=== PATIENT | male | born 1955 | race Caucasian/White ===

== ENCOUNTER 2022-02-27 12:20 | Emergency (ER) | payer MEDICARE, BC, SELFPAY ==
[2022-02-27 12:27] VITALS: BP 134/82; PULSE 72; RESP 18; TEMP 37; O2SAT 98
--- NOTE | 2022-02-27 12:38 | ED.GENADUL_ITS ---
Discharge Plan Disposition Patient Disposition: HOME Condition: Stable Discharge Details Clinical Impression: Abrasion, corneal Primary Care Provider: Audra Singletary ED Provider: Paco Edwards Home Meds and New Rx's Prescriptions: New ciprofloxacin HCl [Ciloxan] 0.3 % drops See Rx Instructions .ROUTE .COMPLEX Qty: 5 0RF Rx Instructions: put 1-2 drps in affected eye(s) every 2hr up to 8 times/day x2days; then 4 times/day x5days Continued allopurinol 300 mg Tablet 300 mg PO DAILY hydrochlorothiazide 25 mg Tablet 25 mg PO DAILY metformin 750 mg Tablet Extended Release 24 Hr 750 mg PO DAILY Discharge Instructions Instructions: Corneal Abrasion (ED) Additional Instructions: Ciloxan as directed. Do not wear your contact in your left eye while you are taking this medication. Avoid rubbing your eye. You may use lupj-mzh-dsgqjru lubricating drops for symptomatic control. Please watch for new or worsening symptoms and return to the ER for any concerns. Lastly, please contact your records management specialist later today or tomorrow to discuss your ER visit need for outpatient reevaluation Medical Decision Making 67-year-old gentleman who reports tetanus status up-to-date, wears corrective lenses, contacts, presents for left eye injury he sustained a couple of hours ago after poking his eye with a piece of metal wire. Visual acuity's were obtained, please see nursing notes. Contact was then removed from the left eye. Abrasion present. Given he is a contact wearer will prescribe Cipro . Patient states that he has an records management specialist to follow-up with in [place]. We recommend that she do not wear your contacts while taking the antibiotic. Standard discharge and return precautions were provided. Patient understands, is agreeable to this plan, and has no additional questions or concerns upon discharge. This documentation was generated using [employer] system, please disregard any oddities of phrase or misspellings. HPI General Mode of arrival: ambulatory . Date/Time Provider Initiated Documentation: 02/27/22 12:33 . Limitations to Documentation: no limitations . Information obtained by: patient . History of Present Illness 67 year old M presents to the emergency department with the chief complaint of L eye injury, described as mild, with intensity rated at 2. Quality is described as aching, and is localized to the eyes and left. Patient reports no radiation. Patient started experiencing this hour(s) (2) and it has been constant. No relieving factors improve symptom(s), No exacerbating factors reported . Patient notes no other symptoms.. Patient did receive the following treatme nts prior to arrival, none Related Data Home Medications Medication Instructions Recorded Confirmed allopurinol 300 mg tablet 300 mg PO DAILY 02/27/22 02/27/22 ciprofloxacin HCl 0.3 % eye drops See Rx Instructions ophthalmic 02/27/22 (Ciloxan) (eye) .COMPLEX #5 mL hydrochlorothiazide 25 mg tablet 25 mg PO DAILY 02/27/22 02/27/22 metformin 750 mg tablet,extended 750 mg PO DAILY 02/27/22 02/27/22 release 24 hr Previous Rx's Medication Instructions Recorded ciprofloxacin HCl 0.3 % eye drops See Rx Instructions ophthalmic 02/27/22 (Ciloxan) (eye) .COMPLEX #5 mL Allergies Allergy/AdvReac Type Severity Reaction Status Date / Time acetaminophen [From Percocet] AdvReac Other (See Unverified 02/27/22 12:31 Comment) oxycodone [From Percocet] AdvReac Other (See Unverified 02/27/22 12:31 Comment) General Stated Complaint: EyeProblem LUCA: 4 Review of Systems Constitutional Constitutional: Denies fever(s) and Denies weakness Eyes Eyes: Denies blurry vision, Denies change in vision, Denies floaters, Reports irritation and Reports requires corrective lenses Musculoskeletal Musculoskeletal: Denies numbness and Denies tingling Neurologic Neurologic: Denies numbness, Denies tingling and Denies weakness PFSH All Active Problems Abrasion, corneal (Acute) Social History Smoking/Tobacco Use Status: Never Smoking risk assessment performed?: Yes Alcohol Intake: current Alcohol Intake frequency: holidays/special occasions only Drug use: Never Substance use type: does not use Exam Const General: cooperative, healthy appearing, comfortable and no acute distress Orientation: alert and awake [facility] Head: normal to inspection, normocephalic and atraumatic Face and sinus: normal facial exam Mouth: moist mucous membranes Eyes Alignment and Position: alignment normal Periorbital: periorbital findings normal Eyelids: eyelids normal Conjunctivae: conjunctival abnormality left conjunctival injection (L lateral) Sclera: sclerae normal Cornea: corneas abnormal on the left fluorescein used and abrasion and fluorescein used Pupils: PERRL EOM: EOM intact bilaterally Direct ophthalmoscopy: normal light reflex Eyes/upper lids images: 1. Abrasion Neck Neck: normal visual inspection, full ROM, trachea midline and supple Resp Effort & Inspection: normal respiratory effort and able to speak in complete sentences Skin General skin exam: no rashes or lesions noted Neuro General: patient alert, patient awake, moves all extremities and no focal motor deficits Sensory Exam: no sensory deficits noted Psych Appearance: grossly normal Mental Status: mental status grossly normal Course Vital Signs Vital signs: Vital Signs Temperature 37 C 02/27/22 12:27 Pulse 72 02/27/22 12:27 Respiratory Rate 18 02/27/22 12:27 Blood Pressure 134/82 02/27/22 12:27 Pulse Oximetry 98 02/27/22 12:27 Temperature 37 C 02/27/22 12:27 Temperature Source Temporal Artery Scan 02/27/22 12:27 Pulse 72 02/27/22 12:27 Respiratory Rate 18 02/27/22 12:27 Respiratory Effort Non-Labored 02/27/22 12:34 Blood Pressure 134/82 02/27/22 12:27 Blood Pressure Position Sitting 02/27/22 12:27 Pulse Oximetry 98 02/27/22 12:27 Oxygen Delivery Method Room Air 02/27/22 12:27 Oxygen Flow Rate 0 02/27/22 12:27
--- OUTSIDE RECORDS SUMMARY | 2022-02-27 12:50 | XMS_ITS | Continuity of Care Document ---
:1955 Author Organization [facility] Address [address] [place] [id number] Care Team Providers Name Role Phone Audra Singletary Primary Care Physician Encounter [facility] Date(s): 02/14/20 - 02/14/20 [facility] [address] [place] [phone] Discharge Disposition: Other Allergies, Adverse Reactions, Alerts No Known Allergies Assessment and Plan Future Appointments Immunizations Given and Recorded Vaccine Date Status Refusal Reason influenza, inactivated 05/16/19 Recorded influenza, inactivated 04/22/18 Given influenza, inactivated 05/11/17 Recorded influenza, inactivated1 05/09/16 Recorded influenza, inactivated 05/01/15 Given influenza, inactivated 07/13/06 Recorded Td 08/03/17 Given ZOS, shingles2 03/26/16 Given Tdap 07/27/06 Recorded 1Location History: Raul Antunez2Result Comment: Correction: Record corrected to change route of administration to subcutaneous. Incorrect order set build caused record to default to intramuscular; EMR provider could not remedy. Medications allopurinol 300 mg oral tablet 300 mg = 1 tab(s), Oral, Daily, # 90 tab(s), 3 Refill(s), [id number], 1 tab(s) Oral Daily Start Date: 06/27/19 Status: Orderedaspirin 81 mg oral tablet 81 mg = 1 tab(s), Oral, Every other day, # 100 tab(s), 0 Refill(s), other reason (Rx) Start Date: 05/01/15 Status: OrderedBD ultra fine mini insulin pen needles BD ultra fine mini insulin pen needles, See Instructions, 5 mm 31 gauge - Use daily with Levemir insulin - 1 ulm=812, # 1 box(es), 1 Refill(s), Pharmacy: [facility], 5 mm 31 gauge - Use daily with Levemir insulin - 1 qaj=928, Supply Start Date: 12/20/19 Status: OrderedhydroCHLOROthiazide 25 mg oral tablet 25 mg = 1 tab(s), Oral, Daily, # 90 tab(s), 3 Refill(s), Pharmacy: [facility] #[id number], 1 tab(s) Oral Daily Start Date: 04/22/19 Status: Orderedindomethacin 50 mg oral capsule 50 mg = 1 cap(s), Oral, TID, PRN PRN for pain, # 30 cap(s), 2 Refill(s), Pharmacy: [facility], 1 cap(s) Oral TID,PRN:for pain Start Date: 02/13/17 Status: OrderedLevemir FlexTouch 100 units/mL subcutaneous solution 20 unit(s), Subcutaneous, BID, # 15 mL, 5 Refill(s), Pharmacy: [facility] #[id number], 20 unit(s) Subcutaneous BID Start Date: 07/11/19 Status: OrderedmetFORMIN 750 mg oral tablet, extended release 750 mg = 1 tab(s), Oral, Daily, # 90 tab(s), 3 Refill(s), Pharmacy: [facility] #[id number], 1 tab(s) Oral Daily Start Date: 04/29/19 Status: OrderedOne Touch Ultra Blue Test Blue One Touch Ultra Blue Test Blue, See Instructions, BD ultra fine mini test strips. Tests twice daily-E11.9, # 100 EA, 1 Refill(s), Pharmacy: [facility] #[id number], BD ultra fine mini test strips. Tests twice daily-E11.9, Supply Start Date: 07/19/18 Status: Ordered Problem List Condition Effective Dates Status Health Status Informant Diabetes(Confirmed) Active Ankle fracture(Confirmed)1 Active Chronic gout(Confirmed) Active Hypertension(Confirmed) Active Hypertriglyceridemia(Confirmed) Active Overweight(Confirmed) Active 1R Procedures Procedure Date Related Diagnosis Body Site Status Intramedullary nailing of femur1 10/14/18 Completed Colonoscopy2 05/04/18 Completed Leg laceration3 Completed ORIF - Open reduction and internal Completed fixation of fracture4 [id number] from documented surgical case3s/p R thigh [id number] ulna Social History Social History Type Response Smoking Status Never Smoker entered on: 08/04/12 Sex
--- OUTSIDE RECORDS SUMMARY | 2022-02-27 12:50 | XMS_ITS | Continuity of Care Document ---
:1955 Author Organization [facility] Address [address] [place] [phone] Care Team Providers Name Role Phone uAdra Singleatry Primary Care Physician Encounter [facility] Date(s): 07/09/21 - 07/09/21 [facility] [address] [place] [phone] [place] Encounter Diagnosis Diabetes (Discharge Diagnosis) - 07/09/21 Hypertension (Discharge Diagnosis) - 07/09/21 Overweight (Discharge Diagnosis) - 07/09/21 Discharge Disposition: Home Attending Physician: Audra Singletary Admitting Physician: Audra Singletary Allergies, Adverse Reactions, Alerts No Known Allergies Assessment and Plan Extracted from: Title: f/u dm/htn Author: Audra Singletary Date: 07/09/21 1.??Diabetes??E11.9 Ordered: Return to Clinic., Reason For Visit f/u dm/htn, RTC in 6 months, 07/09/21 13:51:00 EST ?? 2.??Hypertension??I10 Ordered: Return to Clinic., Reason For Visit f/u dm/htn, RTC in 6 months, 07/09/21 13:51:00 EST ?? 3.??Overweight??E66.3 Ordered: Return to Clinic., Reason For Visit f/u dm/htn, RTC in 6 months, 07/09/21 13:51:00 EST ?? DM- on insulin??25 units bid and metfor min- labs pending from outside lab ?? htn- continue current regiment, stable ?? hld- previously trialed on statin- did not like the way he felt on it...declines lopid- trigs historically above 600, last at 319 . ?gout- on allopurinal, indocin prn, st able ?? optho exam- yearly ?? overweight continue with regular exe rcise Future Appointments Functional Status 07/09/21 Recent Travel History No recent travel Family Member Travel History No recent travel COVID-19 Screening None Immunizations Given and Recorded Vaccine Date Status Refusal Reason influenza, inactivated1 05/25/20 Recorded influenza, inactivated 05/16/19 Recorded influenza, inactivated 04/22/18 Given influenza, inactivated 05/11/17 Recorded influenza, inactivated2 05/09/16 Recorded influenza, inactivated 05/01/15 Given influenza, inactivated 07/13/06 Recorded Td 08/03/17 Given ZOS, shingles3 03/26/16 Given Tdap 07/27/06 Recorded 1Result Comment: Liliana Gusman [id number] History: Raul Antunez3 Result Comment: Correction: Record corrected to change route of administration to subcutaneous. Incorrect order set build caused record to default to intramuscular; EMR provider could not remedy. Medications (B-D MIHIR 2ND GEN PEN NDL [id number]) USE 1 NEEDLE TWICE A DAY WITH LEVEMIR (B-D MIHIR 2ND GEN PEN NDL [id number]) USE 1 NEEDLE TWICE A DAY WITH LEVEMIR, See Instructions, (B-D MIHIR 2ND GEN PEN NDL [id number]) USE 1 NEEDLE TWICE A DAY WITH LEVEMIR Qty: 200 EA Days Supply: 90 Refills: 0, # 100 EA, 2 Refill(s... Start Date: 04/03/21 Status: Orderedallopurinol 300 mg oral tablet 300 mg = 1 tab(s), Oral, Daily, # 90 tab(s), 3 Refill(s), [id number], 1 tab(s) Oral Daily Start Date: 06/25/20 Status: Orderedaspirin 81 mg oral tablet 81 mg = 1 tab(s), Oral, Every other day, # 100 tab(s), 0 Refill(s), other reason (Rx) Start Date: 05/01/15 Status: OrderedB-D MIHIR 2ND GEN PEN NDL [id number] See Instructions, USE 1 NEEDLE TWICE A DAY WITH LEVEMIR, # 200 EA, [id number] Start Date: 08/27/20 Status: OrderedhydroCHLOROthiazide 25 mg oral tablet 25 mg = 1 tab(s), Oral, Daily, # 90 tab(s), 3 Refill(s), [id number], Needsappt, 1 tab(s) Oral Daily Start Date: 10/29/20 Status: OrderedLevemir FlexTouch 100 units/mL subcutaneous solution 25 unit(s), Subcutaneous, BID, # 15 mL, 5 Refill(s), [id number] Start Date: 01/11/21 Status: OrderedmetFORMIN 750 mg oral tablet, extended release 750 mg = 1 tab(s), Oral, Daily, # 90 tab(s), 3 Refill(s), [id number], 1 tab(s) Oral Daily, 172.2, cm, 06/17/19 8:56:00 EST, Height/Length Dosing, 104.8, kg, 06/17/19 8:56:00 EST, Weight Dosing Start Date: 03/21/21 Status: OrderedOne Touch Ultra Blue Test Blue One Touch Ultra Blue Test Blue, See Instructions, BD ultra fine mini test strips. Tests twice daily-E11.9, # 100 EA, 1 Refill(s), [id number], BD ultra fine mini test strips. Tests [...] reduction and internal Completed fixation of fracture4 [id number] from documented surgical case3s/p R thigh [id number] ulna Results Most recent to oldest [Reference Range]: 1 Hemoglobin A1C POC 6.3 % (09/03/20 11:28 AM) Vital Signs Most recent to oldest [Reference Range]: 1 Peripheral Pulse Rate [60-100 bpm] 64 bpm (07/09/21 1:29 PM) Blood Pressure [90-140/60-90 mmHg] 133/83 mmHg (07/09/21 1:29 PM) BP Site Right arm (07/09/21 1:29 PM) Height 172.72 cm (07/09/21 1:29 PM) Height/Length Measured (inches) 68 in (07/09/21 1:29 PM) Height/Length Dosing 172.72 cm (07/09/21 1:29 PM) Weight 99.7 kg (07/09/21 1:29 PM) Weight Measured (lbs) 219.801 lb (07/09/21 1:29 PM) Weight Dosing 99.7 kg (07/09/21 1:29 PM) BSA Measured 2.19 m2 (07/09/21 1:29 PM) Body Mass Index 33.42 kg/m2 (07/09/21 1:29 PM) Social History Social History Type Response Smoking Status Never (less than 100 in life time) entered on: 07/09/21 Sex
--- OUTSIDE RECORDS SUMMARY | 2022-02-27 12:50 | XMS_ITS | Continuity of Care Document ---
:1955 Author Organization [facility] Address [address] [place] [phone] Care Team Providers Name Role Phone Audra Singletary Primary Care Physician Encounter [facility] Date(s): 06/17/19 - 06/17/19 [facility] [address] [place] [id number] Encounter Diagnosis Hypertension (Discharge Diagnosis) - 06/17/19 Diabetes (Discharge Diagnosis) - 06/17/19 Discharge Disposition: Home or Self Care Attending Physician: Audra Singletary Admitting Physician: Audra [...] Given Tdap 07/27/06 Recorded 1Location History: Raul Bhandari Comment: Correction: Record corrected to change route of administration to subcutaneous. Incorrect order set build caused record to default to intramuscular; EMR provider could not remedy. Medications allopurinol 300 mg oral tablet 300 mg = 1 tab(s), Oral, Daily, # 90 tab(s), 0 Refill(s), [id number], 1 tab(s) Oral Daily Start Date: 01/24/19 Status: Orderedaspirin 81 mg oral tablet 81 mg = 1 tab(s), Oral, Every other day, # 100 tab(s), 0 Refill(s), other reason (Rx) Start Date: 05/01/15 Status: OrderedBD ultra fine mini insulin pen needles BD ultra fine mini insulin pen needles, See Instructions, 5 mm 31 gauge - Use daily with Levemir insulin - 1 qyr=117, # 1 box(es), 3 Refill(s), [id number], 5 mm 31 gauge - Usedaily with Levemir insulin - 1 kza=280, Supply Start Date: 06/06/19 Status: OrderedhydroCHLOROthiazide 25 mg oral tablet 25 mg = 1 tab(s), Oral, Daily, # 90 tab(s), 3 Refill(s), [id number], 1 tab(s) Oral Daily Start Date: 04/22/19 Status: Orderedindomethacin 50 mg oral capsule 50 mg = 1 cap(s), Oral, TID, PRN PRN for pain, # 30 cap(s), 2 Refill(s), Pharmacy: [id number], 1 cap(s) Oral TID,PRN:for pain Start Date: 02/13/17 Status: OrderedLevemir FlexTouch 100 units/mL subcutaneous solution 20 unit(s), Subcutaneous, BID, # 15 mL, 1 Refill(s), [id number] Start Date: 04/29/19 Status: OrderedmetFORMIN 750 mg oral tablet, extended release 750 mg = 1 tab(s), Oral, Daily, # 90 tab(s), 3 Refill(s), [id number], 1 tab(s) Oral Daily Start Date: 04/29/19 Status: OrderedOne Touch Ultra Blue Test Blue One Touch Ultra Blue Test Blue, See Instructions, BD ultra fine mini test strips. Tests twice daily-E11.9, # 100 EA, 1 Refill(s), [id number], BD ultra fine mini test strips. Tests [...] reduction and internal Completed fixation of fracture4 [id number] from documented surgical case3s/p R thigh [id number] ulna Vital Signs Most recent to oldest [Reference Range]: 1 2 Temperature Oral [35.8-37.3 DegC] 36.7 DegC (06/17/19 8:56 AM) Peripheral Pulse Rate [60-100 bpm] 70 bpm (06/17/19 8:56 AM) Blood Pressure [90-140/60-90 mmHg] 124/88 mmHg 120/9 8 mmHg (06/17/19 9:13 AM) (06/17/19 8:56 AM) Vital Signs Comments BP true (06/17/19 8:56 AM) SpO2 [92-100 %] 96 % (06/17/19 8:56 AM) Height 172.72 cm (06/17/19 8:56 AM) Height/Length Measured (inches) 68 in (06/17/19 8:56 AM) Height/Length Dosing 172.2 cm (06/17/19 8:56 AM) Weight 104.8 kg (06/17/19 8:56 AM) Weight Measured (lbs) 230.56 lb (06/17/19 8:56 AM) Weight Dosing 104.8 kg (06/17/19 8:56 AM) BSA Measured 2.24 m2 (06/17/19 8:56 AM) Body Mass Index 35.13 kg/m2 (06/17/19 8:56 AM) Social History Social History Type Response Smoking Status Never Smoker entered on: 08/04/12 Sex Hospital Discharge Instructions Patient Smyfkdlcy70/22/2019 09:15:05.[facility]_DM_10_2018 (BIANCA SENIOR) All About Blood Glucose [place] [employer] 1???800???DIABETES ([phone]) www.diabetes.org ??2009 by the [place] [employer] Toolkit No. 15 Keeping your blood glucose (sugar) in your target range can prevent or delay the health problems caused by diabetes. Most of the steps needed to take care of diabetes are things you do yourself. ??? Use a meal plan. ??? Be physically active. ??? Take your medicines. ??? Try to reach your blood glucose targets most of the time. ??? Keep track of your blood glucose numbers using the results from your daily blood glucose testingand your A1C check. What makes my blood glucose levels rise or fall? Blood glucose levels rise and fall throughout the day. One beal to taking care of your diabetes is understanding why it rises and falls. If you know the reasons, you can take steps to help keep your blood glucose on target. What can make blood glucose rise? a meal or snack with more food or more carbohydrates (carbs) than usual ??? physical inactivity ??? not enough diabetes medicine ??? side effects of other medicines ??? infection or other illness ??? changes in hormone levels, such as during menstrual periods ??? stress What can make blood glucose fall? missing a meal or snack, or having a meal or snack with less food or fewer carbs than planned ??? alcoholic drinks, especially on an empty stomach ??? more activity than planned ??? too much diabetes medicine ??? side effects of other medicines What are the blood glucose targets for people with diabetes? Targets set by the [place] [employer] (ADA) are listed below. Talk with your health care team about your personal goals. What???s the best way to keep track of my blood glucose levels? Checking your blood glucose will tell you whether you???re reaching your blood glucose targets. There are 2 ways to do it. ??? Use a blood glucose meter to learn what your blood glucose is at the moment. ??? Get an A1C check at least twice a year. Using a blood glucose meter Many people use their meter to check their blood glucose several times a day. Talk with your health care team about when and how often to check your blood glucose. They can give you a record book whereyou can write down your blood glucose numbers. You can learn how to use your numbers to make choicesabout food, physical activity, and medicines. Your results tell you how well your diabetes care plan is working. You???ll be able to look at your record book and see patterns???look for similar results over and over. Looking at these patterns can help you and your health care team fine-tune your diabetes care plan in order to reach your targets. Getting an A1C check The A1C tells you your average blood glucose level over the past 2 to 3 months. Your results will bereported in two ways: ??? A1C as a percentage ??? estimated Average Glucose (eAG), in the same kind of numbers as your day-to-day blood glucose readings Ask your health care team for this test at least twice a year. If your average blood glucose is too high, you may need a change in your diabetes care plan. What does my A1C number mean? Find your A1C number on the left. Then, look at the number on the right under eAG to see your estimated Average Glucose for the past 2 to 3 months. What if my blood glucose is often too high? See your health care provider soon if your blood glucose numbers are often higher than your goals. Talk with your health care team about changes in your meal plan, your physical activity, or your diabetes medicines. What if my blood glucose is too low? Low blood glucose, also called hypoglycemia, occurs when your blood glucose level drops below 70 mg/dl. Low blood glucose can make you feel hungry, shaky, nervous, sweaty, light-headed, sleepy, anxious, or confused. If you think your blood glucose is too low, use your meter to check it. If the result is below 70 mg/dl, follow these guidelines to bring it back up to a safer range. Have one of the carb choices in this list (which each have about 15 grams carbohydrate) right away to raise your blood glucose: ??? 3 or 4 glucose tablets ? cup (4 ounces) of fruit juice ? cup (4 ounces) of a regular (not diet) soft drink ??? 8 ounces of milk ??? 5 to 7 pieces of hard candy ??? 1 tablespoon of sugar or honey After 15 minutes, check your blood glucose again. If it???s still below 70 mg/dl, eat another carb choice. Repeat these steps until your blood glucose is at least 70 mg/dl. What should I do about frequent low blood glucose? If your blood glucose is often low, you may need a change in your meal plan, physical activity, or diabetes medicines. Keep track of when you???ve had low blood glucose events. Note possible causes, such as unplanned physical activity. Then talk it over with your health care team. Eye Exams for People with Diabetes HOW DO I KNOW IF I HAVE EYE PROBLEMS? The best way to see if you have eye problems is to have an eye doctor check your eyes. You can have eye damage even if your vision is fine. It has nothing to do with needing glasses. Regular checkups with an eye doctor can detect eye disease early and prevent blindness. There are different types of eye care providers: ??? An diesel engineer makes glasses and lenses. An diesel engineer also makes and fits contact lenses. ??? An outside installation machinist is not a medical doctor, but can find and treat certain eye conditions and diseases. An outside installation machinist also prescribes glasses and contact lenses. ??? An bottle booth attendant is a medical doctor who finds and treats all eye diseases.Ophthalmologists can also prescribe glasses and contact lenses. An bottle booth attendant can treat severe eye problems. ??? A retinal specialist is an bottle booth attendant who only treats problems with the retina. People with diabetes need to have a full eye exam every year by an bottle booth attendant or outside installation machinist who knows about eye problems in people with diabetes. WHAT KIND OF EYE EXAM DO I NEED? The eye doctor will put drops in your eyes to see the retina. This is called a dilated eye exam. Theeye drops will make the pupils or black part of your eyes bigger. Then your doctor can see the back of your eye and find any eye problems early. WHEN DO I NEED AN EYE EXAM? Adults with Type 1 Diabetes You need to have a dilated eye exam within five years of being diagnosed and every year after that. Adults with Type 2 Diabetes You need to have a dilated exam soon after you have found out you have diabetes. About 1 in 5 peoplewith type 2 diabetes have some eye problems when they are diagnosed with diabetes. That???s why it???s important to have an eye exam soon after you find out you have diabetes. After the first eye exam, all adults with diabetes should have a dilated eye exam every year, although your doctor may suggest every 2 or 3 years after a normal exam. Exams may be needed more often than once a year if you have eye problems. Diabetes and If you are planning to get , have a complete eye exam. Talk with your eye doctor about what can happen to your eyes during . women with diabetes need an eye exam in the first 3 months. They also need to be checked again for one year after the baby is born. This picture shows what the doctor sees when shining a light through the pupil at the front of the eye. You will notice that with a dilated pupil, the doctor can see more of the retina at the back of the eye. Peripheral Neuropathy SYMPTOMS This is the most common form of nerve damage. It can affect your hands, arms, feet, and legs. Look at the list below. Place a check ramses next to any symptom you have and bring this list to your next office visit. Tingling ? ? My feet tingle. ? ? I feel ???pins and needles?? in my feet. Pain or increased sensitivity ? ? I have burning, stabbing or shooting pains in my feet. ? ? My feet are very sensitive to touch. For example, sometimes it hurts to have the bed covers touch my feet. ? ? Sometimes I feel like I have socks or gloves on when I don???t. ? ? My feet hurt at night. ? ? My feet and hands get very cold or very hot. Numbness or weakness ? ? My feet are numb and feel . ? ? I don???t feel pain in my feet, even when I have blisters or injuries. ? ? I can???t feel my feet when I???m walking. ? ? The muscles in my feet and legs are weak. ? ? I???m unsteady when I stand or walk. ? ? I have trouble feeling heat or cold in my feet or hands. Other ? ? It seems like the muscles and bones in my feet have changed shape. ? ? I have open sores (or ulcers) on my feet and legs. These sores heal very slowly. DIAGNOSIS Foot exams. Your health care provider should look at your feet at each office visit to check for injuries, sores, blisters, or other problems. As a reminder, take off your shoes and socks when you???rein the exam room. Have a complete foot exam once a year. If you already have foot problems, have your feet checked more often. A complete foot exam includes a check of the skin on your feet, your foot muscles and bones,and your blood flow. Your provider will also check for numbness in your feet by touching your foot with a monofilament. It looks like a stiff piece of nylon fishing line or a bristle in a hairbrush. Other ways to check your nerves include using a tuning fork. It may be touched to your foot to see if you can feel it moving. Nerve conduction studies and electromyography (EMG). If the doctor thinks you might have nerve damage, you may have tests that look at how well the nerves in your arms and legs are working. Nerve conduction studies check the speed with which nerves send messages. An EMG checks how your nerves and muscles work together. TREATMENT To treat nerve damage, you will need to keep your blood glucose levels in your target range, manage your pain, and protect your feet. Many people get depressed when they have nerve damage and may need medication for depression as well as counseling. Medications Medications to relieve pain and reduce burning, numbness, and tingling are available. Some of these are known for their use in other conditions but they still seem to help those with nerve damage. In addition to [id number]-[id number] pain relievers there are other medications your doctor may prescribe for painful peripheral neuropathy. Other treatments for pain There are a number of other ways to help with the pain. ??? Capsaicin (cap-SAY-sin) cream made from hot peppers can be rubbed on the skin ??? A TENS unit blocks pain signals ??? Relaxation training, hypnosis, or biofeedback ??? Acupuncture Diabetes and Kidney Disease If you have diabetes, you???re at risk for kidney disease, also called diabetic nephropathy. In fact, diabetes is the leading cause of kidney failure. But there are things you can do to prevent, delay,or treat kidney disease, including keeping blood glucose (sugar) and blood pressure on target. WHAT DO MY KIDNEYS DO? Your kidneys clean your blood by constantly filtering it through millions of tiny blood vessels. Thefilters in the kidneys perform two important functions: ??? They remove unwanted substances from your blood, such as extra fluid and the waste products madeby normal processes within the body. To prevent unwanted materials from building up in the blood andmaking you sick, your kidneys remove them and send them to your bladder. The waste products and extra fluid then leave the body in the urine. ??? The filters keep needed materials in the blood, such as protein and minerals. The cleanedup blood is returned to your bloodstream. Your kidneys perform other functions as well, such as helping to regulate blood pressure, stimulating your bone marrow to produce red blood cells, and helping your bones and your blood absorb calcium. HOW CAN DIABETES HURT MY KIDNEYS? Frequent high blood glucose levels over years can lead to changes in how the kidneys function. High blood glucose causes extra blood to flow through the filters, making the kidneys work harder than usual. Many people with diabetes have high blood pressure. High blood pressure in the kidney???s tiny blood vessels also puts added strain on the kidneys. High blood glucose and blood pressure levels can lead to scarring inside the filters so they don???t work as they should. WHAT HAPPENS ONCE THE DAMAGE IS DONE? Even though the filters aren???t working properly, symptoms may not occur until most of the kidney???s working capacity is lost. Before symptoms occur, substances such as protein leak through the wallsof the filters instead of being retained. Protein then leaves the body in the urine. HOW WILL I KNOW IF I HAVE KIDNEY PROBLEMS? Because kidney damage can occur for years without symptoms, the best way to learn whether you have kidney problems is to have a sample of your urine checked once a year. This test, called a microalbumin (AA-nyx-gq-BYOO-min) test, can show whether your kidneys are leaking protein (also called albumin). It???s best to have this test when you???re first diagnosed with type 2 diabetes and then once every year. Many people have protein in their urine when they???re first diagnosed with type 2 diabetes or soon afterward because they may have had diabetes for years before it was detected. If diabetes is present, even if it hasn???t been diagnosed, damage from high blood glucose levels can occur. If you have type 1 diabetes, you???re unlikely to have kidney damage at diagnosis. But you???ll need this test 5 years after diagnosis and every year after that. For more information visit diabetes.org or call 5-030-FPKLYETD 06/17/2019 09:15:05.[facility]_HTN__2019 (BIANCA SENIOR)Patient education: High blood pressure, diet, and weight (Beyond the Basics) HIGH BLOOD PRESSURE OVERVIEW Hypertension (high blood pressure) is a common condition that can lead to serious complications if untreated. These complications can include stroke, heart failure, heart attack, and kidney damage. Worldwide, hypertension contributes to cardiovascular more than any other risk factor. Making dietary changes (reducing sodium intake and increasing potassium intake) and losing weight are effective treatments for reducing blood pressure [12]. Other lifestyle changes that can help include stopping smoking, reducing stress, reducing alcohol consumption, and exercising regularly. All forms of physical activity are beneficial and should include least 150 minutes per week of moderate activity or 75 minutes per week of strenuous activity. All of these lifestyle changes are effective when used alone but often have the greatest benefit when used together. Many patients with hypertension will also require medications to lower their blood pressure to safe levels. An overview of hypertension and a discussion of treatments can be found elsewhere (see Patient education: High blood pressure in adults (Beyond the Basics) and Patient education: High blood pressuretreatment in adults (Beyond the Basics)). More detailed information is available by subscription. (See Salt intake, salt restriction, and primary (essential) hypertension and Diet in the treatment and prevention of hypertension.) DIETARY CHANGES AND BLOOD PRESSURE Making changes to what you eat can help to control high blood pressure. Reduce sodium (salt) - Reducing the amount of sodium you consume can lower blood pressure if you have high or borderline-high blood pressure. The main source of sodium in the diet is the salt contained in packaged and processed foods and in foods from restaurants. The body requires a small amount of sodium in the diet, and most people consume more sodium than they need (over 3 grams per day). A low-sodium diet contains fewer than 2.4 grams (2400 milligrams) of sodium per day. Although the ideal target for daily sodium intake remainscontroversial, the optimal goal is less than 1500 mg per day. For most adults with hypertension, however, a 1000 mg per day reduction in serum sodium intake (compared with current intake) can help reduce your blood pressure. A detailed discussion of low-sodium diets is available separately. (See Patient education: Low-sodium diet (Beyond the Basics).) Reduce alcohol - Drinking an??excessive amourit of alcohol increases your risk of developing high blood pressure. A drink is defined as 5 oz of wine, 12 oz of beer, or 1 oz of hard liquor. People whoconsume more than two drinks per day have an increased risk of high blood pressure compared with nondrinkers, and binge drinking (consuming four to five drinks within two hours) is an even greater problem for overall health and hypertension. On the other hand, drinking one (for women) or two (for men) drinks per day appears to benefit the heart in people greater than 40 years old. This protective effect also applies to people with preexisting high blood pressure. Eat more fruits and vegetables - Adding more fruits and vegetables to your diet may reduce high blood pressure or protect against developing high blood pressure. A strict vegetarian diet may not be necessary. Eat more fiber - Eating an increased amount of fiber may decrease blood pressure. The recommended amount of dietary fiber is 20 to 35 grams of fiber per day. Many breakfast cereals are excellent sources of dietary fiber. More information about increasing fiber is available separately. (See Patient edu cation: High-fiber diet (Beyond the Basics).) Eat more fish - Eating more fish may help to lower blood pressure, especially,when combined with weight loss. Caffeine - Caffeine may cause a small rise in blood pressure, although this effect is usually temporary. Drinking a moderate amount of caffeine (less than 2 cups of coffee per day) does not increase the risk of high blood pressure in most people. Dietary Approaches to Stop Hypertension (DASH) eating plan -The DASH eating plan combines many of the interventions noted above. It is high in fruits and vegetables, low-fat dairy, and fiber. Patients who strictly follow the DASH eating plan can also have fairly significant reductions in blood pressure, particularly when combined with a low- sodium diet. EXERCISE Regular exercise such as walking or running (75 minutes per week of strenuous activity or 150 minutes per week of moderate activity) can lower your blood- pressure, even if you don't lose weight. To maintain this benefit, you must continue to exercise; stopping exercise will allow your blood pressure to become high again. (See Patient education: Exercise /Beyond the Basics).) WEIGHT LOSS AND BLOOD PRESSURE Being overweight or obese increases your risk of having high blood pressure, diabetes, and cardiovascular disease. The definition of overweight and obese are based upon a calculation called body mass index (BMI). A person is considered overweight if their BMI is greate than 25, while a person with a BMI of 30 or greater is classified as obese. People who are overweight or obese can see significant reductions in blood pressure with even modest weight loss. To lose weight, you must eat fewer calories and exercise more . (See Patient education: Losing weight (Beyond the Basics).) AVOID TAKING MEDICATIONS AND SUPPLE'MENTS THAT INCREASE BLOOD PRESSURE In susceptible individuals, nonsteroidal antiinflammatory drugs, otherwise known as NSAIDs (ibuprofen, naproxen, etc), can increase blood pressure. Oral contraceptive pills may?? increase blood pressure in some women. Additionally, any stimulant, including those found in some decongestants, weight loss products, and illicit drugs, can increa e blood pressure. If you are regularly consuming any of these substances, you should talk to your health care provider. WHAT IF I STILL HAVE HIGH BLOOD PRESSURE? If you continue to have high blood pressure despite making lifestyle modifications including changesin your diet, exercising more, and losing weight, you may need a medication to reduce your blood pressure. Medications for high blood pressure are discussed separately. (See Patient education: High blood pressure treatment in adults (Beyond the Basics).) WHERE TO GET MORE INFORMATION Your health care provider is the best source of information for questions and concerns related to your medical problem.
--- OUTSIDE RECORDS SUMMARY | 2022-02-27 12:50 | XMS_ITS | Continuity of Care Document ---
:1955 Author Organization [facility] Address [address] [place] [phone] Care Team Providers Name Role Phone Audra Singletary Primary Care Physician Encounter [facility] Date(s): 08/09/20 - 08/09/20 [facility] [address] [place] [phone] Encounter Diagnosis Diabetes (Discharge Diagnosis) - 08/09/20 Hypertension (Discharge Diagnosis) - 08/09/20 Hypertriglyceridemia (Discharge Diagnosis) - 08/09/20 Discharge Disposition: Home Attending Physician: Audra Singletary Admitting Physician: Audra Singletary Allergies, Adverse Reactions, Alerts No Known Allergies Assessment and Plan Future Appointments Functional Status 08/09/20 Recent Travel History No recent travel Family [...] Tdap 07/27/06 Recorded 1Result Comment: Liliana Gusman [id number] History: Raul Antunez3 Result Comment: Correction: Record corrected to change route of administration to subcutaneous. Incorrect order set build caused record to default to intramuscular; EMR provider could not remedy. Medications allopurinol 300 mg oral tablet 300 mg = 1 tab(s), Oral, Daily, # 90 tab(s), 3 Refill(s), [facility][id number], 1 tab(s) Oral Daily Start Date: 06/25/20 Status: Orderedaspirin 81 mg oral tablet 81 mg = 1 tab(s), Oral, Every other day, # 100 tab(s), 0 Refill(s), other reason (Rx) Start Date: 05/01/15 Status: OrderedBD ultra fine mini insulin pen needles BD ultra fine mini insulin pen needles, See Instructions, 5 mm 31 gauge - Use daily with Levemir insulin - 1 yia=096, # 1 box(es), 1 Refill(s), Pharmacy: [address], 5 mm 31 gauge - Use daily with Levemir insulin - 1 haj=103, Supply Start Date: 12/20/19 Status: OrderedhydroCHLOROthiazide 25 mg oral tablet 25 mg = 1 tab(s), Oral, Daily, # 90 tab(s), 0 Refill(s), [id number], Needsappt, 1 tab(s) Oral Daily Start Date: 07/31/20 Status: Orderedindomethacin 50 mg oral capsule 50 mg = 1 cap(s), Oral, TID, PRN PRN for pain, # 30 cap(s), 2 Refill(s), Pharmacy: [facility] [address], 1 cap(s) Oral TID,PRN:for pain Start Date: 02/13/17 Status: OrderedLevemir FlexTouch 100 units/mL subcutaneous solution 20 unit(s), Subcutaneous, BID, # 15 mL, 5 Refill(s), [facility][id number], 20 unit(s) Subcutaneous BID Start Date: 06/11/20 Status: OrderedmetFORMIN 750 mg oral tablet, extended release 750 mg = 1 tab(s), Oral, Daily, # 30 tab(s), 3 Refill(s), [facility][id number], 1 tab(s) Oral Daily Start Date: 07/13/20 Status: OrderedOne Touch Ultra Blue Test Blue One Touch Ultra Blue Test Blue, See Instructions, BD ultra fine mini test strips. Tests twice daily-E11.9, # 100 EA, 1 Refill(s), [facility][id number], BD ultra fine mini test strips. Tests [...] reduction and internal Completed fixation of fracture4 [id number] from documented surgical case3s/p R thigh ilzjwbsikr5W ulna Vital Signs Most recent to oldest [Reference Range]: 1 2 Peripheral Pulse Rate [60-100 bpm] 82 bpm (08/09/20 2:45 PM) Blood Pressure [90-140/60-90 mmHg] 137/80 mmHg 147/8 3 mmHg (08/09/20 3:04 PM) *HI* (08/09/20 2:45 PM) BP Site Right arm (08/09/20 2:45 PM) Height 172.72 cm (08/09/20 2:45 PM) Height/Length Measured (inches) 68 in (08/09/20 2:45 PM) Weight 100.8 kg (08/09/20 2:45 PM) Weight Measured (lbs) 221.76 lb (08/09/20 2:45 PM) BSA Measured 2.2 m2 (08/09/20 2:45 PM) Body Mass Index 33.79 kg/m2 (08/09/20 2:45 PM) Social History Social History Type Response Smoking Status Never (less than 100 in life time) entered on: 08/09/20 Sex
--- OUTSIDE RECORDS SUMMARY | 2022-02-27 12:50 | XMS_ITS | Continuity of Care Document ---
:[address] [facility] Address Unavailable , Care Team Providers Name Role Phone Audra Singletary Primary Care Physician Encounter [facility] Date(s): 06/17/19 - 06/17/19 [facility] [address] [place] [address]- Encounter Diagnosis Diabetes (Discharge Diagnosis) - 06/17/19 Hypertension (Discharge Diagnosis) - 06/17/19 Discharge Disposition: Home [...] Daily, # 90 tab(s), 0 Refill(s), [facility][id number], 1 tab(s) Oral Daily Start Date: 01/24/19 Status: Orderedaspirin 81 mg oral tablet 81 mg = 1 tab(s), Oral, Every other day, # 100 tab(s), 0 Refill(s), other reason (Rx) Start Date: 05/01/15 Status: OrderedBD ultra fine mini insulin pen needles BD ultra fine mini insulin pen needles, See Instructions, 5 mm 31 gauge - Use daily with Levemir insulin - 1 pvs=909, # 1 box(es), 3 Refill(s), [id number], 5 mm 31 gauge - Usedaily with Levemir insulin - 1 xzt=240, Supply Start Date: 06/06/19 Status: OrderedhydroCHLOROthiazide 25 mg oral tablet 25 mg = 1 tab(s), Oral, Daily, # 90 tab(s), 3 Refill(s), Pharmacy: [facility] #[id number], 1 tab(s) Oral Daily Start Date: 04/22/19 Status: Orderedindomethacin 50 mg oral capsule 50 mg = 1 cap(s), Oral, TID, PRN PRN for pain, # 30 cap(s), 2 Refill(s), Pharmacy: [address], 1 cap(s) Oral TID,PRN:for pain Start Date: 02/13/17 Status: OrderedLevemir FlexTouch 100 units/mL subcutaneous solution 20 unit(s), Subcutaneous, BID, # 15 mL, 1 Refill(s), [id number] Start Date: 04/29/19 Status: OrderedmetFORMIN 750 mg oral tablet, extended release 750 mg = 1 tab(s), Oral, Daily, # 90 tab(s), 3 Refill(s), [id number], 1 tab(s) Oral Daily Start Date: 04/29/19 Status: OrderedOne Touch Ultra Blue Test Blue One Touch Ultra Blue Test Blue, See Instructions, BD ultra fine mini test strips. Tests twice daily-E11.9, # 100 EA, 1 Refill(s), [id number], BD ultra fine mini test strips. Tests [...] reduction and internal Completed fixation of fracture4 [id number] from documented surgical case3s/p R thigh csmowxjpmz1B ulna Results Laboratory List Name Date Basic Metabolic Panel DH (BMP DH) 06/17/19 HA1C DH (Hemoglobin A1C DH) 06/17/19 Most recent to oldest [Reference Range]: 1 Anion Gap DH [5-15 mmol/L] 12 mmol/L 1 *NA* (06/17/19 9:27 AM) Chloride Lvl DH [98-107 mmol/L] 102 mmol/L 2 *NA* (06/17/19 9:27 AM) CO2 DH [22-31 mmol/L] 26 mmol/L 3 *NA* (06/17/19 9:27 AM) Est GFR DH [>=60] 70 4 *NA* (06/17/19 9:27 AM) Glucose Lvl DH [65-199 mg/dL] 183 mg/dL 5 *NA* (06/17/19 9:27 AM) Potassium Lvl DH [3.5-5.0 mmol/L] 4.2 mmol/L 6 *NA* (06/17/19 9:27 AM) Sodium Lvl DH [135-145 mmol/L] 140 mmol/L 7 *NA* (06/17/19 9:27 AM) BUN DH [10-20 mg/dL] 22 mg/dL 8 *HI* (06/17/19 9:27 AM) Calcium Lvl DH [8.5-10.5 mg/dL] 9.7 mg/dL 9 *NA* (06/17/19 9:27 AM) Creatinine [0.80-1.50 mg/dL] 1.11 mg/dL 10 *NA* (06/17/19 9:27 AM) GFR - DH [>=60] 81 11 *NA* (06/17/19 9:27 AM) Hgb A1c DH [4.3-5.6 %] 6.2 % 12 *HI* (06/17/19 9:27 AM) eAG DH 132 mg/dL 13 *NA* (06/17/19 9:27 AM) 1Result Comment: Test performed at: [facility], Dept. of Pathology [place], [place] [address]Ooerqo Comment: Test performed at: [facility], Dept. of Pathology [place], [place] [address]Mlkcww Comment: Test performed at: [facility], Dept. of Pathology [place], [place] [address]Siwgqb Comment: The eGFR was calculated using the CKD-EPI equation. As with all creatinine based estimates of kidney function, eGFR values calculated with the CKD-EPI equation are not accurate in patients with acute kidney failure, extremes of body mass or the acutely ill. http://E-Duction/DHnkf Test performed at: [facility], Dept. of [place], [place] [address]Ckrdsb Comment: Diabetes: >=200 mg/dL plus symptoms Test performed at: [facility], Dept. of Pathology [place], [place] [address]Bbclcr Comment: Please note: Patients with WBC >100,000 may have falsely elevated Potassium levels. For accurate Potassium quantification in these patients send serum separator tube (gold top) for subsequent determinations. Contact the Clinical Chemistry Laboratory if there are any questions. Test performed at: [facility], Dept. of Pathology [place], [place] [address]Jkihhp Comment: Test performed at: [facility], Dept. of Pathology [place], [place] [address]Mssdda Comment: Test performed at: [facility], Dept. of Pathology [place], [place] [address]Grojcs Comment: Test performed at: [facility], Dept. of Pathology [place], [place] [id number] Comment: Test performed at: [facility], Dept. of Pathology [place], [place] [id number] Comment: The eGFR was calculated using the CKD-EPI equation. As with all creatinine based estimates of kidney function, eGFR values calculated with the CKD-EPI equation are not accurate in patients with acute kidney failure, extremes of body mass or the acutely ill. http://E-Duction/DHMCnkf Test performed at: [facility], Dept. of Pathology [place], [place] [address]Fmyjwu Comment: Reference Range: 4.3 - 5.6% 5.7 - 6.4% - Increased Risk of Developing Diabetes Mellitus >= 6.5% - Consistent with diagnosis of Diabetes Mellitus In the absence of hyperglycemia (i.e. plasma glucose > 200 mg/dL) or classic symptoms of hyperglycemia a repeat measurement of HbA1c should be performed on a separate sample to confirm the diagnosis. Diagnosis and Classification of Diabetes Mellitus, Diabetes Care 2013; 36: Suppl. 1, S67-74 Test performed at: [facility], Dept. of Pathology [place], [place] [id number] Comment: eAG equivalents for HbA1c percentages: HbA1c(%) eAG(mg/dL) 6.0 126 6.5 140 7.0 154 7.5 169 8.0 183 8.5 197 9.0 212 9.5 226 10.0 240 Limitations: The eAG calculation has not been validated on women, individuals below 18 years old and above 70 years old, and individuals with hemoglobinopathies. Additional resources are available on the ADA website. Jose RODRIGUEZ, Pauline J, Veronica R, et al. Translating the A1C assay into estimated average glucose values. Diabetes Care 2008:31(8):1379-5629. Test performed at: [facility], [place] [address] Social History Social History Type Response Smoking Status Never Smoker entered on: 08/04/12 Sex
--- OUTSIDE RECORDS SUMMARY | 2022-02-27 12:50 | XMS_ITS | Continuity of Care Document ---
:1955 Author Organization [facility] Address [address] [place] [phone] Care Team Providers Name Role Phone Audra Singletary Primary Care Physician Encounter [facility] Date(s): 07/15/21 - 07/15/21 [facility] [address] [place] [phone] Discharge Disposition: Other Allergies, Adverse Reactions, Alerts [...] Tdap 07/27/06 Recorded 1Result Comment: Liliana Gusman [id number] History: Raul Antunez3 Result Comment: Correction: Record corrected to change route of administration to subcutaneous. Incorrect order set build caused record to default to intramuscular; EMR provider could not remedy. Medications (B-D MIHIR 2ND GEN PEN NDL [id number]) USE 1 NEEDLE TWICE A DAY WITH LEVEMIR (B-D MIHIR 2ND GEN PEN NDL [id number]) USE 1 NEEDLE TWICE A DAY WITH LEVEMIR, See Instructions, (B-D MIHIR 2ND GEN PEN NDL [id number]) USE 1 NEEDLE TWICE A DAY WITH LEVEMIR Qty: 200 EA Days Supply: 90 Refills: 0, # 100 EA, 2 Refill(s... Start Date: 04/03/21 Status: Orderedallopurinol 300 mg oral tablet 300 mg = 1 tab(s), Oral, Daily, # 90 tab(s), 3 Refill(s), [facility][id number], 1 tab(s) Oral Daily Start Date: 06/25/20 Status: Orderedaspirin 81 mg oral tablet 81 mg = 1 tab(s), Oral, Every other day, # 100 tab(s), 0 Refill(s), other reason (Rx) Start Date: 05/01/15 Status: OrderedB-D MIHIR 2ND GEN PEN NDL [id number] See Instructions, USE 1 NEEDLE TWICE A DAY WITH LEVEMIR, # 200 EA, Refill(s) 1, [id number] Start Date: 08/27/20 Status: OrderedhydroCHLOROthiazide 25 mg oral tablet 25 mg = 1 tab(s), Oral, Daily, # 90 tab(s), 3 Refill(s), [facility] #[id number], Needsappt, 1 tab(s) Oral Daily Start Date: 10/29/20 Status: OrderedLevemir FlexTouch 100 units/mL subcutaneous solution 25 unit(s), Subcutaneous, BID, # 15 mL, 5 Refill(s), [facility] #[id number] Start Date: 01/11/21 Status: OrderedmetFORMIN 750 mg oral tablet, extended release 750 mg = 1 tab(s), Oral, Daily, # 90 tab(s), 3 Refill(s), [facility] #[id number], 1 tab(s) Oral Daily, 172.2, cm, 06/17/19 8:56:00 EST, Height/Length Dosing, 104.8, kg, 06/17/19 8:56:00 EST, Weight Dosing Start Date: 03/21/21 Status: OrderedOne Touch Ultra Blue Test Blue One Touch Ultra Blue Test Blue, See Instructions, BD ultra fine mini test strips. Tests twice daily-E11.9, # 100 EA, 1 Refill(s), [facility] #[id number], BD ultra fine mini test strips. Tests [...] reduction and internal Completed fixation of fracture4 [id number] from documented surgical case3s/p R thigh [id number] ulna Social History Social History Type Response Smoking Status Never (less than 100 in life time) entered on: 07/09/21 Sex
--- OUTSIDE RECORDS SUMMARY | 2022-02-27 12:50 | XMS_ITS | Continuity of Care Document ---
:1955 Author Organization [facility] Address [address] [place] [phone] Care Team Providers Name Role Phone Audra Singletary Primary Care Physician Encounter [facility] Date(s): 07/11/20 - 07/11/20 [facility] [address] [place] [phone] Discharge Disposition: Other Allergies, Adverse Reactions, Alerts [...] Daily, # 90 tab(s), 3 Refill(s), [facility][id number], 1 tab(s) Oral Daily Start Date: 06/25/20 Status: Orderedaspirin 81 mg oral tablet 81 mg = 1 tab(s), Oral, Every other day, # 100 tab(s), 0 Refill(s), other reason (Rx) Start Date: 05/01/15 Status: OrderedBD ultra fine mini insulin pen needles BD ultra fine mini insulin pen needles, See Instructions, 5 mm 31 gauge - Use daily with Levemir insulin - 1 oyw=293, # 1 box(es), 1 Refill(s), Pharmacy: [facility], 5 mm 31 gauge - Use daily with Levemir insulin - 1 hos=655, Supply Start Date: 12/20/19 Status: OrderedhydroCHLOROthiazide 25 mg oral tablet 25 mg = 1 tab(s), Oral, Daily, # 90 tab(s), 0 Refill(s), [facility]: [facility] #[id number], 1 tab(s) Oral Daily Start Date: 05/01/20 Status: Orderedindomethacin 50 mg oral capsule 50 mg = 1 cap(s), Oral, TID, PRN PRN for pain, # 30 cap(s), 2 Refill(s), Pharmacy: [facility], 1 cap(s) Oral TID,PRN:for pain Start Date: 02/13/17 Status: OrderedLevemir FlexTouch 100 units/mL subcutaneous solution 20 unit(s), Subcutaneous, BID, # 15 mL, 5 Refill(s), Pharmacy: [facility] #[id number], 20 unit(s) Subcutaneous BID Start Date: 06/11/20 Status: OrderedmetFORMIN 500 mg oral tablet 500 mg = 1 tab(s), Oral, BID, # 180 tab(s), 3 Refill(s), Pharmacy: [facility] #[id number], 1 tab(s) Oral BID Start Date: 02/15/20 Status: OrderedOne Touch Ultra Blue Test Blue One Touch Ultra Blue Test Blue, See Instructions, BD ultra fine mini test strips. Tests twice daily-E11.9, # 100 EA, 1 Refill(s), Pharmacy: [facility] #[id number], BD ultra fine mini test strips. Tests [...] reduction and internal Completed fixation of fracture4 [id number] from documented surgical case3s/p R thigh zhcqdtoeoo4D ulna Social History Social History Type Response Smoking Status Never Smoker entered on: 08/04/12 Sex
--- OUTSIDE RECORDS SUMMARY | 2022-02-27 12:50 | XMS_ITS | Continuity of Care Document ---
:1955 Author Organization [facility] Address [address] [place] [phone] Care Team Providers Name Role Phone Audra Singletary Primary Care Physician Encounter [facility] Date(s): 01/03/22 - 01/03/22 [facility] [address] [place] [phone] Discharge Disposition: Other Allergies, Adverse Reactions, Alerts [...] Tdap 07/27/06 Recorded 1Result Comment: Liliana Gusman [id number] History: Raul Antunez3 Result Comment: Correction: Record corrected to change route of administration to subcutaneous. Incorrect order set build caused record to default to intramuscular; EMR provider could not remedy. Medications (B-D MIHIR 2ND GEN PEN NDL [id number]) USE 1 NEEDLE TWICE A DAY WITH LEVEMIR (B-D MIHIR 2ND GEN PEN NDL [id number]) USE 1 NEEDLE TWICE A DAY WITH LEVEMIR, See Instructions, (B-D MIHIR 2ND GEN PEN NDL [id number]) USE 1 NEEDLE TWICE A DAY WITH LEVEMIR Qty: 200 EA Days Supply: 90 Refills: 0, # 100 EA, 2 Refill(s... Start Date: 08/02/21 Status: Orderedallopurinol 300 mg oral tablet 300 mg = 1 tab(s), Oral, Daily, # 90 tab(s), 3 Refill(s), [id number], 1 tab(s) Oral Daily, 172.72, cm, 07/09/21 13:29:00 EST, Height/Length Dosing, 99.7, kg, 07/09/21 13:29:00EST, Weight Dosing Start Date: 08/02/21 Status: Orderedaspirin 81 mg oral tablet 81 mg = 1 tab(s), Oral, Every other day, # 100 tab(s), 0 Refill(s), other reason (Rx) Start Date: 05/01/15 Status: OrderedB-D MIHIR 2ND GEN PEN NDL [id number] See Instructions, USE 1 NEEDLE TWICE A DAY WITH LEVEMIR, # 200 EA, [facility](s) [id number] Start Date: 08/27/20 Status: OrderedhydroCHLOROthiazide 25 mg oral tablet 25 mg = 1 tab(s), Oral, Daily, # 90 tab(s), 3 Refill(s), [id number], Needsappt, 1 tab(s) Oral Daily, 172.72, cm, 07/09/21 13:29:00 EST, Height/Length Dosing, 99.7, kg, 07/09/21 13:29:00 EST, Weight Dosing Start Date: 08/02/21 Status: OrderedLevemir FlexTouch 100 units/mL subcutaneous solution 25 unit(s), Subcutaneous, BID, # 15 mL, 5 Refill(s), [id number], 25 unit(s) Subcutaneous BID, 172.72, cm, 07/09/21 13:29:00 EST, Height/Length Dosing, 99.7, kg, 07/09/21 13:29:00 EST, Weight Dosing Start Date: 08/02/21 Status: OrderedmetFORMIN 750 mg oral tablet, extended release 750 mg = 1 tab(s), Oral, Daily, # 90 tab(s), 3 Refill(s), [id number], 1 tab(s) Oral Daily, 172.2, cm, 06/17/19 8:56:00 EST, Height/Length Dosing, 104.8, kg, 06/17/19 8:56:00 EST, Weight Dosing Start Date: 03/21/21 Status: OrderedOne Touch Ultra Blue Test Blue One Touch Ultra Blue Test Blue, See Instructions, BD ultra fine mini test strips. Tests twice daily-E11.9, # 100 EA, 1 Refill(s), [id number], BD ultra fine mini test strips. Tests [...] reduction and internal Completed fixation of fracture4 [id number] from documented surgical case3s/p R thigh wwctkibxyq7F ulna Social History Social History Type Response Smoking Status Never (less than 100 in life time) entered on: 07/09/21 Sex Care Team PersonnelName: Audra Singletary Address: [address] [id number]
--- OUTSIDE RECORDS SUMMARY | 2022-02-27 12:50 | XMS_ITS | Continuity of Care Document ---
:1955 Author Organization [facility] Address [address] [place] [phone] Care Team Providers Name Role Phone Audra Singletary Primary Care Physician Encounter [facility] Date(s): 07/13/20 - 07/13/20 [facility] [address] [place] [phone] Discharge Disposition: Other Allergies, Adverse Reactions, Alerts [...] Daily, # 90 tab(s), 3 Refill(s), [facility][id number], 1 tab(s) Oral Daily Start Date: 06/25/20 Status: Orderedaspirin 81 mg oral tablet 81 mg = 1 tab(s), Oral, Every other day, # 100 tab(s), 0 Refill(s), other reason (Rx) Start Date: 05/01/15 Status: OrderedBD ultra fine mini insulin pen needles BD ultra fine mini insulin pen needles, See Instructions, 5 mm 31 gauge - Use daily with Levemir insulin - 1 yxu=008, # 1 box(es), 1 Refill(s), Pharmacy: [facility], 5 mm 31 gauge - Use daily with Levemir insulin - 1 flm=655, Supply Start Date: 12/20/19 Status: OrderedhydroCHLOROthiazide 25 mg oral tablet 25 mg = 1 tab(s), Oral, Daily, # 90 tab(s), 0 Refill(s), [facility]acy: [facility] #[id number], 1 tab(s) Oral Daily Start Date: 05/01/20 Status: Orderedindomethacin 50 mg oral capsule 50 mg = 1 cap(s), Oral, TID, PRN PRN for pain, # 30 cap(s), 2 Refill(s), Pharmacy: [facility], 1 cap(s) Oral TID,PRN:for pain Start Date: 02/13/17 Status: OrderedLevemir FlexTouch 100 units/mL subcutaneous solution 20 unit(s), Subcutaneous, BID, # 15 mL, 5 Refill(s), Pharmacy: [facility] #[id number], 20 unit(s) Subcutaneous BID Start Date: 06/11/20 Status: OrderedmetFORMIN 750 mg oral tablet, extended release 750 mg = 1 tab(s), Oral, Daily, # 30 tab(s), 3 Refill(s), Pharmacy: [facility] #[id number], 1 tab(s) Oral Daily Start Date: 07/13/20 Status: OrderedOne Touch Ultra Blue Test Blue One Touch Ultra Blue Test Blue, See Instructions, BD ultra fine mini test strips. Tests twice daily-E11.9, # 100 EA, 1 Refill(s), Pharmacy: [facility] #[id number], BD ultra fine mini test strips. Tests [...] reduction and internal Completed fixation of fracture4 [id number] from documented surgical case3s/p R thigh flsnwbkvyq5G ulna Social History Social History Type Response Smoking Status Never Smoker entered on: 08/04/12 Sex
--- OUTSIDE RECORDS SUMMARY | 2022-02-27 12:50 | XMS_ITS | Continuity of Care Document ---
:1955 Author Organization [facility] Address [address] [place] [phone] Care Team Providers Name Role Phone Audra Singletary Primary Care Physician Encounter [facility] Date(s): 01/14/22 - 01/14/22 [facility] [address] [place] [phone] Encounter Diagnosis Hypertension (Discharge Diagnosis) - 01/14/22 Hypertriglyceridemia (Discharge Diagnosis) - 01/14/22 Overweight (Discharge Diagnosis) - 01/14/22 Diabetes (Discharge Diagnosis) - 01/14/22 Discharge Disposition: Home Attending Physician: Audra Singletary Admitting Physician: Audra Singletary Allergies, Adverse Reactions, Alerts No Known Allergies Assessment and Plan Future Appointments Functional Status 01/14/22 Recent Travel History No recent travel Family [...] Tdap 07/27/06 Recorded 1Result Comment: Liliana Gusman [id number] History: Raul Antunez3 Result Comment: Correction: Record corrected to change route of administration to subcutaneous. Incorrect order set build caused record to default to intramuscular; EMR provider could not remedy. Medications (B-D MIHIR 2ND GEN PEN NDL [id number]) USE 1 NEEDLE TWICE A DAY WITH LEVEMIR (B-D MIHIR 2ND GEN PEN NDL [id number]) USE 1 NEEDLE TWICE A DAY WITH LEVEMIR, See Instructions, (B-D MIHIR 2ND GEN PEN NDL [id number]) USE 1 NEEDLE TWICE A DAY WITH LEVEMIR Qty: 200 EA Days Supply: 90 Refills: 0, # 100 EA, 2 Refill(s... Start Date: 08/02/21 Status: Orderedallopurinol 300 mg oral tablet 300 mg = 1 tab(s), Oral, Daily, # 90 tab(s), 3 Refill(s), [id number], 1 tab(s) Oral Daily, 172.72, cm, 07/09/21 13:29:00 EST, Height/Length Dosing, 99.7, kg, 07/09/21 13:29:00EST, Weight Dosing Start Date: 08/02/21 Status: Orderedaspirin 81 mg oral tablet 81 mg = 1 tab(s), Oral, Every other day, # 100 tab(s), 0 Refill(s), other reason (Rx) Start Date: 05/01/15 Status: OrderedB-D MIHIR 2ND GEN PEN NDL [id number] See Instructions, USE 1 NEEDLE TWICE A DAY WITH LEVEMIR, # 200 EA, Refill(s) 1, [id number] Start Date: 08/27/20 Status: OrderedhydroCHLOROthiazide 25 mg oral tablet 25 mg = 1 tab(s), Oral, Daily, # 90 tab(s), 3 Refill(s), [facility][id number], Needsappt, 1 tab(s) Oral Daily, 172.72, cm, 07/09/21 13:29:00 EST, Height/Length Dosing, 99.7, kg, 07/09/21 13:29:00 EST, Weight Dosing Start Date: 08/02/21 Status: OrderedLevemir FlexTouch 100 units/mL subcutaneous solution 25 unit(s), Subcutaneous, BID, # 15 mL, 5 Refill(s), [facility][id number], 25 unit(s) Subcutaneous BID, 172.72, cm, 07/09/21 13:29:00 EST, Height/Length Dosing, 99.7, kg, 07/09/21 13:29:00 EST, Weight Dosing Start Date: 08/02/21 Status: OrderedmetFORMIN 750 mg oral tablet, extended release 750 mg = 1 tab(s), Oral, Daily, # 90 tab(s), 3 Refill(s), [id number], 1 tab(s) Oral Daily, 172.2, cm, 06/17/19 8:56:00 EST, Height/Length Dosing, 104.8, kg, 06/17/19 8:56:00 EST, Weight Dosing Start Date: 03/21/21 Status: OrderedOne Touch Ultra Blue Test Blue One Touch Ultra Blue Test Blue, See Instructions, BD ultra fine mini test strips. Tests twice daily-E11.9, # 100 EA, 1 Refill(s), [id number], BD ultra fine mini test strips. Tests twice daily-E11.9, Supply Start Date: 07/19/18 Status: OrderedpredniSONE 10 mg oral tablet See Instructions, 4 tabs daily x 3 days, 3 tabs daily x 3 days, 2 tabs daily x 3 days then 1 tab daily x 3 days, # 30 tab(s), 0 Refill(s), 02/05/22, [id number], 4 tabs daily x3 days, 3 tabs daily x 3 days, 2 tabs daily x 3 d... Start Date: 01/06/22 Stop Date: 02/05/22 Status: Ordered Problem List Condition Effective Dates Status Health Status Informant Diabetes(Confirmed) Active Ankle fracture(Confirmed)1 Active Chronic gout(Confirmed) Active Hypertension(Confirmed) Active Hypertriglyceridemia(Confirmed) Active Overweight(Confirmed) Active 1R Procedures Procedure Date Related Diagnosis Body Site Status Intramedullary nailing of femur1 10/14/18 Completed Colonoscopy2 05/04/18 Completed Leg laceration3 Completed ORIF - Open reduction and internal Completed fixation of fracture4 [id number] from documented surgical case3s/p R thigh [id number] ulna Vital Signs Most recent to oldest [Reference Range]: 1 Peripheral Pulse Rate [60-100 bpm] 81 bpm (01/14/22 1:03 PM) Blood Pressure [90-140/60-90 mmHg] 123/75 mmHg (01/14/22 1:03 PM) BP Site Right arm (01/14/22 1:03 PM) Height 172.72 cm (01/14/22 1:03 PM) Height/Length Measured (inches) 68 in (01/14/22 1:03 PM) Height/Length Dosing 172.72 cm (01/14/22 1:03 PM) Weight 98.1 kg (01/14/22 1:03 PM) Weight Measured (lbs) 216.273 lb (01/14/22 1:03 PM) Weight Dosing 98.1 kg (01/14/22 1:03 PM) BSA Measured 2.17 m2 (01/14/22 1:03 PM) Body Mass Index 32.88 kg/m2 (01/14/22 1:03 PM) Social History Social History Type Response Tobacco Never tobacco user Tobacco U se:. Sex Care Team PersonnelName: Audra Singletary Address: [address] [address]
--- OUTSIDE RECORDS SUMMARY | 2022-02-27 12:50 | XMS_ITS | Continuity of Care Document ---
:1955 Author Organization [facility] Address [address] [place] [phone] Care Team Providers Name Role Phone Audra Singletary Primary Care Physician Encounter [facility] Date(s): 01/06/22 - 01/06/22 [facility] [address] [place] [phone] Discharge Disposition: Other Allergies, Adverse Reactions, Alerts [...] Tdap 07/27/06 Recorded 1Result Comment: Liliana Gusman [id number] History: Raul Antunez3 Result Comment: Correction: Record corrected to change route of administration to subcutaneous. Incorrect order set build caused record to default to intramuscular; EMR provider could not remedy. Medications (B-D MIHIR 2ND GEN PEN NDL [id number]) USE 1 NEEDLE TWICE A DAY WITH LEVEMIR (B-D MIHIR 2ND GEN PEN NDL [id number]) USE 1 NEEDLE TWICE A DAY WITH LEVEMIR, See Instructions, (B-D MIHIR 2ND GEN PEN NDL [id number]) USE 1 NEEDLE TWICE A DAY WITH LEVEMIR Qty: 200 EA Days Supply: 90 Refills: 0, # 100 EA, 2 Refill(s... Start Date: 08/02/21 Status: Orderedallopurinol 300 mg oral tablet 300 mg = 1 tab(s), Oral, Daily, # 90 tab(s), 3 Refill(s), [id number], 1 tab(s) Oral Daily, 172.72, cm, 07/09/21 13:29:00 EST, Height/Length Dosing, 99.7, kg, 07/09/21 13:29:00EST, Weight Dosing Start Date: 08/02/21 Status: Orderedaspirin 81 mg oral tablet 81 mg = 1 tab(s), Oral, Every other day, # 100 tab(s), 0 Refill(s), other reason (Rx) Start Date: 05/01/15 Status: OrderedB-D MIHIR 2ND GEN PEN NDL [id number] See Instructions, USE 1 NEEDLE TWICE A DAY WITH LEVEMIR, # 200 EA, [facility]) [id number] Start Date: 08/27/20 Status: OrderedhydroCHLOROthiazide 25 mg oral tablet 25 mg = 1 tab(s), Oral, Daily, # 90 tab(s), 3 Refill(s), [id number], Needsappt, 1 tab(s) Oral Daily, 172.72, cm, 07/09/21 13:29:00 EST, Height/Length Dosing, 99.7, kg, 07/09/21 13:29:00 EST, Weight Dosing Start Date: 08/02/21 Status: OrderedLevemir FlexTouch 100 units/mL subcutaneous solution 25 unit(s), Subcutaneous, BID, # 15 mL, 5 Refill(s), [id number], 25 unit(s) Subcutaneous BID, 172.72, cm, 07/09/21 13:29:00 EST, Height/Length Dosing, 99.7, kg, 07/09/21 13:29:00 EST, Weight Dosing Start Date: 08/02/21 Status: OrderedmetFORMIN 750 mg oral tablet, extended release 750 mg = 1 tab(s), Oral, Daily, # 90 tab(s), 3 Refill(s), [id number], 1 tab(s) Oral Daily, 172.2, cm, 06/17/19 8:56:00 EST, Height/Length Dosing, 104.8, kg, 06/17/19 8:56:00 EST, Weight Dosing Start Date: 03/21/21 Status: OrderedOne Touch Ultra Blue Test Blue One Touch Ultra Blue Test Blue, See Instructions, BD ultra fine mini test strips. Tests twice daily-E11.9, # 100 EA, 1 Refill(s), Pharm[facility]: [facility][id number], BD ultra fine mini test strips. Tests twice daily-E11.9, Supply Start Date: 07/19/18 Status: OrderedpredniSONE 10 mg oral tablet See Instructions, 4 tabs daily x 3 days, 3 tabs daily x 3 days, 2 tabs daily x 3 days then 1 tab daily x 3 days, # 30 tab(s), 0 Refill(s), 02/05/22, Pharmacy: [facility] #[id number], 4 tabs daily x3 days, 3 tabs [...] reduction and internal Completed fixation of fracture4 [id number] from documented surgical case3s/p R thigh [id number] ulna Social History Social History Type Response Smoking Status Never (less than 100 in life time) entered on: 07/09/21 Sex Care Team PersonnelName: Audra Singletary Address: [address]
--- OUTSIDE RECORDS SUMMARY | 2022-02-27 12:50 | XMS_ITS | Continuity of Care Document ---
:1955 Author Organization [facility] Address [address] [place] [phone] Care Team Providers Name Role Phone Audra Singletary Primary Care Physician Encounter [facility] Date(s): 07/12/20 - 07/12/20 [facility] [address] [place] [phone] Encounter Diagnosis Essential (primary) hypertension (Discharge Diagnosis) - 07/12/20 Type 2 diabetes mellitus without complications (Discharge Diagnosis) - 07/12/20 Pure hyperglyceridemia (Discharge Diagnosis) - 07/12/20 Discharge Disposition: Other Allergies, Adverse Reactions, Alerts [...] Daily, # 90 tab(s), 3 Refill(s), [facility]acy: [facility] #[id number], 1 tab(s) Oral Daily Start Date: 06/25/20 Status: Orderedaspirin 81 mg oral tablet 81 mg = 1 tab(s), Oral, Every other day, # 100 tab(s), 0 Refill(s), other reason (Rx) Start Date: 05/01/15 Status: OrderedBD ultra fine mini insulin pen needles BD ultra fine mini insulin pen needles, See Instructions, 5 mm 31 gauge - Use daily with Levemir insulin - 1 ozl=033, # 1 box(es), 1 Refill(s), Pharmacy: [facility], 5 mm 31 gauge - Use daily with Levemir insulin - 1 epm=526, Supply Start Date: 12/20/19 Status: OrderedhydroCHLOROthiazide 25 mg oral tablet 25 mg = 1 tab(s), Oral, Daily, # 90 tab(s), 0 Refill(s), Pharmacy: [facility] #[id number], 1 tab(s) Oral Daily Start Date: 05/01/20 Status: Orderedindomethacin 50 mg oral capsule 50 mg = 1 cap(s), Oral, TID, PRN PRN for pain, # 30 cap(s), 2 Refill(s), Pharmacy: [facility], 1 cap(s) Oral TID,PRN:for pain Start Date: 02/13/17 Status: OrderedLevemir FlexTouch 100 units/mL subcutaneous solution 20 unit(s), Subcutaneous, BID, # 15 mL, 5 Refill(s), Pharmacy: [facility] #[id number], 20 unit(s) Subcutaneous BID Start Date: 06/11/20 Status: OrderedmetFORMIN 500 mg oral tablet, extended release 500 mg = 1 tab(s), Oral, Daily, # 90 tab(s), 3 Refill(s), Pharmacy: [facility] #[id number], 1 tab(s) Oral Daily Start Date: 07/12/20 Status: OrderedOne Touch Ultra Blue Test Blue One Touch Ultra Blue Test Blue, See Instructions, BD ultra fine mini test strips. Tests twice daily-E11.9, # 100 EA, 1 Refill(s), Pharmacy: [facility] #[id number], BD ultra fine mini test strips. Tests [...] reduction and internal Completed fixation of fracture4 [id number] from documented surgical case3s/p R thigh [id number] ulna Social History Social History Type Response Smoking Status Never Smoker entered on: 08/04/12 Sex
--- OUTSIDE RECORDS SUMMARY | 2022-02-27 12:51 | XMS_ITS | Encounter Summary ---
:1955 Author Organization [facility] Address [address] [place] [address] Care Team Providers Name Role Phone Audra Singletary APRN Primary Care Provider Reason for Visit Reason Onset Date Comments Other 01/06/2019 Encounter Details Date Type Department Care Team Description 01/06/2019 Telephone Orthopaedics at [facility] Vinicio Isidro PA [place] [phone] ORTHOPAEDIC SURGERY [phone] [place], [place] [address] (Wo rk) Social History Tobacco Use Types Packs/Day Years Used Date Never Smoker Smokeless Tobacco: Never Used Alcohol Use Standard Drinks/Week Comments No 0 (1 standard drink = 0.6 oz pure alcoho l) Sex Assigned at Date Recorded Not on file documented as of this encounter Miscellaneous Notes Telephone Encounter - Layla Briggs - 01/06/2019 11:25 AM EDT Patients was at [facility] today, stated Prashant needs a refill of pain medication. He stopped dilaudidabout 2-3 weeks ago, using Tylenol, Gabapentin 300mg at night. They request a refill of Dilaudid; spoke with vinicio that we do not recommend a refill this far out from injury/surgery. She is willing to re-prescribe gabapentin if needed. Otherwise he should use OTCpain medication and contact PCP with any further concerns. She is not approving the dilaudid refill. LMx1 for patient to call back documented in this encounter Plan of Treatment Upcoming Encounters Date Type Specialty Care Team Description 04/15/2022 Office Visit Dermatology July eGrman MD [facility] ER DERMATOLOGY [place], [place] [address] (Wo rk) documented as of this encounter Visit Diagnoses Not on filedocumented in this encounter Care Teams Recreational Therapy Aide Relationship Specialty Start Date End Date Audra Singletary APRN PCP - General 03/14/[address] [place] [phone] documented as of this encounter
--- OUTSIDE RECORDS SUMMARY | 2022-02-27 12:51 | XMS_ITS | Encounter Summary ---
:1955 Author Organization [facility] Address [facility] [address] [place] [address] Care Team Providers Name Role Phone Audra Singletary APRN Primary Care Provider Reason for Referral Physical Therapy (Routine) - Specialty Diagnoses / Procedures Referred By Contact Refer red To Contact Physical Therapy Diagnoses Closed fracture of neck of right femur with routine healing, subsequent encounter Pedro Isidro PA [facility] Genevieve R [place] [address] Referral ID Status Reason Start Date Expiration Date Visits V isits Requested Authorized [id number] Evaluate and 12/10/2018 06/08/2019 1 1 Treat Reason for Visit Reason Comments Follow Up Surgery IMN right femur 10/14/18 Encounter Details Date Type Department Care Team Description 12/10/2018 Office Visit Orthopaedics at [facility] Mercedes Rich, Closed fracture of [facility] MD neck of right femur Drive [facility] with routine healing, [place] [address] subsequent encounter [phone] ORTHOPAEDIC SURGERY [place], [place] [address] Social History Tobacco Use Types Packs/Day Years Used Date Never Smoker Smokeless Tobacco: Never Used Alcohol Use Standard Drinks/Week Comments No 0 (1 standard drink = 0.6 oz pure alcoho l) Sex Assigned at Date Recorded Not on file documented as of this encounter Last Filed Vital Signs Vital Sign Reading Time Taken Comments Blood Pressure 143/92 12/10/2018 10:06 AM EDT Pulse 106 12/10/2018 10:06 AM EDT Temperature - - Respiratory Rate - - Oxygen Saturation - - Inhaled Oxygen Concentration - - Weight - - Height - - Body Mass Index - - documented in this encounter Progress Notes Pedro Isidro PA - 12/10/2018 11:40 AM EDT Patient Name: Prashant Diaz : 63 y.o. Case Date: 10-14-18 Surgeon: Dr Rich Procedure: right femur IMN retrograde HPI: Prashant Diaz is a very pleasant 63 y.o. male who presents for a 10 weeks follow-up of the above procedure. The patient has been doing well and his pain is moderately improved over preoperative status. No fevers, chills, nausea, vomiting, or symptoms of infection. Prashant has been ambulating with walker and crutches and working with PT. Patient had a PE post op and is currently on xerolto ROS: Denies fevers, chills, night sweats, nausea, or vomiting. BP (!) 143/92 Pulse (!) 106 Physical Exam: Well-appearing male in no acute distress. Alert and Oriented x 3 and answers all questions appropriately. The incision is clean dry intact with sutures and cathie in place. Right thigh moderate swelling and ecchymosis compartments soft right knee ROM 0-30 Sensation and pulses intact [place] and sutures removed steri strips placed X-RAYS: Demonstrate no change in fracture or hardware alignment ASSESSMENT/PLAN: 14 days post-op and doing well. Continue touch down weightbearing as tolerated and working on range of motion, and we will see his back in 6 weeks for repeat examination. X-rays of theright femur will be needed at that time. Signed: RADHA TUBBS documented in this encounter Miscellaneous Notes Addendum Note - O'Lita, Majo A - 12/10/2018 11:40 AM EDT Addended by: MAJO MALIK on: 02/01/2019 03:31 PM Modules accepted: Orders documented in this encounter Plan of Treatment Upcoming Encounters Date Type Specialty Care Team Description 04/15/2022 Office Visit Dermatology July German MD [facility] ER [address], [place] [address] (Wo rk) Scheduled Referrals Name Type Priority Associated Diagnoses Order S chedule Referral to Outpatient Referral Routine Closed fracture of Or dered: Physical Therapy neck of right femur 11/24 with routine healing, subsequent encounter documented as of this encounter Results XR Femur 2 views Right (Generic) (02/04/2019 9:11 AM EDT) Anatomical Region Laterality Modality Thigh Right Digital Radiography Specimen (Source) Anatomical Location Collection Method / Collectio n Time Received Time / Laterality Volume Impressions 02/04/2019 1:52 PM EDT Fixation and alignment of the patient's right femoral fracture are unchanged. There is increasing bone formation howev er fracture healing remains incomplete. Thank you for letting us participate in the care of this patient. For questions regarding this report, please contact e number below. ? Narrative 02/04/2019 1:52 PM EDT EXAMINATION: XR FEMUR 2 VIEWS RIGHT (GENERIC) CLINICAL HISTORY: check alignment and he aling TECHNIQUE: 2 views RIGHT femur COMPARISON: 12/10/2018 and 11/15/2018 FINDINGS: Retrograde intramedullary fixation of th e patient's segmental right femoral fracture is unchanged. The alignment is unchanged. There is callus and new bone formation at the fracture margins or jeanmarie id bridging bone is not yet apparent. Procedure Note Jordan Shane MD - 02/04/2019Forma tting of this note might be different from the original. EXAMINATION: XR FEMUR 2 VIEWS RIGHT (GEN KRISTI) CLINICAL HISTORY: check alignment and he aling TECHNIQUE: 2 views RIGHT femur COMPARISON: 12/10/2018 and 11/15/2018 FINDINGS: Retrograde intramedullary fixation of th e patient's segmental right femoral fracture is unchanged. The alignment is unchanged. There is callus and new bone formation at the fracture margins or jeanmarie id bridging bone is not yet apparent. IMPRESSION Fixation and alignment of the patient's right femoral fracture are unchanged. There is increasing bone formation howev er fracture healing remains incomplete. Thank you for letting us participate in the care of this patient. For questions regarding this report, please contact [facility] number below. Mercedes Rich MD IMG DX ORDERABLES documented in this encounter Visit Diagnoses Diagnosis Closed fracture of neck of right femur w ith routine healing, subsequent encounter Closed fracture of neck of right femur w ith routine healing, subsequent encounter documented in this encounter Care Teams Launching Pad Mechanic Relationship Specialty Start Date End Date Audra Singletary APRN PCP - General 03/14/[address] [place] [phone] documented as of this encounter
--- OUTSIDE RECORDS SUMMARY | 2022-02-27 12:51 | XMS_ITS | Encounter Summary ---
:1955 Author Organization [facility] Address [address] [facility] [place] [address] Care Team Providers Name Role Phone Audra Singletary APRN Primary Care Provider Encounter Details Date Type Department Care Team Description 08/08/2019 Hospital Encounter XRay at [facility] Mercedes Rich Closed fracture of [address] Tata MD neck of right femur [place], [place] [facility] with routine [id number] [place], jose raul [phone] [place] [address] Social History Tobacco Use Types Packs/Day Years Used Date Never Smoker Smokeless Tobacco: Never Used Alcohol Use Standard Drinks/Week Comments No 0 (1 standard drink = 0.6 oz pure alcoho l) Sex Assigned at Date Recorded Not on file documented as of this encounter Medications at Time of Discharge Medication Sig Dispensed Refills Start Date End Date acetaminophen (TYLENOL) Take 2 tablets by 30 tablet 1 06/22 500 mg Tablet mouth every 8 hours. FLUARIX QUAD , ADM 0.5ML IM UTD 0 2018 PF, 60 mcg (15 mcg x 4)/0.5 mL Syringe metFORMIN (GLUCOPHAGE-XR) TK 1 T PO D 3 9 750 mg Tablet Sustained Release 24 hr aspirin 81 mg Tablet, Take 81 mg by mouth 0 Delayed Release (E.C.) daily. ONETOUCH ULTRA BLUE TEST USE BID 0 07/19/2018 STRIP Strip BD ULTRA-FINE MINI PEN USE DIRECTED WITH 3 03/2019 NEEDLE 31 gauge x 10/09 LEVEMIR PEN Needle allopurinol (ZYLOPRIM) 300 Take 300 mg by mouth 2 09/26/2018 mg Tablet daily. LEVEMIR FLEXTOUCH U-100 Inject 18 Units 4 019 INSULN Insulin Pen subcutaneously 2 times daily. hydrochlorothiazide TAKE 1 TABLET BY 3 08/19/2015 (HYDRODIURIL) 25 mg Tablet MOUTH EVERY DAY documented as of this encounter Plan of Treatment Upcoming Encounters Date Type Specialty Care Team Description 04/15/2022 Office Visit Dermatology July German MD [facility] [address] [place], [place] [address] (Wo rk) documented as of this encounter Procedures Procedure Name Priority Date/Time Associated Diagnosis Comme nts XR FEMUR 2 VIEWS Routine 08/08/2019 9:32 AM Closed fracture of Results for this RIGHT EST neck of right femur procedur e are in with routine the results healing, subsequent section. encounter documented in this encounter Results XR Femur 2 views Right (Generic) (08/08/2019 9:32 AM EST) Anatomical Region Laterality Modality Thigh Right Digital Radiography Specimen (Source) Anatomical Location Collection Method / Collectio n Time Received Time / Laterality Volume Impressions 08/08/2019 1:00 PM EST Healing midshaft fracture. Thank you for letting us participate in the care of this patient. For questions regarding this report, please contact e number below. ? Narrative 08/08/2019 1:00 PM EST EXAMINATION: XR FEMUR 2 VIEWS RIGHT (GENERIC) CLINICAL HISTORY: right femur fracture, evalute for healing TECHNIQUE: 2 views RIGHT femur COMPARISON: 07/08/2019 FINDINGS: Alignment and retrograde fixation of the femur is unchanged following dynamization of the intramedullary const ruct in May of this year. In addition to the large amount of proli ferative bone seen at the margins of the patient's mid shaft fracture there does appear to be increased bridging centrally, consistent with ongoing heali ng. Procedure Note Jordan Shane MD - 08/08/2019Forma tting of this note might be different from the original. EXAMINATION: XR FEMUR 2 VIEWS RIGHT (GEN KRISTI) CLINICAL HISTORY: right femur fracture, evalute for healing TECHNIQUE: 2 views RIGHT femur COMPARISON: 07/08/2019 FINDINGS: Alignment and retrograde fixation of the femur is unchanged following dynamization of the intramedullary const ruct in May this . In addition to the large amount of proli ferative bone seen at the margins of the patient's mid shaft fracture there does appear to be increased bridging centrally, consistent with ongoing heali ng. IMPRESSION Healing midshaft fracture. Thank you for letting us participate in the care of this patient. For questions regarding this report, please contact th e number below. Mercedes Rich MD IMG DX ORDERABLES documented in this encounter Visit Diagnoses Diagnosis Closed fracture of neck of right femur w ith routine healing, subsequent encounter documented in this encounter Care Teams Digital Sales Assistant Relationship Specialty Start Date End Date Audra Singletary APRN PCP - General 03/14/[address] [place] [id number] documented as of this encounter
--- OUTSIDE RECORDS SUMMARY | 2022-02-27 12:51 | XMS_ITS | Encounter Summary ---
:1955 Author Organization [facility] Address [address] [facility] [place] [address] Care Team Providers Name Role Phone Audra Singletary APRN Primary Care Provider Reason for Visit Reason Comments Follow Up Surgery XR RIGHT FEMUR IMN [address] RESULTS & PLAN OF CARE Encounter Details Date Type Department Care Team Description 05/26/2019 Office Visit Orthopaedics at [facility] Marya Monroy Closed fracture of [facility] RADHA Jean neck of right femur [facility] with routine healing, [place] [address] CENTER subsequent encounter [phone] ORTHOPAEDIC SURGERY [place] [id number] Social History Tobacco Use Types Packs/Day Years Used Date Never Smoker Smokeless Tobacco: Never Used Alcohol Use Standard Drinks/Week Comments No 0 (1 standard drink = 0.6 oz pure alcoho l) Sex Assigned at Date Recorded Not on file documented as of this encounter Last Filed Vital Signs Vital Sign Reading Time Taken Comments Blood Pressure 130/90 05/26/2019 10:39 AM EDT Pulse 97 05/26/2019 10:39 AM EDT Temperature - - Respiratory Rate - - Oxygen Saturation 99% 05/26/2019 10:39 AM EDT Inhaled Oxygen Concentration - - Weight 104.8 kg (231 lb) 05/26/2019 10:39 AM EDT Height 172.7 cm (5' 8) 05/26/2019 10:39 AM EDT Body Mass Index 35.12 05/26/2019 10:39 AM EDT documented in this encounter Progress Notes Marya Monroy PA - 05/26/2019 11:00 AM EDT PATIENT NAME: Prashant Diaz AGE: 64 y.o. MR#: [id number] DATE OF VISIT: 05/26/2019 CHIEF COMPLAINT:6-1/2 month follow-up post right femur fracture with intramedullary nail placement date of surgery 10/14/2018 (Dr. Rich) here for discussion regarding CT results. HISTORY OF PRESENT ILLNESS: Mr. Diaz is a 64 y.o. male who comes into clinic today for evaluation of the right knee. The PT was last in to see myself on 11/15/2018 . Since this visit he has been doingwell. He continues to have pain in the mid thigh when weight bearing and significantly after PT. He denies fever, chills, drenching night sweats. Past medical history: Patient Active Problem List Diagnosis Date Noted ??? Type 2 diabetes mellitus without complication, with long-term current use of insulin 10/18/2018 ??? R femur fx s/p IMN 10/14/18 (Dr. Rich) 10/13/2018 ??? Rupture of medial head of gastrocnemius 07/30/2011 Medications: ??? FLUARIX QUAD 2245-6254, PF, 60 mcg (15 mcg x 4)/0.5 mL Syringe ??? metFORMIN (GLUCOPHAGE-XR) 750 mg Tablet Sustained Release 24 hr ??? aspirin 81 mg Tablet, Delayed Release (E.C.) ??? ONETOUCH ULTRA BLUE TEST STRIP Strip ??? BD ULTRA-FINE MINI PEN NEEDLE 31 gauge x 3/16 Needle ??? allopurinol (ZYLOPRIM) 300 mg Tablet ??? LEVEMIR FLEXTOUCH U-100 INSULN Insulin Pen ??? metFORMIN (GLUCOPHAGE) 500 mg Tablet ??? hydrochlorothiazide (HYDRODIURIL) 25 mg Tablet Allergies: Allergies Allergen Reactions ? ? Hay Fever & Allergy Relief [Chlorpheniramine-Phenylpropan] Social history: Social History Tobacco Use ??? Smoking status: Never Smoker ??? Smokeless tobacco: Never Used Substance Use Topics ??? Alcohol use: No Review of systems: No chest pain or shortness of breath No fevers, night sweats or chills Vital signs: Blood pressure 130/90, pulse 97, height 172.7 cm (5' 8), weight 104.8 kg (231 lb), SpO2 99 %. Physical exam: Mr. Diaz is a 64 y.o. male who is alert and oriented. He is in no acute discomfort and is resting comfortably in the exam room. Hip flexion 125 Right knee: Active extension to 0 degrees Active flexion 130 Calf is supple and non tender No erythema, edema, ecchymosis noted. Ankle Plantar flexion 50?? Dorsiflexion 20?? Inversion 10?? Eversion 5?? PT/DP pulses 2+. Superficial peroneal, deep peroneal, sural, saphenous, and tibial nerves intact to touch. Imaging studies: CT was reviewed today show partial obliteration of the distal fracture site with bridging bone, however the proximal site has no bridging bone with sclerotic fracture ends. Assessment and plan:: 64 y.o. year-old male 6-1/2 months post right femur fracture with intramedullary nail placement date of surgery 10/14/2018 (Dr. Rich), with continued restricted range of motion of the knee. We had a long discussion regarding the nature of Prashant Diaz's chief complaint. We reviewed the imaging together which is described CT was reviewed today show partial obliteration of the distal fracture site with bridging bone, however the proximal site has no bridging bone with sclerotic fracture ends. We discussed treatment options at this point. He asked about a bone stimulator. We discussed utilizing this and returning in 2 months with repeat XR. We discussed surgical options including hardware exchange with iliac crest bone graft. Ultimately, Prashant elected to more forward with surgical options. The patient and I discussed in detail the risks and benefits of surgery. We discussed the risks of bleeding, infection, damage to nerves, vessels, tendons, and ligaments. We discussed the risks of fracture, hardware failure, wound breakdown, need for reoperation, pain, stiffness, and non-relief or exacerbation of symptoms. We discussed the risks of blood clots, pulmonary embolism, stroke, heart attack, and other cardiopulmonary complications up to and including the risk of . We will have the surgical schedulers call Prashant to set up a surgical date. This plan was discussed with the patient and they are in agreement. All of the patient's questions were answered. The patient understand to contact us if they have any other questions or concerns. FU: Surgical schedulers will be calling Marya Monroy PA-C The above dictation was made with voice recogonition software documented in this encounter Plan of Treatment Upcoming Encounters Date Type Specialty Care Team Description 04/15/2022 Office Visit Dermatology July German MD [facility] [address] [place], [place] [address] (Wo rk) documented as of this encounter Visit Diagnoses Diagnosis Closed fracture of neck of right femur w ith routine healing, subsequent encounter documented in this encounter Care Teams Front Desk Admin Relationship Specialty Start Date End Date Audra Singletary APRN PCP - General 03/14/[address] [place] [id number] documented as of this encounter
--- OUTSIDE RECORDS SUMMARY | 2022-02-27 12:51 | XMS_ITS | Encounter Summary ---
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 (WRVU 14.48) Referral ID Status Reason Start Date Expiration Date Visits Requ ested Visits Authorized [id number] 1 1 Encounter Details Date Type Department Care Team Description 06/21/2019 - Hospital Encounter 3 Mercedes Franklin Closed di splaced segmental fracture of shaft of right femur with routine healing, subsequent encounter; 06/22/2019 Du Boissanjay Payton MD Closed displaced segmental fracture of s haft of right femur with nonunion, subsequent encounter; [facility] s/p Right Femur Exchange Vidya uriarte for Nonunion - 06/21/19 Dr. Rich [facility] [address] OR[facility]OPAEDIC [place], [place] SURGERY [address] [place], [place] [phone] [id number] Social History Tobacco Use Types Packs/Day Years Used Date Never Smoker Smokeless Tobacco: Never Used Alcohol Use Standard Drinks/Week Comments No 0 (1 standard drink = 0.6 oz pure alcoho l) Sex Assigned at Date Recorded Not on file documented as of this encounter Last Filed Vital Signs Vital Sign Reading Time Taken Comments Blood Pressure 125/75 06/22/2019 11:24 AM EST Pulse 72 06/21/2019 4:07 PM EST Temperature 36.5 ??C (97.7 ??F) 06/22/2019 11:24 AM EST Respiratory Rate 16 06/22/2019 11:24 AM EST Oxygen Saturation 98% 06/22/2019 11:24 AM EST Inhaled Oxygen Concentration - - Weight 104.8 kg (231 lb) 06/21/2019 6:02 AM EST Height 172.7 cm (5' 8) 06/21/2019 6:02 AM EST Body Mass Index 35.12 06/21/2019 6:02 AM EST documented in this encounter Discharge Summaries Monica Blake PA - 06/22/2019 11:43 AM EST Discharge Summary Patient Name: Prashant Diaz Patient Age: 64 y.o. Language: [place] Race: White Ethnicity: Not nor Admit date: 06/21/2019 Discharge date and time: 06/22/2019 Attending Physician: Mercedes Rich MD Discharge Physician: Mercedes Rich MD Follow-up Recommendations for Providers: See discharge instructions for additional details. Future Appointments Date Time Provider Department Center 07/04/2019 9:00 AM [facility] DX ROOM 2 MH Xray [facility] Rad 07/04/2019 9:30 AM Marya Monroy PA [facility] ORTH 3A [facility] Inpatient Provider Contact Information: Mercedes Rich MD Orthopedics: [phone] After hours and weekends, call [facility] Supervisor [place], , and have the Orthopedic resident paged. Discharge Diagnoses (Hospital Problems) and Secondary Diagnoses (Chronic Problems): Active Hospital Problems Diagnosis ??? s/p Right Femur Exchange Nailing for Nonunion - 06/21/19 Dr. Rich ??? 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 Active Non-Hospital Problems Diagnosis ??? Type 2 diabetes mellitus without complication, with long-term current use of insulin ??? R femur fx s/p IMN 10/14/18 (Dr. Rich) ??? Rupture of medial head of gastrocnemius Operations/Major Procedures: 06/21/2019 Surgeon(s) and Role: * Mercedes Rich MD - Primary * Denilson Fine MD - Resident Procedure(s): ORIF RIGHT FEMORAL SHAFT FX. MODIFIER RETROGRADE FEMORAL NAIL SYNTHES REMOVAL OF IMPLANT, DEEP, FEMUR Findings: All right femoral hardware including intramedullary nail and locking screws removed. Femoral canal reamed to size 17 and size [id number] mm intramedullary nail placed in retrograde fashion with two distal locking screws and one proximal locking screw in the dynamization slot to allow for fracture compression. Multiple operative cultures sent, including reamings. No gross evidence of infection observed. Powdered Vancomycin placed in wounds. Skin closed with claudette. ?? History of Presentation: Prashant Diaz is a 64 y.o. male 6-1/2 months post right femur fracture [...] elected to more forward with surgical options. Hospital Course: The patient was admitted via Same Day Surgery for the above operation. DVT prophylaxis: Lovenox. Patient began rehab on POD#1 w/ weight bearing as tolerated of right leg remembering to use protection at all times for balance and protection. The patient was voiding spontaneously without difficulty. The silver Mepilex dressing to remain in place 7 days, was inspected on POD#1 and was dry and intact. Pain was well controlled with oral pain medications. Patient did not have a bowel movement prior to discharge but was passing flatus . By POD#1 the patient was medically stable and was cleared for safe discharge to home. Vital Signs at Discharge: Weight: Wt Readings from Last 1 Encounters: 06/21/ 104.8 kg (231 lb) Height: Ht Readings from Last 1 Encounters: 06/21/19 172.7 cm (5' 8) HC: HC Readings from Last 1 Encounters: No data found for HC BMI: Body mass index is 35.12 kg/m??. Last value Range last 24 hrs Temperature Temp: 36.5 ??C (97.7 ??F) Temp: [36.1 ??C (97 ??F)-37 ??C (98.6 ??F)] Heart Rate Heart Rate: 72 Heart Rate: [63-72] Blood Pressure BP: 125/75 BP: (99-129)/(60-79) Respiratory Rate Resp: 16 Resp: [15-20] SpO2 SpO2: 98 % SpO2: [92 %-98 %] Functional and Cognitive Status: Patient mobilizing with a walker, cognitively intact at baseline mental status at time of discharge. Important Lab Data: Last 3 wbc, hgb, hct plt Recent Labs 10/20/18 0420 10/19/18 1149 10/19/18 0347 10/18/18 0340 WBC 11.0* -- 9.1 -- 7.5 HGB 8.0* 8.5* 7.9* < > 7.5* HCT 24.1* 25.7* 23.2* < > 22.2* PLATELET 200 -- 188 -- 160 < > = values in this interval not displayed. Last 3 Lytes Recent Labs 10/20/18 0420 10/19/18 0347 10/18/18 0340 NA 137 140 143 K 4.1 3.5 3.4* CL 101 102 103 CO2 24 27 28 BUN 20 15 15 CREATININE 0.80 0.89 0.84 Last 3 LFTs No results for input(s): AST, ALT, ALKPHOS, BILITOT, BILIDIR in the last 7068 hours. Last Ca, Mg, Phos No results for input(s): CALCIUM, PHOS in the last 168 hours. Invalid input(s): MAGNESIUM1 Last 3 HgbA1C No results for input(s): HA1C in the last 7068 hours. Studies: Xray Femur 2 Views Right (generic) Result Date: 06/21/2019 EXAMINATION: XR FEMUR 2 VIEWS RIGHT (GENERIC) CLINICAL HISTORY: s/p right femur exchange nailing for nonunion. Please obtain AP/lateral XRs of right femur in PACU., , entered by ordering service TECHNIQUE: RIGHT femur, 2 views COMPARISON: CT and radiographs, March 2019. FINDINGS: Bones RIGHT femur- interval revision of fixation hardware for mid femoral nonunion. The new retrograde nail and screw construct is similar to intraoperative images from same date. Joints No malalignment. There is a RIGHT knee effusion. Soft tissues Skin claudette and soft tissue air in the RIGHT thigh are expected early postsurgical changes. Interval revision of RIGHT fixation hardware for femoral nonunion. Thank you for letting us participate in the care of this patient. For questions regarding this report, please contact the number below. Electronically signed by: Page Emanuel [facility] ([phone]), at 06/21/2019 11:06 AM Pending Studies and Lab Data at Discharge: * No orders in the log * Transfusions: No Discharge Conditions/Prognosis: Stable, awake, and alert. Mobilizing as noted above, pain controlledon oral medications. Discharge to: Home Outpatient PT referral. Updated Allergies/ADRs: Allergies Allergen Reactions ??? Percocet [Oxycodone-Acetaminophen] Nausea And Vomiting Immunizations Given this Hospitalization: Immunization History Administered Date(s) Administered ??? Influenza PF, Split 07/01/2012 ??? Influenza Vaccine, Whole 06/07/2007, 07/04/2010 Discharge Medications: Your Medications New Medications Dose Details acetaminophen 500 mg Tab Commonly known as: TYLENOL Take 2 tablets by mouth every 8 hours. 1,000 mg Quantity: 30 tablet Refills: 1 enoxaparin 40 mg/0.4 mL Syrg Commonly known as: LOVENOX Inject 0.4 mLs subcutaneously daily for 28 days. Start taking on: June 23, 2019 40 mg Quantity: 28 Syringe Refills: 0 polyethylene glycol 17 gram Pwpk Commonly known as: MIRALAX Take 17 g by mouth 2 times daily. 17 g Quantity: 14 each Refills: 0 senna-docusate 8.6-50 mg Tab Commonly known as: PERICOLACE Take 2 tablets by mouth 2 times daily. 2 tablet Quantity: 60 tablet Refills: 0 traMADol 50 mg Tab Commonly known as: ULTRAM Take 1 tablet by mouth every 4 hours as needed for Pain (Give 25mg for moderate pain (4/6) or 50 mg for severe pain (7/10).). 50 mg Quantity: 40 tablet Refills: 0 Continued medications with new dosing Dose Details metFORMIN 750 mg Tablet sr Commonly known as: GLUCOPHAGE-XR TK 1 T PO D What changed: Another medication with the same name was removed. Continue taking this medication, and follow the directions you see here. Refills: 3 Continued medications, unchanged Dose Details allopurinol 300 mg Tab Commonly known as: ZYLOPRIM Take 300 mg by mouth daily. 300 mg Refills: 2 aspirin 81 mg Tbec Take 81 mg by mouth daily. 81 mg Refills: 0 BD Ultra-Fine Mini Pen Needle 31 gauge x 3/16 Ndle USE DIRECTED WITH LEVEMIR PEN Generic drug: insulin needles (disposable) Refills: 3 Fluarix Quad 1476-0325 (PF) 60 mcg (15 mcg x 4)/0.5 mL Syrg ADM 0.5ML IM UTD Generic drug: flu vacc [id number] 6mos up(PF) Refills: 0 hydroCHLOROthiazide 25 mg Tab Commonly known as: HYDRODIURIL TAKE 1 TABLET BY MOUTH EVERY DAY Refills: 3 Levemir FlexTouch U-100 Insuln Inpn Inject 18 Units subcutaneously 2 times daily. Generic drug: insulin detemir U-100 18 Units Refills: 4 OneTouch Ultra Blue Test Strip Strp USE BID Generic drug: blood sugar diagnostic strips Refills: 0 Smoking Status at Discharge: Social History Tobacco Use Smoking Status Never Smoker Smokeless Tobacco Never Used Instructions for Rehab Providers or PCP: See below Instructions Given to Patient at Discharge: Patient Instructions Orthopedic Surgery Discharge Instructions Activity: 1. You can weight bear as tolerated on your right leg. 2. Remember to use the walker or crutches at all times for protection and balance. 3. Keep your right leg elevated as much as possible to reduce swelling and help control pain. Anticoagulation: You have been discharged on Lovenox injections (40mg daily) for 30 days or until your mobility improves. This injection will help decrease your chance of developing a blood clot. Afteryour dose on 07/21/2019, stop the Lovenox. Diet: Resume usual home diet. To improve healing you should increase your intake of high protein foods and eat healthy meals. Increase your intake of fluids and foods high in fiber to help prevent constipation. Driving: NO driving until you are cleared to do so by your Orthopedic surgeon. You should not drive while you are on narcotic pain medications as these can affect your judgment and reaction time. Call your surgeon with any questions. Medications: 1. You have been discharged on a short acting narcotic, Tramadol. You will be on this medication fora limited period of time only. Take only enough pain medication to control your pain. As your pain lessens, taper down and off this medication as tolerated. 2. The pain medication you are on can cause constipation, so increase your intake of fluids and fiber while you are taking them. You should also take the stool softener that was ordered, Senakot, to facilitate a bowel movement. An axql-rtj-zxjkgdd medication, MiraLAX, can also be used to help combat co nstipation. 3. If you need a renewal on your narcotic pain medications you need to give the Orthopedic Clinic enough time to process our request. This can take up to 3 days, so plan accordingly. 4. Continue the Tylenol around the clock for the next 10 days, (07/01/2019). This can be effective incontrolling pain along with your other medications. Do not take more than 3,000 mg of Tylenol in 24 hours. 5. Do not take any NSAIDs including ibuprofen, Motrin or Aleve as these medications may interfere with bone healing. Shower (claudette/sutures): 1. You can shower but remember your activity limitations and always have a chair available for balance and protection. DO NOT submerge the dressing/incision. 2. (Mepilex) Do not let water run over the operative dressing. If it becomes wet lightly pat the dressing dry. DO NOT submerge the incision. 3. You have claudette/sutures. Always cover them with a waterproof dressing or plastic bag when showering until they are removed. 4. After claudette/sutures are removed you can let water run gently over the incision. Wound (Mepilex): 1. Staple/suture removal 2 weeks after surgery (at your follow-up appointment on 07/04/2019). 2. Do not lift the edge of the Mepilex dressing to inspect the incision, it will not re-adhere. Remove your operative dressing 7 days from your surgery (06/28/2019). When it is removed you can leave theincision open to air or cover it with a light dressing. 3. If you have lots of drainage when you get home (and it is before 06/28/2019), remove this operative dressing and replace it with dry sterile gauze. Continue with daily dressing changes (and as needed) until the drainage stops, then remove the dressing and leave the incision open to air or lightly covered. Misc: 1. Remember that ICE and elevation are very important after surgery to help decrease swelling and control pain. Use ICE for 20-30 minutes at a time and keep your leg elevated as much as possible. 2. If you are a smoker, quitting is very important to help your fracture heal. You should contact your PCP to assist you with setting up a cessation program. 3. To help with bone healing and your overall bone health, your intake of calcium should be at [id number] a day and your vitamin D intake should be at least 800 IU per day. Call your doctor at [phone] if: 1. You have a fever > 101.5 or experience chills ??? Increased discharge from the incision ??? Any redness or swelling around the incision ??? Increased pain or change in the pain that is not controlled by your pain medications FOLLOW UP APPOINTMENTS: 1. You will have follow up appointments at [facility] as indicated in Future Appointment and Orders. Youwill have an x-ray prior to those appointments so please come to Radiology, desk 3T, 1 hour BEFORE your appointment for those x- rays, at 9:00 am on 07/04/2109. Future Appointments Date Time Provider Department Center 07/04/2019 9:00 AM [facility] DX ROOM 2 MH Xray [facility] 07/04/2019 9:30 AM Marya Monroy PA [facility] ORTH 3A [facility] For questions/concerns weekdays, 8 am - 5 pm, call Dr. Rich's office: [phone]. For evenings, weekends, holidays, call [phone] and request to speak with the Orthopaedic Resident control room helper. General Instructions None Future Appointments and Orders Future Appointments and Orders Future Appointments Provider Department Dept Phone 07/04/2019 9:00 AM [facility] ROOM 2 XRay at [facility] Arrive at: [facility] [phone] Please go to [facility]T ([place] Location). 07/04/2019 9:30 AM Marya Monroy PA Orthopaedics at [facility] Arrive at: [facility]A [phone] Future Orders Complete By Expires Referral to Physical Therapy [REF87 Custom] As directed Process Instructions: Note: Please indicate in the comments any additional Instructions, Precautions or Contra-indications. Scheduling Instructions: Questions: Reason for PT: s/p IMN exchange right hip Specialty Program Eval: Modalities could include: Treatment Focus: Primary Care Provider: Audra Singletary APRN [phone] Discharge References/Attachments ENOXAPARIN (LOVENOX) (OMANI) documented in this encounter Discharge Instructions Patient InstructionsMonica Blake PA - 06/21/2019 12:34 PM EST Orthopedic Surgery Discharge Instructions Activity: 1. You can weight bear as tolerated on your right leg. 2. Remember to use the walker or crutches at all times for protection and balance. 3. Keep your right leg elevated as much as possible to reduce swelling and help control pain. Anticoagulation: You have been discharged on Lovenox injections (40mg daily) for 30 days or until your mobility improves. This injection will help decrease your chance of developing a blood clot. Afteryour dose on 07/21/2019, stop the Lovenox. Diet: Resume usual home diet. To improve healing you should increase your intake of high protein foods and eat healthy meals. Increase your intake of fluids and foods high in fiber to help prevent constipation. Driving: NO driving until you are cleared to do so by your Orthopedic surgeon. You should not drive while you are on narcotic pain medications as these can affect your judgment and reaction time. Call your surgeon with any questions. Medications: 1. You have been discharged on a short acting narcotic, Tramadol. You will be on this medication fora limited period of time only. Take only enough pain medication to control your pain. As your pain lessens, taper down and off this medication as tolerated. 2. The pain medication you are on can cause constipation, so increase your intake of fluids and fiber while you are taking them. You should also take the stool softener that was ordered, Senakot, to facilitate a bowel movement. An vjxt-lkd-codpdcx medication, MiraLAX, can also be used to help combat co nstipation. 3. If you need a renewal on your narcotic pain medications you need to give the Orthopedic Clinic enough time to process our request. This can take up to 3 days, so plan accordingly. 4. Continue the Tylenol around the clock for the next 10 days, (07/01/2019). This can be effective incontrolling pain along with your other medications. Do not take more than 3,000 mg of Tylenol in 24 hours. 5. Do not take any NSAIDs including ibuprofen, Motrin or Aleve as these medications may interfere with bone healing. Shower (claudette/sutures): 1. You can shower but remember your activity limitations and always have a chair available for balance and protection. DO NOT submerge the dressing/incision. 2. (Mepilex) Do not let water run over the operative dressing. If it becomes wet lightly pat the dressing dry. DO NOT submerge the incision. 3. You have claudette/sutures. Always cover them with a waterproof dressing or plastic bag when showering until they are removed. 4. After claudette/sutures are removed you can let water run gently over the incision. Wound (Mepilex): 1. Staple/suture removal 2 weeks after surgery (at your follow-up appointment on 07/04/2019). 2. Do not lift the edge of the Mepilex dressing to inspect the incision, it will not re-adhere. Remove your operative dressing 7 days from your surgery (06/28/2019). When it is removed you can leave theincision open to air or cover it with a light dressing. 3. If you have lots of drainage when you get home (and it is before 06/28/2019), remove this operative dressing and replace it with dry sterile gauze. Continue with daily dressing changes (and as needed) until the drainage stops, then remove the dressing and leave the incision open to air or lightly covered. Misc: 1. Remember that ICE and elevation are very important after surgery to help decrease swelling and control pain. Use ICE for 20-30 minutes at a time and keep your leg elevated as much as possible. 2. If you are a smoker, quitting is very important to help your fracture heal. You should contact your PCP to assist you with setting up a cessation program. 3. To help with bone healing and your overall bone health, your intake of calcium should be at [id number] a day and your vitamin D intake should be at least 800 IU per day. Call your doctor at [phone] if: 1. You have a fever > 101.5 or experience chills ??? Increased discharge from the incision ??? Any redness or swelling around the incision ??? Increased pain or change in the pain that is not controlled by your pain medications FOLLOW UP APPOINTMENTS: 1. You will have follow up appointments at [facility] as indicated in Future Appointment and Orders. Youwill have an x-ray prior to those appointments so please come to Radiology, desk 3T, 1 hour BEFORE your appointment for those x- rays, at 9:00 am on 07/04/2109. Future Appointments Date Time Provider Department Center 07/04/2019 9:00 AM [facility] DX ROOM 2 Xray [facility] Rad 07/04/2019 9:30 AM Marya Monroy PA [facility] ORTH 3A [facility] For questions/concerns weekdays, 8 am - 5 pm, call Dr. Rich's office: [phone]. For evenings, weekends, holidays, call [phone] and request to speak with the Orthopaedic Resident control room helper. AttachmentsThe following attachments cannot be sent through Care Everywhere. ENOXAPARIN (LOVENOX) (OMANI)documented in this encounter Medications at Time of Discharge [...] WITH 3 03/2019 NEEDLE 31 gauge x 3/16 LEVEMIR PEN Needle allopurinol (ZYLOPRIM) Take 300 mg by mouth 2 09/2018 300 mg Tablet daily. LEVEMIR FLEXTOUCH U-100 Inject 18 Units 4 019 INSULN Insulin Pen subcutaneously 2 times daily. hydrochlorothiazide TAKE 1 TABLET BY 3 08/19/2015 (HYDRODIURIL) 25 mg MOUTH EVERY DAY Tablet enoxaparin (LOVENOX) 40 Inject 0.4 mLs 28 Syringe 0 06/23/20 19 07/21/2019 mg/0.4 mL Syringe subcutaneously daily for 28 days. polyethylene glycol Take 17 g by mouth 2 14 each 0 201807/08/2019 (MIRALAX) 17 gram Powder times daily. in Packet senna-docusate Take 2 tablets by 60 tablet 0 06/22/2019 (PERICOLACE) 8.6-50 mg mouth 2 times daily. Tablet traMADol (ULTRAM) 50 mg Take 1 tablet by 40 tablet 0 201807/08/2019 Tablet mouth every 4 hours as needed for Pain (Give 25mg for moderate pain (4/6) or 50 mg for severe pain (7/10).). documented as of this encounter Progress Notes Caroline Champagne RN - 06/22/2019 12:41 PM EST Pt d/c home per md order. Patient AOx4 hrr, lung sounds clear, no n/v sob or chest pain at time of discharge. +bs, lbm 06/20/2019, voiding clear yellow urine. Patient ambulating independently with FWW at this time. Pain well controlled. All LDA's removed. All belongings home with patient. Prescriptions given to patient, all discharge instructions reviewed with patient. Pt verbalized understanding of how to administer Lovenox. All questions answered. Please see flowsheet for full assessment. Caroline Champagne RN Luis Gonzalez MD - 06/22/2019 6:00 AM EST ORTHOPAEDIC SURGERY INPATIENT POST OP NOTE Patient Name: Prashant Diaz Age: 64 y.o. Surgery/Issue: s/p right femur exchange nailing for nonunion on 06/21/19. Attending: Hilario Date of surgery: 06/21/2019 SUBJECTIVE / INTERVAL HISTORY: Patient slept well, anticipating d/c today pending PT eval. Patient denies chest pain, shortness of breath, nausea, vomiting, numbness/weakness. Pain well-controlled. FOCUSED REVIEW OF SYSTEMS: as above. Active Hospital Problems Diagnosis ??? s/p Right Femur Exchange Nailing for Nonunion - 06/21/19 Dr. Rich ??? 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 Active Non-Hospital Problems Diagnosis ??? Type 2 diabetes mellitus without complication, with long-term current use of insulin ??? R femur fx s/p IMN 10/14/18 (Dr. Rich) ??? Rupture of medial head of gastrocnemius MEDICATIONS: No current facility-administered medications for this encounter. ??? FLUARIX QUAD [id number], PF, 60 mcg (15 mcg x 4)/0.5 mL Syringe ??? metFORMIN (GLUCOPHAGE-XR) 750 mg Tablet Sustained Release 24 hr ??? aspirin 81 mg Tablet, Delayed Release (E.C.) ??? ONETOUCH ULTRA BLUE TEST STRIP Strip ??? BD ULTRA-FINE MINI PEN NEEDLE 31 gauge x 3/16 Needle ??? allopurinol (ZYLOPRIM) 300 mg Tablet ??? LEVEMIR FLEXTOUCH U-100 INSULN Insulin Pen ??? hydrochlorothiazide (HYDRODIURIL) 25 mg Tablet ??? acetaminophen (TYLENOL) 500 mg Tablet ??? [START ON 06/23/2019] enoxaparin (LOVENOX) 40 mg/0.4 mL Syringe ??? polyethylene glycol (MIRALAX) 17 gram Powder in Packet ??? senna-docusate (PERICOLACE) 8.6-50 mg Tablet ??? traMADol (ULTRAM) 50 mg Tablet OBJECTIVE: Temp: [36.5 ??C (97.7 ??F)-37 ??C (98.6 ??F)] Resp: [15-16] BP: (99-126)/(65-75) Intake/Output Summary (Last 24 hours) at 06/22/2019 1626 Last data filed at 06/22/2019 1145 Gross per 24 hour Intake 240 ml Output 1600 ml Net -1360 ml Body mass index is 35.12 kg/m??. PE: General: awake/alert, responds to questions, pleasant CV: RRR assessed peripherally Resp: Breathing comfortably on RA RLE: MICKY bandage w/o strikethrough. Sensory intact to light touch in SP/DP distributions Motor intact to FHL/EHL/TA/GS. Brisk capillary refill distally, toes warm/well-perfused. Lab Results Component Value Date NA 137 10/20/2018 K 4.1 10/20/2018 CL 101 10/20/2018 CO2 24 10/20/2018 BUN 20 10/20/2018 CREATININE 0.80 10/20/2018 GLUCOSE 191 10/20/2018 CALCIUM 8.1 (L) 10/20/2018 Lab Results Component Value Date WBC 11.0 (H) 10/20/2018 HGB 8.0 (L) 10/20/2018 HCT 24.1 (L) 10/20/2018 MCV 94.1 (H) 10/20/2018 PLATELET 200 10/20/2018 Lab Results Component Value Date INR 1.2 10/17/2018 IMAGING: XR: No e/o cortical perforation, nail in appropriate alignment with cerclage wires. ASSESSMENT / PLAN: Prashant Diaz is a 64 y.o. male 1 Day Post-Op S/P R femur exchange nailing. Doing well post-operatively with MICKY bandage w/o strikethrough ON. Plan for PT eval in AM, likely d/c home. Activity: WBAT Closure: Claudette (to be removed at Orthopaedic follow-up appointment) Dressing: Mepilex x7 days. Drain: N/A. Anticoagulation: Lovenox 40mg SQ/day for 30 days - may dicontinue sooner if ambulating well. Antibiotics: Periop Ancef x24 hours. Consults: PT/OT. Dispo: Pending PT/OT eval. Follow-up: Scheduled (see below). Luis Gonzalez MD 06/22/2019 Future Appointments Date Time Provider Department Center 07/04/2019 9:00 AM [facility] DX ROOM 2 Xray [facility] Rad 07/04/2019 9:30 AM Marya Monroy, PA [facility] 3A [facility] Associated attestation - Mercedes Rich MD - 06/24/2019 8:11 AM EST Patient seen and examined. Agree with resident note. Tata Rich MD Department of Orthopaedics 06/24/19 Trinh Hermosillo RN - 06/21/2019 4:16 PM EST Patient arrived to floor via bed from PACU. Patient A&O x 3, lungs clear, heart rate regular. Patient has hypoactive bowel sounds and stats their last BM was on 06/20/19. Patient has a dressing to RLE, noted to be clean dry and intact. Patient has an IV of NS infusing at 100ml/hr in to their left forearm. Patient states their pain level is 2/10. Patient denies chest pain, shortness of breath, numbness or tingling. Patient oriented to room, call jeff IS. RN will monitor patient. TRINH HERMOSILLO RN Luis Gonzalez MD - 06/21/2019 3:34 PM EST ORTHOPAEDIC SURGERY INPATIENT POST OP NOTE Patient Name: Prashant Diaz Age: 64 y.o. Surgery/Issue: s/p right femur exchange nailing for nonunion on 06/21/19. Attending: Hilario Date of surgery: 06/21/2019 SUBJECTIVE / INTERVAL HISTORY: Patient ate turkey sandwich without issue. Voiding spontaneously. Patient denies chest pain, shortness of breath, nausea, vomiting, numbness/weakness. Pain well-controlled. FOCUSED REVIEW OF SYSTEMS: as above. Active Hospital Problems Diagnosis ??? s/p Right Femur Exchange Nailing for Nonunion - 06/21/19 Dr. Rich ??? 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 Active Non-Hospital Problems Diagnosis ??? Type 2 diabetes mellitus without complication, with long-term current use of insulin ??? R femur fx s/p IMN 10/14/18 (Dr. Rich) ??? Rupture of medial head of gastrocnemius MEDICATIONS: ??? sodium chloride 0.9 % (flush) flush 5-20 mL ??? lidocaine (XYLOCAINE) 10 mg/mL (1 %) injection 3 mg ??? lactated ringers infusion ??? vancomycin (VANCOCIN) injection ??? naloxone (NARCAN) injection 0.04 mg ??? fentaNYL (PF) 50mcg/mL injection ??? HYDROmorphone (DILAUDID) injection 0.2-0.4 mg ??? ondansetron (ZOFRAN) injection 4 mg ??? prochlorperazine (COMPAZINE) injection 5 mg ??? acetaminophen (TYLENOL) tablet 1,000 mg ??? ketorolac (TORADOL) injection 15 mg ??? sodium chloride 0.9% infusion ??? ceFAZolin (ANCEF) 2g in dextrose 5% 100 mL ??? traMADol (ULTRAM) tablet 50-100 mg ??? glucose (GLUTOSE) 40% oral gel OR dextrose 10% infusion OR glucagon (human recombinant) injection SolR 1 mg ??? POCT Fingerstick Glucose AND insulin lispro (HumaLOG) VIAL injection 1-5 Units ??? lactated Ringers 1,000 mL (06/21/19 5646) ??? sodium chloride 0.9% 1,000 mL (06/21/19 8197) OBJECTIVE: Temp: [36.1 ??C (97 ??F)-37.1 ??C (98.8 ??F)] Heart Rate: [52-76] Resp: [11] BP: (102-131)/(60-92) Intake/Output Summary (Last 24 hours) at 06/21/2019 1534 Last data filed at 06/21/2019 1225 Gross per 24 hour Intake 1303.33 ml Output 500 ml Net 803.33 ml Body mass index is 35.12 kg/m??. PE: General: awake/alert, responds to questions, pleasant CV: RRR assessed peripherally Resp: Breathing comfortably on RA RLE: Mpliex Ag saturated. Replaced and MICKY bandaged. Other dressings c/d/i Sensory intact to light touch in lat fem cut/fem/sural/saph/SP/DP/T distributions Motor intact to FHL/EHL/TA/GS, knee extension/flexion. Hip flex/ext limited by pain Brisk capillary refill distally, foot warm/well-perfused. DP palpable. Lab Results Component Value Date NA 137 10/20/2018 K 4.1 10/20/2018 CL 101 10/20/2018 CO2 24 10/20/2018 BUN 20 10/20/2018 CREATININE 0.80 10/20/2018 GLUCOSE 191 10/20/2018 CALCIUM 8.1 (L) 10/20/2018 Lab Results Component Value Date WBC 11.0 (H) 10/20/2018 HGB 8.0 (L) 10/20/2018 HCT 24.1 (L) 10/20/2018 MCV 94.1 (H) 10/20/2018 PLATELET 200 10/20/2018 Lab Results Component Value Date INR 1.2 10/17/2018 IMAGING: XR: No e/o cortical perforation, nail in appropriate alignment with cerclage wires. ASSESSMENT / PLAN: Prashant Diaz is a 64 y.o. male Day of Surgery S/P R femur exchange nailing. Doing well post-operatively. Plan for early mobilization and PT eval in AM, likely d/c home tomorrow. Activity: WBAT. Closure: [place] (to be removed at Orthopaedic follow-up appointment) Dressing: Mepilex x7 days. Drain: N/A. Anticoagulation: Lovenox 40mg SQ/day for 30 days - november dicontinue sooner if ambulating well. Antibiotics: Periop Ancef x24 hours. Consults: PT/OT. Dispo: Pending PT/OT eval. Follow-up: Scheduled (see below). Luis Gonzalez MD 06/21/2019 Future Appointments Date Time Provider Department Center 07/04/2019 9:00 AM [facility] DX ROOM 2 Xray [facility] Rad 07/04/2019 9:30 AM Marya Monroy, PA [facility] 3A [facility] Associated attestation - Mercedes Rich MD - 06/22/2019 7:32 AM EST Patient seen and examined. Agree with resident note. Tata Rich MD Department of Orthopaedics 06/22/19 Elinor Sims, RN - 06/21/2019 11:09 AM EST Break coverage. documented in this encounter H&P Notes Denilson Fine MD - 06/21/2019 6:40 AM EST Orthopaedic Surgery History & Physical Attending: Dr. Rich Prashant Diaz is a 64 y.o. male who presents to see us in consultation today at the request of Mercedes Rich MD. Chief Complaint: Persistent Right Thigh Pain History of Present Illness: Prashant Diaz is a 64 y.o. male with history of right femur fracture s/p intramedullary fixation on 10/14/[address] Rich with persistent right thigh pain and CT consistentwith right femur nonunion. Given his persistent right thigh pain with weight bearing, Mr. Diaz is seeking operative management for his nonunion. He denies any changes in health since he was last seenin clinic and denies having any nausea, vomiting, chest pain, shortness of breath, tingling, or numbness. Past Medical History: Patient Active Problem List Diagnosis Code ??? Rupture of medial head of gastrocnemius S86.119A ??? R femur fx s/p IMN 10/14/18 (Dr. Rich) S72.91XA ??? Type 2 diabetes mellitus without complication, with long-term current use of insulin E11.9, Z79.4 Past Surgical History: Past Surgical History: Procedure Laterality Date ??? IR ARTERIAL INTERVENTION 10/13/2018 IR Arterial Intervention 10/13/2018 Garrett Boswell MD [facility] INTERVENTIONL RAD ??? PRO OPEN TREAT FEMUR FX+INTRAMED MEGAN Right 10/14/2018 @INTRAMEDULLARY NAILING, FEMUR (WRVU 19.65) performed by Mercedes Rich MD at [facility] MAIN OR ??? WRIST SURGERY Allergies Allergen Reactions ??? Percocet [Oxycodone-Acetaminophen] Nausea And Vomiting No current facility-administered medications on file prior to encounter. Current Outpatient Medications on File Prior to Encounter Medication Sig Dispense Refill ??? FLUARIX QUAD 7738-4514, PF, 60 mcg (15 mcg x 4)/0.5 mL Syringe ADM 0.5ML IM UTD 0 ??? metFORMIN (GLUCOPHAGE-XR) 750 mg Tablet Sustained Release 24 hr TK 1 T PO D 3 ??? aspirin 81 mg Tablet, Delayed Release (E.C.) Take 81 mg by mouth daily. ??? ONETOUCH ULTRA BLUE TEST STRIP Strip USE BID 0 ??? BD ULTRA-FINE MINI PEN NEEDLE 31 gauge x 3/16 Needle USE DIRECTED WITH LEVEMIR PEN 3 ??? allopurinol (ZYLOPRIM) 300 mg Tablet Take 300 mg by mouth daily. 2 ??? LEVEMIR FLEXTOUCH U-100 INSULN Insulin Pen Inject 18 Units subcutaneously 2 times daily. 4 ??? metFORMIN (GLUCOPHAGE) 500 mg Tablet Take 750 mg by mouth daily. 3 ??? hydrochlorothiazide (HYDRODIURIL) 25 mg Tablet TAKE 1 TABLET BY MOUTH EVERY DAY 3 Social History: Social History Tobacco Use ??? Smoking status: Never Smoker ??? Smokeless tobacco: Never Used Substance Use Topics ??? Alcohol use: No ??? Drug use: Never Review of Systems: As per HPI, otherwise negative Objective: Temp: [36.6 ??C (97.9 ??F)] Heart Rate: [76] Resp: [18] BP: (131)/(92) SpO2: [96 %] Heart Rate from SpO2: -- Gen: Comfortable appearing male reclined on stretched in NAD, AOx3, answering questions appropriately. HEENT: NC, AT. CV: Regular rate and rhythm. No murmurs, rubs, or gallops. Pulm: Normal respiratory effort on room air. Lungs clear to auscultation bilaterally. Skin: Intact. Psych: Normal mood and pleasant affect. Right Lower Extremity Exam: Well-healed incisions to lateral thigh. No erythema, rash, or open lesions. Painless range of motion of hip / knee / ankle. Motor intact to hip flexion, knee flexion/extension, ankle plantarflexion/dorsiflexion, EHl/FHL. Sensation intact to light touch in Saphenous/Sural/LFC/Femoral/MP/LP/T/DP/SP distributions. Brisk capillary refill distally. Foot warm and well perfused. Imagin05/10/19 CT Right Femur No bridging bone between fracture site at mid femoral shaft. Sclerotic bone ends present. Partial obliteration of the fracture line at the distal femur. Cephalomedullary nail in place. Assessment/Plan: 64 y.o. male with history of diabetes and right femur fracture s/p intramedullary fixation on 10/14/[address] Rich presents for exchange nailing in setting of right femur nonunion andpersistent pain. Patient booked, marked, and consented for. All questions answered. Patient ready toproceed to OR. ?? Denilson Fine MD Orthopaedic Surgery PGY4 Associated attestation - Mercedes Rich MD - 06/21/2019 2:15 PM EST I have seen the patient and reviewed the attached history/physical and I agree with the details as written. The assessment and plan were formulated in discussion with me and I agree with them as documented. Tata Rich MD Department of Orthopaedics 06/21/2019 documented in this encounter Nursing Notes Trinh Hanna RN - 06/21/2019 9:43 AM EST Pt arrived to PACU. Sedated. x3 mepilex to R upper leg, dry and intact. Extremity warm, +pedal pulse. 10:10 Pt awake and alert. Tolerating ice chips. Xray at bedside. 10:21 Pt's family members at bedside to visit. 11:50 Lunch tray delivered, pt eating and tolerating well. 12:27 Reports some nausea s/p lunch, zofran given. Family at bedside for 2nd visit. 12:34 x1 episode emesis. Compazine given as well. Pt reports feeling better now. 13:53 Pt sleeping, appears comfortable. VSS. Awaiting floor bed. 14:20 Report called to MISA Tsang. 15:40 Pt rounded on by resident. Drainage/swelling noted to lateral thigh dressing, silver mepilex removed by resident. No further drainage coming from site at this time. Pt denies pain and N/T, +pedalpulse. New dressing applied. 16:00 Call from Ortho resident to apply micky wrap to R leg as well. Pt already with transpo on [facility], receiving RN called to pass along message, FINGERNAIL FORMER to notify RN of this request. documented in this encounter Miscellaneous Notes Plan of Care - Denilson Henderson, OT - 06/22/2019 11:50 AM EST Occupational Therapy Evaluation Patient profile: Pt seen for evaluation 64 y.o. male here for s/p right femur exchange nailing for nonunion on 06/21/19. Past Medical History: Diagnosis Date ??? Diabetes mellitus ??? Gout ??? HLD (hyperlipidemia) ??? Hypertension ??? Melanoma 11/1998 right posterior arm ??? s/p Right Femur Exchange Nailing for Nonunion - 06/21/19 Dr. Rich 06/21/2019 ??? Type 2 diabetes mellitus without complication, with long-term current use of insulin 10/18/2018 Past Surgical History: Procedure Laterality Date ??? IR ARTERIAL INTERVENTION 10/13/2018 IR Arterial Intervention 10/13/2018 Garrett Boswell MD [facility] INTERVENTIONL RAD ??? PRO OPEN TREAT FEMUR FX+INTRAMED MEGAN Right 10/14/2018 @INTRAMEDULLARY NAILING, FEMUR (WRVU 19.65) performed by Mercedes Rich MD at [facility] MAIN OR ??? WRIST SURGERY Social History: Patient lives w/ his , who will be home 16/02. Home Setup: 5 KALIE w/ railings on both sides, once in pt will be on 1 level. Pt has a tub shower w/ ashowerchair and a toilet w/ a g/b. DME: FWW, s/c, cane, grab bars Baseline ADL/Mobility: Pt reports he had most recently been performing functional mobility and ADLs independently. 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 Precautions/Special Considerations: WBAT RLE, fall Subjective: I have all the equipment from last time. Objective: Seen today for OT evaluation and education re: ADL/IADL manage post op. Cognitive Status/Behavior: alert, oriented to person, place, and time Range of motion, strength, coordination: Bilateral UEs are within functional limitations LLE WFL for ADL, RLE decreased strength, ROM, flexibility Sensation: subjectively intact Activities of Daily Living: Self-feeding: N/A-Independent with set up Hygiene/grooming: pt demonstrated the standing balance, endurance w/out hands on FWW needed for grooming task Upper and lower body dressing and bathing: pt demonstrated the ability to don pants w/ increased time following verbal cues for mod technique. Pt reports he has sock aid/leadlighter at home. Pt verbalized understanding and stepping pattern for tub transfers, agreed to have assist as needed. Functional Mobility: Supine to sit: conditional independent Sit to stand: conditional independence w/ FWW Ambulation: conditional independence with walker, 150 ft Stand to sit: conditional independence w/ FWW Balance: steady with use of walker. IADL???s: Assistance available to patient. Pain: 2/10 RLE. Education: family and patient have been educated on Role of occupational therapy/rehabilitation, Transfers, ADL, Safety, Precautions/Protocol, Functional Mobility, Activity pacing/Energy conservation, Home Management, Recommendations and Discharge planning and verbalizes understanding. Patient status, treatment, and mobility recommendations discussed with nursing. Assessment: Pt has been seen for occupational therapy evaluation. Prashant Diaz presents with the following performance skill deficits and client factors: increased pain, decreased activity tolerance,decreased flexibility/ROM, decreased strength, decreased sitting/standing balance, precautions/bracing and compromised mobility status. These performance deficits have led to activity limitations and participation restrictions in the following areas of occupation: dressing, bathing, transfers/mobility, rest/sleep, home management, work, leisure, driving, community mobility and social participation. However, despite the deficits listed above pt demonstrates the ability to perform bed mobility, LB dressing, and functional mobility w/ a FWW. Pt verbalized understanding and familiarity w/ modified techniques for ADLs/IADLs and reports his will provide assist as needed. Anticipate that pt will return home with assistance from his once medically ready. Do not anticipate further OT needs while hospitalized. Equipment needs at discharge: None needed Anticipated Discharge Disposition: home with assist Plan: Monitor pt until formal d/c. Eval Date: 06/22/2019 Total Evaluation Minutes, Occupational Therapy: 20(eval ) 2017 OT Evaluation Code Rationale: ?? Diagnosis & Pertinent Co-Morbidities affecting Plan of Care: see PMHx ?? Occupational Profile & Client History: Brief Expanded Extensive x ?? Assessment of Occupational Performance: 1-3 performance deficits 3-5 performance deficits 5 + performance deficits x ?? Clinical Decision Making: Low Moderate High x Clinical decision making of moderate complexity using standardized patient assessment instrument andmeasurable assessment of functional outcome. Pager: [phone] Denilson Henderson OT 06/22/2019 Occupational Therapy Rehabilitation Department Initial Assessments - Ting Lion RN - 06/22/2019 9:09 AM EST Office of Care Management Assessment Medical record reviewed. Plan of care and patient status discussed with direct care RN and/or Care Team in multidisciplinary rounds. Screen[age] y.o. male here for s/p right femur exchange nailing for nonunion on 06/21/19. Present on Admission: ??? 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 Patient receiving hospital care under Inpatient status. Admission order reviewed. Primary Insurance on file: [facility] Secondary Insurance on file: N/A Primary care provider on file: Audra Singletary, DIRECTOR OF OPERATIONS FOR THERAPY [phone] Advance Directive on file and Code Status: <no information>, Full Code Patient???s Functional Status:SBA with FWW Living Situation:H, 1 level house with spouse, 5 steps to enter, railings on both sides Tub shower w shower chair [address] [facility] [id number] Supports: spouse, available at home during the day. Would like outpatient PT. DME: owns FWW Assessment: Patient with no apparent RNCM/SW needs at this time. No housing, transportation, insurance, resources concerns identified at this time. Supports in place to achieve a safe post-hospital transition. No identified barriers to accessing necessary care and/or follow-up after discharge. Plan: Patient to d/c to home via private car when medically ready. winch stripper/Mirror Painter will continue to follow patient???s progress and remain available if situation changes for coordination of care, psychosocial support and/or discharge planning. Ting Lion, RN Pager:[phone] Plan of Care - Haley Lobo, PT - 06/22/2019 9:02 AM EST Physical Therapy Evaluation Patient profile: Prashant Diaz is a 64 y.o. right handed male admitted on 06/21/[address] Mercedes Rich MD for right femur exchange nailing for nonunion, now POD1. Patient with the following active problems: Past Medical History: Diagnosis Date ??? Diabetes mellitus ??? Gout ??? HLD (hyperlipidemia) ??? Hypertension ??? Melanoma 11/1998 right posterior arm ??? s/p Right Femur Exchange Nailing for Nonunion - 06/21/19 Dr. Rich 06/21/2019 ??? Type 2 diabetes mellitus without complication, with long-term current use of insulin 10/18/2018 Active Non-Hospital Problems Diagnosis ??? Type 2 diabetes mellitus without complication, with long-term current use of insulin ??? R femur fx s/p IMN 10/14/18 (Dr. Rich) ??? Rupture of medial head of gastrocnemius Past Surgical History: Procedure Laterality Date ??? IR ARTERIAL INTERVENTION 10/13/2018 IR Arterial Intervention 10/13/2018 Garrett Boswell MD [facility] INTERVENTIONL RAD ??? PRO OPEN TREAT FEMUR FX+INTRAMED MEGAN Right 10/14/2018 @INTRAMEDULLARY NAILING, FEMUR (WRVU 19.65) performed by Mercedes Rich MD at [facility] MAIN OR ??? WRIST SURGERY Social History: Home set-up: Patient lives with his spouse Jazlyn in a one level home with 5 KALIE. He sleeps in a flat bed at home. Bathroom Set-up: tub shower with shower chair, grab bars around toilet Stairs: 5 KALIE with bilateral railings Baseline Mobility: Patient was independent with ADLs, ambulating with straight cane, and driving prior to admission. 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 After his initial encounter in September 2018, pt reports that he had home PT followed by outpatient PT. Equipment at home: FWW, straight cane, shower chair Fall history: denies fall hx in last 6 months Precautions/Special Considerations: fall risk, WBAT RLE Lines: masimo Mobility and Positioning Recommendations: ?? Pt. to utilize SBA and FWW for ambulation and transfers with nursing. ?? Please encourage up to chair for meal times as able. ?? Pt encouraged to ambulate frequently with staff, getting into the bathroom for toileting and walking out in the anderson >/= 3 times daily as able. Subjective: ???I was walking around well with the cane before this?? Objective: Pt seen for evaluation today. Pain: reports 1-2/10 pain in RLE throughout Vital Signs: At Rest With Activity SpO2 (RA) 96% 97% HR 88bpm 96bpm Mental Status: alert, oriented to person, place, and time Vision: intact Skin: RLE covered with micky wrap, proximal RLE incision covered with dressing. C/D/I Musculoskeletal: ROM: WFL with exception of RLE Strength: WFL with exception of RLE (emilianao's adequate functional strength) Sensation: denies N/T Bed Mobility: Supine to Sit: indep from HOB flat, no bed rail Transfers: Sit to Stand: indep with FWW Stand to Sit: indep with FWW Gait: Distance: 200' Device used: FWW Level of assist: Modified indep Gait mechanics: emilianao's good gait speed, step-through pattern, dec heel-toe progression on RLE, dec Rstance time. Good FWW management, patient steady on feet, no overt LOB. Stairs: ascends/descends x5 steps with bilateral railings with step-to pattern, with SBA. Demo's good weight acceptance and appropriate use of UE support. Balance: Sitting Static: good Sitting Dynamic: good- observed patient don pants while sitting EOB Standing Static: good with FWW Standing Dynamic / Gait: Good with FWW during gait and stairs Education: patient has been educated on Bed mobility, Transfers, Assistive device/technique, Stairs,Positioning, Safety , Precautions/protocol, Gait , Role of therapy, Balance and Discharge planning and verbalizes understanding. Patient status, treatment, and mobility recommendations discussed with nursing. Assessment: Prashant Diaz was seen today for physical therapy evaluation. Patient is agreeable to participate in subjective interview, objective assessment, and functional mobility as outlined above. Patient presents POD1 following right femur exchange nailing for nonunion. Patient is WBAT on RLE, and presents with tolerable pain (1-2/10) throughout session. Following initial encounter in September 2018, patient was NWB and was discharged home with home services, progressing to outpatient PT. Prior to this admission, he was ambulating independently with straight cane. Upon evaluation this day, patient presents with decreased strength, decreased ROM and impaired balance, resulting in functional limitation and need for assistive device. At this time, anticipate patient safe to d/c home with assistancefrom as needed, with follow up for outpatient PT services when medically ready. Discharge Recommendations: Based on the current findings, Anticipated Discharge Disposition: home with outpatient services whenmedically ready for hospital discharge. Consult Recommendations: No other consults recommended at this time. Equipment needs: Patient has all necessary equipment Plan: Therapy Frequency: evaluation only. Patient/family understand and agree with plan as stated above. 2017 PT Evaluation Code Rationale: ?? Diagnosis & Pertinent Co-Morbidities, personal factors, and present illness affecting Plan ofCare: (see above); Additional personal factors or co- morbidities that impact plan: ?? Total # of Factors: 0 1-2 3+ X ?? Examination of body system impairments, functional limitations and behaviors, and/or participation restrictions. Addressing 1-2 elements Addressing 3 + elements X Addressing 4 + elements ?? Clinical presentation: See assessment above. Stable/Uncomplicated Evolving/Fluctuating Symptoms Unstable/Unpredictable X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 Address City/[facility]/[place] [address] Joint Culture (06/21/2019 9:02 AM EST) Component Value Ref Test Analysis Performed At [facility] Range Method Time Signature Joint Culture No growth at 14 GARCIA days. [facility] Gram Stain No Neutrophils seen. GARCIA No microorganisms seen. [facility] Specimen Anatomical Collection Method Collection Time Receive d Time (Source) Location / / Volume Laterality Joint sample STRUCTURE OF RIGHT 06/21/2019 9:02 AM 9:19 (specimen) LOWER LIMB / EST AM EST Unknown Comment: RIGHT FEMUR INTRAMEDULLARY REAM INGS # 2 Resulting Agency Comment Spec In Lab Mercedes Rich MD MICROBIOLOGY - GENERAL ORDER KUN Performing Organization Address City/[facility]/ZIP Code Phon e Number [address] Anaerobic Culture (06/21/2019 9:02 AM EST) Patholo gist Method Time Signature Anaerobic No anaerobic [facility] Culture organisms [facility] LABORATORY Specimen Anatomical Collection Method Collection Time Receive d Time (Source) Location / / Volume Laterality Joint sample STRUCTURE OF RIGHT 06/21/2019 9:02 AM 9:21 (specimen) LOWER LIMB / EST AM EST Unknown Comment: RIGHT FEMUR INTRAMEDULLARY REAM INGS # 1 Resulting Agency Comment Spec In Lab Mercedes Rich MD MICROBIOLOGY - GENERAL ORDER KUN Performing Organization Address City/[facility]/ZIP Code Phon e Number [address] Joint Culture (06/21/2019 9:02 AM EST) Component Value Ref Test Analysis Performed At [facility] Range Method Time Signature Joint Culture No growth at 14 GARCIA days. [facility] Gram Stain No Neutrophils seen. GARCIA No microorganisms seen. [facility] Specimen Anatomical Collection Method Collection Time Receive d Time (Source) Location / / Volume Laterality Joint sample STRUCTURE OF RIGHT 06/21/2019 9:02 AM 9:21 (specimen) LOWER LIMB / EST AM EST Unknown Comment: RIGHT FEMUR INTRAMEDULLARY REAM INGS # 1 Resulting Agency Comment Spec In Lab Mercedes Rich MD MICROBIOLOGY - GENERAL ORDER KUN Performing Organization Address City/[facility]/ZIP Code Phon e Number [address] Anaerobic Culture (06/21/2019 9:02 AM EST) Component Value Ref Test Analysis Performed At [employer] Range Method Time Signature Anaerobic No anaerobic GARCIA Culture organisms [facility] LABORATORY Gram Stain Few Neutrophils seen GARCIA No microorganisms seen. [facility] Specimen Anatomical Collection Method Collection Time Receive d Time (Source) Location / / Volume Laterality Joint sample STRUCTURE OF RIGHT 06/21/2019 9:02 AM 9:20 (specimen) LOWER LIMB / EST AM EST Unknown Comment: RIGHT FEMUR TISSUE FROM NAIL (I MPLANT) Resulting Agency Comment Spec In Lab Mercedes Rich MD MICROBIOLOGY - GENERAL ORDER KUN Performing Organization Address City/[facility]/ZIP Code Phon e Number [address] Joint Culture (06/21/2019 9:02 AM EST) Component Value Ref Test Analysis Performed At Patholo gist Range Method Time Signature Joint Culture No growth at 14 GARCIA days. [facility] Gram Stain No Neutrophils seen. [facility] No microorganisms seen. [facility] Specimen Anatomical Collection Method Collection Time Receive d Time (Source) Location / / Volume Laterality Joint sample STRUCTURE OF RIGHT 06/21/2019 9:02 AM 9:20 (specimen) LOWER LIMB / EST AM EST Unknown Comment: RIGHT FEMUR TISSUE FROM NAIL (I MPLANT) Resulting Agency Comment Spec In Lab eMrcedes Rich MD MICROBIOLOGY - GENERAL ORDER KUN Performing Organization Address [facility]/ZIP Code Phon e Number [address] POCT Glucose (06/21/2019 6:24 AM EST) P athologist Signature POC Glucose 169 65 - 199 [facility] mg/dL [facility] Comment: Supplemental ranges: <140 mg/dL before meals <180 mg/dL all other times of the day Specimen Anatomical Collection Method Collection Time Receive d Time (Source) Location / / Volume Laterality Blood specimen 06/21/2019 6:24 AM 019 6:24 (specimen) EST AM EST Mercedes Rich MD POINT OF CARE TEST ORDERABLE S Performing Organization Address City/[facility]/[place] [address] SCAN DOC: IMPLANTABLE DEVICES (06/21/2019 12:00 AM EST) Narrative 06/21/2019 12:00 AM EST This result has an attachment that is no t available. Ordered by an unspecified provider. 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 Nonunion of fracture documented in this encounter Administered Medications Inactive Administered Medications - up to 3 most recent administrations Medication Order MAR Action Action Date Dose Rate Site acetaminophen (TYLENOL) tablet Given 06/21/2019 6:18 AM EST 1,00 0 mg 1,000 mg 1,000 mg, Oral, ONCE, 1 dose, On Thu06/21/19 at 0630, Administer with SIP of H2O only., Day of Surgery (Day of Procedure), Routine acetaminophen (TYLENOL) tablet 1,000 mg Given 06/22/2019 5:41 AM EST 1,000 mg 1,000 mg, Oral, EVERY 8 HOURS SCHEDULED, First dose on Thu06/21/19 at 1400, Until Discontinued, Maximum dose of acetaminophen is 4000 mg from all sources in 24 hours., Routine Given 06/21/2019 10:01 PM EST 1,000 mg Given 06/21/2019 2:27 PM EST 1,000 mg allopurinol (ZYLOPRIM) tablet 300 mg Given 06/22/2019 8:36 AM EST 300 mg 300 mg, Oral, DAILY, First dose on Thu06/22/19 at 0900, Until Discontinued, Routine ceFAZolin (ANCEF) 2g in dextrose 5% New Bag 06/22/2019 4:27 AM EST 2 g 200 mL/hr 100 mL 2 g, Intravenous, EVERY 8 HOURS, 3 doses, First dose on Thu06/21/19 at 1015, Last dose on Thu06/22/19 at 0400, Administer over 30 Minutes, Adjust to 4 hours from intraoperative dose. * Beta-lactam based antibiotics (eg. Ampicillin, Cefazolin, Aztreonam) should be administered within 4 hours of the preceding intraoperative dose. * Vancomycin, Fluoroquinolones, Clindamycin, Gentamicin, and Metronidazole should be administered within 8 hours of the preceding intraoperative dose., Recovery (Recovery-Hospital Unit), Indication for (Active or Suspected): Prophylaxis New Bag 06/21/2019 8:16 PM EST 2 g 200 mL/hr New Bag 06/21/2019 11:48 AM EST 2 g 200 mL/hr dextrose 10% infusion 250 mL, at 1,000 mL/hr, Intravenous, IDRIS RY 30 MIN PRN, Starting on Thu06/21/19 at 0955, Until Thu06/22/19 at 1443, For BG 50-70 mg/d L: Oral treatment preferred:?? If able to drink, give 120 mL Juice or Regular (not diet) soda OR If NPO, give 15 gram glucose 40% oral gel massaged into b uccal mucosa OR if unconscious or uncooperative, give 25 gr am (250 mL) Dextrose 10% IV over 15 minutes per protocol OR, if no IV access, 1 mg G lucagon IM. For BG less than 50 mg/dL: Oral treatment preferred:?? If able to drink, give 240 mL Juice or Regular (not diet) soda OR If NPO, give 30 gram gluco se 40% oral gel massaged in buccal mucosa OR if unconscious or uncooperative, give 25 gram (250 mL) Dextrose 10% IV over 15 minutes per protocol OR, if no IV access, 1 mg Glucago n IM. Recheck BG in 30 minutes. May repeat juice/soda, gel, dex trose or glucagon once per episode. For persistent hypoglycemia, consider longer -acting treatment for the duration of the active insulin. enoxaparin (LOVENOX) injection 40 mg Given 06/22/2019 8:35 AM EST 40 mg 40 mg, Subcutaneous, DAILY, First dose on Thu06/21/19 at 1645, Until Discontinued, Routine Given 06/21/2019 4:46 PM EST 40 mg gabapentin (NEURONTIN) capsule 600 mg Given 06/21/2019 6:18 AM EST 600 mg 600 mg, Oral, ONCE, 1 dose, On Thu06/21/19 at 0630, Administer with SIP of H2O only., Day of Surgery (Day of Procedure), Routine glucagon (human recombinant) injection S olR 1 mg 1 mg, Intramuscular, EVERY 30 MIN PRN, S tarting on Thu06/21/19 at 0955, Until Thu06/22/19 at 1443, Low blood sugar, For BG 50-70 mg/ dL: Oral treatment preferred:?? If able to drink, give 120 mL Juice or Regular (not diet) soda OR If NPO, give 15 gram glucose 40% oral gel massaged into b uccal mucosa OR if unconscious or uncooperative, give 25 gr am (250 mL) Dextrose 10% IV over 15 minutes per protocol OR, if no IV access, 1 mg G lucagon IM. For BG less than 50 mg/dL: Oral treatment preferred:?? If able to drink, give 240 mL Juice or Regular (not diet) soda OR If NPO, give 30 gram gluco se 40% oral gel massaged in buccal mucosa OR if unconscious or uncooperative, give 25 gram (250 mL) Dextrose 10% IV over 15 minutes per protocol OR, if no IV access, 1 mg Glucago n IM. Recheck BG in 30 minutes. May repeat juice/soda, gel, dex trose or glucagon once per episode. For persistent hypoglycemia, consider longer -acting treatment for the duration of the active insulin., Routine glucose (GLUTOSE) 40% oral gel 15-30 g, Buccal, EVERY 30 MIN PRN, Starting on Thu at 0955, Until Thu06/22/19 at 1443, Low blood sugar, For BG 50-70 mg/ dL: Oral treatment preferred:?? If able to drink, give 120 mL Juice or Regular (not diet) soda OR If NPO, give 15 gram glucose 40% oral gel massaged into b uccal mucosa OR if unconscious or uncooperative, give 25 gr am (250 mL) Dextrose 10% IV over 15 minutes per protocol OR, if no IV access, 1 mg G lucagon IM. For BG less than 50 mg/dL: Oral treatment preferred:?? If able to drink, give 240 mL Juice or Regular (not diet) soda OR If NPO, give 30 gram gluco se 40% oral gel massaged in buccal mucosa OR if unconscious or uncooperative, give 25 gram (250 mL) Dextrose 10% IV over 15 minutes per protocol OR, if no IV access, 1 mg Glucago n IM. Recheck BG in 30 minutes. May repeat juice/soda, gel, dex trose or glucagon once per episode. For persistent hypoglycemia, consider longer -acting treatment for the duration of the active insulin. 1 tube contains 15 grams of glucose (n et weight of tube = 37.5 grams., Routine hydroCHLOROthiazide (HYDRODIURIL) tablet 25 mg Given 06/22/2019 8:35 AM EST 25 mg 25 mg, Oral, DAILY, First dose on Thu06/22/19 at 0900, Until Discontinued, Hold for SBP <120 mmHg., Routine insulin lispro (HumaLOG) VIAL injection 1-5 Given 05/28 4:46 PM EST 1 Units Units 1-5 Units, Subcutaneous, 3 TIMES DAILY BEFORE MEALS, First dose on Thu06/21/19 at 1130, Until Discontinued, CORRECTION BOLUS [1-4 Units] Sensitive Sliding Scale: Correction factor 40 (1 unit of insulin is expected to drop the glucose 40 mg/dL) BG 160 - 200 Give 1 unit BG 201 - 240 Give 2 units BG 241 - 280 Give 3 units BG greater than 280, give 4 units and recheck BG in 2 hours. - If recheck BG is LESS than 280, give no insulin and resume schedule - If recheck BG is GREATER than 280, give 4 units and repeat BG in 2 hours (no more than 3 times) & call for new insulin orders. DO NOT hold if NPO, unless specifically told to do so. Per Blood Glucose Monitoring Policy, re-check a BG of > 240 in 2 hours., Routine insulin lispro (HumaLOG) VIAL injection 1-5 Given 05/28 11:15 PM EST 1 Units Units 1-5 Units, Subcutaneous, 4 TIMES DAILY BEFORE MEALS & NIGHTLY, First dose (after last modification) on Thu06/21/19 at 2315, Until Discontinued, CORRECTION BOLUS [1-4 Units] Sensitive Sliding Scale: Correction factor 40 (1 unit of insulin is expected to drop the glucose 40 mg/dL) BG 160 - 200 Give 1 unit BG 201 - 240 Give 2 units BG 241 - 280 Give 3 units BG greater than 280, give 4 units and recheck BG in 2 hours. - If recheck BG is LESS than 280, give no insulin and resume schedule - If recheck BG is GREATER than 280, give 4 units and repeat BG in 2 hours (no more than 3 times) & call for new insulin orders. DO NOT hold if NPO, unless specifically told to do so. Per Blood Glucose Monitoring Policy, re-check a BG of > 240 in 2 hours., Routine insulin lispro (HumaLOG) VIAL injection 1-5 Given 05/28 8:35 AM EST 2 Units Units 1-5 Units, Subcutaneous, EVERY 4 HOURS SCHEDULED, First dose (after last modification) on Thu06/22/19 at 0815, Until Discontinued, CORRECTION BOLUS [1-4 Units] Sensitive Sliding Scale: Correction factor 40 (1 unit of insulin is expected to drop the glucose 40 mg/dL) BG 160 - 200 Give 1 unit BG 201 - 240 Give 2 units BG 241 - 280 Give 3 units BG greater than 280, give 4 units and recheck BG in 2 hours. - If recheck BG is LESS than 280, give no insulin and resume schedule - If recheck BG is GREATER than 280, give 4 units and repeat BG in 2 hours (no more than 3 times) & call for new insulin orders. DO NOT hold if NPO, unless specifically told to do so. Per Blood Glucose Monitoring Policy, re-check a BG of > 240 in 2 hours., Routine lactated ringers infusion New Bag 06/21/2019 7:30 AM EST 1,000 mL, at 100 mL/hr, Intravenous, CONTINUOUS, Starting on Thu06/21/19 at 0630, Until Thu06/21/19 at 1555, Day of Surgery (Day of Procedure) New Bag 06/21/2019 6:34 AM EST 1,000 mLs 100 mL/hr metFORMIN (GLUCOPHAGE) tablet 750 mg Given 06/22/2019 8:36 AM EST 750 mg 750 mg, Oral, DAILY, First dose on Thu06/22/19 at 0900, Until Discontinued, Routine ondansetron (ZOFRAN) injection 4 mg Given 06/21/2019 12:25 PM EST 4 mg 4 mg, Intravenous, EVERY 30 MIN PRN, Starting on Thu06/21/19 at 0941, Until Thu06/21/19 at 1555, Nausea, May repeat 4 mg once in 30 minutes. If multiple antiemetics ordered, use ondansetron first and if ineffective use prochlorperazine second and if ineffective use promethazine, PACU Recovery polyethylene glycol (MIRALAX) packet 17 g Given 06/22/2019 8:35 AM EST 17 g 17 g, Oral, 2 TIMES DAILY, First dose on Thu06/21/19 at 2100, Until Discontinued, Routine Given 06/21/2019 8:16 PM EST 17 g prochlorperazine (COMPAZINE) injection 5 mg Given 06/21/2019 12:34 PM EST 5 mg 5 mg, Intravenous, EVERY 30 MIN PRN, 2 doses, Starting on Thu06/21/19 at 0941, Until Thu06/21/19 at 1555, Nausea, May repeat 5 mg once in 30 minutes. If multiple antiemetics ordered, use ondansetron first and if ineffective use prochlorperazine second and if ineffective use promethazine, PACU Recovery, Routine senna-docusate (PERICOLACE) 8.6-50 mg per Given 2018 8:36 AM EST 2 tablets tablet 2 tablet 2 tablet, Oral, 2 TIMES DAILY, First dose on Thu06/21/19 at 2100, Until Discontinued, Routine Given 06/21/2019 8:16 PM EST 2 tablets sodium chloride 0.9 % (flush) flush 5 mL Given 06/22/2019 8:36 AM EST 5 mLs 5 mL, Intravenous, 2 TIMES DAILY, First dose on Thu06/21/19 at 2100, Until Discontinued, Recovery (Recovery-Hospital Unit), Routine Given 06/21/2019 8:23 PM EST 5 mLs sodium chloride 0.9% infusion New Bag 06/21/2019 8:16 PM EST 1,000 mLs 100 mL/hr 1,000 mL, at 100 mL/hr, Intravenous, CONTINUOUS, Starting on Thu06/21/19 at 1015, Until Thu06/22/19 at 1443, Recovery (Recovery-Hospital Unit) New Bag 06/21/2019 9:58 AM EST 1,000 mLs 100 mL/hr tamsulosin (FLOMAX) ER capsule 0.4 mg Given 06/22/2019 12:12 PM EST 0.4 mg 0.4 mg, Oral, DAILY, First dose on Thu06/22/19 at 1200, Until Discontinued, DO NOT CRUSH OR OPEN, Routine traMADol (ULTRAM) tablet 50-100 mg Given 06/22/2019 12:12 PM EST 50 mg 50-100 mg, Oral, EVERY 4 HOURS PRN, Starting on Thu06/21/19 at 0955, Until Thu06/22/19 at 1443, Pain, Give 50 mg for mild-moderate pain (3-6/10) or 100 mg for severe pain (>6/10)., Routine Given 06/21/2019 10:24 AM EST 50 mg documented in this encounter Active and Recently Administered Medications Times are shown in EST. Scheduled Medication Order 06/20/2019 06/21/2019 06/22/2019 acetaminophen (TYLENOL) tablet 1,000 mg (COMPLETED) 06 (Given - Provider: Marci Marshall, MISA) 1,000 mg, Oral, ONCE, 1 dose, Thu at 0630, Administer with SIP of H2O only., Day of Surgery (Day of Procedure), Routine acetaminophen (TYLENOL) tablet 1,000 mg 1427 (Given - Provider: Trinh Hanna RN)2201 (Given - Provider: Chayito Hendrickson, MISA) 0541 (Given - Provider: Chayito Hendrickson, MISA) 1,000 mg, Oral, EVERY 8 HOURS SCHEDULED, First dose on Thu06/21/19 at 1400, Until Discontinued, Maximum dose of acetaminophen is 4000 mg from all sources in 24 hours., Routine allopurinol (ZYLOPRIM) tablet 300 mg 0836 (Given - Provider: Caroline Champagne RN) 300 mg, Oral, DAILY, First dose on Thu08/22/18 at 0900, Until Discontinued, Routine ceFAZolin (ANCEF) 2g in dextrose 5% 100 mL (COMPLETED) 1148 (New Bag - Provider: Trinh Hanna RN)1218 (Stopped - Provider: Trinh Hanna RN)2016 (New Bag - Provider: Chayito Hendrickson RN)2046 (Stopped - Provider: Chayito Hendrickson, MISA) 0427 (New Bag - Provider: Chayito Hendrickson, MISA)0457 (Stopped - Provider: Chayito Hendrickson RN) 2 g, Intravenous, EVERY 8 HOURS, 3 doses , First dose on Thu06/21/19 at 1015, Last dose on Thu06/22/19 at 0400, Administer over 30 Minutes, Adjust to 4 hours from intraoperative dose. * Beta-lactam bas ed antibiotics (eg. Ampicillin, Cefazoli n, Aztreonam) should be administered within 4 hours of the preceding intraoperative dose. * Vancomycin, Fluoroquinolones, Clindamycin, Gentamicin, and Metronidazo le should be administered within 8 hours of the preceding intraoperative dose., Recovery (Recovery-Hospital Unit), Indication for (Active or Suspected): Prophylaxis enoxaparin (LOVENOX) injection 40 mg 164 6 (Given - Provider: Trinh Hermosillo RN) 0835 (Given - Provider: Rigoberto Pandya) 40 mg, Subcutaneous, DAILY, First dose o n Thu06/21/19 at 1645, Until Discontinued, Routine gabapentin (NEURONTIN) capsule 600 mg (COMPLETED) 18 (Given - Provider: Marci Marshall RN) 600 mg, Oral, ONCE, 1 dose, Thu06/21/19 at 0630, Administer with SIP of H2O only., Day of Surgery (Day of Procedure), Routine hydroCHLOROthiazide (HYDRODIURIL) tablet 25 mg 0835 (Given - Provider: Carloine Champagne RN) 25 mg, Oral, DAILY, First dose on Thu at 0900, Until Discontinued, Hold for SBP <120 mmHg., Routine insulin lispro (HumaLOG) VIAL injection 1-5 Units (CANCELED) 1130 (Not Given - Provider: Trinh Hanna RN - Reason: Order parameters not met - Comment: [phone] (Given - Provider: Trinh Hermosillo RN) 1-5 Units, Subcutaneous, 3 TIMES DAILY B EFORE MEALS, First dose on Thu06/21/19 at 1130, Until Discontinued, CORRECTION BOLUS [1-4 Units] Sensitive Sliding Scale: Correction factor 40 (1 unit of ins ulin is expected to drop the glucose 40 mg/dL) BG 160 - 200 Give 1 unit BG 201 - 240 Give 2 units BG 241 - 280 Give 3 units BG greater than 280, give 4 units and recheck BG in 2 hours. - If recheck BG i s LESS than 280, give no insulin and res ume schedule - If recheck BG is GREATER than 280, give 4 units and repeat BG in 2 hours (no more than 3 times) & call for new insulin orders. DO NOT hold if N PO, unless specifically told to do so. P er Blood Glucose Monitoring Policy, re- check a BG of > 240 in 2 hours., Routine insulin lispro (HumaLOG) VIAL injection 1-5 Units (CANCELED) 2315 (Given - Provider: Chayito Hendrickson RN) 0730 (Not Given - Provider: Caroline sanchez RN - Reason: Medication Discontinued) 1-5 Units, Subcutaneous, 4 TIMES DAILY B EFORE MEALS & NIGHTLY, First dose on Thu06/21/19 at 2315, Until Discontinued, CORRECTION BOLUS [1-4 Units] Sensitive Sliding Scale: Correction factor 40 (1 unit of insulin is expected to drop t he glucose 40 mg/dL) BG 160 - 200 Give 1 unit BG 201 - 240 Give 2 units BG 241 - 280 Give 3 units BG greater than 280, give 4 units and recheck BG in 2 hours. - I f recheck BG is LESS than 280, give no i nsulin and resume schedule - If recheck BG is GREATER than 280, give 4 units and repeat BG in 2 hours (no more than 3 times) & call for new insulin orders. DO NOT hold if NPO, unless specifically to ld to do so. Per Blood Glucose Monitoring Policy, re-check a BG of > 240 in 2 hours., Routine insulin lispro (HumaLOG) VIAL injection 1-5 Units(Linked Group 1 ) 0835 (Given - Provider: Caroline Champagne RN)1200 (Not Given - Provider: Caroline Champagne RN - Reason: Patient/family refused - Comment: being d/c'd home now, pt said he will check it then) 1-5 Units, Subcutaneous, EVERY 4 HOURS S CHEDULED, First dose on Thu06/22/19 at 0815, Until Discontinued, CORRECTION BOLUS [1-4 Units] Sensitive Sliding Scale: Correction factor 40 (1 unit of insuli n is expected to drop the glucose 40 mg/ dL) BG 160 - 200 Give 1 unit BG 201 - 240 Give 2 units BG 241 - 280 Give 3 units BG greater than 280, give 4 units and recheck BG in 2 hours. - If recheck BG is L ESS than 280, give no insulin and resume schedule - If recheck BG is GREATER than 280, give 4 units and repeat BG in 2 hours (no more than 3 times) & call for new insulin orders. DO NOT hold if NPO, unless specifically told to do so. Per Blood Glucose Monitoring Policy, re- check a BG of > 240 in 2 hours., Routine metFORMIN (GLUCOPHAGE) tablet 750 mg 0836 (Given - Provider: Caroline Champagne RN) 750 mg, Oral, DAILY, First dose on Thu08/22/18 at 0900, Until Discontinued, Routine polyethylene glycol (MIRALAX) packet 17 g 2015 (Given - Provider: Chayito Hendrickson RN) 0835 (Given - Provider: Rigoberto Pandya) 17 g, Oral, 2 TIMES DAILY, First dose on Thu06/21/19 at 2100, Until Discontinued, Routine senna-docusate (PERICOLACE) 8.6-50 mg per tablet 2 tablet 2015 (Given - Provider: Chayito Hendrickson RN) 0836 (Given - Provider: Rigoberto Pandya) 2 tablet, Oral, 2 TIMES DAILY, First dos e on Thu06/21/19 at 2100, Until Discontinued, Routine sodium chloride 0.9 % (flush) flush 5 mL 2022 (Given - Provider: Chayito Hendrickson RN) 0836 (Given - Provider: Rigoberto Pandya) 5 mL, Intravenous, 2 TIMES DAILY, First dose on Thu06/21/19 at 2100, Until Discontinued, Recovery (Recovery-Hospital Unit), Routine tamsulosin (FLOMAX) ER capsule 0.4 mg 1211 (Given - Provider: Caroline Champagne RN) 0.4 mg, Oral, DAILY, First dose on Thu08/22/18 at 1200, Until Discontinued, DO NOT CRUSH OR OPEN, Routine Continuous Medication Order 06/20/2019 06/21/2019 06/22/2019 lactated ringers infusion (CANCELED) 063 4 (New Bag - Provider: Marci Marshall RN)0730 (New Bag - Provider: Hiren Hernandez)0805 (Anesthesia Volume Adjustment - Provider: Hiren Hernandez)0922 (Anesthesia Volume Adjustment - Provider: Hiren Hernandez) 1,000 mL, at 100 mL/hr, Intravenous, CON TINUOUS, Starting Thu06/21/19 at 0630, Until Thu06/21/19 at 1555, Day of Surgery (Day of Procedure) sodium chloride 0.9% infusion 0958 (New Bag - Provider: Trinh Hanna RN)2015 (New Bag - Provider: Chayito Hendrickson RN) 1,000 mL, at 100 mL/hr, Intravenous, CON TINUOUS, Starting Thu06/21/19 at 1015, Until Thu06/22/19 at 1443, Recovery (Recovery-Hospital Unit) PRN Medication Order 06/20/2019 06/21/2019 06/22/2019 bisacodyl (DULCOLAX) EC tablet 10 mg 10 mg, Oral, 2 TIMES DAILY PRN, Starting Thu06/21/19 at 1615, Until Thu06/22/19 at 1443, Constipation, DO NOT CRUSH OR OPEN Administer if needed per patient's routine or if no bowel movement withi n 48 hours to achieve: (1) One bowel mov ement every 48 hours, AND (2) without straining. If multiple PRN bowel medications ordered, start with lactulose, then oral bisacodyl, then bisacodyl suppository. Multiple medications may be given concomitantly for constipatio n., Routine bisacodyl (DULCOLAX) suppository 10 mg 10 mg, Rectal, DAILY PRN, Starting Tue 1 08/21/18 at 1615, Until Thu06/22/19 at 1443, Constipation, Administer if needed per patient's routine or if no bowel movement within 48 hours to achieve: (1) One bowel movement every 48 hours, AND (2) w ithout straining. If multiple PRN bowel medications ordered, start with lactulose, then oral bisacodyl, then bisacodyl suppository. Multiple medications may be given concomitantly for constipation., Routine dextrose 10% infusion(Linked Group 2) 250 mL, at 1,000 mL/hr, Intravenous, IDRIS RY 30 MIN PRN, Starting Thu06/21/19 at 0955, Until Thu06/22/19 at 1443, For BG 50-70 mg/dL: Oral treatment preferred:?? If able to drink, give 120 mL Juice o r Regular (not diet) soda OR If NPO, giv e 15 gram glucose 40% oral gel massaged into buccal mucosa OR if unconscious or uncooperative, give 25 gram (250 mL) Dextrose 10% IV over 15 minutes per protocol OR, if no IV access, 1 mg Glucagon IM. * * For BG less than 50 mg/dL: Oral treatment preferred:?? If able to drink, give 240 mL Juice or Regular (not diet) soda OR If NPO, give 30 gram glucose 40% oral g el massaged in buccal mucosa OR if uncon scious or uncooperative, give 25 gram (250 mL) Dextrose 10% IV over 15 minutes per protocol OR, if no IV access, 1 mg Glucagon IM. Recheck BG in 30 minutes. May repeat juice/soda, gel, dextrose or glu cagon once per episode. For persistent hypoglycemia, consider longer-acting treatment for the duration of the active insulin. glucagon (human recombinant) injection SolR 1 mg(Linked Group 2) 1 mg, Intramuscular, EVERY 30 MIN PRN, S tarting Thu06/21/19 at 0955, Until Thu06/22/19 at 1443, Low blood sugar, For BG 50-70 mg/dL: Oral treatment preferred:?? If able to drink, give 120 mL Juice or Regular (not diet) soda OR If NPO, gi ve 15 gram glucose 40% oral gel massaged into buccal mucosa OR if unconscious or uncooperative, give 25 gram (250 mL) Dextrose 10% IV over 15 minutes per protocol OR, if no IV access, 1 mg Glucagon IM. For BG less than 50 mg/dL: Oral treatment preferred:?? If able to drink, give 240 mL Juice or Regular (not diet) soda OR If NPO, give 30 gram glucose 40% oral gel massaged in buccal mucosa OR if unco nscious or uncooperative, give 25 gram (250 mL) Dextrose 10% IV over 15 minutes per protocol OR, if no IV access, 1 mg Glucagon IM. Recheck BG in 30 minutes. Ma y repeat juice/soda, gel, dextrose or gl ucagon once per episode. For persistent hypoglycemia, consider longer-acting treatment for the duration of the active insulin., Routine glucose (GLUTOSE) 40% oral gel(Linked Group 2) 15-30 g, Buccal, EVERY 30 MIN PRN, Start ing Thu06/21/19 at 0955, Until Thu06/22/19 at 1443, Low blood sugar, For BG 50-70 mg/dL: Oral treatment preferred:?? If able to drink, give 120 mL Juice or R egular (not diet) soda OR If NPO, give 1 5 gram glucose 40% oral gel massaged into buccal mucosa OR if unconscious or uncooperative, give 25 gram (250 mL) Dextrose 10% IV over 15 minutes per protocol OR, if no IV access, 1 mg Glucagon IM. F or BG less than 50 mg/dL: Oral treatment preferred:?? If able to drink, give 240 mL Juice or Regular (not diet) soda OR If NPO, give 30 gram glucose 40% oral gel massaged in buccal mucosa OR if unconsci ous or uncooperative, give 25 gram (250 mL) Dextrose 10% IV over 15 minutes per protocol OR, if no IV access, 1 mg Glucagon IM. Recheck BG in 30 minutes. May re peat juice/soda, gel, dextrose or glucag on once per episode. For persistent hypoglycemia, consider longer-acting treatment for the duration of the active insulin. 1 tube contains 15 grams of glucose (net weight of tube = 37.5 grams., Routine ketorolac (TORADOL) injection 15 mg 15 mg, Intravenous, EVERY 6 HOURS PRN, S tarting Thu06/21/19 at 0955, Until Thu06/22/19 at 1443, Pain, Routine lidocaine (XYLOCAINE) 10 mg/mL (1 %) injection 3 mg 3 mg (0.3 mL), Subcutaneous, ONCE PRN, 1 dose, Starting Thu06/21/19 at 1615, Until Thu06/22/19 at 1443, for discomfort with PIV insertion, Recovery (Recovery-Hospital Unit), Routine ondansetron (ZOFRAN) injection 4 mg (CANCELED) 1225 (Given - Provider: Trinh Hanan RN) 4 mg, Intravenous, EVERY 30 MIN PRN, Sta rting Thu06/21/19 at 0941, Until Thu06/21/19 at 1555, Nausea, May repeat 4 mg once in 30 minutes. If multiple antiemetics ordered, use ondansetron first and i f ineffective use prochlorperazine secon d and if ineffective use promethazine, PACU Recovery prochlorperazine (COMPAZINE) injection 5 mg (CANCELED) 1234 (Given - Provider: Trinh Hanna, MISA) 5 mg, Intravenous, EVERY 30 MIN PRN, 2 d oses, Starting Thu06/21/19 at 0941, Until Thu06/21/19 at 1555, Nausea, May repeat 5 mg once in 30 minutes. If multiple antiemetics ordered, use ondansetron fi rst and if ineffective use prochlorperaz ine second and if ineffective use promethazine, PACU Recovery, Routine sodium chloride 0.9 % (flush) flush 5-20 mL 5-20 mL, Intravenous, EVERY 1 MIN PRN, S tarting Thu06/21/19 at 1615, Until Thu06/22/19 at 1443, flush, Flush pertains to all indwelling lines. Flush per protocol found in the job aid using the link pr ovided on this medication record., Recovery (Recovery-Hospital U nit), Routine traMADol (ULTRAM) tablet 50-100 mg 1024 (Given - Provider: Trinh Hanna, RN) 1212 (Given - Provider: Caroline Champagne RN) 50-100 mg, Oral, EVERY 4 HOURS PRN, Star ting Thu06/21/19 at 0955, Until Thu06/22/19 at 1443, Pain, Give 50 mg for mild-moderate pain (3-6/10) or 100 mg for severe pain (>6/10)., Routine vancomycin (VANCOCIN) injection (CANCELED) 910 (Given - Provider: Mercedes Rich MD) ONCE PRN, Starting Thu06/21/19 at 0911, Until Thu06/22/19 at 1443, Intra- Operative (Intra-Procedure), Routine Linked Groups Order Group 1: POCT Fingerstick Glucose (CANCELED) Routine, EVERY 4 HOURS, First occurrence on Thu06/22/19 at 0800, Until Specified
Consider choosing FOUR TIMES A DAY BEFORE MEALS AND AT BEDTIME as frequency for: Patients who have good hypogly cemia awareness: -Patients who are eatin g meals during the day and sleeping at night -Patient who are otherwise stable And insulin lispro (HumaLOG) VIAL injection 1-5 UnitsJump to med 1-5 Units, Subcutaneous, EVERY 4 HOURS S CHEDULED, First dose on Thu06/22/19 at 0815, Until Discontinued
CORRECTION BOLUS [1-4 Units] Sensitive Sliding Scale: Correction factor 40 (1 unit of insulin is expected to drop t he glucose 40 mg/dL) BG 160 - 200 Give 1 unit BG 201 - 240 Give 2 units BG 241 - 280 Give 3 units BG greater th an 280, give 4 units and recheck BG in 2 hours. - If recheck BG is LESS than 280, give no insulin and resume schedule - If recheck BG is GREATER than 280, give 4 units and repeat BG i n 2 hours (no more than 3 times) &n bsp;& call for new insulin orders. DO NOT hold if NPO, unless specifically told to do so. Per Blood Glucose Monitoring Policy, re-check a BG of > 240 in 2 hours.
Routine Group 2: glucose (GLUTOSE) 40% oral gelJump to med 15-30 g, Buccal, EVERY 30 MIN PRN, Start ing Thu06/21/19 at 0955, Until Thu06/22/19 at 1443, Low blood sugar
For BG 50-70 mg/dL: Oral treatment preferred:?? If able to drink, give 120 mL Ju ice or Regular (not diet) soda OR If NPO , give 15 gram glucose 40% oral gel massaged into buccal mucosa OR if unconscious or uncooperative, give 25 gram (250 mL) Dextrose 10% IV over 15 minutes per prot ocol OR, if no IV access, 1 mg Glucagon IM. For BG less than 50 mg/dL: Oral treatment preferred:?? If able to drink, give 240 mL Juice or Regular (not diet) soda OR If NPO, give 30 gram glu cose 40% oral gel massaged in buccal muc latia OR if unconscious or uncooperative, give 25 gram (250 mL) Dextrose 10% IV over 15 minutes per protocol OR, if no IV access, 1 mg Glucagon IM. Reche ck BG in 30 minutes. May repeat juice/so da, gel, dextrose or glucagon once per episode. For persistent hypoglycemia, consider longer-acting treatment for the duration of the activ e insulin. 1 tube contains 15 grams of glucose (net weight of tube = 37.5 grams.
Routine Or dextrose 10% infusionJump to med 250 mL, at 1,000 mL/hr, Intravenous, IDRIS RY 30 MIN PRN, Starting Thu06/21/19 at 0955, Until Thu06/22/19 at 1443
For BG 50-70 mg/dL: Oral treatment preferred:?? If able to drink, give 120 mL Juice or Regular (not diet) soda OR If NPO, give 15 gram glucose 40% oral gel massaged into buccal mucosa OR if unconscious or uncooperative, give 25 gram (250 mL) Dextrose 10% IV over 15 minutes per p rotocol OR, if no IV access, 1 mg Glucag on IM. For BG less than 50 mg/dL: Oral treatment preferred:?? If able to drink, give 240 mL Juice or Regular (not diet) soda OR If NPO, give 30 gram glucose 40% oral gel massaged in buccal mucosa OR if unconscious or uncooperative, give 25 gram (250 mL) Dextrose 10% IV over 15 minutes per protocol OR, if no IV access, 1 mg Glucagon IM. Re check BG in 30 minutes. May repeat juice /soda, gel, dextrose or glucagon once per episode. For persistent hypoglycemia, consider longer-acting treatment for the duration of the active insulin.
Or glucagon (human recombinant) injection SolR 1 mgJump to med 1 mg, Intramuscular, EVERY 30 MIN PRN, S tarting Thu06/21/19 at 0955, Until Thu06/22/19 at 1443, Low blood sugar
For BG 50-70 mg/dL: Oral treatment preferred:?? If able to drink, give 120 m L Juice or Regular (not diet) soda OR If NPO, give 15 gram glucose 40% oral gel massaged into buccal mucosa OR if unconscious or uncooperative, give 25 gram (250 mL) Dextrose 10% IV over 15 minutes per protocol OR, if no IV access, 1 mg Gluca alta IM. For BG less than 50 mg/dL: Oral treatment preferred:?? If able to drink, give 240 mL Juice or Regular (not diet) soda OR If NPO, give 30 gram glucose 40% oral gel massaged in buccal mucosa OR if unconscious or uncooperative, give 25 gram (250 mL) Dextrose 10% IV over 15 minutes per protocol OR, if no IV access, 1 mg Glucagon IM. R echeck BG in 30 minutes. May repeat juic e/soda, gel, dextrose or glucagon once per episode. For persistent hypoglycemia, consider longer-acting treatment for the duration of the active insulin.
Routine documented in this encounter Care Teams Gang Knife Fish Chopper Relationship Specialty Start Date End Date Audra Singletary APRN PCP - General 03/14/[address] [place] [id number] documented as of this encounter
--- OUTSIDE RECORDS SUMMARY | 2022-02-27 12:51 | XMS_ITS | Encounter Summary ---
:1955 Author Organization [facility] [place] [address] Care Team Providers Name Role Phone Audra Singletary APRN Primary Care Provider Encounter Details Date Type Department Care Team Description 03/11/2021 Office Visit Dermatology at [facility] Jimena Robles MD Neoplasm of uncertain behavior; [facility] [place] (actinic keratosis); [address] Dermatofibroma; [place] [address] [facility] (seborrheic keratosis); [phone] RD-DERMATOLOGY History of melanoma [place] [address] Social History Tobacco Use Types Packs/Day Years Used Date Never Smoker Smokeless Tobacco: Never Used Alcohol Use Standard Drinks/Week Comments No 0 (1 standard drink = 0.6 oz pure alcoho l) Sex Assigned at Date Recorded Not on file documented as of this encounter Progress Notes Rodney Robles MD - 03/11/2021 10:00 AM EDT Images from the original note were not included. DEPARTMENT OF DERMATOLOGY Medical Dermatology Clinic Provider: RODNEY ROBLES MD Patient's preferred name Prashant Preferred contact method for results []myDH []Letter []Phone: Home Phone- [phone] Detailed phone message OK? Yes Are there any other people with whom we may discuss your care? PAST MEDICAL HISTORY If no, type N. If yes, type date, location, treatment Melanoma 11/1996: thin melanoma??excised from the posterior aspect of right arm: Superficial spreading malignant melanoma, Damon's level III, Breslow's depth of invasion 0.73 mm, shave biopsy of right arm. Dysplastic nevi N SCC N BCC N AKs Y Other relevant past medical history (i.e. 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 If yes, include details below Allergy to lidocaine, epinephrine, Dermabond, chlorhexidine, or adhesives: Bleeding disorder or blood thinners: Pacemaker, defibrillator, deep brain stimulator, cochlear implant: History of Present Illness: Prashant Diaz is a 66 y.o. year old. Patient returns to clinic today for a full skin exam, he has a spot on the left upper arm, it has been there for a year, it is mildly painful, nonhealing, He has not noted any other new, growing, changing, bleeding, painful or otherwise symptomatic moles or other lesions. He has not noted any other changes in any preexisting lesions. Last visit at [facility] Derm: 02/24/2020 Last visit with this provider: 02/24/2020 Medications: Reviewed in eD-H Allergies: Reviewed in eD-H Skin Examination: Full skin examination: Patient asked to undress to their comfort level. Verbalized that the provider???s preference is that the patient remove all clothing and that the provider will not examine areas patient elects to keep covered. Patient elects to keep underwear on and have the following examined: s calp, hair, face, ears, neck, chest, axillae, abdomen, back, and upper and lower extremities. Genitalia and buttocks were not examined. Assessment/Plan #. DDx: Probable BCC- 1 cm pliable plaque on the left lower tricep Shave Electrodesiccation and curettage: Site: left lower tricep Post-curettage defect size: 1cm Discussed indications and expectations including risks and benefits. Verbal consent obtained. Skin prep. Local anesthesia: 1% lidocaine with epinephrine. The entire lesion plus a small margin was treated by curettage and electrodesiccation x3. No complications. Wound dressed. Expectations (including discomfort management) and wound care reviewed. #. Actinic keratosis - Ill-defined gritty papule(s) on the right anterior ear just before the lobe x1, right helix x1 - Explained etiology, natural history and premalignant potential of these lesions. - Patient opted to proceed with liquid nitrogen. - Patient should to return to clinic for re-evaluation if lesions do not resolve with this treatment. Procedure: Destruction of lesion(s) with cryotherapy. Location(s): As noted above Number: 2 Discussed procedure and expectations including risks and benefits. Verbal consent obtained. Treated with LN2. There were no complications. Patient tolerated the procedure well. Post-procedure expectations and wound care were reviewed. #. Dermatofibroma - Hyperpigmented papule with stellate center on dermoscopy and dimple sign on the left upper thigh - Discussed etiology: these are benign scar like reactions. - No treatment needed. Patient reassured. #. Seborrheic Keratoses - stuck on, waxy papules on the trunk and extremities - Benign. No treatment needed. Patient reassured. #. History of Melanoma - Well healed scars on the posterior aspect of right arm. - No evidence of recurrence - Will continue to monitor Photo was taken and charted with patient's verbal consent. Shave ED & C- Left Lower Tricep Other items to document in the assessment/plan if relevant ??? Sun protection discussed (protective clothing and SPF30+ broad-spectrum sunscreen) RTC: [address] German which I discussed with him (Hx of Melanoma). Recall placed. Or sooner pending pathology. []Note routed to racing secretary [x]Recall has been placed in scheduling system []Appointment scheduled at checkout Scribe attestation: Nessa Penny CMA and Caroline Hutchins have performed the documentation for this encounter in the presence of and acting as a scribe for RODNEY ROBLES MD I performed the above scribed service and agree with the accuracy of the documentation in this encounter. Reviewed and signed by: RODNEY ROBLES MD Dermatology [facility] documented in this encounter Plan of Treatment Upcoming Encounters Date Type Specialty Care Team Description 04/15/2022 Office Visit Dermatology July German MD [facility] [address] [place] [id number] (Wo rk) documented as of this encounter Procedures Procedure Name Priority Date/Time Associated Diagnosis Comme nts SPECIMEN TO Routine 03/11/2021 10:25 AM Neoplasm of Results for this PATHOLOGY EDT uncertain behavior procedure are in the results section. SURGICAL PATHOLOGY Routine 03/11/2021 10:15 AM Re sults for this REPORT EDT procedure are i n the results section. documented in this encounter Results Specimen to Pathology (03/11/2021 10:25 AM EDT) Specimen Anatomical Collection Method Collection Time Receive d Time (Source) Location / / Volume Laterality AP Specimen 03/11/2021 10:25 03/11/2021 AM EDT 10:25 AM EDT Narrative [facility] - 03/11/2021 10:25 AM EDT Specimen requisition ordered. ??Separate Pathology report to follow Rodney Robles MD PATHOLOGY/CYTOLOGY ORDERABLE S Performing Organization Address City/State/[place] [address] Surgical Pathology Report (03/11/2021 10:15 AM EDT) Component Value Ref Test Analysis Performed At [facility] Range Method Time Signature Surgical [id number] ? Location: [facility] Report The signing pathologist has (i) examined the relevant preparation(s) for the MEMORIAL specimen(s) and (ii) rendered or confirmed the diagnosis(es) . HOSPITAL LABORATORY . ?Surgic al Pathology DIAGNOSIS Left lower tricep, skin shave ED&C: - ??Basal cell carcinoma, superficial and nodular patterns w ith focal infiltrating ??features , e xtending close to the peripheral and deep specimen edges on the plane of sections examined Electronically signed by: ?Taylor Amor MD Verified: ??03/14/2021 12:46 ??Dermatopathologist Performed at: ??-[facility] [place], [place], [place] SPECIMEN(S) SUBMITTED A - left lower tricep, skin shave ED&C (1) CLINICAL INFORMATION DDX: Probable BCC-1 cm pliable plaque on the left lower tric ep SPECIMEN PROCESSING A - Labeled/Fixative: Patient demographics, formalin. Quantity/Size: ??Single, 1.2 x 0.9 x 0.1 cm. Tissue Description: Shave of garcia-pink skin with a central granular crust, 0.7 x 0.3 cm. Sections/Processing: Inked, quadrisected and entirely submitted in 1 cassette lab eled A1. ??pps Specimen (Source) Anatomical Collection Method Collection Time Re ceived Time Location / / Volume Laterality 03/11/2021 10:15 AM EDT Rodney Robles MD PATHOLOGY/CYTOLOGY ORDERABLE S Performing Organization Address City/State/ZIP Code Phon e Number [address] documented in this encounter Visit Diagnoses Diagnosis Neoplasm of uncertain behavior Neoplasm of uncertain behavior, site uns pecified [place] (actinic keratosis) Actinic keratosis Dermatofibroma Benign neoplasm of skin, site unspecifie d [place] (seborrheic keratosis) Other seborrheic keratosis History of melanoma Personal history of malignant melanoma o f skin documented in this encounter Care Teams Clerical Warehouseman Relationship Specialty Start Date End Date Audra Singletary APRN PCP - General 03/14/[address] [place] [id number] documented as of this encounter
--- OUTSIDE RECORDS SUMMARY | 2022-02-27 12:51 | XMS_ITS | Encounter Summary ---
:1955 Author Organization [facility] [place] [address] Care Team Providers Name Role Phone Audra Singletary APRN Primary Care Provider Reason for Visit Reason Comments Skin Lesion Encounter Details Date Type Department Care Team Description 02/24/2020 Office Visit Dermatology at [facility] Jimena Robles MD Actinic keratosis; [facility] Seborrheic keratosis; [address] MARADIAG[address] H/[place] [address] [facility] [phone] RD-DERMATOLOGY [place] [id number] Social History Tobacco Use Types Packs/Day Years Used Date Never Smoker Smokeless Tobacco: Never Used Alcohol Use Standard Drinks/Week Comments No 0 (1 standard drink = 0.6 oz pure alcoho l) Sex Assigned at Date Recorded Not on file documented as of this encounter Progress Notes Rodney Robles MD - 02/24/2020 4:40 PM EDT Images from the original note were not included. DERMATOLOGY AT [facility] Dermatology At [facility] [address] [facility] [address] FOLLOW-UP Date of service: 02/24/2020 Prashant Diaz : 1955 Provider: Rodney Robles MD Preferred name: Prashant Preferred contact method with results: Home Phone- [phone] Message with results on machine okay?: Yes ?? Prior Skin History 11/1996: thin melanoma excised from the posterior aspect of right arm: Superficial spreading malignant melanoma, Damon's level III, Breslow's depth of invasion 0.73 mm, shave biopsy of right arm. ?? Dermatofibroma History of Present Illness Prashant Diaz is a 65 y.o. year old male. Established patient, last seen 08/02/18. Here today for concerning spot on the face that has been there a few months. This spot is sometimes painful, itchy and burning. Patient denies a full skin exam. Medical History Hypertension Allergies Percocet [oxycodone-acetaminophen] Medications Current Outpatient Medications Medication Sig Dispense Refill ??? acetaminophen (TYLENOL) 500 mg Tablet Take 2 tablets by mouth every 8 hours. 30 tablet 1 ??? FLUARIX QUAD [id number], PF, 60 mcg (15 mcg x 4)/0.5 [...] Units subcutaneously 2 times daily. 4 ??? hydrochlorothiazide (HYDRODIURIL) 25 mg Tablet TAKE 1 TABLET BY MOUTH EVERY DAY 3 No current facility-administered medications for this visit. 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 Family History Father- Melanoma (treated) Review of Systems General: feeling well Skin: denies other skin complaints Examination General: NAD, pleasant, cooperative. Type of exam: The patient was asked to disrobe to the level of their comfort. Full skin examination of the scalp, hair, head, face, neck, back, chest, abdomen, right and left upper extremities, right and left lower extremities and buttocks was normal with the exception of the findings listed below. Significant skin findings: ?? Left malar cheek 0.2-0.3cm scaly irregular pink papule ?? Multiple 0.4-1 cm, brown-black papules/plaques with waxy stuck on appearance on the back ?? Well healed scar: posterior aspect of right arm ASSESSMENT/PLAN: Actinic Keratoses - Counseled: AKs. Procedure Note: Procedure: Destruction of lesions with cryotherapy. Number: 1 Location: Left malar cheek - The patient's spot of concern Discussed procedure and expectations including risks (including risk of hypopigmentation) and benefits. Verbal consent obtained. Frozen with LN2, 15-30 second thaw time, TWICE. There were no complications; the patient tolerated the procedure well. Post-procedure expectations and wound care were reviewed. Seborrheic Keratoses - Benign. No treatment necessary. - Reassured about benign nature and natural history. Sun Care Counseling ?? Discussed importance of sun protection, sun avoidance strategies, protective clothing, and sunscreen SPF 30+. ?? Recommend applying sunscreen SPF 30+ daily on the face, neck, and ears at least. ?? When going to be outdoors, we recommend at least SPF 50 sunscreen or UPF clothing. Remember to reapply sunscreen every 2 hours or after sweating or getting wet when outdoors. History of Melanoma - NER RTC 1 year for FSE (Hx Melanoma) Note initiated and routed to physician for review and change by: Amee Leon LPN I, Jose Gallegos , have performed the documentation for this encounter in the presence of and acting as a scribe for RODNEY ROBLES MD. I performed the services which were documented by the scribe, and I agree with the accuracy of the documentation in this encounter. RODNEY ROBLES MD. Rodney Robles MD Section of Dermatology [facility] documented in this encounter Plan of Treatment Upcoming Encounters Date Type Specialty Care Team Description 04/15/2022 Office Visit Dermatology July German MD [facility] DERMATOLOGY [place], [place] [address] (Wo rk) documented as of this encounter Visit Diagnoses Diagnosis Actinic keratosis Seborrheic keratosis Other seborrheic keratosis H/O Malignant melanoma Personal history of malignant melanoma o f skin documented in this encounter Care Teams Helmet Binder Relationship Specialty Start Date End Date Audra Singletary APRN PCP - General 03/14/[address] [place] [address] documented as of this encounter
--- OUTSIDE RECORDS SUMMARY | 2022-02-27 12:51 | XMS_ITS | Continuity of Care Document ---
:1955 Author Organization [facility] Address Unavailable , Care Team Providers Name Role Phone Audra Singletary Primary Care Physician Encounter [facility] Date(s): 01/14/22 - 01/14/[address] [address]- Encounter Diagnosis Diabetes (Discharge Diagnosis) - 01/14/22 Hypertension (Discharge Diagnosis) - 01/14/22 Hypertriglyceridemia (Discharge Diagnosis) - 01/14/22 Overweight (Discharge Diagnosis) - 01/14/22 Type 2 diabetes mellitus without complications (Final) - Essential (primary) hypertension (Final) - Pure hyperglyceridemia (Final) - Overweight (Final) - Discharge Disposition: Home Attending Physician: Audra Singletary [...] Tdap 07/27/06 Recorded 1Result Comment: Liliana Gusman [id number] History: Raul Antunez3 Result Comment: Correction: Record corrected to change route of administration to subcutaneous. Incorrect order set build caused record to default to intramuscular; EMR provider could not remedy. Medications (B-D MIHIR 2ND GEN PEN NDL [id number]) USE 1 NEEDLE TWICE A DAY WITH LEVEMIR (B-D MIHIR 2ND GEN PEN NDL [id number]) USE 1 NEEDLE TWICE A DAY WITH LEVEMIR, See Instructions, (B-D MIHIR 2ND GEN PEN NDL [id number]) USE 1 NEEDLE TWICE A DAY WITH LEVEMIR Qty: 200 EA Days Supply: 90 Refills: 0, # 100 EA, 2 Refill(s... Start Date: 08/02/21 Status: Orderedallopurinol 300 mg oral tablet 300 mg = 1 tab(s), Oral, Daily, # 90 tab(s), 3 Refill(s), [id number], 1 tab(s) Oral Daily, 172.72, cm, 07/09/21 13:29:00 EST, Height/Length Dosing, 99.7, kg, 07/09/21 13:29:00EST, Weight Dosing Start Date: 08/02/21 Status: Orderedaspirin 81 mg oral tablet 81 mg = 1 tab(s), Oral, Every other day, # 100 tab(s), 0 Refill(s), other reason (Rx) Start Date: 05/01/15 Status: OrderedB-D MIHIR 2ND GEN PEN NDL [id number] See Instructions, USE 1 NEEDLE TWICE A DAY WITH LEVEMIR, # 200 EA, Refill(s) 1, [id number] Start Date: 08/27/20 Status: OrderedhydroCHLOROthiazide 25 mg oral tablet 25 mg = 1 tab(s), Oral, Daily, # 90 tab(s), 3 Refill(s), [facility]: [facility] #[id number], Needsappt, 1 tab(s) Oral Daily, 172.72, cm, 07/09/21 13:29:00 EST, Height/Length Dosing, 99.7, kg, 07/09/21 13:29:00 EST, Weight Dosing Start Date: 08/02/21 Status: OrderedLevemir FlexTouch 100 units/mL subcutaneous solution 25 unit(s), Subcutaneous, BID, # 15 mL, 5 Refill(s), [id number], 25 unit(s) Subcutaneous BID, 172.72, cm, 07/09/21 13:29:00 EST, Height/Length Dosing, 99.7, kg, 07/09/21 13:29:00 EST, Weight Dosing Start Date: 08/02/21 Status: OrderedmetFORMIN 750 mg oral tablet, extended release 750 mg = 1 tab(s), Oral, Daily, # 90 tab(s), 3 Refill(s), Pharmacy: [facility] #[id number], 1 tab(s) Oral Daily, 172.2, cm, 06/17/19 8:56:00 EST, Height/Length Dosing, 104.8, kg, 06/17/19 8:56:00 EST, Weight Dosing Start Date: 03/21/21 Status: OrderedOne Touch Ultra Blue Test Blue One Touch Ultra Blue Test Blue, See Instructions, BD ultra fine mini test strips. Tests twice daily-E11.9, # 100 EA, 1 Refill(s), Pharmacy: [facility] #[id number], BD ultra fine mini test strips. Tests twice daily-E11.9, Supply Start Date: 07/19/18 Status: OrderedpredniSONE 10 mg oral tablet See Instructions, 4 tabs daily x 3 days, 3 tabs daily x 3 days, 2 tabs daily x 3 days then 1 tab daily x 3 days, # 30 tab(s), 0 Refill(s), 02/05/22, Pharmacy: [facility] #[id number], 4 tabs daily x3 days, 3 tabs [...] reduction and internal Completed fixation of fracture4 [id number] from documented surgical case3s/p R thigh [id number] ulna Results Laboratory List Name Date CMP DH 01/14/22 HA1C DH (Hemoglobin A1C DH) 01/14/22 Most recent to oldest [Reference Range]: 1 Albumin Lvl DH [3.2-5.2 g/dL] 4.2 g/dL 1 *NA* (01/14/22 1:24 PM) Alk Phos DH [40-130 unit/L] 143 unit/L 2 *HI* (01/14/22 1:24 PM) ALT DH [0-55 unit/L] 42 unit/L 3 *NA* (01/14/22 1:24 PM) Anion Gap DH [5-15 mmol/L] 13 mmol/L 4 *NA* (01/14/22 1:24 PM) AST DH [0-39 unit/L] 24 unit/L 5 *NA* (01/14/22 1:24 PM) Bili Total DH [0.2-1.3 mg/dL] 0.7 mg/dL 6 *NA* (01/14/22 1:24 PM) Chloride Lvl DH [98-107 mmol/L] 93 mmol/L 7 *LOW* (01/14/22 1:24 PM) CO2 DH [22-31 mmol/L] 27 mmol/L 8 *NA* (01/14/22 1:24 PM) Est GFR DH [>=60] 70 9 *NA* (01/14/22 1:24 PM) Glucose Lvl DH [65-199 mg/dL] 417 mg/dL 10 *HI* (01/14/22 1:24 PM) Potassium Lvl DH [3.5-5.0 mmol/L] 3.6 mmol/L 11 *NA* (01/14/22 1:24 PM) Sodium Lvl DH [135-145 mmol/L] 133 mmol/L 12 *LOW* (01/14/22 1:24 PM) Total Protein DH [6.1-8.0 g/dL] 6.9 g/dL 13 *NA* (01/14/22 1:24 PM) BUN DH [10-20 mg/dL] 22 mg/dL 14 *HI* (01/14/22 1:24 PM) Calcium Lvl DH [8.5-10.5 mg/dL] 9.4 mg/dL 15 *NA* (01/14/22 1:24 PM) Creatinine [0.80-1.50 mg/dL] 1.16 mg/dL 16 *NA* (01/14/22 1:24 PM) Hgb A1c DH [4.3-5.6 %] 7.7 % 17 *HI* (01/14/22 1:24 PM) eAG DH 175 mg/dL 18 *NA* (01/14/22 1:24 PM) 1Result Comment: Test performed at: [facility], Dept. of Pathology [place], [place] [address]Atjzec Comment: Test performed at: [facility], Dept. of Pathology [place], [place] [address]Zndldp Comment: Test performed at: [facility], Dept. of Pathology [place], [place] [address]Fjndcm Comment: Test performed at: [facility], Dept. of Pathology [place], [place] [address]Ltredp Comment: Test performed at: [facility], Dept. of Pathology [place], [place] [address]Pkomym Comment: Test performed at: [facility], Dept. of Pathology [place], [place] [address]Zdfcml Comment: Test performed at: [facility], Dept. of Pathology [place], [place] [address]Grpgbx Comment: Test performed at: [facility], Dept. of [place], [place] [address]Jmjcgo Comment: This patient's estimated GFR was calculated using the 2020 CKD-EPI equation. The estimated GFR can vary from the measured GFR by up to 30% in the absence of rapidly changing kidney function. Assessment of the estimated GFR is not appropriate when creatinine concentrations are rapidly changing. For clinical situations in which a more precise estimate of GFR is necessary, consider alternative methods of GFR estimation such as a 24-hour urine creatinine clearance. Assignment of CKD stage 1-5 for patients with an eGFR near the transition point between stages may be based on clinical assessment of muscle mass and symptoms in addition to eGFR. Test performed at: [facility], Dept. of Pathology [place], [place] [id number] Comment: Diabetes: >=200 mg/dL plus symptoms Test performed at: [facility], Dept. of Pathology [place], [place] [id number] Comment: Please note: Patients with WBC >100,000 may have falsely elevated Potassium levels. For accurate Potassium quantification in these patients send serum separator tube (gold top) for subsequent determinations. Contact the Clinical Chemistry Laboratory if there are any questions. Test performed at: [facility], Dept. of Pathology [place], [place] [id number] Comment: Test performed at: [facility], Dept. of Pathology [place], [place] [id number] Comment: Test performed at: [facility], Dept. of Pathology [place], [place] [address]Nedvqt Comment: Test performed at: [facility], Dept. of Pathology [place], [place] [id number] Comment: Test performed at: [facility], Dept. of Pathology [place], [place] [id number] Comment: Test performed at: [facility], Dept. of Pathology [place], [place] [address]Kssvkn Comment: Reference Range: 4.3 - 5.6% 5.7 [...] Mellitus, Diabetes Care 2013; 36: Suppl. 1, S67-76 Test performed at: [facility], Dept. of Pathology [place], [place] [address]Vooyvk Comment: eAG equivalents for HbA1c percentages: HbA1c(%) [...] into estimated average glucose values. Diabetes Care 2008:31(8):5291-6123. Test performed at: [facility], [place] [address] Social History Social History Type Response Tobacco Never tobacco user Tobacco U se:. Sex Care Team PersonnelName: Audra Singletary Address: [address]
--- OUTSIDE RECORDS SUMMARY | 2022-02-27 12:51 | XMS_ITS | Encounter Summary ---
:1955 Author Organization [facility] Address [address] [place] [address] Care Team Providers Name Role Phone Audra Singletary APRN Primary Care Provider Encounter Details Date Type Department Care Team Description 12/12/2019 Hospital Encounter XRay at 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, subsequent encounter; [address] Tata MD Closed fracture of neck of right femur w ith routine healing, subsequent encounter [facility] [address] DE RUYTER [phone] [place] [address] Social History Tobacco Use Types Packs/Day Years [...] x 3/16 LEVEMIR PEN Needle allopurinol (ZYLOPRIM) 300 Take [...] Visit Dermatology July German MD [facility] DERMATOLOGY [place], [place] [address] (Wo rk) documented as of this encounter Procedures Procedure Name Priority Date/Time Associated Diagnosis Comme nts XR FEMUR 2 VIEWS Routine 12/12/2019 9:28 AM Closed displaced R esults for this RIGHT EDT segmental fracture procedure are in of shaft of right the result s femur with nonunion, section . subsequent encou nter Closed fracture of neck of right femur with routine healing, subsequent encounter documented in this encounter Results XR Femur 2 views Right (Generic) (12/12/2019 9:28 AM EDT) Anatomical Region Laterality Modality Thigh Right Digital Radiography Specimen (Source) Anatomical Location Collection Method / Collectio n Time Received Time / Laterality Volume Impressions 12/12/2019 9:37 AM EDT Status post ORIF, intramedullary nail RIGHT femur. Healing mid shaft femoral fracture. Thank you for letting us participate in the care of this patient. For questions regarding this report, please contact e number below. ? Electronically signed by: Kiarra gordon MD, [facility] ([phone]), at 12/12/2019 9:37 AM Narrative 12/12/2019 9:37 AM EDT EXAMINATION: XR FEMUR 2 VIEWS RIGHT (GENERIC) CLINICAL HISTORY: Right femur fracture, imn TECHNIQUE: 2 views RIGHT femur COMPARISON: 08/08/2019 and 09/19/2019 FINDINGS: 4 views of the RIGHT femur, status post intramedullary nail reconstruction. Ongoing midshaft fracture healing with c allus and proliferative bone. Irregularity of the RIGHT anterior dista l femoral cortex is unchanged from prior imaging. No radiographic complication. Procedure Note Kiarra Sun MD - 12/12/2019Forma tting of this note might be different from the original. EXAMINATION: XR FEMUR 2 VIEWS RIGHT (GEN KRISTI) CLINICAL HISTORY: Right femur fracture, imn TECHNIQUE: 2 views RIGHT femur COMPARISON: 08/08/2019 and 09/19/2019 FINDINGS: 4 views of the RIGHT femur, status post intramedullary nail reconstruction. Ongoing midshaft fracture healing with c allus and proliferative bone. Irregularity of the RIGHT anterior dista l femoral cortex is unchanged from prior imaging. No radiographic complication. IMPRESSION Status post ORIF, intramedullary nail RI GHT femur. Healing mid shaft femoral fracture. Thank you for letting us participate in the care of this patient. For questions regarding this report, please contact e number below. 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
--- OUTSIDE RECORDS SUMMARY | 2022-02-27 12:51 | XMS_ITS | Continuity of Care Document ---
:1955 Author Organization [facility] Address [address] [place] [phone] Care Team Providers Name Role Phone Audra Singletary Primary Care Physician Encounter [facility] Date(s): 07/02/21 - 07/02/21 [facility] [address] [place] [phone] Encounter Diagnosis Essential (primary) hypertension (Discharge Diagnosis) - 07/02/21 Type 2 diabetes mellitus without complications (Discharge Diagnosis) - 07/02/21 Pure hyperglyceridemia (Discharge Diagnosis) - 07/02/21 Discharge Disposition: Other Allergies, Adverse Reactions, Alerts [...] Tdap 07/27/06 Recorded 1Result Comment: Liliana Gusman [id number] History: Raul Antunez3 Result Comment: Correction: Record corrected to change route of administration to subcutaneous. Incorrect order set build caused record to default to intramuscular; EMR provider could not remedy. Medications (B-D MIHIR 2ND GEN PEN NDL [id number]) USE 1 NEEDLE TWICE A DAY WITH LEVEMIR (B-D MIHIR 2ND GEN PEN NDL [id number]) USE 1 NEEDLE TWICE A DAY WITH LEVEMIR, See Instructions, (B-D MIHIR 2ND GEN PEN NDL [id number]) USE 1 NEEDLE TWICE A DAY WITH LEVEMIR Qty: 200 EA Days Supply: 90 Refills: 0, # 100 EA, 2 Refill(s... Start Date: 04/03/21 Status: Orderedallopurinol 300 mg oral tablet 300 mg = 1 tab(s), Oral, Daily, # 90 tab(s), 3 Refill(s), [facility]acy: [facility] #[id number], 1 tab(s) Oral Daily Start Date: 06/25/20 Status: Orderedaspirin 81 mg oral tablet 81 mg = 1 tab(s), Oral, Every other day, # 100 tab(s), 0 Refill(s), other reason (Rx) Start Date: 05/01/15 Status: OrderedB-D MIHIR 2ND GEN PEN NDL [id number] See Instructions, USE 1 NEEDLE TWICE A DAY WITH LEVEMIR, # 200 EA, [id number] Start Date: 08/27/20 Status: OrderedhydroCHLOROthiazide 25 mg oral tablet 25 mg = 1 tab(s), Oral, Daily, # 90 tab(s), 3 Refill(s), [id number], Needsappt, 1 tab(s) Oral Daily Start Date: 10/29/20 Status: Orderedindomethacin 50 mg oral capsule 50 mg = 1 cap(s), Oral, TID, PRN PRN for pain, # 30 cap(s), 2 Refill(s), Pharmacy: [address], 1 cap(s) Oral TID,PRN:for pain Start Date: 02/13/17 Status: OrderedLevemir FlexTouch 100 units/mL subcutaneous solution 20 unit(s), Subcutaneous, BID, # 15 mL, 5 Refill(s), [facility]acy: [facility] #[id number], 20 unit(s) Subcutaneous BID Start Date: 01/11/21 Status: OrderedmetFORMIN 750 mg oral tablet, extended release 750 mg = 1 tab(s), Oral, Daily, # 90 tab(s), 3 Refill(s), Pharmacy: [facility] #[id number], 1 tab(s) Oral Daily, 172.2, cm, 06/17/19 8:56:00 EST, Height/Length Dosing, 104.8, kg, 06/17/19 8:56:00 EST, Weight Dosing Start Date: 03/21/21 Status: OrderedOne Touch Ultra Blue Test Blue One Touch Ultra Blue Test Blue, See Instructions, BD ultra fine mini test strips. Tests twice daily-E11.9, # 100 EA, 1 Refill(s), Pharmacy: [facility] #[id number], BD ultra fine mini test strips. Tests [...] reduction and internal Completed fixation of fracture4 [id number] from documented surgical case3s/p R thigh [id number] ulna Social History Social History Type Response Smoking Status Never (less than 100 in life time) entered on: 08/09/20 Sex
--- OUTSIDE RECORDS SUMMARY | 2022-02-27 12:51 | XMS_ITS | Encounter Summary ---
:1955 Author Organization [place] [address] Care Team Providers Name Role Phone Audra Singletary APRN Primary Care Provider Reason for Visit Reason Onset Date Comments Other 04/21/2019 xray Encounter Details Date Type Department Care Team Description 04/21/2019 Telephone [facility] at [facility] Kinjal Mcbride RN Other (xray) [place] [phone] Social History Tobacco Use Types Packs/Day Years Used Date Never Smoker Smokeless Tobacco: Never Used Alcohol Use Standard Drinks/Week Comments No 0 (1 standard drink = 0.6 oz pure alcoho l) Sex Assigned at Date Recorded Not on file documented as of this encounter Miscellaneous Notes Telephone Encounter - Kinjal Mcbride RN - 04/21/2019 8:17 AM EDT Please call with xray results. Thanks. documented in this encounter Plan of Treatment Upcoming Encounters Date Type Specialty Care Team Description 04/15/2022 Office Visit Dermatology July German MD [facility] DERMATOLOGY [place], [place] [address] (Wo rk) documented as of this encounter Visit Diagnoses Not on filedocumented in this encounter Care Teams Rn Shift Mgr Relationship Specialty Start Date End Date Audra Singletary APRN PCP - General 03/14/[address] [place] [address] documented as of this encounter
--- OUTSIDE RECORDS SUMMARY | 2022-02-27 12:51 | XMS_ITS | Encounter Summary ---
:1955 Author Organization [facility] Address [address] [place] [address] Care Team Providers Name Role Phone Audra Singletary APRN Primary Care Provider Encounter Details Date Type Department Care Team Description 04/18/2019 Hospital [place] [facility] [place] Closed fracture of [address] Tata MD neck of right femur [facility] with routine [id number] [place], jose raul [phone] [place] [address] Social History Tobacco Use Types Packs/Day Years Used Date Never Smoker Smokeless Tobacco: Never Used Alcohol Use Standard Drinks/Week Comments No 0 (1 standard drink = 0.6 oz pure alcoho l) Sex Assigned at Date Recorded Not on file documented as of this encounter Medications at Time of Discharge Medication Sig Dispensed Refills Start Date End Date aspirin 81 mg Tablet, Take 81 mg by mouth 0 Delayed Release (E.C.) daily. ONETOUCH ULTRA BLUE TEST USE BID 0 07/19/2018 STRIP Strip BD ULTRA-FINE MINI PEN USE DIRECTED WITH 3 03/2019 NEEDLE 31 gauge x /16 LEVEMIR PEN Needle allopurinol (ZYLOPRIM) Take 300 mg by mouth 2 09/2018 300 mg Tablet daily. LEVEMIR FLEXTOUCH U-100 Inject 18 Units 4 019 INSULN Insulin Pen subcutaneously 2 times daily. hydrochlorothiazide TAKE 1 TABLET BY 3 08/19/2015 (HYDRODIURIL) 25 mg MOUTH EVERY DAY Tablet gabapentin (NEURONTIN) Take 1 capsule by 90 capsule 5 201805/26/2019 300 mg Capsule mouth 3 times daily. acetaminophen (TYLENOL) Take 2 tablets by 30 tablet 1 10/2005/26/2019 500 mg Tablet mouth every 6 hours. metFORMIN (GLUCOPHAGE) Take 750 mg by mouth 3 06/22/2019 500 mg Tablet daily. documented as of this encounter Plan of Treatment Upcoming Encounters Date Type Specialty Care Team Description 04/15/2022 Office Visit Dermatology July German MD [facility] [address] [place], [place] [address] (Wo rk) documented as of this encounter Procedures Procedure Name Priority Date/Time Associated Diagnosis Comme nts XR FEMUR 2 VIEWS Routine 04/18/2019 10:04 AM Closed fracture o f Results for this RIGHT EDT neck of right femur procedur e are in with routine the results healing, subsequent section. encounter documented in this encounter Results XR Femur 2 views Right (Generic) (04/18/2019 10:04 AM EDT) Anatomical Region Laterality Modality Thigh Right Digital Radiography Specimen (Source) Anatomical Location Collection Method / Collectio n Time Received Time / Laterality Volume Impressions 04/18/2019 1:33 PM EDT Further healing of RIGHT distal femoral fracture but no further interval healing of the mid RIGHT femoral fracture Thank you for letting us participate in the care of this patient. For questions regarding this report, please contact e number below. ? Narrative 04/18/2019 1:33 PM EDT EXAMINATION: XR FEMUR 2 VIEWS RIGHT (GENERIC) CLINICAL HISTORY: right femur IMN 9 TECHNIQUE: 2 views RIGHT femur COMPARISON: 02/04/2019 FINDINGS: The RIGHT femoral intramedullary brown wit h one proximal and 2 distal interlocking screws is intact and unchanged since pat ient's prior study. There are hypertrophic changes at the mid and dist al femoral fracture sites but lucency is still seen at both sides. The mid femora l site is unchanged, with some further healing of the distal femoral fracture Procedure Note Erika Mathews MD - 04/18/2019Formattin g of this note might be different from the original. EXAMINATION: XR FEMUR 2 VIEWS RIGHT (GEN KRISTI) CLINICAL HISTORY: right femur IMN 9 TECHNIQUE: 2 views RIGHT femur COMPARISON: 02/04/2019 FINDINGS: The RIGHT femoral intramedullary brown wit h one proximal and 2 distal interlocking screws is intact and unchanged since pat ient's prior study. There are hypertrophic changes at the mid and dist al femoral fracture sites but lucency is still seen at both sides. The mid femora l site is unchanged, with some further healing of the distal femoral fracture IMPRESSION Further healing of RIGHT distal femoral fracture but no further interval healing of the mid RIGHT femoral fracture Thank you for letting us participate in the care of this patient. For questions regarding this report, please contact th e number below. Mercedes Rich MD IMG DX ORDERABLES documented in this encounter Visit Diagnoses Diagnosis Closed fracture of neck of right femur w ith routine healing, subsequent encounter documented in this encounter Care Teams Poker Room Manager Relationship Specialty Start Date End Date Audra Singletary APRN PCP - General 03/14/[address] [place] [address] [place] [id number] documented as of this encounter
--- OUTSIDE RECORDS SUMMARY | 2022-02-27 12:51 | XMS_ITS | Encounter Summary ---
:1955 Author Organization [facility] Address [facility] [place] [address] Care Team Providers Name Role Phone Audra Singletary APRN Primary Care Provider Reason for Visit Reason Comments Follow Up Surgery XR R femur IMN 10/14/18 RA D OS 06/21/19 Encounter Details Date Type Department Care Team Description 07/08/2019 Office Visit Orthopaedics at [facility] [place] [place] Marya Monroy Closed fracture of neck of r ight femur with routine healing, subsequent encounter; [facility] RADHA Jean Closed fracture of neck of right femur, [place] [address] CENTER [phone] ORTHOPAEDIC SURGERY [place] [id number] Social History Tobacco Use Types Packs/Day Years Used Date Never Smoker Smokeless Tobacco: Never Used Alcohol Use Standard Drinks/Week Comments No 0 (1 standard drink = 0.6 oz pure alcoho l) Sex Assigned at Date Recorded Not on file documented as of this encounter Last Filed Vital Signs Vital Sign Reading Time Taken Comments Blood Pressure 125/86 07/08/2019 2:39 PM EST Pulse 87 07/08/2019 2:39 PM EST Temperature 36.7 ??C (98.1 ??F) 07/08/2019 2:39 PM EST Respiratory Rate - - Oxygen Saturation - - Inhaled Oxygen Concentration - - Weight 104.3 kg (230 lb) 07/08/2019 2:39 PM EST reporte d Height 172.7 cm (5' 8) 07/08/2019 2:39 PM EST reported Body Mass Index 34.97 07/08/2019 2:39 PM EST documented in this encounter Progress Notes Marya Monroy PA - 07/08/2019 2:30 PM EST PATIENT NAME: Prashant Diaz AGE: 64 y.o. MR#: [id number] DATE OF VISIT: 07/08/2019 CHIEF COMPLAINT: 2 weeks Hospital check post Right femur removal of hardware, retrograde femoral nail. 06/21/19 (Hilario) Findings: All right femoral hardware including intramedullary nail and locking screws removed. Femoral canal reamed to size 17 and size [id number] mm intramedullary nail placed in retrograde fashion with two distal locking screws and one proximal locking screw in the dynamization slot to allow for fracture compression. Multiple operative cultures sent, including reamings. No gross evidence of infection observed. Powdered Vancomycin placed in wounds. Skin closed with claudette.?? HISTORY OF PRESENT ILLNESS: Mr. Diaz is a 64 y.o. male who comes into clinic today for evaluation of the right fermur .Prashant Diaz has been doing well since surgery. He has been bearing weight denies fever, chills, drenching night sweats, calf pain or tightness. Lovanox for DVT/PE prophylaxis. Will start PT in a few days. He has been doing quite a bit of walking and wonders if he can discontinue the Lovenox. He denies fever, chills, drenching night sweats. Past medical history: Patient Active Problem List Diagnosis Date Noted ??? 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 s/p Right Femur Exchange Nailing for Nonunion - 06/21/19 Dr. Rich 06/21/2019 ??? Type 2 diabetes mellitus without complication, with long-term current use of insulin 10/18/2018 ??? R femur fx s/p IMN 10/14/18 (Dr. Rich) 10/13/2018 ??? Rupture of medial head of gastrocnemius 07/30/2011 Medications: ??? acetaminophen (TYLENOL) 500 mg Tablet ??? enoxaparin (LOVENOX) 40 mg/0.4 mL Syringe ??? FLUARIX QUAD 6391-1328, PF, 60 mcg (15 mcg x 4)/0.5 mL Syringe ??? metFORMIN (GLUCOPHAGE-XR) 750 mg Tablet Sustained Release 24 hr ??? ONETOUCH ULTRA BLUE TEST STRIP Strip ??? BD ULTRA-FINE MINI PEN NEEDLE 31 gauge x 3/16 Needle ??? allopurinol (ZYLOPRIM) 300 mg Tablet ??? LEVEMIR FLEXTOUCH U-100 INSULN Insulin Pen ??? hydrochlorothiazide (HYDRODIURIL) 25 mg Tablet ??? aspirin 81 mg Tablet, Delayed Release (E.C.) Allergies: Allergies Allergen Reactions ??? Percocet [Oxycodone-Acetaminophen] Nausea And Vomiting Social history: Social History Tobacco Use ??? Smoking status: Never Smoker ??? Smokeless tobacco: Never Used Substance Use Topics ??? Alcohol use: No Review of systems: No chest pain or shortness of breath No fevers, night sweats or chills Vital signs: Blood pressure 125/86, pulse 87, temperature 36.7 ??C (98.1 ??F), temperature source Oral, height 172.7 cm (5' 8), weight 104.3 kg (230 lb). Physical exam: Mr. Diaz is a 64 y.o. male who is alert and oriented. He is in no acute discomfort and is resting comfortably in the exam room. Incision over groin area: No jordi-incisional erythema noted No bogginess or drainage to palpation about the incision Skin feels no warmer than surrounding tissue I am not able to part the skin with gentle palpation except for one area in the distal aspect of theincision where we do we want stable for removal at a later date. Incision covered with Steri-Strips. Anterior distal femur incision: No jordi-incisional erythema noted Bogginess noted medially about the incision however no drainage Skin feels no warmer than surrounding tissue Not able to part the skin with gentle palpation about the incision. Ultimately we elected to take out every third staple followed by every other staple. He has a remaining 7 or so claudette which we willremove at a later date. Incision covered with Steri-Strips. Distal lateral incision No jordi-incisional erythema noted No bogginess or drainage to palpation about the incision Skin feels no warmer than surrounding tissue I am not able to part the skin with gentle palpation Claudette were removed. Incision covered with Steri-Strips. Calf is supple and nontender Demonstrates ability to extend the knee to 0, perform straight leg raise, flex knee to 90 degrees PT/DP pulses 2+. Superficial peroneal, deep peroneal, sural, saphenous, and tibial nerves intact to touch. . Imaging studies: Femur films show well-placed intramedullary nail with no hardware complication noted. Assessment and plan:: 64 y.o. year-old male now roughly 2 weeks out post Right femur removal of hardware, retrograde femoral nail. [facility] Findings: All right femoral hardware including intramedullary nail and locking screws removed. Femoral canal reamed to size 17 and size [id number] mm intramedullary nail placed in retrograde fashion with two distal locking screws and one proximal locking screw in the dynamization slot to allow for fracture compression. Multiple operative cultures sent, including reamings. No gross evidence of infection We had a long discussion regarding the nature of Prashant Diaz's chief complaint. We reviewed the imaging together which is described above. Clinically Prashant Diaz incision looks to be doing well. The medial incision is somewhat boggy however this is not leaking. We did not remove all of the claudette at this point. He will need to return in 2 weeks time for staple removal of the middle incision aswell as the 1 staple in the proximal incision. He can continue to weight-bear as tolerated and rangehis knee. Sutures were removed today in clinic. The pt handled this well. Steri strips need to remain in placefor at least one week. Showers are ok, however please do not submerge the incision until the scabs have been replaced by scars. This plan was discussed with the patient and they are in agreement. All of the patient's questions were answered. The patient understand to contact us if they have any other questions or concerns. FU: 2 weeks no x-ray for wound check Marya Monroy PA-C The above dictation was made with voice recogonition software documented in this encounter Plan of Treatment Upcoming Encounters Date Type Specialty Care Team Description 04/15/2022 Office Visit Dermatology July German MD [facility] ER DERMATOLOGY [place], [place] [address] (Wo rk) documented as of this encounter Visit Diagnoses Diagnosis Closed fracture of neck of right femur w ith routine healing, subsequent encounter Closed fracture of neck of right femur, initial encounter documented in this encounter Care Teams Aircraft Inspection Record Clerk Relationship Specialty Start Date End Date Audra Singletary APRN PCP - General 03/14/[address] [place] [id number] documented as of this encounter
--- OUTSIDE RECORDS SUMMARY | 2022-02-27 12:51 | XMS_ITS | Encounter Summary ---
:1955 Author Organization [facility] Address One [facility] [place] [address] Care Team Providers Name Role Phone Audra Singletary APRN Primary Care Provider Encounter Details Date Type Department Care Team Description 09/19/2019 Hospital Encounter XRay [place] [facility] [place] Mercedes Rich Closed fracture of [address] Tata MD neck of right femur [place], [place] [facility] with routine [id number] [place], jose raul [phone] [place] [address] Social History Tobacco Use Types Packs/Day Years [...] x /16 LEVEMIR PEN Needle allopurinol (ZYLOPRIM) 300 Take [...] Visit Dermatology July German MD [facility] [place] [address] (Wo rk) documented as of this encounter Procedures Procedure Name Priority Date/Time Associated Diagnosis Comme nts XR FEMUR 2 VIEWS Routine 09/19/2019 9:13 AM Closed fracture of Results for this RIGHT EST neck of right femur procedur e are in with routine the results healing, subsequent section. encounter documented in this encounter Results XR Femur 2 views Right (Generic) (09/19/2019 9:13 AM EST) Anatomical Region Laterality Modality Thigh Right Digital Radiography Specimen (Source) Anatomical Location Collection Method / Collectio n Time Received Time / Laterality Volume Narrative 09/19/2019 10:08 AM EST EXAMINATION: XR FEMUR 2 VIEWS RIGHT (GENERIC) CLINICAL HISTORY: right femur,fx, ricardo jo of femoral nail, , ??entered by ordering service TECHNIQUE: Right femur, ??2 views COMPARISON: Radiographs, July 2019 FINDINGS: Bones The bone mineralization is decreased. Right femur- Retrograde nail fixation of a mid femora l shaft fracture. The fracture line remains visible but there is bridging ca llus formation. No radiolucency around fixation hardware. Right knee joint Marginal osteophytes. Curvilinear ossifi cation around the medial femoral condyle suggests remote MCL injury. Soft tissues Atrophic soft tissues likely related to nonweightbearing state. IMPRESSION healing mid femoral shaft fracture. Thank you for letting us participate in the care of this patient. For questions regarding this report, please contact e number below. ? Electronically signed by: Page Emanuel [facility] ([phone]), at 09/19/2019 10:08 AM Procedure Note Page Emanuel MD - 09/19/2019Formatt ing of this note might be different from the original. EXAMINATION: XR FEMUR 2 VIEWS RIGHT (GEN KRISTI) CLINICAL HISTORY: right femur,fx, ricardo jo of femoral nail, , entered by ordering service TECHNIQUE: Right femur, 2 views COMPARISON: Radiographs, July 2019 FINDINGS: Bones The bone mineralization is decreased. Right femur- Retrograde nail fixation of a mid femora l shaft fracture. The fracture line remains visible but there is bridging ca llus formation. No radiolucency around fixation hardware. Right knee joint Marginal osteophytes. Curvilinear ossifi cation around the medial femoral condyle suggests remote MCL injury. Soft tissues Atrophic soft tissues likely related to nonweightbearing state. IMPRESSION healing mid femoral shaft fracture. Thank you for letting us participate in the care of this patient. For questions regarding this report, please contact e number below. Electronically signed by: Page Emanuel [facility] ([phone]), at 09/19/2019 10:08 AM Mercedes Rich MD IMG DX ORDERABLES documented in this encounter Visit Diagnoses Diagnosis Closed fracture of neck of right femur w ith routine healing, subsequent encounter documented in this encounter Care Teams Pilot Boat Captain Relationship Specialty Start Date End Date Audra Singletary APRN PCP - General 03/14/[address] [place] [id number] documented as of this encounter
--- OUTSIDE RECORDS SUMMARY | 2022-02-27 12:51 | XMS_ITS | Encounter Summary ---
:1955 Author Organization [facility] Address [address] [facility] [place] [address] Care Team Providers Name Role Phone Audra Singletary APRN Primary Care Provider Reason for Visit Reason Comments Follow-up right femur IMN 10/14/18 DOS 06/21/19 RA right femur-wound check Encounter Details Date Type Department Care Team Description 08/08/2019 Office Visit Orthopaedics [place] [facility] [place] Marya Monroy Cl[facility] Jean neck of right femur Drive [facility] with routine healing, [place] [address] CENTER subsequent encounter [phone] ORTHOPAEDIC SURGERY [place], [place] [address] Social History Tobacco Use Types Packs/Day Years Used Date Never Smoker Smokeless Tobacco: Never Used Alcohol Use Standard Drinks/Week Comments No 0 (1 standard drink = 0.6 oz pure alcoho l) Sex Assigned at Date Recorded Not on file documented as of this encounter Last Filed Vital Signs Vital Sign Reading Time Taken Comments Blood Pressure 137/83 08/08/2019 8:45 AM EST Pulse 86 08/08/2019 8:45 AM EST Temperature - - Respiratory Rate - - Oxygen Saturation - - Inhaled Oxygen Concentration - - Weight 104.3 kg (230 lb) 08/08/2019 8:45 AM EST Height 172.7 cm (5' 8) 08/08/2019 8:45 AM EST Body Mass Index 34.97 08/08/2019 8:45 AM EST documented in this encounter Progress Notes Marya Monroy PA - 08/08/2019 9:30 AM EST PATIENT NAME: Prashant Diaz AGE: 64 y.o. MR#: [id number] DATE OF VISIT: 08/08/2019 CHIEF COMPLAINT: 7 weeks post Right femur removal of hardware, retrograde femoral nail. 06/21/19 ([facility]ilario) HISTORY OF PRESENT ILLNESS: Mr. Diaz is a 64 y.o. male who comes into clinic today for evaluation of the right femur.The PT was last in to see myself on 07/08/2019 . Since this visit he had the remaining cathie removed by PT. He has been working with PT, however continues to have pain in the proximal thigh. He is ambulating with two crutches. At PT's suggestion he has attempted to use only one crutch, however he has pain with this. Past medical history: Patient Active Problem List [...] ??? acetaminophen (TYLENOL) 500 mg Tablet ??? FLUARIX QUAD [id number], PF, 60 mcg (15 mcg x 4)/0.5 [...] Pen ??? hydrochlorothiazide (HYDRODIURIL) 25 mg Tablet Allergies: Allergies Allergen Reactions ??? Percocet [Oxycodone-Acetaminophen] Nausea And Vomiting Social history: Social History Tobacco Use ??? Smoking status: Never Smoker ??? Smokeless tobacco: Never Used Substance Use Topics ??? Alcohol use: No Review of systems: No chest pain or shortness of breath No fevers, night sweats or chills Vital signs: Blood pressure 137/83, pulse 86, height 172.7 cm (5' 8), weight 104.3 kg (230 lb). Physical exam: Mr. Diaz is a 64 y.o. male who is alert and oriented. He is in no acute discomfort and is resting comfortably in the exam room. Incision is well-healed. I will residual cathie remain. No jordi-incisional erythema noted. Does have discomfort in proximal thigh area with resisted forward flexion of hip. Calf is supple and nontender Demonstrates ability to extend the knee to 0, perform straight leg raise, flex knee to 90 degrees PT/DP pulses 2+. Superficial peroneal, deep peroneal, sural, saphenous, and tibial nerves intact to touch. . Imaging studies: Femur films show well-placed intramedullary nail with no hardware complication noted. There has beeninterval callus noted since previous. Assessment and plan:: 64 y.o. year-old male now roughly 7 weeks out post Right femur removal of hardware, retrograde femoral nail. 06/21/19 ([facility]) We had a long discussion regarding the nature of Prashant Diaz's chief complaint. We reviewed the imaging together which is described above. Clinically Prashant Diaz incisions are well-healed. We diddiscuss that his x-rays are showing continued healing . I would like him to use pain as his guide interms of activity level. If he experiences strong or sharp discomfort in the area of the healing fracture he needs to back off. He did report this type of discomfort with resisted flexion of his hip and on exam today. I would support his use of 2 crutches until he can comfortably ambulate with one without this type of discomfort. This plan was discussed with the patient and they are in agreement. All of the patient's questions were answered. The patient understand to contact us if they have any other questions or concerns. FU: 2 months with XR of the right femur. Marya Monroy PA-C The above dictation was made with voice recogonition software documented in this encounter Plan of Treatment Upcoming Encounters Date Type Specialty Care Team Description 04/15/2022 Office Visit Dermatology July German MD [facility] ER DR DERMATOLOGY [place], [place] [address] (Wo rk) documented as of this encounter Results XR [...] report, please contact e number below. ? Procedure Note Page Emanuel MD - 09/19/2019Formatt [...] For questions regarding this report, please contact [facility] number below. Mercedes Rich MD IMG DX ORDERABLES XR Femur 2 views Right (Generic) (08/08/2019 [...] the intramedullary const ruct in May this year. In addition to the large [...] encounter documented in this encounter Care Teams Port Traffic Manager Relationship Specialty Start Date End Date Audra Singletary APRN PCP - General 03/14/[address] [place] [id number] documented as of this encounter
--- OUTSIDE RECORDS SUMMARY | 2022-02-27 12:51 | XMS_ITS | Encounter Summary ---
:1955 Author Organization [facility] Address [address] [place] [address] Care Team Providers Name Role Phone Audra Singletary APRN Primary Care Provider Encounter Details Date Type Department Care Team Description 05/12/2019 Telephone [place]edics [place] [facility] [place]a Monroy [place] [facility] [place] [address] ORTHOPAEDIC SURGERY [phone] [place], [place] [address] (Wo rk) Social History Tobacco Use Types Packs/Day Years Used Date Never Smoker Smokeless Tobacco: Never Used Alcohol Use Standard Drinks/Week Comments No 0 (1 standard drink = 0.6 oz pure alcoho l) Sex Assigned at Date Recorded Not on file documented as of this encounter Miscellaneous Notes Telephone Encounter - Marya Monroy PA - 05/12/2019 2:14 PM EDT I called Prashant to discuss the CT results. I have attempted the home phone number, his mobile number,as well as his 's mobile number which she consented to in our appointment. I was unable to reachanyone. If he calls back I would like him to be notified of the following: There does not appear to be bridging bone at the mid femur fracture which is the area which she is feeling some pain. I would like him to come into clinic to see Dr. Rich for review and plan. I will be asking the schedulers to give him a call and set this up. Marya Monroy PA-C documented in this encounter Plan of Treatment Upcoming Encounters Date Type Specialty Care Team Description 04/15/2022 Office Visit Dermatology July German MD [facility] ER DERMATOLOGY [place], [place] [address] (Wo rk) documented as of this encounter Visit Diagnoses Not on filedocumented in this encounter Care Teams Certified Medicine Aide Relationship Specialty Start Date End Date Audra Singletary APRN PCP - General 03/14/[address] [place] [id number] documented as of this encounter
--- OUTSIDE RECORDS SUMMARY | 2022-02-27 12:51 | XMS_ITS | Encounter Summary ---
:1955 Author Organization [facility] Address [address] [place] [address] Care Team Providers Name Role Phone Audra Singletary APRN Primary Care Provider Encounter Details Date Type Department Care Team Description 04/22/2019 Telephone Orthopaedics at [facility] Marya Monroy PA [facility] [place] [address] ORTHOPAEDIC SURGERY [phone] [place], [place] [address] (Wo rk) Social History Tobacco Use Types Packs/Day Years Used Date Never Smoker Smokeless Tobacco: Never Used Alcohol Use Standard Drinks/Week Comments No 0 (1 standard drink = 0.6 oz pure alcoho l) Sex Assigned at Date Recorded Not on file documented as of this encounter Miscellaneous Notes Telephone Encounter - Kinjal Mcbride RN - 04/26/2019 10:33 AM EDT Do you want to proceed with CT? Patient called back. Reviewed provider note from04/22/19. He has painin his quad area to a varying degree everyday. Some days he can hardly walk by the end of the day due to pain. PT is concerned due to lack of progress. Thanks. Telephone Encounter - Marya Monroy PA - 04/22/2019 1:12 PM EDT I attempted returning Prashant's phone call however there was no answer at eight er the home or mobile number. His XR images are reassuring. There has been increased bone growth at both fracture sites. The proximal site has less bone growth. I would like to know if He is painful in this area. If so, we would order a CT. If he is not painful in this area than we will have him follow up in another 3 months with XR. Marya Monroy PA-C. documented in this encounter Plan of Treatment Upcoming Encounters Date Type Specialty Care Team Description 04/15/2022 Office Visit Dermatology July German MD [facility] ER [address], [place] [address] (Wo rk) documented as of this encounter Visit Diagnoses Not on filedocumented in this encounter Care Teams Post Anesthesia Care Unit Nurse Relationship Specialty Start Date End Date Audra Singletary APRN PCP - General 03/14/[address] [place] [id number] documented as of this encounter
--- OUTSIDE RECORDS SUMMARY | 2022-02-27 12:51 | XMS_ITS | Encounter Summary ---
:1955 Author Organization [facility] Address [address] [place] [address] Care Team Providers Name Role Phone Audra Singletary APRN Primary Care Provider Reason for Visit Reason Comments Follow-up R Femur IMN 3.21.19, DOS 11. .19 RA R Femur Encounter Details Date Type Department Care Team Description 12/12/2019 Office Visit Orthopaedics at [facility] Marya Monroy Closed displaced [facility] RADHA Jean segmental fracture of [address] [facility] [place] [address] CENTER with nonunion, ORTHOPAEDIC subsequent enco unter SURGERY [place], [place] [address] Social History Tobacco Use Types Packs/Day Years Used Date Never Smoker Smokeless Tobacco: Never Used Alcohol Use Standard Drinks/Week Comments No 0 (1 standard drink = 0.6 oz pure alcoho l) Sex Assigned at Date Recorded Not on file documented as of this encounter Last Filed Vital Signs Vital Sign Reading Time Taken Comments Blood Pressure 133/81 12/12/2019 9:36 AM EDT Pulse 71 12/12/2019 9:36 AM EDT Temperature - - Respiratory Rate - - Oxygen Saturation - - Inhaled Oxygen Concentration - - Weight 102.1 kg (225 lb) 12/12/2019 9:36 AM EDT Height 172.7 cm (5' 8) 12/12/2019 9:36 AM EDT Body Mass Index 34.21 12/12/2019 9:36 AM EDT documented in this encounter Progress Notes Marya Monroy PA - 12/12/2019 10:30 AM EDT PATIENT NAME: Prashant Diaz AGE: 64 y.o. MR#: [id number] DATE OF VISIT: 12/12/2019 CHIEF COMPLAINT: 6 m0nths months post Right femur removal of hardware, retrograde femoral nail. 06/21/19 (Hilario) HISTORY OF PRESENT ILLNESS: Mr. Diaz is a 64 y.o. male who comes into clinic today for evaluation of the right femur.The PT was last in to see myself on 09/19/2019 . Since this visit he has been doingvery well. He had been working with physical therapy on the iliotibial band discomfort however due to the COVID pandemic he discontinued this. He has been working on daily exercises which were prescribed by physical therapy. He has no discomfort whatsoever in the area of the fracture. He is able to ambulate and perform daily activities with no discomfort in this region. He denies fever, chills, drenching night sweats. He is overall very happy with his progress. Past medical history: Patient Active Problem List [...] ??? acetaminophen (TYLENOL) 500 mg Tablet ??? metFORMIN (GLUCOPHAGE-XR) 750 mg Tablet Sustained Release 24 hr ??? aspirin 81 mg Tablet, Delayed Release (E.C.) ??? ONETOUCH ULTRA BLUE TEST STRIP Strip ??? BD ULTRA-FINE MINI PEN NEEDLE 31 gauge x 3/16 Needle ??? allopurinol (ZYLOPRIM) 300 mg Tablet ??? LEVEMIR FLEXTOUCH U-100 INSULN Insulin Pen ??? hydrochlorothiazide (HYDRODIURIL) 25 mg Tablet ??? FLUARIX QUAD [id number], PF, 60 mcg (15 mcg x 4)/0.5 mL Syringe Allergies: Allergies Allergen Reactions ??? Percocet [Oxycodone-Acetaminophen] Nausea And Vomiting Social history: Social History Tobacco Use ??? Smoking status: Never Smoker ??? Smokeless tobacco: Never Used Substance Use Topics ??? Alcohol use: No Review of systems: No chest pain or shortness of breath No fevers, night sweats or chills Vital signs: Blood pressure 133/81, pulse 71, height 172.7 cm (5' 8), weight 102.1 kg (225 lb). Physical exam: Mr. Diaz is a 64 y.o. male who is alert and oriented. He is in no acute discomfort and is resting comfortably in the exam room. Incision is well-healed. I will residual cathie remain. No jordi-incisional erythema noted. No pain with internal or external rotation of the hip Demonstrates ability to extend the knee to 0, perform straight leg raise, flex knee to 90 degrees PT/DP pulses 2+. Superficial peroneal, deep peroneal, sural, saphenous, and tibial nerves intact to touch. . Imaging studies: Femur films show well-placed intramedullary nail with no hardware complication noted. There has beeninterval callus noted since previous. Assessment and plan:: 64 y.o. year-old male now roughly 6 months out post Right femur removal of hardware, retrograde femoral nail. 06/21/19 (Gitajn) doing well. We had a long discussion regarding the nature of Prashant Diaz's healing. We reviewed the imaging which shows good callus formation since the previous xr. Clinically Prashant Diaz is doing very well. I am glad to hear that he is more comfortable with ambulation . I would like him to continue to work on this. We discussed returning to PT however he feels that he does not need this that he is working on the exercises at home. He will follow-up on an as-needed basis. This plan was discussed with the patient and they are in agreement. All of the patient's questions were answered. The patient understand to contact us if they have any other questions or concerns. 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
--- OUTSIDE RECORDS SUMMARY | 2022-02-27 12:51 | XMS_ITS | Encounter Summary ---
:1955 Author Organization [facility] Address [facility] [place] [address] Care Team Providers Name Role Phone Audra Singletary APRN Primary Care Provider Reason for Visit Reason Onset Date Comments Medication Refill 11/19/2018 Encounter Details Date Type Department Care Team Description 11/19/2018 Refill Orthopaedics at [facility] Mercedes Rich, Closed displaced [facility] Genevieve saleh [place] [address] [facility] shaft of right femur [phone] with routine healing, ORTHOPAEDIC SURG ARACELI subsequent encounter [place], [place] [address] (Wo rk) Social History Tobacco Use Types Packs/Day Years Used Date Never Smoker Smokeless Tobacco: Never Used Alcohol Use Standard Drinks/Week Comments No 0 (1 standard drink = 0.6 oz pure alcoho l) Sex Assigned at Date Recorded Not on file documented as of this encounter Miscellaneous Notes Telephone Encounter - Maryse Mendiola RN - 11/19/2018 3:54 PM EDT Medication Refill Request Surgery/Injury: 10/14/2018 Procedure(s): @INTRAMEDULLARY NAILING, FEMUR (WRVU 19.65) MODIFIER RETROGRADE FEMORAL NAIL SYNTHES Original Provider: Learning Needs Assessment done within 12 months (no change identified): Yes Medication being requested: HYDROmorphone 2 mg Tab Last refill: 11/08/18 Seen within 30 days (if no, than when): Follow Up: 12/10/18 How is this medication being used currently: He seldom takes it during the day but will take 1-2 at night due to the pain. Pain level: 6-8/10 at night. Bowel concerns: Not a problem at this time. Other pain medications used and how: He takes extra strength tylenol. Query: Must be completed today: Completed Risk assessment: Low New Prescription written for: HYDROmorphone 2mg Tab Prescription sent to [facility]. Pharmacy: [facility] in [place], [place] The patient knows how to contact orthopaedics if any further questions or concerns occur. documented in this encounter Plan of Treatment Upcoming Encounters Date Type Specialty Care Team Description 04/15/2022 Office Visit Dermatology July German MD [facility] ER DERMATOLOGY [place], [place] [address] (Wo rk) documented as of this encounter Visit Diagnoses Diagnosis Closed displaced segmental fracture of s haft of right femur with routine healing, subsequent encounter documented in this encounter Care Teams Patient Access Associate Relationship Specialty Start Date End Date Audra Singletary APRN PCP - General 03/14/[address] [place] [address] documented as of this encounter
--- OUTSIDE RECORDS SUMMARY | 2022-02-27 12:51 | XMS_ITS | Encounter Summary ---
:1955 Author Organization [facility] Address [facility] [address] [place] [address] Care Team Providers Name Role Phone Audra Singletary APRN Primary Care Provider Reason for Referral Diagnostic Test (Routine) - Closed Specialty Diagnoses / Procedures Referred By Contact Refer red To Contact Radiology Diagnoses Closed fracture of neck of right femur with routine healing, subsequent encounter Marya Monroy PA [facility] Rad Ct Scan Procedures CT Femur wo Contrast Right (Generic) [facility] [address] [place] [address] [place] [address] Referral ID Status Reason Start Date Expiration Date Visits V isits Requested Authorized [id number] Closed Specialty 05/05/2019 05/04/2020 1 1 Service Requested Reason for Visit Reason Comments Follow-up XR RIGHT FEMUR IMN 9 Encounter Details Date Type Department Care Team Description 05/05/2019 Office Visit Orthopaedics at [facility] Marya Monroy Closed fracture of [facility] RADHA Jean neck of right femur Drive [facility] with routine healing, [place] [address] CENTER subsequent encounter [phone] ORTHOPAEDIC SURGERY [place], [place] [address] Social History Tobacco Use Types Packs/Day Years Used Date Never Smoker Smokeless Tobacco: Never Used Alcohol Use Standard Drinks/Week Comments No 0 (1 standard drink = 0.6 oz pure alcoho l) Sex Assigned at Date Recorded Not on file documented as of this encounter Last Filed Vital Signs Vital Sign Reading Time Taken Comments Blood Pressure 134/90 05/05/2019 9:06 AM EDT Pulse 79 05/05/2019 9:06 AM EDT Temperature - - Respiratory Rate - - Oxygen Saturation - - Inhaled Oxygen Concentration - - Weight 104.8 kg (231 lb) 05/05/2019 9:06 AM EDT measure d Height 172.7 cm (5' 8) 05/05/2019 9:06 AM EDT measured Body Mass Index 35.12 05/05/2019 9:06 AM EDT documented in this encounter Progress Notes Marya Monroy PA - 05/05/2019 9:30 AM EDT PATIENT NAME: Prashant Diaz AGE: 64 y.o. MR#: [id number] DATE OF VISIT: 05/05/2019 CHIEF COMPLAINT:6-1/2 month follow-up post right femur fracture with intramedullary nail placement date of surgery 10/14/2018 (Dr. Rich) HISTORY OF PRESENT ILLNESS: Mr. Diaz is [...] medial head of gastrocnemius 07/30/2011 Medications: ??? aspirin 81 mg Tablet, Delayed Release (E.C.) ??? ONETOUCH ULTRA BLUE TEST STRIP Strip ??? BD ULTRA-FINE MINI PEN NEEDLE 31 gauge x 3/16 Needle ??? allopurinol (ZYLOPRIM) 300 mg Tablet ??? LEVEMIR FLEXTOUCH U-100 INSULN Insulin Pen ??? metFORMIN (GLUCOPHAGE) 500 mg Tablet ??? hydrochlorothiazide (HYDRODIURIL) 25 mg Tablet ??? metFORMIN (GLUCOPHAGE-XR) 750 mg Tablet Sustained Release 24 hr ??? gabapentin (NEURONTIN) 300 mg Capsule ??? acetaminophen (TYLENOL) 500 mg Tablet Allergies: Allergies Allergen Reactions ? ? Hay Fever & Allergy Relief [Chlorpheniramine-Phenylpropan] Social history: Social History Tobacco Use ??? Smoking status: Never Smoker ??? Smokeless tobacco: Never Used Substance Use Topics ??? Alcohol use: No Review of systems: No chest pain or shortness of breath No fevers, night sweats or chills Vital signs: Blood pressure 134/90, pulse 79, height 172.7 cm (5' 8), weight 104.8 kg (231 lb). Physical exam: Mr. iDaz is a 64 y.o. male who is [...] tibial nerves intact to touch. Imaging studies: Femur films obtained today show good callus formation about both the distal fracture site, however the proximal site, though has increased in callus, continues to have significant fracture lucency. No hardware failure noted. Assessment and plan:: 64 y.o. year-old male 6-1/2 months post right femur fracture with intramedullary nail placement date of surgery 10/14/2018 (Dr. Rich), with continued restricted range of motion of the knee. We had a long discussion regarding the nature of Prashant Diaz's chief complaint. We reviewed the imaging together which is described above. Clinically Prashant Diaz has good ROM. His images show increased healing since his last images, however I am still able to see fracture lucency proximally. This coincides with the area which becomes painful with use. . As per our previous plan, we will obtain a CT to evaluate for healing. He consents to a phone call to either his home or mobile number as wellas leaving a message with his Bria. This plan was discussed with the patient and they are in agreement. All of the patient's questions were answered. The patient understand to contact us if they have any other questions or concerns. FU: CT, will call with results. Tentative FU 2 months with repeat right femur XR Marya Monroy PA-C The above dictation was made with voice recogonition software documented in this encounter Plan of Treatment Upcoming Encounters Date Type Specialty Care Team Description 04/15/2022 Office Visit Dermatology July German MD [facility] ER DERMATOLOGY [place], [place] [address] (Wo rk) documented as of this encounter Results CT Femur wo Contrast Right (Generic) (05/10/2019 3:15 PM EDT) Anatomical Region Laterality Modality Thigh Right Computed Tomography Specimen (Source) Anatomical Location Collection Method / Collectio n Time Received Time / Laterality Volume Impressions 05/10/2019 4:47 PM EDT 1. ??Right femoral shaft fractures. 2. ??No bridging bone seen at fracture l ocated at mid femoral shaft. 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 3. ??Partial obliteration of the fractur e line located in distal femur suggests ongoing healing. 4. ??No hardware complications. Thank you for letting us participate in the care of this patient. For questions regarding this report, please contact e number below. ? Electronically signed by: Page Emanuel [facility] ([phone]), at 05/10/2019 4:47 PM Narrative 05/10/2019 4:47 PM EDT EXAMINATION: CT FEMUR WO CONTRAST RIGHT (GENERIC) CLINICAL HISTORY: right segmental ??femu r fracture with intramedullary nail placement date of surgery 10/14/2018 (Dr. Rich), Metal supression, entered by ordering service TECHNIQUE: 0.63 mm non-contrast axial CT images of the right femur were acquired. Sagittal and coronal reformats [and 3D models] were created. COMPARISON: Radiographs from March 282018. FINDINGS: OSSEOUS STRUCTURES: Right femur-IM nail fixation of segmenta l diaphyseal femoral shaft fractures. Fractures lines are seen at both medial and distal femoral shaft. No radiolucency surrounding fixation hardwa re. No scleral complications. Distal shaft fracture-the fracture line is partially obliterated. Bridging bone and periosteal callus are seen posterior ly, series 602 image 112. The anterior fracture line and cortical interruption remain visible. Proximal shaft fracture-the fracture is located in mid femoral shaft. The fracture line remains visible and is amaris roximately 8 mm wide. No bridging bone seen. The fracture ends are sclerotic. F indings suggest nonunion. JOINTS: Hip joint-marginal osteophytes and eccen tric joint space narrowing. Knee joint-small effusion and popliteal cyst. Tiny osteophyte formation. MUSCLES: Grossly normal. Procedure Note Page Emanuel MD - 05/10/2019Formatt ing of this note might be different from the original. EXAMINATION: CT FEMUR WO CONTRAST RIGHT (GENERIC) CLINICAL HISTORY: right segmental femur fracture with intramedullary nail placement date of surgery 10/14/2018 (Dr. Rich), Metal supression, entered by ordering service TECHNIQUE: 0.63 mm non-contrast axial CT images of the right femur were acquired. Sagittal and coronal reformats [and 3D models] were created. COMPARISON: Radiographs from March 282018. FINDINGS: OSSEOUS STRUCTURES: Right femur-IM nail fixation of segmenta l diaphyseal femoral shaft fractures. Fractures lines are seen at both medial and distal femoral shaft. No radiolucency surrounding fixation hardwa re. No scleral complications. Distal shaft fracture-the fracture line is partially obliterated. Bridging bone and periosteal callus are seen posterior ly, series 602 image 112. The anterior fracture line and cortical interruption remain visible. Proximal shaft fracture-the fracture is located in mid femoral shaft. The fracture line remains visible and is amaris roximately 8 mm wide. No bridging bone seen. The fracture ends are sclerotic. F indings suggest nonunion. JOINTS: Hip joint-marginal osteophytes and eccen tric joint space narrowing. Knee joint-small effusion and popliteal cyst. Tiny osteophyte formation. MUSCLES: Grossly normal. IMPRESSION 1. Right femoral shaft fractures. 2. No bridging bone seen at fracture loc ated at mid femoral shaft. 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 3. Partial obliteration of the fracture line located in distal femur suggests ongoing healing. 4. No hardware complications. Thank you for letting us participate in the care of this patient. For questions regarding this report, please contact e number below. Electronically signed by: Page Emanuel [facility] ([phone]), at 05/10/2019 4:47 PM Mercedes Rich MD IMG CT ORDERABLES documented in this encounter Visit Diagnoses Diagnosis Closed fracture of neck of right femur w ith routine healing, subsequent encounter Closed fracture of neck of right femur w ith routine healing, subsequent encounter documented in this encounter Care Teams Gaming Surveillance Observer Relationship Specialty Start Date End Date Audra Singletary APRN PCP - General 03/14/[address] [place] [address] documented as of this encounter
--- OUTSIDE RECORDS SUMMARY | 2022-02-27 12:51 | XMS_ITS | Encounter Summary ---
:1955 Author Organization [facility] Address [address] [place] [address] Care Team Providers Name Role Phone Audra Singletary APRN Primary Care Provider Encounter Details Date Type Department Care Team Description 02/04/2019 Hospital Encounter XRay at [facility] Mercedes Rich Closed fracture of [address] Tata MD neck of right femur [facility] with routine [id number] [place], jose raul [phone] ORTHOPAEDIC [place] [address] Social History Tobacco Use Types Packs/Day Years [...] Visit Dermatology July German MD [facility] [address] [place] [place], [place] [address] (Wo rk) documented as of this encounter Procedures Procedure Name Priority Date/Time Associated Diagnosis Comme nts XR FEMUR 2 VIEWS Routine 02/04/2019 9:11 AM Closed fracture of Results for this RIGHT EDT neck of [...] e number below. ? Electronically signed by: Jordan mederos [facility] ([phone]), at 02/04/2019 1:52 PM Narrative 02/04/2019 1:52 PM EDT EXAMINATION: XR [...] For questions regarding this report, please contact [facility] number below. Electronically signed by: Jordan mederos [facility] ([phone]), at 02/04/2019 1:52 PM Mercedes Rich MD IMG DX ORDERABLES documented in this encounter Visit Diagnoses Diagnosis Closed fracture of neck of right femur w ith routine healing, subsequent encounter documented in this encounter Care Teams Monitoring Coordinator Relationship Specialty Start Date End Date Audra Singletary APRN PCP - General 03/14/[address] [place] [id number] documented as of this encounter
--- OUTSIDE RECORDS SUMMARY | 2022-02-27 12:51 | XMS_ITS | Encounter Summary ---
:1955 Author Organization [facility] Address [facility] [place] [address] Care Team Providers Name Role Phone Audra Singletary APRN Primary Care Provider Reason for Visit Reason Comments Follow-up R femur imn DOS 10/14/18 Encounter Details Date Type Department Care Team Description 02/04/2019 Office Visit Orthopaedics at [facility] Mercedes Rich, Closed fracture of [facility] MD neck of right femur Drive [facility] with routine healing, [place] [address] subsequent encounter [phone] ORTHOPAEDIC SURGERY [place] [id number] Social History Tobacco Use Types Packs/Day Years Used Date Never Smoker Smokeless Tobacco: Never Used Alcohol Use Standard Drinks/Week Comments No 0 (1 standard drink = 0.6 oz pure alcoho l) Sex Assigned at Date Recorded Not on file documented as of this encounter Last Filed Vital Signs Vital Sign Reading Time Taken Comments Blood Pressure 135/82 02/04/2019 9:34 AM EDT Pulse 68 02/04/2019 9:34 AM EDT Temperature - - Respiratory Rate - - Oxygen Saturation - - Inhaled Oxygen Concentration - - Weight - - Height - - Body Mass Index - - documented in this encounter Progress Notes Marya Monroy PA - 02/04/2019 10:10 AM EDT PATIENT NAME: Prashant Diaz AGE: 64 y.o. MR#: [id number] DATE OF VISIT: 02/04/2019 CHIEF COMPLAINT:4 month follow-up post right femur fracture with intramedullary nail placement date of surgery 10/14/2018 (Dr. Rich) HISTORY OF PRESENT ILLNESS: Mr. Diaz is a 64 y.o. male who comes into clinic today for evaluation of the right knee. The PT was last in to see myself on 12/10/2018 . Since this visit he has been doingwell. He is working with PT and up until 2 weeks ago was primarily focused on his IT band which was very problematic however he has had significant improvement in over the past 2 weeks is now able to focus more on the knees. He does continue to have pain located in the quad with ambulation. He also reports the sensation of something rolling in the posterior aspect of his quad which is physical therapist feels it is likely adhesions. Past medical history: Patient Active Problem List [...] NEEDLE 31 gauge x 3/16 Needle ??? acetaminophen (TYLENOL) 500 mg Tablet ??? allopurinol (ZYLOPRIM) 300 mg Tablet ??? LEVEMIR FLEXTOUCH U-100 INSULN Insulin Pen ??? metFORMIN (GLUCOPHAGE) 500 mg Tablet ??? hydrochlorothiazide (HYDRODIURIL) 25 mg Tablet ??? gabapentin (NEURONTIN) 300 mg Capsule Allergies: Allergies Allergen Reactions ? ? Hay Fever & Allergy Relief [Chlorpheniramine-Phenylpropan] Social history: Social History Tobacco Use ??? Smoking status: Never Smoker ??? Smokeless tobacco: Never Used Substance Use Topics ??? Alcohol use: No Review of systems: No chest pain or shortness of breath No fevers, night sweats or chills Vital signs: Blood pressure 135/82, pulse 68. Physical exam: Mr. Diaz is a 64 y.o. male who is alert and oriented. He is in no acute discomfort and is resting comfortably in the exam room. Hip flexion 125 Right knee: Active extension to 3 degrees, passive to 0 Active flexion 125 Calf is supple and non tender No erythema, edema, ecchymosis noted. Ankle Plantar flexion 50?? Dorsiflexion 20?? Inversion 10?? Eversion 5?? PT/DP pulses 2+. Superficial peroneal, deep peroneal, sural, saphenous, and tibial nerves intact to touch. Imaging studies: Femur films obtained today show good callus formation about both the proximal and distal fracture sites. There has been a good increase in callus formation since prior imaging however I am still able to visualize the fracture lucency. Assessment and plan:: 64 y.o. year-old male right femur fracture with intramedullary nail placement date of surgery 10/14/2018 (Dr. Rich), with continued restricted range of motion of the knee Plan discussed in conjunction with Dr. Rich. We had a long discussion regarding the nature of Prashant Diaz's chief complaint. We reviewed the imaging together which is described above. Clinically Prashant Diaz has good ROM. His images show increased healing since his last images, however I am still able to see fracture lucency. We discussed continuing to WBAT. We will obtain new images in 2 months time. If there is still concern regarding healing we will obtain a CT. This plan was discussed with the patient and they are in agreement. All of the patient's questions were answered. The patient understand to contact us if they have any other questions or concerns. FU: 2 months with repeat right femur XR Marya Monroy PA-C The above dictation was made with voice recogonition software documented in this encounter Plan of Treatment Upcoming Encounters Date Type Specialty Care Team Description 04/15/2022 Office Visit Dermatology July German MD [address] [facility] [address] [place], [place] [address] (Wo rk) documented as of this [...] this report, please contact e number below. Mercedes Rich MD IMG DX ORDERABLES documented in this encounter Visit Diagnoses Diagnosis Closed fracture of neck of right femur w ith routine healing, subsequent encounter Closed fracture of neck of right femur w ith routine healing, subsequent encounter documented in this encounter Care Teams Metal Sprayer Relationship Specialty Start Date End Date Audra Singletary, MARY LOU PCP - General 03/14/[address] [place] [id number] documented as of this encounter
--- OUTSIDE RECORDS SUMMARY | 2022-02-27 12:51 | XMS_ITS | Encounter Summary ---
:1955 Author Organization [place] [address] Care Team Providers Name Role Phone Audra Singletary APRN Primary Care Provider Encounter Details Date Type Department Care Team Description 07/08/2019 Hospital Encounter XRay at [facility] Mercedes Rich MD Fracture [address] [place] [address] ORTHOPAEDIC SURG [place], [place] [address] (Wo rk) Social History Tobacco [...] x 10/09 LEVEMIR PEN Needle allopurinol (ZYLOPRIM) Take 300 [...] mL Syringe subcutaneously daily for 28 days. documented as of this encounter Plan of Treatment Upcoming Encounters Date Type Specialty Care Team Description 04/15/2022 Office Visit Dermatology July German MD [facility] DERMATOLOGY [place], [place] [address] (Wo rk) documented as of this encounter Procedures Procedure Name Priority Date/Time Associated Diagnosis Comme nts XR FEMUR 2 VIEWS Routine 07/08/2019 1:08 PM Fracture Resul ts for this RIGHT EST procedure are i n the results section. documented in this encounter Results XR Femur 2 views Right (Generic) (07/08/2019 1:08 PM EST) Anatomical Region Laterality Modality Thigh Right Digital Radiography Specimen (Source) Anatomical Location Collection Method / Collectio n Time Received Time / Laterality Volume Impressions 07/08/2019 4:01 PM EST Internal fixation for femoral fractures is been performed. There is no change or complication. Thank you for letting us participate in the care of this patient. For questions regarding this report, please contact e number below. ? Electronically signed by: Genevieve Suarez [facility] ([phone]), at 07/08/2019 4:01 PM Narrative 07/08/2019 4:01 PM EST EXAMINATION: XR FEMUR 2 VIEWS RIGHT (GENERIC) CLINICAL HISTORY: Right femur Fracture TECHNIQUE: Right femur AP and lateral COMPARISON: June 21, 2019 October 13, 2018 FINDINGS: There is been a comminuted fracture of t he right femoral shaft. Fixation has been performed with and intramedullary r od which has one proximal and two distal interlocking screws. The alignment and a ppearance at the fracture sites has not changed. Callus is present. Skin cahtie remain in place. Procedure Note Jasson Rm MD - 07/08/2019 EXAMINATION: XR FEMUR 2 VIEWS RIGHT (GEN KRISTI) CLINICAL HISTORY: Right femur Fracture TECHNIQUE: Right femur AP and lateral COMPARISON: June 21, 2019 October 13, 2018 FINDINGS: There is been a comminuted fracture of t he right femoral shaft. Fixation has been performed with and intramedullary r od which has one proximal and two distal interlocking screws. The alignment and a ppearance at the fracture sites has not changed. Callus is present. Skin cathie remain in place. IMPRESSION Internal fixation for femoral fractures is been performed. There is no change or complication. Thank you for letting us participate in the care of this patient. For questions regarding this report, please contact th e number below. Electronically signed by: Genevieve Suarez [facility] ([phone]), at 07/08/2019 4:01 PM Mercedes Rich MD IMG DX ORDERABLES documented in this encounter Visit Diagnoses Diagnosis Fracture Closed fracture of unspecified bone documented in this encounter Care Teams Eeler Relationship Specialty Start Date End Date Audra Singletary APRN PCP - General 03/14/[address] [place] [phone] documented as of this encounter
--- OUTSIDE RECORDS SUMMARY | 2022-02-27 12:51 | XMS_ITS | Encounter Summary ---
:1955 Author Organization [facility] [place] [address] Care Team Providers Name Role Phone Audra Singletary APRN Primary Care Provider Reason for Visit Auth/Cert Specialty Diagnoses / Procedures Referred By Contact Refer red To Contact Diagnoses right femoral nonunion Procedures PRO OPEN TREAT FEMUR FX+PLATE/SCREW @ORIF FEMORAL SHAFT FX. (WRVU 14.48) Referral ID Status Reason Start Date Expiration Date Visits Requ ested Visits Authorized [id number] 1 1 Encounter Details Date Type Department Care Team Description 06/21/2019 Surgery Main Operating Room Mercedes Rich MD @ORIF FEMORAL SHAFT FX. [facility] (WRVU 14.48) [facility] [place] [address] [place] [address] [phone] Social History Tobacco Use Types Packs/Day Years Used Date Never Smoker Smokeless Tobacco: Never Used Alcohol Use Standard Drinks/Week Comments No 0 (1 standard drink = 0.6 oz pure alcoho l) Sex Assigned at Date Recorded Not on file documented as of this encounter Last Filed Vital Signs Vital Sign Reading Time Taken Comments Blood Pressure 112/63 06/21/2019 10:15 AM EST Pulse 63 06/21/2019 10:15 AM EST Temperature 37.1 ??C (98.8 ??F) 06/21/2019 9:39 AM EST Respiratory Rate 15 06/21/2019 10:15 AM EST Oxygen Saturation 94% 06/21/2019 10:15 AM EST Inhaled Oxygen Concentration - - Weight 104.8 kg (231 lb) 06/21/2019 6:02 AM EST Height 172.7 cm (5' 8) 06/21/2019 6:02 AM EST Body Mass Index 35.12 06/21/2019 6:02 AM EST documented in this encounter Discharge Summaries Monica Blake PA - 06/22/2019 11:43 AM EST Discharge Summary Patient Name: Prashant Diaz Patient Age: 64 y.o. Language: Haitian Race: White Ethnicity: Not nor Admit date: 06/21/2019 Discharge date and time: 06/22/2019 Attending Physician: Mercedes Rich MD Discharge Physician: Mercedes Rich MD Follow-up Recommendations for Providers: See discharge instructions for additional details. Future Appointments Date Time Provider Department Center 07/04/2019 9:00 AM [facility] DX ROOM 2 Xray [facility] Rad 07/04/2019 9:30 AM Marya Monroy PA [facility] ORTH 3A [facility] Inpatient Provider Contact Information: Mercedes Rich MD Orthopedics: [phone] After hours and weekends, call [facility] Ditch Rider, , and have the Orthopedic resident paged. [...] canal reamed to size 17 and size [id number] mm intramedullary nail placed in retrograde fashion with two distal locking screws and one proximal locking screw in the dynamization slot to allow for fracture compression. Multiple operative cultures sent, including reamings. No gross evidence of infection observed. Powdered Vancomycin placed in wounds. Skin closed with cathie. ?? History of Presentation: Prashant Diaz is [...] Weight: Wt Readings from Last 1 Encounters: 11/26/19 104.8 kg (231 lb) Height: Ht Readings [...] a RIGHT knee effusion. Soft tissues Skin cathie and soft tissue air in the RIGHT thigh are expected early postsurgical changes. Interval revision of RIGHT fixation hardware for femoral nonunion. Thank you for letting us participate in the care of this patient. For questions regarding this report, please contact the number below. Pending Studies and Lab Data at Discharge: [...] insulin needles (disposable) Refills: 3 Fluarix Quad [id number] (PF) 60 mcg (15 mcg x 4)/0.5 mL Syrg ADM 0.5ML IM UTD Generic drug: flu vacc [id number] 6mos up(PF) Refills: 0 hydroCHLOROthiazide 25 mg [...] Senakot, to facilitate a bowel movement. An vnbv-tgs-kmmsyro medication, MiraLAX, can also be used to [...] medications may interfere with bone healing. Shower (cathie/sutures): 1. You can shower but remember your activity limitations and always have a chair available for balance and protection. DO NOT submerge the dressing/incision. 2. (Mepilex) Do not let water run over the operative dressing. If it becomes wet lightly pat the dressing dry. DO NOT submerge the incision. 3. You have cathie/sutures. Always cover them with a waterproof dressing or plastic bag when showering until they are removed. 4. After cathie/sutures are removed you can let water run [...] your intake of calcium should be at [id number] a day and your vitamin D intake should be at least 800 IU per day. Call your doctor at [phone] if: 1. You have a fever > 101.5 or experience chills ??? Increased discharge from the incision ??? Any redness or swelling around the incision ??? Increased pain or change in the pain that is not controlled by your pain medications FOLLOW UP APPOINTMENTS: 1. You will have follow up appointments at [facility] as indicated in Future Appointment and Orders. Youwill have an x-ray prior to those appointments so please come to Radiology, desk 3T, 1 hour BEFORE your appointment for those x- rays, at 9:00 am on 07/04/2109. Future Appointments Date Time Provider Department Center 07/04/2019 9:00 AM [facility] DX ROOM 2 Xray [facility] Rad 07/04/2019 9:30 AM Marya Monroy PA [facility] ORTH 3A [facility] For questions/concerns weekdays, 8 am - 5 pm, call Dr. Rich's office: [phone]. For evenings, weekends, holidays, call [phone] and request to speak with the Orthopaedic Resident payroll professional. General Instructions None Future Appointments and Orders Future Appointments and Orders Future Appointments Provider Department Dept Phone 07/04/2019 9:00 AM [facility] DX ROOM 2 XRay at [facility] Arrive at: Cleaner Assistant Area 3T [phone] Please go to Cleaner Assistant Area 3T ([place] Location). 07/04/2019 9:30 AM Marya Monroy PA Orthopaedics at [facility] Arrive at: Cleaner Assistant Area 3A [phone] Future Orders Complete By Expires Referral to Physical Therapy [REF87 Custom] As directed Process Instructions: Note: Please indicate in the comments any additional Instructions, Precautions or Contra-indications. Scheduling Instructions: Questions: Reason for PT: s/p IMN exchange right hip Specialty Program Eval: Modalities could include: Treatment Focus: Primary Care Provider: Audra Singletary APRN [phone] Discharge References/Attachments ENOXAPARIN (LOVENOX) (MALAGASY) documented in this encounter Discharge Instructions Patient [...] Senakot, to facilitate a bowel movement. An iowk-lgb-epdwash medication, MiraLAX, can also be used to [...] medications may interfere with bone healing. Shower (cathie/sutures): 1. You can shower but remember your activity limitations and always have a chair available for balance and protection. DO NOT submerge the dressing/incision. 2. (Mepilex) Do not let water run over the operative dressing. If it becomes wet lightly pat the dressing dry. DO NOT submerge the incision. 3. You have cathie/sutures. Always cover them with a waterproof dressing or plastic bag when showering until they are removed. 4. After cathie/sutures are removed you can let water run [...] your intake of calcium should be at [id number] a day and your vitamin D intake should be at least 800 IU per day. Call your doctor at [phone] if: 1. You have a fever > 101.5 or experience chills ??? Increased discharge from the incision ??? Any redness or swelling around the incision ??? Increased pain or change in the pain that is not controlled by your pain medications FOLLOW UP APPOINTMENTS: 1. You will have follow up appointments at [facility] as indicated in Future Appointment and Orders. Youwill have an x-ray prior to those appointments so please come to Radiology, desk , 1 hour BEFORE your appointment for those x- rays, at 9:00 am on 07/04/2109. Future Appointments Date Time Provider Department Center 07/04/2019 9:00 AM [facility] DX ROOM 2 Xray [facility] Rad 07/04/2019 9:30 AM Marya Monroy PA [facility] ORTH 3A [facility] For questions/concerns weekdays, 8 am - 5 pm, call Dr. Rich's office: [phone]. For evenings, weekends, holidays, call [phone] and request to speak with the Orthopaedic Resident payroll professional. AttachmentsThe following attachments cannot be sent through Care Everywhere. ENOXAPARIN (LOVENOX) (MALAGASY)documented in this encounter Medications at Time of [...] medications for this encounter. ??? FLUARIX QUAD [id number], PF, 60 mcg (15 mcg x 4)/0.5 [...] AM, likely d/c home. Activity: WBAT Closure: [place] (to be removed at Orthopaedic follow-up appointment) Dressing: Mepilex x7 days. Drain: N/A. Anticoagulation: Lovenox 40mg SQ/day for 30 days - may dicontinue sooner if ambulating well. Antibiotics: Periop Ancef x24 hours. Consults: PT/OT. Dispo: Pending PT/OT eval. Follow-up: Scheduled (see below). Luis Gonzalez MD 06/22/2019 Future Appointments Date Time Provider Department Center 07/04/2019 9:00 AM [facility] DX ROOM 2 MH Xray [facility] Rad 07/04/2019 9:30 AM Marya Monroy, PA [facility] ORTH 3A [facility] Associated attestation - Mercedes Rich MD - [...] or tingling. Patient oriented to room, call aguilar, IS. RN will monitor patient. TRINH HERMOSILLO [...] Units ??? lactated Ringers 1,000 mL (06/21/19 4134) ??? sodium chloride 0.9% 1,000 mL (06/21/19 9443) OBJECTIVE: Temp: [36.1 ??C (97 ??F)-37.1 ??C (98.8 ??F)] Heart Rate: [52-76] Resp: [06-15] BP: (102-131)/(60-92) Intake/Output Summary (Last 24 hours) [...] likely d/c home tomorrow. Activity: WBAT. Closure: [place] (to be removed at Orthopaedic follow-up appointment) Dressing: Mepilex x7 days. Drain: N/A. Anticoagulation: Lovenox 40mg SQ/day for 30 days - may dicontinue sooner if ambulating well. Antibiotics: Periop Ancef x24 hours. Consults: PT/OT. Dispo: Pending PT/OT eval. Follow-up: Scheduled (see below). Luis Gonzalez MD 06/21/2019 Future Appointments Date Time Provider Department Center 07/04/2019 9:00 AM [facility] DX ROOM 2 MH Xray [facility] Rad 07/04/2019 9:30 AM Marya Monroy, RADHA [facility] ORTH 3A [facility] Associated attestation - Mercedes Rich MD - [...] IR Arterial Intervention 10/13/2018 Garrett Boswell MD [facility] INTERVENTIONL RAD ??? PRO OPEN TREAT FEMUR FX+INTRAMED MEGAN Right 10/14/2018 @INTRAMEDULLARY NAILING, FEMUR (WRVU 19.65) performed by Mercedes Rich MD at [facility] MAIN OR ??? WRIST SURGERY Allergies Allergen Reactions ??? Percocet [Oxycodone-Acetaminophen] Nausea And Vomiting No current facility-administered medications on file prior to encounter. Current Outpatient Medications on File Prior to Encounter Medication Sig Dispense Refill ??? FLUARIX QUAD [id number], PF, 60 mcg (15 mcg x 4)/0.5 [...] documented in this encounter Nursing Notes Trinh Hanna, MISA - 06/21/2019 9:43 AM EST Pt arrived [...] well. 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 documented [...] IR Arterial Intervention 10/13/2018 Garrett Boswell MD [facility] INTERVENTIONL RAD ??? PRO OPEN TREAT FEMUR FX+INTRAMED MEGAN Right 10/14/2018 @INTRAMEDULLARY NAILING, FEMUR (WRVU 19.65) performed by Mercedes Rich MD at [facility] MAIN OR ??? WRIST SURGERY Social [...] mod technique. Pt reports he has sock aid/ore fielder at home. Pt verbalized understanding and stepping [...] instrument andmeasurable assessment of functional outcome. Pager: [phone] Denilson Henderson OT 06/22/2019 Occupational Therapy Rehabilitation [...] Admission order reviewed. Primary Insurance on file: [facility] Secondary Insurance on file: N/A Primary care provider on file: Audra Singletary, CHIP MIXER [phone] Advance Directive on file and Code Status: <no information>, Full Code Patient???s Functional Status:SBA with FWW Living Situation:H, 1 level house with spouse, 5 steps to enter, railings on both sides Tub shower w shower chair [address] [facility] [address] Supports: spouse, available at home during the [...] home via private car when medically ready. x ray developing machine operator/Cnc Service Engineer will continue to follow patient???s progress and remain available if situation changes for coordination of care, psychosocial support and/or discharge planning. Ting Lion, RN Pager:[phone] Plan of Care - Haley Lobo, PT [...] IR Arterial Intervention 10/13/2018 Garrett Boswell MD [facility] INTERVENTIONL RAD ??? PRO OPEN TREAT FEMUR FX+INTRAMED MEGAN Right 10/14/2018 @INTRAMEDULLARY NAILING, FEMUR (WRVU 19.65) performed by Mercedes Rich MD at [facility] MAIN OR ??? 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 After his initial encounter in September 2018, pt reports that he had home PT followed by outpatient PT. Equipment at home: FWW, straight cane, shower chair Fall history: denies fall hx in last 6 months Precautions/Special Considerations: fall risk, WBAT RLE Lines: arelis Mobility and Positioning Recommendations: ?? Pt. to [...] RLE Strength: WFL with exception of RLE (demo's adequate functional strength) Sensation: denies N/T Bed Mobility: Supine to Sit: indep from HOB flat, no bed rail Transfers: Sit to Stand: indep with FWW Stand to Sit: indep with FWW Gait: Distance: 200' Device used: FWW Level of assist: Modified indep Gait mechanics: julio's good gait speed, step-through pattern, dec heel-toe [...] in this evaluation. Time IN / OUT: 6962-5669 Total Evaluation Minutes, Physical Therapy: 22(low complexity eval) Haley Lobo, PT Pager: [phone] Physical Therapy Inpatient Rehabilitation Department Plan of [...] Fine MD - 06/21/2019 10:08 AM EST [facility] Operative Note Patient Name: Prashant Diaz : [id number] MR#: [id number] Case Date: 06/21/2019 Surgeon: Surgeon(s) and Role: [...] canal reamed to size 17 and size [id number] mm intramedullary nail placed in retrograde fashion with two distal locking screws and one proximal locking screw in the dynamization slot to allow for fracture compression. Multiple operative cultures sent, including reamings. No gross evidence of infection observed. Powdered Vancomycin placed in wounds. Skin closed with cathie. Anesthesia: General Estimated Blood Loss: 200 mL [...] planned surgery, and [facility] All members of the team agreed [...] We began by removing the three distal kmwjyog-kr-gnjscu interlocking screws, followed by the single hthyztrc-ig-wvqmzelcf interlock screw. This was performed with the use of C-arm fluoroscopy. The previous incisions were used. We then turned our attention to removing the 98p274 mm retrograde intramedullary nail. The previousanterior knee [...] inverted fashion. The skin was closed with cathie. The wounds were dressed with mepilex dressings. All sponge, needle, and instruments counts were correct at the end of the procedure. The patient was then extubated, transferred back to the stretcher in stable condition, and taken to the recovery room without incident. Dr. Rich was present and scrubbed for all critical portions of the case. Implant Name Type Inv. Item Serial No. Office Support Assistant Lot No. LRB No. Used Action SCREW,TI,LCK,STAR,6X42MM ([id number]) - [id number] IMPLANTS SCREW,TI,LCK,STAR,6X42MM ([id number]) [facility] Right 1 Implanted SCREW,TI,LCK,STAR,6X60MM ([id number]) - [id number] IMPLANTS SCREW,TI,LCK,STAR,6X60MM ([id number]) [facility] Right 1 Implanted SCREW,LCK,STAR,TI,6X85MM ([id number]) - [id number] IMPLANTS SCREW,LCK,STAR,TI,6X85MM ([id number]) [facility] Right 1 Implanted 15MM TI [employer]URKA RETRO/ANTEGRADE FEMORAL NAIL-EX/400MM [id number] Right 1 Implanted Infection Bundle used? N/A ? Post-Operative Plan Activity: Weight bearing as tolerated. Closure: [place] (to be removed at Orthopaedic follow-up appointment [...] Operative Note Patient Name: Prashant Diaz : [id number] MR#: [id number] Case Date: 06/21/2019 Surgeon: Surgeon(s) and Role: [...] canal reamed to size 17 and size 01f624 mm intramedullary nail placed in retrograde fashion with two distal locking screws and one proximal locking screw in the dynamization slot to allow for fracture compression. Multiple operative cultures sent, including reamings. No gross evidence of infection observed. Powdered Vancomycin placed in wounds. Skin closed with cathie. Complications: None apparent. Estimated Blood Loss: 200 [...] Plan Activity: Weight bearing as tolerated. Closure: [place] (to be removed at Orthopaedic follow-up appointment [...] Specialty Care Team Description 04/15/2022 Office Visit July Gallegos MD [facility] [address] [place], [place] [address] (Wo rk) Scheduled Referrals Name [...] POC Glucose 218 (H) 65 - 199 [facility] [place] mg/dL [facility] LABORATORY Comment: Supplemental ranges: <140 mg/dL before meals <180 mg/dL all other times of the day Specimen Anatomical Collection Method Collection Time Receive d Time (Source) Location / / Volume Laterality Blood specimen 06/22/2019 8:17 AM 019 8:17 (specimen) EST AM EST Mercedes Rich MD POINT OF CARE TEST ORDERABLE S Performing Organization Address City/State/ZIP Code Phon e Number [address] POCT Glucose (06/22/2019 6:23 AM EST) athologist Signature POC Glucose 170 65 - 199 [facility] Comment: Supplemental ranges: <140 mg/dL before meals <180 mg/dL all other times of the day Specimen Anatomical Collection Method Collection Time Receive d Time (Source) Location / / Volume Laterality Blood specimen 06/22/2019 6:23 AM 019 6:23 (specimen) EST AM EST Mercedes Rich MD POINT OF CARE TEST ORDERABLE S Performing Organization Address City/State/ZIP Code Phon e Number [address] POCT Glucose (06/21/2019 11:01 PM EST) athologist Signature POC Glucose 168 65 - 199 [facility] Comment: Supplemental ranges: <140 mg/dL before meals <180 mg/dL all other times of the day Specimen Anatomical Collection Method Collection Time Receive d Time (Source) Location / / Volume Laterality Blood specimen 06/21/2019 11:01 9 (specimen) PM EST 11:01 PM EST Mercedes Rich MD POINT OF CARE TEST ORDERABLE S Performing Organization Address City/State/[place] [address] (ABNORMAL) POCT Glucose (06/21/2019 8:56 PM EST) P athologist Signature POC Glucose 201 (H) 65 - 199 [place] mg/dL [facility] LABOR[facility]ORY Comment: Supplemental ranges: <140 mg/dL before meals <180 mg/dL all other times of the day Specimen Anatomical Collection Method Collection Time Receive d Time (Source) Location / / Volume Laterality Blood specimen 06/21/2019 8:56 PM 019 8:56 (specimen) EST PM EST Mercedes Rich MD POINT OF CARE TEST ORDERABLE S Performing Organization Address City/State/[place] [address] POCT Glucose (06/21/2019 4:33 PM EST) P athologist Signature POC Glucose 169 65 - 199 [facility] [place] mg/dL [facility] LAB[facility]ORY Comment: Supplemental ranges: <140 mg/dL before meals <180 mg/dL all other times of the day Specimen Anatomical Collection Method Collection Time Receive d Time (Source) Location / / Volume Laterality Blood specimen 06/21/2019 4:33 PM 019 4:33 (specimen) EST PM EST Mercedes Rich MD POINT OF CARE TEST ORDERABLE S Performing Organization Address City/State/[place] [address] POCT Glucose (06/21/2019 11:45 AM EST) P athologist Signature POC Glucose 141 65 - 199 [place] mg/dL [facility] LAB[facility] Comment: Supplemental ranges: <140 mg/dL before meals <180 mg/dL all other times of the day Specimen Anatomical Collection Method Collection Time Receive d Time (Source) Location / / Volume Laterality Blood specimen 06/21/2019 11:45 9 (specimen) AM EST 11:45 AM EST Mercedes Rich MD POINT OF CARE TEST ORDERABLE S Performing Organization Address City/State/ZIP Code [place] [address] XR Femur 2 views [...] please contact e number below. ? Narrative 06/21/2019 11:06 AM EST EXAMINATION: XR FEMUR 2 VIEWS RIGHT (GENERIC) CLINICAL HISTORY: s/p right femur exch dinora nailing for nonunion. Please obtain AP/lateral XRs of right femur in PACU., , ??entered by ordering service TECHNIQUE: RIGHT femur, ??2 views COMPARISON: CT and radiographs, 2018. FINDINGS: Bones RIGHT femur-interval revision of fixatio n hardware for mid femoral nonunion. The new retrograde nail and screw construct is similar to intraoperative images from same date. Joints No malalignment. There is a RIGHT knee e ffusion. Soft tissues Skin cathie and soft tissue air in the RIGHT [...] femur, 2 views COMPARISON: CT and radiographs, 2018. FINDINGS: Bones RIGHT femur-interval revision of fixatio n hardware for mid femoral nonunion. The new retrograde nail and screw construct is similar to intraoperative images from same date. Joints No malalignment. There is a RIGHT knee e ffusion. Soft tissues Skin cathie and soft tissue air in the RIGHT thigh are expected early postsurgical changes. IMPRESSION Interval revision of RIGHT fixation hard miller for femoral nonunion. Thank you for letting us participate in the care of this patient. For questions regarding this report, please contact e number below. Mercedes Rich MD IMG DX ORDERABLES POCT Glucose (06/21/2019 9:41 AM EST) P athologist Signature POC Glucose 137 65 - 199 [facility] mg/dL [facility] LABORATORY Comment: Supplemental ranges: <140 mg/dL before meals <180 mg/dL all other times of the day Specimen Anatomical Collection Method Collection Time Receive d Time (Source) Location / / Volume Laterality Blood specimen 06/21/2019 9:41 AM 019 9:41 (specimen) EST AM EST Mercedes Rich MD POINT OF CARE TEST ORDERABLE S Performing Organization Address City/[facility] [place] [address] XR Fluoro No Rad <1Hr - OR Use (06/21/2019 9:09 AM EST) Specimen (Source) Anatomical Location Collection Method / Collectio n Time Received Time / Laterality Volume Narrative RAD - 06/21/2019 9:09 AM EST This exam is auto-finalizing. No interpr etation was done. Mercedes Rich MD IMG FLUORO ORDERABLES Performing Organization Address City/State/ZIP Code Phon e Number RAD RAD [place], [place] Anaerobic Culture (06/21/2019 9:02 AM EST) Patholo gist Method Time Signature Anaerobic No anaerobic [facility] Culture organisms [facility] LABORATORY Specimen Anatomical Collection Method Collection Time Receive d Time (Source) Location / / Volume Laterality Joint sample STRUCTURE OF RIGHT 06/21/2019 9:02 AM 9:19 (specimen) LOWER LIMB / EST AM EST Unknown Comment: RIGHT FEMUR INTRAMEDULLARY REAM INGS # 2 Resulting Agency Comment Spec In Lab Mercedes Rich MD MICROBIOLOGY - GENERAL ORDER KNU Performing Organization Address City/[facility]/[place]IP [place] [address] Joint Culture (06/21/2019 9:02 AM EST) Component Value Ref Test Analysis Performed At [facility] Layer3 TV Range Method Time Signature Joint Culture No growth at 14 [place] days. [facility] LABORATORY Gram Stain No Neutrophils seen. [facility] No microorganisms seen. [facility] LABORATORY Specimen Anatomical Collection Method Collection Time Receive d Time (Source) Location / / Volume Laterality Joint sample STRUCTURE OF RIGHT 06/21/2019 9:02 AM 9:19 (specimen) LOWER LIMB / EST AM EST Unknown Comment: RIGHT FEMUR INTRAMEDULLARY REAM INGS # 2 Resulting Agency Comment Spec In Lab Mercedes Rich MD MICROBIOLOGY - GENERAL ORDER KUN Performing Organization Address City/[facility]/[place] [address] Anaerobic Culture (06/21/2019 9:02 AM EST) Patholo gist Method Time Signature Anaerobic No anaerobic [facility] Culture organisms [facility] LABORATORY Specimen Anatomical Collection Method Collection Time Receive d Time (Source) Location / / Volume Laterality Joint sample STRUCTURE OF RIGHT 06/21/2019 9:02 AM 9:21 (specimen) LOWER LIMB / EST AM EST Unknown Comment: RIGHT FEMUR INTRAMEDULLARY REAM INGS # 1 Resulting Agency Comment Spec In Lab Mercedes Rich MD MICROBIOLOGY - GENERAL ORDER KUN Performing Organization Address City/State/[place] [address] Joint Culture (06/21/2019 9:02 AM EST) Component Value Ref Test Analysis Performed At Patholo gist Range Method Time Signature Joint Culture No growth at 14 GARCIA days. [facility] LABORATORY Gram Stain No Neutrophils seen. GARCIA No microorganisms seen. [facility] LABORATORY Specimen Anatomical Collection Method Collection Time Receive d Time (Source) Location / / Volume Laterality Joint sample STRUCTURE OF RIGHT 06/21/2019 9:02 AM 9:21 (specimen) LOWER LIMB / EST AM EST Unknown Comment: RIGHT FEMUR INTRAMEDULLARY REAM INGS # 1 Resulting Agency Comment Spec In Lab Mercedes Rich MD MICROBIOLOGY - GENERAL ORDER KUN Performing Organization Address City/[facility]/[place] [address] Anaerobic Culture (06/21/2019 9:02 AM EST) Component Value Ref Test Analysis [facility] gist Range Method Time Signature Anaerobic No anaerobic GARCIA Culture organisms [facility] LABORATORY Gram Stain Few Neutrophils seen GARCIA No microorganisms seen. [facility] LABORATORY Specimen Anatomical Collection Method Collection Time Receive d Time (Source) Location / / Volume Laterality Joint sample STRUCTURE OF RIGHT 06/21/2019 9:02 AM 9:20 (specimen) LOWER LIMB / EST AM EST Unknown Comment: RIGHT FEMUR TISSUE FROM NAIL (I MPLANT) Resulting Agency Comment Spec In Lab Mercedes Rich MD MICROBIOLOGY - GENERAL ORDER KUN Performing Organization Address City/State/[place] [address] Joint Culture (06/21/2019 9:02 AM EST) Component Value Ref Test Analysis Performed At Patholo gist Range Method Time Signature Joint Culture No growth at 14 GARCIA days. [facility] LABORATORY Gram Stain No Neutrophils seen. GARCIA No microorganisms seen. [facility] LABOR[facility]ORY Specimen Anatomical Collection Method Collection Time Receive d Time (Source) Location / / Volume Laterality Joint sample STRUCTURE OF RIGHT 06/21/2019 9:02 AM 9:20 (specimen) LOWER LIMB / EST AM EST Unknown Comment: RIGHT FEMUR TISSUE FROM NAIL (I MPLANT) Resulting Agency Comment Spec In Lab Mercedes Rich MD MICROBIOLOGY - GENERAL ORDER KUN Performing Organization Address City/State/ZIP Code Phon e Number [address] POCT Glucose (06/21/2019 6:24 AM EST) P athologist Signature POC Glucose 169 65 - 199 [facility] mg/dL [facility] LABORATORY Comment: Supplemental ranges: <140 mg/dL before meals <180 mg/dL all other times of the day Specimen Anatomical Collection Method Collection Time Receive d Time (Source) Location / / Volume Laterality Blood specimen 06/21/2019 6:24 AM 019 6:24 (specimen) EST AM EST Mercedes Rich MD POINT OF CARE TEST ORDERABLE S Performing Organization Address City/State/ZIP Code Phon e Number [address] SCAN DOC: IMPLANTABLE DEVICES (06/21/2019 [...] right femur with nonunion, subsequent encounter Closed displaced segmental fracture of s haft of right femur with routine healing, subsequent encounter documented in this encounter Admitting [...] Given 06/21/2019 10:24 AM EST 50 mg vancomycin (VANCOCIN) injection Given 06/21/2019 9:11 AM EST 1 g 19- S urgical Site ONCE PRN, Starting on Thu06/21/19 at 0911, Until Thu06/22/19 at 1443, Intra-Operative (Intra-Procedure), Routine documented in this encounter Active and Recently Administered Medications Times are shown in EST. Scheduled Medication Order 06/20/2019 06/21/2019 06/22/2019 acetaminophen (TYLENOL) tablet 1,000 mg (COMPLETED) 0618 (Given - Provider: Marci Marshall RN) 1,000 mg, Oral, ONCE, 1 dose, Thu at 0630, Administer with SIP of H2O only., Day of Surgery (Day of Procedure), Routine acetaminophen (TYLENOL) tablet 1,000 mg 1427 (Given - Provider: Trinh Hanna RN)2201 (Given - Provider: Chayito Hendrickson, MISA) 0541 (Given - Provider: Chayito Hendrickson RN) 1,000 mg, Oral, EVERY 8 HOURS SCHEDULED, First dose on Thu06/21/19 at 1400, Until Discontinued, Maximum dose of acetaminophen is 4000 mg from all sources in 24 hours., Routine allopurinol (ZYLOPRIM) tablet 300 mg 0836 (Given - Provider: Caroline hCampagne RN) 300 mg, Oral, DAILY, First dose on Thu08/22/18 at 0900, Until Discontinued, Routine ceFAZolin (ANCEF) 2g in dextrose 5% 100 mL (COMPLETED) 1148 (New Bag - Provider: Trinh Hanna RN)1218 (Stopped - Provider: Trinh Hanna RN)2016 (New Bag - Provider: Chayito Hendrickson RN)2046 (Stopped - Provider: Chayito Hendrickson, MISA) 0427 (New Bag - Provider: Chayito Hendrickson RN)0457 (Stopped - Provider: Chayito Hendrickson RN) 2 [...] Routine gabapentin (NEURONTIN) capsule 600 mg (COMPLETED) 0618 (Given - Provider: Marci Marshall RN) 600 mg, Oral, ONCE, 1 dose, Thu06/21/19 at 0630, Administer with SIP of H2O only., Day of Surgery (Day of Procedure), Routine hydroCHLOROthiazide (HYDRODIURIL) tablet 25 mg 0835 (Given - Provider: Caroline Champagne RN) 25 mg, Oral, DAILY, First [...] VIAL injection 1-5 Units(Linked Group 1 ) 834 (Given - Provider: Caroline Champagne RN)1199 (Not Given - Provider: Caroline Champagne RN [...] hours., Routine metFORMIN (GLUCOPHAGE) tablet 750 mg 835 (Given - Provider: Caroline Champagne RN) 750 mg, Oral, DAILY, First dose on Thu08/22/18 at 0900, Until Discontinued, Routine polyethylene glycol (MIRALAX) packet 17 g 2015 (Given - Provider: Chayito Hendrickson RN) 834 (Given - Provider: Rigoberto Pandya) 17 g, Oral, 2 TIMES DAILY, First dose on Thu06/21/19 at 2100, Until Discontinued, Routine senna-docusate (PERICOLACE) 8.6-50 mg per tablet 2 tablet 2015 (Given - Provider: Chayito Hendrickson RN) 835 (Given - Provider: Rigoberto Pandya) 2 tablet, Oral, 2 TIMES DAILY, First dos e on Thu06/21/19 at 2100, Until Discontinued, Routine sodium chloride 0.9 % (flush) flush 5 mL 2022 (Given - Provider: Chayito Hendrickson, RN) 0836 (Given - Provider: Rigoberto Pandya) [...] Hanna RN)2015 (New Bag - Provider: Chayito Hendrickson, MISA) 1,000 mL, at 100 mL/hr, Intravenous, CON [...] mg 10 mg, Rectal, DAILY PRN, Starting Thu08/21/18 at 1615, Until Thu06/22/19 at 1443, Constipation, [...] mg (CANCELED) 1225 (Given - Provider: Trinh Hanna RN) 4 mg, Intravenous, EVERY 30 MIN PRN, Sta rting Thu06/21/19 at 0941, Until Thu06/21/19 at 1555, Nausea, May repeat 4 mg once in 30 minutes. If multiple antiemetics ordered, use ondansetron first and i f ineffective use prochlorperazine secon d and if ineffective use promethazine, PACU Recovery prochlorperazine (COMPAZINE) injection 5 mg (CANCELED) 1234 (Given - Provider: Trinh Hanna RN) 5 mg, Intravenous, EVERY 30 MIN PRN, [...]
Routine documented in this encounter Care Teams Disbursing Agent Relationship Specialty Start Date End Date Audra Singletary APRN PCP - General 03/14/[address] [place] [id number] documented as of this encounter
--- OUTSIDE RECORDS SUMMARY | 2022-02-27 12:51 | XMS_ITS | Encounter Summary ---
:1955 Author Organization [place] [place] [address] Care Team Providers Name Role Phone Audra Singletary APRN Primary Care Provider Reason for Visit Reason Onset Date Comments Bumped Appointment 02/24/2019 Encounter Details Date Type Department Care Team Description 02/24/2019 Telephone Orthopaedics at [facility] Mercedes Rich [place] [phone] ORTHOPAEDIC SURG [place], [place] [address] (Wo rk) Social History Tobacco Use Types Packs/Day Years Used Date Never Smoker Smokeless Tobacco: Never Used Alcohol Use Standard Drinks/Week Comments No 0 (1 standard drink = 0.6 oz pure alcoho l) Sex Assigned at Date Recorded Not on file documented as of this encounter Miscellaneous Notes Telephone Encounter - Dora Marte - 03/02/2019 8:42 AM EDT Patient rescheduled with Marya Monroy on 04.18.19 Telephone Encounter - Kayy Davies - 03/01/2019 7:45 AM EDT No response from patient, letter sent Telephone Encounter - Kayy Davies - 02/28/2019 9:18 AM EDT LM #2 to call to reschedule bumped 04/15 appointment Telephone Encounter - Kayy Davies - 02/24/2019 11:22 AM EDT LM #1 to call to reschedule bumped 04/[address] Rich's clinic-may reschedule to other [facility] or to [facility]. documented in this encounter Plan of Treatment Upcoming Encounters Date Type Specialty Care Team Description 04/15/2022 Office Visit Dermatology July German MD [facility] DERMATOLOGY [place], [place] [address] (Wo rk) documented as of this encounter Visit Diagnoses Not on filedocumented in this encounter Care Teams Certified Dialysis Technician Relationship Specialty Start Date End Date Audra Singletary APRN PCP - General 03/14/[address] [place] [id number] documented as of this encounter
--- OUTSIDE RECORDS SUMMARY | 2022-02-27 12:51 | XMS_ITS | Clinical Summary ---
:1955 Author Organization [facility] [place] [address] Care Team Providers Name Role Phone Audra Singletary APRN Primary Care Provider Allergies Active Allergy Reactions Severity Noted Date Comments Oxycodone-Acetaminophen Nausea And Vomiting 06/21/2019 Medications Medication Sig Dispensed Refills Start End Date Status Date hydrochlorothiazide TAKE 1 TABLET BY 3 Active (HYDRODIURIL) 25 mg MOUTH EVERY DAY 6 Tablet allopurinol (ZYLOPRIM) Take 300 mg by 2 Active 300 mg Tablet mouth daily. 9 LEVEMIR FLEXTOUCH U-100 Inject 18 Units 4 Active INSULN Insulin Pen subcutaneously 2 9 times daily. ONETOUCH ULTRA BLUE TEST USE BID 0 Active STRIP Strip 8 BD ULTRA-FINE MINI PEN USE DIRECTED 3 Active NEEDLE 31 gauge x 3/16 WITH LEVEMIR PEN 9 Needle aspirin 81 mg Tablet, Take 81 mg by mouth 0 Active Delayed Release (E.C.) daily. metFORMIN TK 1 T PO D 3 Active (GLUCOPHAGE-XR) 750 mg 9 Tablet Sustained Release 24 hr FLUARIX QUAD 9364-3287, ADM 0.5ML IM UTD 0 Active PF, 60 mcg (15 mcg x 9 4)/0.5 mL Syringe acetaminophen (TYLENOL) Take 2 tablets by 30 tablet 1 06/22/20 1 Active 500 mg Tablet mouth every 8 9 hours. 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 Rich 06/21/2019 Type 2 diabetes mellitus without complication, with lo ng-term current use 10/18/2018 of insulin R femur fx s/p IMN 10/14/18 (Dr. Rich) 10/13/2018 Rupture of medial head of gastrocnemius 07/30/2011 Immunizations Name Administration Dates Next Due Influenza PF, Split 07/01/2012 Influenza Vaccine, Whole 07/04/2010, 06/07/2007 Family History Medical History Relation Comments Diabetes Father Relation Status Comments Father Social History Tobacco Use Types Packs/Day Years Used Date Never Smoker Smokeless Tobacco: Never Used Alcohol Use Standard Drinks/Week Comments No 0 (1 standard drink = 0.6 oz pure alcoho l) Sex Assigned at Date Recorded Not on file Last Filed Vital Signs Vital Sign Reading Time Taken Comments Blood Pressure 133/81 12/12/2019 9:36 AM EDT Pulse 71 12/12/2019 9:36 AM EDT Temperature 36.7 ??C (98.1 ??F) 07/08/2019 2:39 PM EST Respiratory Rate 16 06/22/2019 11:24 AM EST Oxygen Saturation 98% 06/22/2019 11:24 AM EST Inhaled Oxygen Concentration - - Weight 102.1 kg (225 lb) 12/12/2019 9:36 AM EDT Height 172.7 cm (5' 8) 12/12/2019 9:36 AM EDT Body Mass Index 34.21 12/12/2019 9:36 AM EDT Plan of Treatment Upcoming Encounters Date Type Specialty Care Team Description 04/15/2022 Office Visit Dermatology July German MD [facility] [place], [place] [address] (Wo rk) Health Maintenance Due Date Last Done Comments Covid-19 Vaccine (#1) 01/15/1961 Pneumoccocal Vaccine: 65+ (1 - 01/15/1962 PCV) DM Hemoglobin A1c 01/15/1966 DM Opthalmology Exam 01/15/1966 DM Urine Microalbumin yearly 01/15/1966 Hepatitis C Screening 01/15/1974 Lipid Screening 01/15/1974 Tdap adult 01/15/1975 Tetanus vaccine 01/15/1975 Colonoscopy 01/15/2001 Zoster vaccine (1 of 2) 01/15/2006 Advance Directive 01/15/2011 DM Creatinine yearly 10/21/2019 10/20/2018, 10/19/2018, 10/18/2018, Additional history exists Influenza (Flu) vaccine (1 of 1 - 03/27/2022 07/01/2012, , Influenza standard series) 06/07/2007 Medical Devices Implanted Type Area Tank Refinisher Device Shelf Model / Identifier Expiration Serial / Date Lot Screw,Ti,Lck,Star,5x95mm ([id number]) - [id number] IMPLANTS Right: GWENDOLYN HNSON & [id number] / Implanted: Qty: 1 on 10/14/2018 by Mercedes Rich MD at N [facility] Femur TAM / HEALTHCARE - TAM GWENDOLYN Screw,Ti,Lck,Star,6x60mm ([id number]) - [id number] IMPLANTS Right: GWENDOLYN GUTIERREZ & [id number] / Implanted: Qty: 1 on 06/21/2019 by Mercedes Rich MD at N [facility] Femur TAM / HEALTHCARE - TAM GWENDOLYN 15mm Ti Juliet Retro/Antegrade Femoral Nail-Ex/400mm [id number] / Implanted: Qty: 1 on 06/21/2019 by Mercedes Rich MD at N [facility] / [id number] Insurance Payer Benefit Plan / Subscriber ID Effective Dates Phone Addre ss Type Group MEDICARE MEDICARE PART A [id number] 2020-Present [phone] [place] [phone] BLUE [employer]OSS BLUE BS FEDERAL [id number] 2010-Present [address] [place] [address] Advance Directives Latest Code Status on File Code Status Date Activated Date Inactivated Comments Full Code 06/21/2019 9:53 AM 06/22/2019 2:48 PM Does patient have capacity to make decision: Yes Full Code 06/21/2019 7:01 AM 06/21/2019 9:53 AM Does patient have capacity to make decision: Yes Full Code 10/13/2018 6:46 PM 10/20/2018 4:34 PM Does patient have capacity to make decision: Yes Care Teams Welding Machine Operator Plasma Arc Relationship Specialty Start Date End Date Audra Singletary, MARY LOU PCP - General 03/14/[address] [place] [id number]
--- OUTSIDE RECORDS SUMMARY | 2022-02-27 12:51 | XMS_ITS | Encounter Summary ---
:1955 [place] [address] Care Team Providers Name Role Phone Audra Singletary APRN Primary Care Provider Reason for Visit Auth/Cert Specialty Diagnoses / Procedures Referred By Contact Refer red To Contact Diagnoses right femoral nonunion Procedures PRO OPEN TREAT FEMUR FX+PLATE/SCREW @ORIF FEMORAL SHAFT FX. (WRVU 14.48) Referral ID Status Reason Start Date Expiration Date Visits Requ ested Visits Authorized [id number] 1 1 Encounter Details Date Type Department Care Team Description 06/21/2019 Anesthesia Event Main Operating Room Charanjit Singletary MD [facility] [address] [facility] Michael Ferguson CRNA [facility] [address] [facility] [place] [address] Anesthesia Record Procedure Summary Procedure Name Responsible Anesthesia Start Anesthesia Stop Time Anesthesiologist Time @ORIF FEMORAL SHAFT Charanjit Bledsoe MD 06/21/19 0731 06/21 0942 FX. (WRVU 14.48) (Right Leg Upper) Events Date Time Event Comment 06/21/2019 0715 0731 AN Verify 0731 Start 0731 An Start Data 0740 An Induction 0743 An Intubation 0745 Anesthesia Ready 0856 Break/Relief In AARON Linares A 0906 Bite Block In 0936 Extubation/LMA Out 0937 an stop data 0942 Recovery or ICU Handoff Patient care was transferred to the destination unit staff after review of the patient's medica l history, current anesthetic/surgi jose de jesus status and plan, according to the Provider Handoff Checklist. 0942 Stop Name Total IV Lidocaine 100 mg Propofol 200 mg Rocuronium 70 mg Ondansetron 4 mg Neostigmine 5 mg Glycopyrrolate 0.8 mg ceFAZolin 2 g HYDROmorphone 1 mg Propofol INF 418.15 mg Esmolol 20 mg Tranexamic Acid 1,500 mg Dexmedetomidine 8 mcg Ketorolac 15 mg lactated ringers infusion 800 mL Agents Name O2 Air N2O Sevoflurane (et) Blood No blood administrations on file. Lines, Drains, and Airways Type Details Placement Removal Incision 10/14/18; 1103; knee; 10/14/18 1103 by beba Amanda RN Incision 06/21/19; knee 06/21/19 0000 by Ann Mora RN Incision 06/21/19; thigh; right 06/21/19 0000 by Morgan, proximal anterior/lateral Ann Gandhi RN thigh Incision 06/21/19; thigh; right 06/21/19 0000 by Morgan, distal lateral thigh Ann Gandhi RN PIV 06/21/19; 0632; cephalic 06/21/19 0632 by 1650 by vein (lateral side of arm), Marci Marshall RN Ferguson, Andrea left; [id number] catheter system; 18 gauge, 1 in length; Marci Marshall RN ; distraction, intradermal injection; 05/01/21 (LDA Cleanup utility RA#[id number]); 1650 (LDA Cleanup utility RA#[id number]) ETT Mask Ventilation: Adjunct 06/21/19 0750 by 06/21 0936 by (2); ETT Type: Cuffed, Oral; Hiren Hernandez C RNA Hiren Hernandez CRNA ETT Size: 7.5 mm; Mac Blade: 4; Notes: Asleep, Pre-O2, Stylette; Attempts: 1; Laryngoscopy Grade: 1; ETT Placement Verified By: Auscultation, Capnometry, Visual; Secured at Teeth: 23 cm; Inserted by: Hiren Hernandez SRNA documented in this encounter Social History Tobacco Use Types Packs/Day Years Used Date Never Smoker Smokeless Tobacco: Never Used Alcohol Use Standard Drinks/Week Comments No 0 (1 standard drink = 0.6 oz pure alcoho l) Sex Assigned at Date Recorded Not on file documented as of this encounter OR Notes Anesthesia Postprocedure Evaluation - Charanjit Bledsoe MD - 06/21/2019 10:36 AM EST Department of Anesthesiology Post-procedure Note Patient: Prashant Diaz Procedure Summary Date: 06/21/19 Room / Location: [facility] OR [address] [place] [address] MAIN OR Anesthesia Start: 730 Anesthesia Stop: 941 Procedures: @ORIF FEMORAL SHAFT FX. (WRVU 14.48) (Right Leg Upper) MODIFIER RETROGRADE FEMORAL NAIL SYNTHES (Right Leg Upper) REMOVAL OF IMPLANT, DEEP, FEMUR (WRVU 5.96) (Right Leg Upper) Diagnosis: Closed displaced segmental fracture of shaft of right femur with routine healing, subsequent encounter (right femoral nonunion) Surgeon: Mercedes Rich MD Responsible Provider: Charanjit Bledsoe MD Anesthesia Type: general ASA Status: 2 All Anesthesia Providers: Anesthesiologist: Charanjit Bledsoe MD FREELANCE COPYWRITER: Michael Ferguson CRNA Student Nurse Contract Processor: Hiren Hernandez RN Vitals Value Taken Time BP 119/82 06/21/2019 10:31 AM Temp 37.1 ??C (98.8 ??F) 06/21/2019 9:39 AM Pulse 57 06/21/2019 10:35 AM Resp 12 06/21/2019 10:35 AM SpO2 96 % 06/21/2019 10:35 AM Pain Level 6 06/21/2019 10:24 AM Vitals shown include unvalidated device data. Patient Location: PACU/[facility] Level of Consciousness: Awake and Alert Pain Management: Satisfactory Analgesia PONV: None Cardiovascular Status: Hemodynamically Stable Respiratory Status: Stable Respiratory Status Postoperative Fluid Status: Intravascular EUvolemia Possible Anesthetic Complications: NONE apparent at time of evaluation Final Primary Anesthesia Type: General (The anesthetic type performed was the same as planned.) Comments: Doing great in recovery CHARANJIT BLEDSOE MD Anesthesia Preprocedure Evaluation - Charanjit Bledsoe MD - 06/21/2019 7:12 AM EST Pre-Anesthesia Evaluation for: Prashant Diaz a 64 y.o. male. Procedure(s): @ORIF FEMORAL SHAFT FX. (WRVU 14.48) MODIFIER RETROGRADE FEMORAL NAIL SYNTHES Patient Active Problem List Diagnosis ??? Type 2 diabetes mellitus without complication, with long-term current use of insulin ??? R femur fx s/p IMN 10/14/18 (Dr. Rich) ??? Rupture of medial head of gastrocnemius Past Medical History: Diagnosis Date ??? Diabetes mellitus ??? Gout ??? HLD (hyperlipidemia) ??? Hypertension ??? Melanoma 11/1998 right posterior arm ??? Type 2 diabetes mellitus without complication, with long-term current use of insulin 10/18/2018 Past Surgical History: Procedure Laterality Date ??? IR ARTERIAL INTERVENTION 10/13/2018 IR Arterial Intervention 10/13/2018 Garrett Boswell MD [facility] INTERVENTIONL RAD ??? PRO OPEN TREAT FEMUR FX+INTRAMED MEGAN Right 10/14/2018 @INTRAMEDULLARY NAILING, FEMUR (WRVU 19.65) performed by Mercedes Rich MD at [facility] MAIN OR ??? WRIST SURGERY Social History Tobacco Use ??? Smoking status: Never Smoker ??? Smokeless tobacco: Never Used Substance Use Topics ??? Alcohol use: No Social History Substance and Sexual Activity Drug Use Never Allergies Allergen Reactions ??? Percocet [Oxycodone-Acetaminophen] Nausea And Vomiting Medications: MAR and/or home medications have been reviewed. Physical Exam: Most Recent Vitals: 06/21/19 0602 BP: (!) 131/92 Pulse: 76 Resp: 18 Temp: 36.6 ??C (97.9 ??F) SpO2: 96% Body mass index is 35.12 kg/m??. Height: 172.7 cm (5' 8) Weight: 104.8 kg (231 lb) Airway Assessment: Mallampati: III TM distance: >3 FB Neck ROM: full Cardiovascular Assessment: cardiovascular exam normal Pulmonary Assessment: pulmonary exam normal Dental Assessment: Misc Assessment: IV access: Peripheral line Anesthesia Plan: ASA 2 general, with a(n) intravenous induction 64 yo presents for revision right femoral fracture repair DM 2 (took full dose insulin last night and this am, BS 160's) HTN HLD Hx of nausea prior with opioids but did well with dilaudid for last surgery CMAC GR 1 (c-collar) Denies recent CP SOB URI GERD NPO >4 mets Nonsmoker Risks and benefits of GA discussed All questions answered CHARANJIT BLEDSOE MD Region - Other Informed Consent: Anesthetic plan and risks discussed with patient. Use of blood products discussed with patient who consented to blood products. Plan discussed with FREELANCE COPYWRITER. [facility] Clinic Note documented in this encounter Plan of Treatment Upcoming Encounters Date Type Specialty Care Team Description 04/15/2022 Office Visit Dermatology July German MD [facility] DERMATOLOGY [place], [place] [address] (Wo rk) documented as of this encounter Visit Diagnoses Not on filedocumented in this encounter Administered Medications Inactive Administered Medications - up to 3 most recent administrations Medication Order MAR Action Action Date Dose Rate Site ceFAZolin (ANCEF) 1g in dextrose 5% Given 06/21/2019 7:45 AM EST 2 g 50mL PRN, Starting on Thu06/21/19 at 0745, Until Thu06/21/19 at 0942, Administer over 30 Minutes, Anesthesia Intra-op dexmedetomidine (PRECEDEX) injection Given 06/21/2019 8:14 AM EST 4 mcg PRN, Starting on Thu06/21/19 at 0807, Until Thu06/21/19 at 0942, Anesthesia Intra-op, Routine Given 06/21/2019 8:07 AM EST 4 mcg esmolol (BREVIBLOC) injection Given 06/21/2019 7:53 AM EST 20 mg PRN, Starting on Thu06/21/19 at 0753, Until Thu06/21/19 at 0942, Anesthesia Intra-op, Routine glycopyrrolate (ROBINUL) multi-dose inje ction Given 06/21/2019 9:09 AM EST 0.8 mg PRN, Starting on Thu06/21/19 at 0909, Until Thu06/21/19 at 0942, Anesthesia Intra-op, Routine HYDROmorphone (DILAUDID) injection Given 06/21/2019 8:20 AM EST 0.6 mg PRN, Starting on Thu06/21/19 at 0738, Until Thu06/21/19 at 0942, Anesthesia Intra-op, Routine Given 06/21/2019 7:38 AM EST 0.4 mg ketorolac (TORADOL) injection Given 06/21/2019 9:02 AM EST 15 mg PRN, Starting on Thu06/21/19 at 0902, Until Thu06/21/19 at 0942, Anesthesia Intra-op, Routine lactated ringers infusion New Bag 06/21/2019 7:30 AM EST 1,000 mL, at 100 mL/hr, Intravenous, CONTINUOUS, Starting on Thu06/21/19 at 0630, Until Thu06/21/19 at 1555, Day of Surgery (Day of Procedure) New Bag 06/21/2019 6:34 AM EST 1,000 mLs 100 mL/hr lidocaine (PF) (XYLOCAINE) 100 mg/5 mL (2 %) Given 7:40 AM EST 100 mg injection PRN, Starting on Thu06/21/19 at 0740, Until Thu06/21/19 at 0942, Anesthesia Intra-op, Routine neostigmine (BLOXIVERZ) injection Given 06/21/2019 9:09 AM EST 5 mg PRN, Starting on Thu06/21/19 at 0909, Until Thu06/21/19 at 0942, Anesthesia Intra-op, Routine ondansetron (ZOFRAN) injection Given 06/21/2019 9:02 AM EST 4 mg PRN, Starting on Thu06/21/19 at 0902, Until Thu06/21/19 at 0942, Anesthesia Intra-op, Routine propofol (DIPRIVAN) 10 mg/mL bolus injection Given 7:40 AM EST 200 mg (Anesthesia) PRN, Starting on Thu06/21/19 at 0740, Until Thu06/21/19 at 0942, Anesthesia Intra-op propofol (DIPRIVAN) Rate/Dose 06/21/2019 7:58 50 mcg/kg/min 31.4 mL/ hr infusion Change AM EST CONTINUOUS PRN, Starting on Thu06/21/19 at 0745, Until Thu06/21/19 at 0942, Anesthesia Intra-op, Routine New Bag 06/21/2019 7:45 AM EST 30 mcg/kg/min 18.9 mL/hr rocuronium (ZEMURON) multi-dose injectio n Given 06/21/2019 7:40 AM EST 70 mg PRN, Starting on Thu06/21/19 at 0740, Until Thu06/21/19 at 0942, Anesthesia Intra-op, Routine tranexamic acid (CYKLOKAPRON) 100 mg/mL Given 06/21/2019 7:58 AM EST 1,500 mg bolus injection (Anesthesia) PRN, Starting on Thu06/21/19 at 0758, Until Thu06/21/19 at 0942, Anesthesia Intra-op, Routine documented in this encounter Care Teams Underwriting Assistant Relationship Specialty Start Date End Date Audra Singletary APRN PCP - General 03/14/[address] [place] [address] [place] [address] documented as of this encounter
--- OUTSIDE RECORDS SUMMARY | 2022-02-27 12:51 | XMS_ITS | Encounter Summary ---
:1955 Author Organization [facility] [place] [address] Care Team Providers Name Role Phone Audra Singletary APRN Primary Care Provider Reason for Visit Reason Onset Date Comments Medication Refill 01/06/2019 Encounter Details Date Type Department Care Team Description 01/06/2019 Refill Orthopaedics at [facility] Omid Pitt, [place] [address] Social History Tobacco Use Types Packs/Day Years Used Date Never Smoker Smokeless Tobacco: Never Used Alcohol Use Standard Drinks/Week Comments No 0 (1 standard drink = 0.6 oz pure alcoho l) Sex Assigned at Date Recorded Not on file documented as of this encounter Plan of Treatment Upcoming Encounters Date Type Specialty Care Team Description 04/15/2022 Office Visit Dermatology July German MD [facility] ER DERMATOLOGY [place], [place] [address] (Wo rk) documented as of this encounter Visit Diagnoses Not on filedocumented in this encounter Care Teams Costume Specialist Relationship Specialty Start Date End Date Audra Singletary APRN PCP - General 03/14/[address] [place] [address] [phone] documented as of this encounter
--- OUTSIDE RECORDS SUMMARY | 2022-02-27 12:51 | XMS_ITS | Encounter Summary ---
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, subsequent encounter; [facility] RADHA Jean Closed fracture of neck of right femur w ith routine healing, subsequent [place] [address] CENTER [phone] ORTHOPAEDIC SURGERY [place] [address] Social History Tobacco Use Types Packs/Day Years Used Date Never Smoker Smokeless Tobacco: Never Used Alcohol Use Standard Drinks/Week Comments No 0 (1 standard drink = 0.6 oz pure alcoho l) Sex Assigned at Date Recorded Not on file documented as of this encounter Last Filed Vital Signs Vital Sign Reading Time Taken Comments Blood Pressure 122/86 09/19/2019 9:49 AM EST Pulse 86 09/19/2019 9:49 AM EST Temperature - - Respiratory Rate - - Oxygen Saturation - - Inhaled Oxygen Concentration - - Weight 104.3 kg (230 lb) 09/19/2019 9:49 AM EST Height 172.7 cm (5' 8) 09/19/2019 9:49 AM EST Body Mass Index 34.97 09/19/2019 9:49 AM EST documented in this encounter Progress Notes Marya Monroy PA - 09/19/2019 10:30 AM EST PATIENT NAME: Prashant Diaz AGE: 64 y.o. MR#: [id number] DATE OF VISIT: 09/19/2019 CHIEF COMPLAINT: 3 months post Right femur removal of hardware, retrograde femoral nail. 06/21/19 (Hilario) HISTORY OF PRESENT ILLNESS: Mr. Diaz is a 64 y.o. male who comes into clinic today for evaluation of the right femur.The PT was last in to see myself on 08/08/2019 . Since this visit he is ambulating with one cane. Roughly 3 weeks ago pain started subsiding. No pain today. He has some muscle pain during PT. Around 2 weeks ago he noticed no pain in the area of the fracture and has not has any since. He is going to PT 2 times per week. Roughly 2 weeks ago he started intensifying therapy with muscle building, squats, balance. No fever, chills, drenching night sweats. Retired from [employer]. Past medical history: Patient Active Problem List [...] (TYLENOL) 500 mg Tablet ??? FLUARIX QUAD 0212-1693, PF, 60 mcg (15 mcg x 4)/0.5 [...] sweats or chills Vital signs: Blood pressure 122/86, pulse 86, height 172.7 cm (5' 8), [...] plan:: 64 y.o. year-old male now roughly 3 months out post Right femur removal of hardware, retrograde femoral nail. 06/21/19 (Gitajn) doing well. We had a long discussion regarding the nature of Prashant Diaz's chief complaint. We reviewed the imaging which shows good callus formation since the previous xr. Clinically Prashant Diaz is doing very well. I am glad to hear that he is more comfortable with ambulation . I would like him to continue to work on this. This plan was discussed with the patient and they are in agreement. All of the patient's questions were answered. The patient understand to contact us if they have any other questions or concerns. FU: 3 months with XR of the right femur. Marya Glendora PA-C The above dictation was made with voice recogonition software documented in this encounter Plan of Treatment Upcoming Encounters Date Type Specialty Care Team Description 04/15/2022 Office Visit July Gallegos MD [facility] ER [address] [place], [place] [address] (Wo rk) documented as of this [...] ? Electronically signed by: Kiarra gordon MD, [facility] ([phone]), at 12/12/2019 9:37 AM Narrative 12/12/2019 9:37 [...] below. 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
--- OUTSIDE RECORDS SUMMARY | 2022-02-27 12:51 | XMS_ITS | Encounter Summary ---
:1955 Author Organization [facility] [place] [address] Care Team Providers Name Role Phone Audra Singletary APRN Primary Care Provider Reason for Referral Diagnostic Test (Routine) - Closed Specialty Diagnoses / Procedures Referred By Contact Refer red To Contact Radiology Diagnoses Closed fracture of neck of right femur with routine healing, subsequent encounter Marya Monroy PA [facility] Rad Ct Scan Procedures CT Femur wo Contrast Right (Generic) [facility] [address] [place] [facility] [place] [address] [place] [address] Referral ID Status Reason Start Date Expiration Date Visits V isits Requested Authorized [id number] Closed Specialty 05/05/2019 05/04/2020 1 1 Service Requested Reason for Visit Diagnostic Test (Routine) - Closed Specialty Diagnoses / Procedures Referred By Contact Refer red To Contact Radiology Diagnoses Closed fracture of neck of right femur with routine healing, subsequent encounter Marya Monroy PA [facility] Rad Ct Scan Procedures CT Femur wo Contrast Right (Generic) [facility] [place] [address] [place] [address] Referral ID Status Reason Start Date Expiration Date Visits V isits Requested Authorized [id number] Closed Specialty 05/05/2019 05/04/2020 1 1 Service Requested Encounter Details Date Type Department Care Team Description 05/10/[address] [facility] [place] [facility] Mercedes Rich Closed fracture of [facility] MD [place] neck of right femur [address] [facility] with routine [place], [place] [address] [address] [place], subsequent [phone] ORTHOPAEDIC encounter [phone] [place] [address] Social History Tobacco Use Types Packs/Day Years Used Date Never Smoker Smokeless Tobacco: Never Used Alcohol Use Standard Drinks/Week Comments No 0 (1 standard drink = 0.6 oz pure alcoho l) Sex Assigned at Date Recorded Not on file documented as of this encounter Medications at Time of Discharge Medication Sig Dispensed Refills Start Date End Date metFORMIN (GLUCOPHAGE-XR) TK 1 T PO D [...] July German MD [facility] DERMATOLOGY [place], [place] [address] (Wo rk) documented as of this encounter Procedures Procedure Name Priority Date/Time Associated Diagnosis Comme nts CT FEMUR WO Routine 05/10/2019 3:15 PM Closed fracture of Res ults for this CONTRAST RIGHT EDT neck of right femur proced ure are in with routine the results healing, subsequent section. encounter documented in this encounter Results CT Femur wo Contrast [...] please contact e number below. ? Narrative 05/10/2019 4:47 PM EDT EXAMINATION: CT [...] osteophyte formation. MUSCLES: Grossly normal. Procedure Note aPge Emanuel MD - 05/10/2019Formatt ing of this [...] e number below. Mercedes Rich MD IMG CT ORDERABLES documented in this encounter Visit Diagnoses Diagnosis Closed fracture of neck of right femur w ith routine healing, subsequent encounter documented in this encounter Care Teams Front Office Attendant Relationship Specialty Start Date End Date Audra Singletary, MARY LOU PCP - General 03/14/[address] [place] [id number] documented as of this encounter
--- OUTSIDE RECORDS SUMMARY | 2022-02-27 12:51 | XMS_ITS | Encounter Summary ---
:1955 Author Organization [facility] [place] [address] Care Team Providers Name Role Phone Audra Singletary APRN Primary Care Provider Encounter Details Date Type Department Care Team Description 05/30/2019 Orders Only Orthopaedics [place] [facility] Mercedes Rich, Closed displaced [facility] segmental fracture of [facility] [place] [address] [address] with routine healing, ORTHOPAEDIC subsequent enco unter SURGERY [place], [place] [address] Social History Tobacco Use Types [...] 04/15/2022 Office Visit Dermatology July German MD [facility] ER DERMATOLOGY [place], [place] [address] (Wo rk) documented as of this encounter Procedures Procedure Name Priority Date/Time Associated Diagnosis Comme nts ORIF FEMORAL SHAFT FX. Routine 05/30/2019 8:36 AM EST Closed d isplaced segmental fracture of shaft of right femur with routine healing, subsequent encounter documented in this encounter Visit Diagnoses Diagnosis Closed displaced segmental fracture of s haft of right femur with routine healing, subsequent encounter documented in this encounter Care Teams Cement Boat And Barge Loader Relationship Specialty Start Date End Date Audra Singletary, STAND UP COMEDIAN PCP - General 03/14/[address] [place] [id number] documented as of this encounter
--- OUTSIDE RECORDS SUMMARY | 2022-02-27 12:51 | XMS_ITS | Encounter Summary ---
:1955 Author Organization [facility] [place] [address] Care Team Providers Name Role Phone Audra Singletary APRN Primary Care Provider Encounter Details Date Type Department Care Team Description 12/10/2018 Hospital Encounter XRay at [facility] Gitajn, Mercedes Closed fracture of neck of r ight femur, initial encounter; [address] [facility] [address] Tata MD Closed displaced segmental fracture of s haft of right femur with routine healing, subsequent encounter [facility] [id number] DARFUR [phone] [place] [address] Social History Tobacco Use Types Packs/Day Years Used Date Never Smoker Smokeless Tobacco: Never Used Alcohol Use Standard Drinks/Week Comments No 0 (1 standard drink = 0.6 oz pure alcoho l) Sex Assigned at Date Recorded Not on file documented as of this encounter Medications at Time of Discharge Medication Sig Dispensed Refills Start Date End Date ONETOUCH ULTRA BLUE TEST USE BID 0 [...] Take 1 capsule by 90 capsule 5 201801/06/2019 300 mg Capsule mouth 3 times daily. rivaroxaban (XARELTO) 20 Take 1 tablet by 30 tablet 2 11/1001/19/2019 mg Tablet mouth daily for 70 days. Take this medication following the twice per day dosing acetaminophen (TYLENOL) Take 2 tablets by 30 tablet 1 10/2005/26/2019 500 mg Tablet mouth every 6 hours. metFORMIN (GLUCOPHAGE) Take 750 mg by mouth 3 06/22/2019 500 mg Tablet daily. documented as of this encounter Plan of Treatment Upcoming Encounters Date Type Specialty Care Team Description 04/15/2022 Office Visit Dermatology July German MD [facility] DERMATOLOGY [place], [place] [address] (Wo rk) documented as of this encounter Procedures Procedure Name Priority Date/Time Associated Diagnosis Comme nts XR FEMUR 2 VIEWS Routine 12/10/2018 9:28 AM Closed fracture of Results for this RIGHT EDT neck of right femur, procedu re are in initial encounte r the results Closed displaced section. segmental fracture of shaft of right femur with routine healing, subsequent encounter documented in this encounter Results XR Femur 2 views Right (Generic) (12/10/2018 9:28 AM EDT) Anatomical Region Laterality Modality Thigh Right Digital Radiography Specimen (Source) Anatomical Location Collection Method / Collectio n Time Received Time / Laterality Volume Impressions 12/10/2018 10:25 AM EDT Continued healing of the femur fractures. Thank you for letting us participate in the care of this patient. For questions regarding this report, please contact e number below. ? Electronically signed by: Genevieve Suarez [facility] ([phone]), at 12/10/2018 10:25 AM Narrative 12/10/2018 10:25 AM EDT EXAMINATION: XR FEMUR 2 VIEWS RIGHT (GENERIC) CLINICAL HISTORY: right femur fracture, assess healing TECHNIQUE: AP and lateral views RIGHT femur COMPARISON: November 15, 2018 October 13, 2018 FINDINGS: There have been comminuted fractures of the mid and distal shaft of the femur. Fracture fixation has been performed wit h an intramedullary nail which has one proximal and three distal interlocking s crews. The fractures are well aligned without change. There is callus formatio n at the fracture sites with a slight increase from the prior study. Procedure Note Jasson Rm MD - 12/10/2018 EXAMINATION: XR FEMUR 2 VIEWS RIGHT (GEN KRISTI) CLINICAL HISTORY: right femur fracture, assess healing TECHNIQUE: AP and lateral views RIGHT femur COMPARISON: November 15, 2018 October 13, 2018 FINDINGS: There have been comminuted fractures of the mid and distal shaft of the femur. Fracture fixation has been performed wit h an intramedullary nail which has one proximal and three distal interlocking s crews. The fractures are well aligned without change. There is callus formatio n at the fracture sites with a slight increase from the prior study. IMPRESSION Continued healing of the femur fractures . Thank you for letting us participate in the care of this patient. For questions regarding this report, please contact e number below. Electronically signed by: Genevieve Suarez [facility] ([phone]), at 12/10/2018 10:25 AM Mercedes Rich MD IMG DX ORDERABLES documented in this encounter Visit Diagnoses Diagnosis Closed fracture of neck of right femur, initial encounter Closed displaced segmental fracture of s haft of right femur with routine healing, subsequent encounter documented in this encounter Care Teams Stained Glass Installer Relationship Specialty Start Date End Date Audra Singletary APRN PCP - General 03/14/[address] [place] [id number] documented as of this encounter
--- OUTSIDE RECORDS SUMMARY | 2022-02-27 12:52 | XMS_ITS | Encounter Summary ---
:1955 Author Organization [facility] Address [address] [facility] [place] [address] Care Team Providers Name Role Phone Audra Singletary APRN Primary Care Provider Encounter Details Date Type Department Care Team Description 10/29/2018 Hospital Encounter XRay at [facility] Avery Zuniga Closed displaced [address] Deepak MD segmental fracture [place], [place] [facility] [address] luna, initial [phone] [place] [address] Social History Tobacco Use Types [...] TEST USE BID 0 07/19/2018 STRIP Strip allopurinol (ZYLOPRIM) Take 300 mg by mouth 2 09/2018 300 mg Tablet daily. LEVEMIR FLEXTOUCH U-100 Inject 18 Units 4 019 INSULN Insulin Pen subcutaneously 2 times daily. hydrochlorothiazide TAKE 1 TABLET BY 3 08/19/2015 (HYDRODIURIL) 25 mg MOUTH EVERY DAY Tablet rivaroxaban (XARELTO) 15 Take 1 tablet by 40 tablet 0 10/2011/09/2018 mg Tablet mouth 2 times daily for 20 days. rivaroxaban (XARELTO) 20 Take 1 tablet by 30 tablet 2 11/1001/19/2019 mg Tablet mouth daily for 70 days. Take this medication following the twice per day dosing senna-docusate Take 2 tablets by 120 tablet 0 10/20/2018 (PERICOLACE) 8.6-50 mg mouth 2 times daily Tablet for 30 days. acetaminophen (TYLENOL) Take 2 tablets by 30 tablet 1 10/2005/26/2019 500 mg Tablet mouth every 6 hours. HYDROmorphone (DILAUDID) Take 1 tablet by 20 tablet 0 10/2010/31/2018 4 mg Tablet mouth every 4 hours as needed for Pain for up to 20 doses. metFORMIN (GLUCOPHAGE) Take 750 mg by mouth 3 06/22/2019 500 mg Tablet daily. documented as of this encounter Plan of Treatment Upcoming Encounters Date Type Specialty Care Team Description 04/15/2022 Office Visit Dermatology July German MD [facility] DERMATOLOGY [place], [place] [address] (Wo rk) documented as of this encounter Procedures Procedure Name Priority Date/Time Associated Diagnosis Comme nts XR FEMUR 2 VIEWS Routine 10/29/2018 12:22 PM Closed displaced Results for this RIGHT EDT segmental fracture procedure are in of shaft of right the result s femur, initial section. encounter documented in this encounter Results XR Femur 2 views Right (Generic) (10/29/2018 12:22 PM EDT) Anatomical Region Laterality Modality Thigh Right Digital Radiography Specimen (Source) Anatomical Location Collection Method / Collectio n Time Received Time / Laterality Volume Impressions 10/29/2018 3:32 PM EDT Interval healing of the right mid and distal femoral shaft fractures status post intramedullary nailing. No hardware comp lication, new fracture, or evidence of loosening. I have personally reviewed the image(s) and the residents interpretation and agree with the findings, Asmita Fernandez at 10/29/2018 3:32 PM Thank you for letting us participate in the care of this patient. For questions regarding this report, please contact e number below. ? Electronically signed by: Genevieve Addison [facility] ([phone]), at 10/29/2018 3:32 PM Narrative 10/29/2018 3:32 PM EDT EXAMINATION: XR FEMUR 2 VIEWS RIGHT (GENERIC) CLINICAL HISTORY: s/p intramedullary alyssa ling of the right femoral fracture TECHNIQUE: 2 views RIGHT femur AP and lateral views of the femur COMPARISON: Radiograph dated 10/14/2018 FINDINGS: Status post intramedullary nailing of th e right mid and distal femoral shaft fractures. The hardware is unchanged in alignment. No perihardware lucency. No new fracture. There has been interval os seous bridging of the mid shaft fracture and periosteal reaction of the distal fr acture. Procedure Note Asmita Fernandez MD - 10/29/2018Formattin g of this note might be different from the original. EXAMINATION: XR FEMUR 2 VIEWS RIGHT (GEN KRISTI) CLINICAL HISTORY: s/p intramedullary alyssa ling of the right femoral fracture TECHNIQUE: 2 views RIGHT femur AP and lateral views of the femur COMPARISON: Radiograph dated 10/14/2018 FINDINGS: Status post intramedullary nailing of th e right mid and distal femoral shaft fractures. The hardware is unchanged in alignment. No perihardware lucency. No new fracture. There has been interval os seous bridging of the mid shaft fracture and periosteal reaction of the distal fr acture. IMPRESSION Interval healing of the right mid and di stal femoral shaft fractures status post intramedullary nailing. No hardware comp lication, new fracture, or evidence of loosening. I have personally reviewed the image(s) and the residents interpretation and agree with the findings, Asmita Fernandez at 10/29/2018 3:32 PM Thank you for letting us participate in the care of this patient. For questions regarding this report, please contact e number below. Avery Zuniga MD IMG DX ORDERABLES documented in this encounter Visit Diagnoses Diagnosis Closed displaced segmental fracture of s haft of right femur, initial encounter documented in this encounter Care Teams Ceramic Chemist Relationship Specialty Start Date End Date Audra Singletary, MARY LOU PCP - General 03/14/[address] [place] [address] documented as of this encounter
--- OUTSIDE RECORDS SUMMARY | 2022-02-27 12:52 | XMS_ITS | Encounter Summary ---
:1955 Author Organization [facility] Address [address] [place] [address] Care Team Providers Name Role Phone Audra Singletary APRN Primary Care Provider Encounter Details Date Type Department Care Team Description 11/15/2018 Hospital Encounter XRay at [facility] Mercedes Rich Closed fracture of [address] Tata MD neck of right femur, [place], [place] [facility] [place] [phone] CENTER [phone] [place] [address] Social History Tobacco Use Types Packs/Day Years [...] (HYDRODIURIL) 25 mg MOUTH EVERY DAY Tablet HYDROmorphone (DILAUDID) Take 1-2 tablets by 30 tablet 0 11/19/2018 2 mg TabletIndications: mouth every 12 hours Closed displaced as needed for Pain. segmental fracture of shaft of right femur with routine healing, subsequent encounter rivaroxaban (XARELTO) 20 Take 1 tablet by [...] July German MD [facility] DERMATOLOGY [place], [place] [address] (Wo rk) documented as of this encounter Procedures Procedure Name Priority Date/Time Associated Diagnosis Comme nts XR FEMUR 2 VIEWS Routine 11/15/2018 11:15 AM Closed fracture o f Results for this RIGHT EDT neck of right femur, procedu re are in initial encounter the result s section. documented in this encounter Results XR Femur 2 views Right (Generic) (11/15/2018 11:15 AM EDT) Anatomical Region Laterality Modality Thigh Right Digital Radiography Specimen (Source) Anatomical Location Collection Method / Collectio n Time Received Time / Laterality Volume Impressions 11/15/2018 2:29 PM EDT 1. ??Healing fractures of the right femur status post intramedullary nail placement. No change in alignment. Thank you for letting us participate in the care of this patient. For questions regarding this report, please contact e number below. ? Narrative 11/15/2018 2:29 PM EDT EXAMINATION: XR FEMUR 2 VIEWS RIGHT (GENERIC) CLINICAL HISTORY: right femur fracture p ost IMN 10/14/18 TECHNIQUE: 4 views RIGHT femur. Segmented AP and fr og leg lateral views the right femur. COMPARISON: Right femur radiographs 10/29/2018 and burke ing back to 10/13/2018. FINDINGS: Status post placement of an intramedulla ry nail in the right femur with no change in position or alignment of the h ardware. There is increasing callus formation at the fracture sites of the m id and distal femoral shaft. No change in alignment at the fracture sites. Frac ture lucencies do remain visible. Procedure Note Asmita Fernandez MD - 11/15/2018Formattin g of this note might be different from the original. EXAMINATION: XR FEMUR 2 VIEWS RIGHT (GEN KRISTI) CLINICAL HISTORY: right femur fracture p ost IMN 10/14/18 TECHNIQUE: 4 views RIGHT femur. Segmented AP and fr og leg lateral views the right femur. COMPARISON: Right femur radiographs 10/29/2018 and burke ing back to 10/13/2018. FINDINGS: Status post placement of an intramedulla ry nail in the right femur with no change in position or alignment of the h ardware. There is increasing callus formation at the fracture sites of the m id and distal femoral shaft. No change in alignment at the fracture sites. Frac ture lucencies do remain visible. IMPRESSION 1. Healing fractures of the right femur status post intramedullary nail placement. No change in alignment. Thank you for letting us participate in the care of this patient. For questions regarding this report, please contact e number below. Mercedes Rich MD IMG DX ORDERABLES documented in this encounter Visit Diagnoses Diagnosis Closed fracture of neck of right femur, initial encounter documented in this encounter Care Teams Finishing Area Supervisor Relationship Specialty Start Date End Date Audra Singletary APRN PCP - General 03/14/[address] [place] [address] [place] [address] documented as of this encounter
--- OUTSIDE RECORDS SUMMARY | 2022-02-27 12:52 | XMS_ITS | Encounter Summary ---
:1955 Author Organization [facility] [place] [address] Care Team Providers Name Role Phone Audra Singletary APRN Primary Care Provider Encounter Details Date Type Department Care Team Description 10/22/2018 External [place] [address] Social History Tobacco Use Types Packs/Day Years Used Date Never Smoker Smokeless Tobacco: Never Used Alcohol Use Standard Drinks/Week Comments No 0 (1 standard drink = 0.6 oz pure alcoho l) Sex Assigned at Date Recorded Not on file documented as of this encounter Plan of Treatment Upcoming Encounters Date Type Specialty Care Team Description 04/15/2022 Office Visit Dermatology July German MD [facility] DERMATOLOGY [place], [place] [address] (Wo rk) documented as of this encounter Procedures Procedure Name Priority Date/Time Associated Diagnosis Comme nts LAB SCAN Routine 10/13/2018 documented in this encounter Results Scan Doc: Lab (10/13/2018) Narrative This result has an attachment that is no t available. Historical Provider MD JOSUE MGR SCAN EXT ORDR/RSLT documented in this encounter Visit Diagnoses Not on filedocumented in this encounter Care Teams Launderette Attendant Relationship Specialty Start Date End Date Audra Singletary APRN PCP - General 03/14/[address] [place] [id number] documented as of this encounter
--- OUTSIDE RECORDS SUMMARY | 2022-02-27 12:52 | XMS_ITS | Encounter Summary ---
:1955 Author Organization [facility] Address [facility] [place] [address] Care Team Providers Name Role Phone Audra Singletary APRN Primary Care Provider Reason for Referral Physical Therapy (Routine) - Specialty Diagnoses / Procedures Referred By Contact Refer red To Contact Physical Therapy Diagnoses Closed displaced segmental fracture of shaft of right femur with routine healing, subsequent encounter Pedro Isirdo PA [facility] Genevieve R [place] [address] Referral ID Status Reason Start Date Expiration Date Visits V isits Requested Authorized [id number] Evaluate and 10/29/2018 04/27/2019 1 1 Treat Reason for Visit Reason Comments Follow Up Surgery R Femur IMN DOS 10/14/18 DOI 10/13/18 Encounter Details Date Type Department Care Team Description 10/29/2018 Office Visit Orthopaedics at [facility] Mercedes Rich, Closed displaced [facility] segmental fracture of [address] [facility] [place] [address] with routine healing, ORTHOPAEDIC subsequent enco unter SURGERY [place], [place] [address] Social History Tobacco Use Types Packs/Day Years Used Date Never Smoker Smokeless Tobacco: Never Used Alcohol Use Standard Drinks/Week Comments No 0 (1 standard drink = 0.6 oz pure alcoho l) Sex Assigned at Date Recorded Not on file documented as of this encounter Last Filed Vital Signs Vital Sign Reading Time Taken Comments Blood Pressure 127/83 10/29/2018 2:14 PM EDT Pulse 112 10/29/2018 2:14 PM EDT Temperature - - Respiratory Rate - - Oxygen Saturation - - Inhaled Oxygen Concentration - - Weight 104.3 kg (230 lb) 10/29/2018 2:14 PM EDT Height 172.7 cm (5' 8) 10/29/2018 2:14 PM EDT Body Mass Index 34.97 10/29/2018 2:14 PM EDT documented in this encounter Progress Notes Pedro Isidro PA - 10/29/2018 2:30 PM EDT Patient Name: Prashant Diaz : 63 y.o. Case Date: 10-14-18 Surgeon: Dr Rich Procedure: right femur IMN retrograde HPI: Prashant Diaz is a very pleasant 63 y.o. male who presents for a 14 days follow-up of the above procedure. The patient has been doing well and his pain is moderately improved over preoperative status. No fevers, chills, nausea, vomiting, or symptoms of infection. Prashant has been ambulating with walker and crutches and working with PT. He has significant swelling and ecchymosis in the right thigh. Patient had a PE post op and is currently on xerolto ROS: Denies fevers, chills, night sweats, nausea, or vomiting. BP 127/83 Pulse (!) 112 Ht 172.7 cm (5' 8) Wt 104.3 kg (230 lb) BMI 34.97 kg/m?? Physical Exam: Well-appearing male in no acute distress. Alert and Oriented x 3 and answers all questions appropriately. The incision is clean dry intact with sutures and claudette in place. Right thigh moderate swelling and ecchymosis compartments soft right knee ROM 0-30 Sensation and pulses intact Claudette and sutures removed steri strips placed X-RAYS: Demonstrate no change in fracture or hardware alignment ASSESSMENT/PLAN: 14 days post-op and doing well. Continue touch down weightbearing as tolerated and working on range of motion, and we will see his back in 6 weeks for repeat examination. X-rays of theright femur will be needed at that time. Signed: RADHA TUBBS documented in this encounter Plan of Treatment Upcoming Encounters Date Type Specialty Care Team Description 04/15/2022 Office Visit Dermatology July German MD [facility] DERMATOLOGY [place], [place] [address] (Wo rk) Scheduled Referrals Name Type Priority Associated Diagnoses Order S chedule Referral to Outpatient Referral Routine Closed displaced Orde red: Physical Therapy segmental fracture 10/29 of shaft of right femur with routine healing, subsequent encounter documented as of this encounter Visit Diagnoses Diagnosis Closed displaced segmental fracture of s haft of right femur with routine healing, subsequent encounter documented in this encounter Care Teams Director Auto Relationship Specialty Start Date End Date Audra Singletary APRN PCP - General 03/14/[address] [place] [id number] documented as of this encounter
--- OUTSIDE RECORDS SUMMARY | 2022-02-27 12:52 | XMS_ITS | Encounter Summary ---
:1955 Author Organization [facility] [place] [address] Care Team Providers Name Role Phone Audra Singletary APRN Primary Care Provider Encounter Details Date Type Department Care Team Description 11/11/2018 Telephone Orthopaedics at [facility] Charlie Bonner, [place] [address] Social History Tobacco Use Types Packs/Day Years Used Date Never Smoker Smokeless Tobacco: Never Used Alcohol Use Standard Drinks/Week Comments No 0 (1 standard drink = 0.6 oz pure alcoho l) Sex Assigned at Date Recorded Not on file documented as of this encounter Miscellaneous Notes Telephone Encounter - Fatoumata Milian - 11/12/2018 10:03 AM EDT Patient schedueld Telephone Encounter - Charlie Bonner RN - 11/11/2018 4:08 PM EDT Per Pedro patient should be brought back in for a ROM check in 2 weeks, and does not wish to order CPM but does want to encourage the PT to be aggressive. Confirm that the patient/PT is not allowing for that the knee remains straight to prevent contracture. No pillows under knee Confirm edema massage Control swelling Patient to be contacted with information and patient to scheduled with Pedro Isidro approximately11/24 for ROM check. No images at that time. Will need to keep appointment on 12/09/18 as previously scheduled. Spoke with Prashant who confirmed that Hiram was working on edema control and he was not placing a pillowunderneath his knee. He does mention that he has a [address] to come to campus and he will be on campus this coming Thursday. Routed to scheduling to assist with placing patient on [facility]'s schedule for ROM check. Telephone Encounter - Charlie Bonner RN - 11/11/2018 3:53 PM EDT FLAVIA Broussard from [facility] contacted to notify team of limited ROM s/p right femur IMN retrograde DOS 10/14/18 with Hilario. - 18 degrees extension 55 of flexion reported Her question is if the team felt that the patient may benefit from a CPM order. Question will be sent to Pedro Isidro for her consideration and if determined to be appropriate, order will be placed and patient notified. documented in this encounter Plan of Treatment Upcoming Encounters Date Type Specialty Care Team Description 04/15/2022 Office Visit Dermatology July German MD [facility] [address] [place], [place] [address] (Wo rk) documented as of this encounter Visit Diagnoses Not on filedocumented in this encounter Care Teams Exchange Engineer Relationship Specialty Start Date End Date Audra Singletary APRN PCP - General 03/14/[address] [place] [address] [place] [address] documented as of this encounter
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
--- OUTSIDE RECORDS SUMMARY | 2022-02-27 12:52 | XMS_ITS | Encounter Summary ---
:1955 Author Organization [facility] Address [facility] [address] [address] Care Team Providers Name Role Phone Audra Singletary APRN Primary Care Provider Encounter Details Date Type Department Care Team Description 10/31/2018 Orders Only Orthopaedics at [facility] Danette Navarro MD [facility] [place] [address] ORTHOPAEDIC SURGERY [phone] [place], [place] [address] (Wo rk) Social History Tobacco [...] 04/15/2022 Office Visit Dermatology July German MD [facility] [address] [place], [place] [address] (Wo rk) documented as of this encounter Visit Diagnoses Not on filedocumented in this encounter Care Teams Patent Attorney Relationship Specialty Start Date End Date Audra Singletary APRN PCP - General 03/14/[address] [place] [id number] documented as of this encounter
--- OUTSIDE RECORDS SUMMARY | 2022-02-27 12:52 | XMS_ITS | Encounter Summary ---
:1955 Author Organization [facility] Address [facility] [place] [address] Care Team Providers Name Role Phone Audra Singletary APRN Primary Care Provider Encounter Details Date Type Department Care Team Description 10/30/2018 Telephone Orthopaedics at [facility] Duong Tijerina MD [facility] [place] [address] ORTHOPAEDIC SURGERY [phone] [place], [place] [address] (Wo rk) Social History Tobacco Use Types Packs/Day Years Used Date Never Smoker Smokeless Tobacco: Never Used Alcohol Use Standard Drinks/Week Comments No 0 (1 standard drink = 0.6 oz pure alcoho l) Sex Assigned at Date Recorded Not on file documented as of this encounter Miscellaneous Notes Telephone Encounter - Charlie Bonner RN - 11/01/2018 3:42 PM EDT Followed up on surgeon's request. Refill provided by Dr. Tijerina, accidentally sent to incorrect pharmacy. confirms that they did call back and medication sent to correct pharmacy and is not in need at this time. Regarding the sutures that were left in, the [facility] PT came and were happy to remove remaining cathie. Encouraged to call for any additional needs or questions. They were thankful for check in. Telephone Encounter - Duong Tijerina MD - 10/30/2018 10:09 AM EDT Pt is approximately 2 weeks from IMN of a right femur fracture. He called and related that at his clinic appointment yesterday with Dr Rich he was to be prescribed an additional course of hydromorphone due to some lingering pain in his thigh. This is not recorded in his chart or prescribed. I sent anew rx of hydromorphone to the pt's pharmacy for 20 pills at 2 mg. The pt also had his sutures and cathie out, but it appears some cathie were left in proximally. The pt is curious if his visiting CRANE CREW SUPERVISOR can remove these. Given that they live 3 hours away, I stated that this was reasonable, but if there was any concern about how the incision was healing, he should be evaluated here before they were removed. The pt and his understood and had no questions. Duong Tijerina MD p [phone] 10/30/18 10:11 AM documented in this encounter Plan of Treatment Upcoming Encounters Date Type Specialty Care Team Description 04/15/2022 Office Visit Dermatology July German MD [facility] [address], [place] [address] (Wo rk) documented as of this encounter Visit Diagnoses Diagnosis Closed displaced segmental fracture of s haft of right femur with routine healing, subsequent encounter documented in this encounter Care Teams Ventilator Specialist Relationship Specialty Start Date End Date Audra Singletary APRN PCP - General 03/14/[address] [place] [id number] documented as of this encounter
--- OUTSIDE RECORDS SUMMARY | 2022-02-27 12:52 | XMS_ITS | Encounter Summary ---
:1955 Author Organization [facility] [address] Care Team Providers Name Role Phone Audra Singletary APRN Primary Care Provider Encounter Details Date Type Department Care Team Description 11/01/2018 Telephone Orthopaedics at [facility] [place] [address] Social History Tobacco Use Types Packs/Day Years Used Date Never Smoker Smokeless Tobacco: Never Used Alcohol Use Standard Drinks/Week Comments No 0 (1 standard drink = 0.6 oz pure alcoho l) Sex Assigned at Date Recorded Not on file documented as of this encounter Miscellaneous Notes Telephone Encounter - Gracie Dang RMA - 11/03/2018 3:34 PM EDT Aarti Grewal Pt called regarding the cathie that were not removed at his Thursday10/29/18 apptEfrain Cerda is SP SP Surgeon Role Mercedes Rich MD Primary Aniceto Jama MD Resident Danette Navarro MD Resident Procedure Laterality Anesthesia @INTRAMEDULLARY NAILING, FEMUR (WRVU 19.65) Right ? Dos 10/14/18 I had spoke with Sandra on 11/01/18 and had reviewed with YESENIA Isidro. We were told thatPrashant was going to go to [facility] to see if they would remove his cathie. Prashant did not go and have them removed. The [facility] is there are are going to remove the cathie today. Aarti also wants to know if it is ok for them to increase his home pt from 2 times a week to 3 times a week. I reviewed with Thomas Stevenson PA-C.- Thomas stated that he would like them to remove the cathie and they can also increase the PT from 2 times a week to 3 times a week and to let pain be a guide for Prashant. Telephone Encounter - Gracie Dang RMA - 11/01/2018 9:00 AM EDT Subjective: Post op concern SP Surgeon Role Mercedes Rich MD Primary Aniceto Jama MD Resident Danette Navarro MD Resident Procedure Laterality Anesthesia @INTRAMEDULLARY NAILING, FEMUR (WRVU 19.65) Right Dos 10/14/18 Rey questions/Assessment: Prashant and Bria called this morning to report that when the cathie wereremoved on Thursday 6 cathie were let in by mistake. It is reported that they are on the upper Right thigh. I reviewed with Pedro Isidro PA-C and she stated that we can schd a nurse visit in clinic today. Appointment offered but I was told that they live 3 hours away and would rather go some place local. I let Pedro know and she thought that was fine and if there where any question the facility could call [facility] Ortho. Bria stated that they will go to [facility] in [facility]. I asked that they call us once the cathie are removed and it they are not able to get them out closer to home we can schd an appt here at [facility]. They agreed to this plan. documented in this encounter Plan of Treatment Upcoming Encounters Date Type Specialty Care Team Description 04/15/2022 Office Visit Dermatology July German MD [facility] [place]MATOLOGY [place], [place] [address] (Wo rk) documented as of this encounter Visit Diagnoses Not on filedocumented in this encounter Care Teams Anatomic Pathology Manager Relationship Specialty Start Date End Date Audra Singletary APRN PCP - General 03/14/[address] [place] [id number] documented as of this encounter
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
--- OUTSIDE RECORDS SUMMARY | 2022-02-27 12:53 | XMS_ITS | Encounter Summary ---
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 procedure are i n the results section. URINALYSIS MICROSCOPIC STAT 10/13/2018 2:38 PM Results for this EXAM EDT procedure are i n the results section. RAPID DRUG SCREEN, STAT 10/13/2018 2:38 PM Res ults for this URINE (WANDY REQUEST) EDT procedur e are in the results section. RAPID DRUG SCREEN W/O STAT 10/13/2018 2:38 PM Results for this CONFIRMATION, URINE EDT procedur e are in the results section. URINALYSIS WITH REFLEX STAT 10/13/2018 2:38 PM Results for this CULTURE EDT procedure are i n the results section. CT THORACIC SPINE STAT 10/13/2018 2:05 PM Resu lts for this RECONSTRUCTION EDT procedure are in the results section. CT LUMBAR SPINE STAT 10/13/2018 2:05 PM Result s for this RECONSTRUCTION EDT procedure are in the results section. CT CHEST ABDOMEN PELVIS STAT 10/13/2018 2:05 PM Results for this W CONTRAST (GENERIC) EDT procedu re are in the results section. CT HEAD AND CERVICAL STAT 10/13/2018 2:05 PM R esults for this SPINE WO CONTRAST EDT procedure are in the results section. XR FEMUR 2 VIEWS RIGHT STAT 10/13/2018 1:37 PM Results for this EDT procedure are i n the results section. XR CHEST AP AND PELVIS STAT 10/13/2018 1:36 PM Results for this AP TRAUMA EDT procedure are i n the results section. PREPARE THAWED PLASMA Routine 10/13/2018 1:26 PM Results for this EDT procedure are i n the results section. PREPARE RBC Routine 10/13/2018 1:26 PM Results f or this EDT procedure are i n the results section. ABORH RECHECK STATUS STAT 10/13/2018 1:25 PM R esults for this EDT procedure are i n the results section. SCAN, PERIPHERAL BLOOD STAT 10/13/2018 1:25 PM Results for this EDT procedure are i n the results section. HEMOGRAM STAT 10/13/2018 1:25 PM Results f or this EDT procedure are i n the results section. DIFFERENTIAL, AUTOMATED STAT 10/13/2018 1:25 PM Results for this EDT procedure are i n the results section. GOLD TUBE HOLD STAT 10/13/2018 1:25 PM Results for this EDT procedure are i n the results section. ABO/RH TYPING STAT 10/13/2018 1:25 PM Results for this EDT procedure are i n the results section. APTT STAT 10/13/2018 1:25 PM Results f or this EDT procedure are i n the results section. PROTHROMBIN TIME STAT 10/13/2018 1:25 PM Resul ts for this EDT procedure are i n the results section. CBC (WITH DIFF) STAT 10/13/2018 1:25 PM EDT ANTIBODY SCREEN STAT 10/13/2018 1:25 PM Result s for this EDT procedure are i n the results section. TYPE AND SCREEN STAT 10/13/2018 1:25 PM ([facility]) EDT ETHANOL LEVEL STAT 10/13/2018 1:25 PM Results for this EDT procedure are i n the results section. BASIC METABOLIC PANEL STAT 10/13/2018 1:25 PM Results for this (NON-FASTING) EDT procedure are in the results section. BLOOD GAS 2 VENOUS Routine 10/13/2018 1:22 PM Res ults for this EDT procedure are i n the results [...] please contact e number below. ? Narrative 10/29/2018 3:32 PM EDT EXAMINATION: XR [...] below. Avery Zuniga MD IMG DX ORDERABLES XR Chest PA & Lateral (Generic) (10/29/2018 [...] please contact e number below. ? Narrative 10/29/2018 10:19 AM EDT EXAMINATION: XR [...] report, please contact th e number below. Dashawn Sidhu APRN IMG DX ORDERABLES SCAN DOC: LAB (10/21/2018 12:00 AM EDT) Narrative 10/21/2018 12:00 AM EDT This result has an attachment that is no t available. Ordered by an unspecified provider. Scanning Provider MEDIA MGR SCAN EXT ORDR/RSLT SCAN DOC: LAB (10/21/2018 12:00 AM EDT) Narrative 10/21/2018 12:00 AM EDT This result has an attachment that is no t available. Ordered by an unspecified provider. Scanning Provider MEDIA MGR SCAN EXT ORDR/RSLT POCT Glucose (10/20/2018 12:20 PM EDT) athologist Signature POC Glucose 173 65 - 199 [facility] Comment: Supplemental ranges: <140 mg/dL before meals <180 mg/dL all other times of the day Specimen Anatomical Collection Method Collection Time Receive d Time (Source) Location / / Volume Laterality Blood specimen 10/20/2018 12:20 9 (specimen) PM EDT 12:20 PM EDT Elian Jacobsen MD POINT OF CARE TEST ORDERABLE S Performing Organization Address City/State/[place] [address] POCT Glucose (10/20/2018 8:20 AM EDT) athologist Signature POC Glucose 196 65 - 199 [place] [place] mg/dL [facility] Comment: Supplemental ranges: <140 mg/dL before meals <180 mg/dL all other times of the day Specimen Anatomical Collection Method Collection Time Receive d Time (Source) Location / / Volume Laterality Blood specimen 10/20/2018 8:20 AM 019 8:20 (specimen) EDT AM EDT Elian Jacobsen MD POINT OF CARE TEST ORDERABLE S Performing Organization Address City/State/[place] [address] [facility] [address] (ABNORMAL) POCT Glucose (10/20/2018 4:20 AM EDT) P athologist Signature POC Glucose 200 (H) 65 - 199 [facility] Comment: Supplemental ranges: <140 mg/dL before meals <180 mg/dL all other times of the day Specimen Anatomical Collection Method Collection Time Receive d Time (Source) Location / / Volume Laterality Blood specimen 10/20/2018 4:20 AM 019 4:20 (specimen) EDT AM EDT Elian Jacobsen MD POINT OF CARE TEST ORDERABLE S Performing Organization Address City/State/ZIP Code Phon e Number [address] (ABNORMAL) Differential, Automated (10/20/2018 4:20 AM EDT) Patholo gist Method Time Signature Neutrophils % 76.0 % [facility] LABORATORY Neutr Abs (ANC) 8.33 (H) 1.70 - [facility] 6.10 [facility] x10(3)/[facility] LABORATORY Lymphocytes % 8.1 % [facility] LABORATORY Lymphocytes Abs 0.9 0.9 - 3.2 [facility] x10(3)/[facility] LABORATORY Monocytes % 8.8 % [facility] LABORATORY Monocyte Abs 1.0 (H) 0.3 - 0.9 [facility] x10(3)/[facility] LABORATORY Eosinophils % 0.5 % [facility] LABOR[facility]ORY Eosinophils Abs 0.1 0.0 - 0.4 [facility] x10(3)/[facility] LABORATORY Basophils % 0.5 % [facility] LABORATORY Basophils Abs 0.0 0.0 - 0.1 [facility] x10(3)/[facility] LABORATORY Immature Gran % 6.10 % [facility] Comment: Immature granulocytes(IG's)percentage an d absolute count will include metamyelocytes, myelocytes, and promyelo cytes. Blood smears from CBCs yielding IG's will be scanned manually for concor dance. If this scan disagrees with the automated IG or if promyelocytes are not ed, a manual differential will be performed. [place] Gran Abs 0.67 (H) 0.00 - 0.04 x10(3)/[facility] LABORATORY Specimen Anatomical Collection Method Collection Time Receive d Time (Source) Location / / Volume Laterality Blood specimen 10/20/2018 4:20 AM 019 4:37 (specimen) EDT AM EDT Resulting Agency Comment Spec In Lab Vikram Wahl MD HEMATOLOGY ORDERABLES Performing Organization Address City/State/[place] [address] (ABNORMAL) Hemogram (10/20/2018 4:20 AM EDT) [facility] gist Method Time Signature WBC 11.0 (H) 4.0 - 9.5 [facility] x10(3)/[facility] LABORATORY RBC 2.56 (L) 4.58 - [facility] 5.54 [facility] x10(6)/[facility] LABORATORY Hemoglobin 8.0 (L) 13.7 - [facility] 16.[facility] gm/dL [facility]ORY Hematocrit 24.1 (L) 40.5 - [facility] 48.5 % [facility] LABORATORY MCV 94.1 (H) 82.9 - [facility] 93.1 [facility] LABORATORY MCH 31.3 27.5 - [facility] 32.1 pg [facility] LABORATORY MCHC 33.2 32.0 - [facility] 35.7 gm/dL [facility] LAB[facility]ATORY Platelets 200 145 - 357 [facility] x10(3)/[facility] LABORATORY RDWSD 48.5 (H) 36.0 - [facility] 45.0 [facility] LABORATORY RDWCV 15.5 (H) 11.4 - [place] 13.8 % [facility] LABORATORY MPV 10.1 7.6 - 12.9 [facility] LABORATORY nRBC % Auto 0.9 % [facility] LABORATORY nRBC Abs Auto 0.100 (H) 0.000 - [facility] 0.000 [facility] x10(3)/[facility] LABORATORY Specimen Anatomical Collection Method Collection Time Receive d Time (Source) Location / / Volume Laterality Blood specimen 10/20/2018 4:20 AM 019 4:37 (specimen) EDT AM EDT Resulting Agency Comment Spec In Lab Vikram Wahl MD HEMATOLOGY ORDERABLES Performing Organization Address City/State/[place] [address] (ABNORMAL) Basic Metabolic Panel (non-fasting) (10/20/2018 4:20 AM EDT) athologist Signature Glucose Lvl 191 65 - 199 [facility] mg/dL [facility] Comment: Diabetes: >=200 mg/dL plus symp toms BUN 20 10 - 20 mg/dL [facility] LABOR[facility]ORY Creatinine 0.80 0.80 - 1.50 mg/dL [facility] LABORATORY Sodium 137 135 - 145 mmol/L [facility] LABORATORY Potassium 4.1 3.5 - 5.0 mmol/L [facility] LAB[facility] Comment: Please note: ??Patients with WBC >100,00 0 may have falsely elevated Potassium levels. ??For accurate Potassium quantif ication in these patients send serum separator tube (gold top) for subsequent determinations. ??Contact the Clinical Chemistry Laboratory if there are any qu estions. Chloride 101 98 - 107 mmol/L [facility] CO2 24 22 - 31 mmol/L [facility] Anion Gap 12 5 - 15 mmol/L [facility] Calcium 8.1 (L) 8.5 - 10.5 mg/dL [facility] LAB[facility] Estimated GFR 96 >=60 mL/min/1.73 m?? [facility] Comment: The eGFR was calculated using the CKD-EP I equation. As with all creatinine based estimates of kidney function, eGFR values calculated with the CKD-EPI equation are not accurate in patients wi th acute kidney failure, extremes of body mass or the acutely ill. [email or web address] eGFR 111 >=60 mL/min/1.73 m?? [facility] Comment: The eGFR was calculated using the CKD-EP I equation. As with all creatinine based estimates of kidney function, eGFR values calculated with the CKD-EPI equation are not accurate in patients wi th acute kidney failure, extremes of body mass or the acutely ill. [email or web address]/DHnkf Specimen Anatomical Collection Method Collection Time Receive d Time (Source) Location / / Volume Laterality Blood specimen 10/20/2018 4:20 AM 019 4:37 (specimen) EDT AM EDT Resulting Agency Comment Spec In Lab Avery Zuniga MD CHEMISTRY ORDERABLES Performing Organization Address City/[facility]/ZIP Code Phon e Number [address] (ABNORMAL) POCT Glucose (10/19/2018 7:58 PM EDT) athologist Signature POC Glucose 202 (H) 65 - 199 [facility] Comment: Supplemental ranges: <140 mg/dL before meals <180 mg/dL all other times of the day Specimen Anatomical Collection Method Collection Time Receive d Time (Source) Location / / Volume Laterality Blood specimen 10/19/2018 7:58 PM 019 7:58 (specimen) EDT PM EDT Elian Jacobsen MD POINT OF CARE TEST ORDERABLE S Performing Organization Address City/[facility]/[place] [address] POCT Glucose (10/19/2018 3:53 PM EDT) athologist Signature POC Glucose 166 65 - 199 [facility] mg/dL [facility] Comment: Supplemental ranges: <140 mg/dL before meals <180 mg/dL all other times of the day Specimen Anatomical Collection Method Collection Time Receive d Time (Source) Location / / Volume Laterality Blood specimen 10/19/2018 3:53 PM 019 3:53 (specimen) EDT PM EDT Elian Jacobsen MD POINT OF CARE TEST ORDERABLE S Performing Organization Address City/[facility]/[place] [address] POCT Glucose (10/19/2018 12:08 PM EDT) athologist Signature POC Glucose 175 65 - 199 [facility] mg/dL [facility] Comment: Supplemental ranges: <140 mg/dL before meals <180 mg/dL all other times of the day Specimen Anatomical Collection Method Collection Time Receive d Time (Source) Location / / Volume Laterality Blood specimen 10/19/2018 12:08 9 (specimen) PM EDT 12:08 PM EDT Elian Jacobsen MD POINT OF CARE TEST ORDERABLE S Performing Organization Address City/State/ZIP Code Phon e Number [address] (ABNORMAL) Hemoglobin and Hematocrit, blood (10/19/2018 11:49 AM EDT) athologist Signature Hemoglobin 8.5 (L) 13.7 - [facility] 16.5 gm/dL [facility] Hematocrit 25.7 (L) 40.5 - [facility] 48.5 % [facility] Specimen Anatomical Collection Method Collection Time Receive d Time (Source) Location / / Volume Laterality Blood specimen 10/19/2018 11:49 9 (specimen) AM EDT 11:56 AM EDT Resulting Agency Comment Spec In Lab Avery Zuniga MD HEMATOLOGY ORDERABLES Performing Organization Address City/[facility]/ZIP Code Phon e Number [address] POCT Glucose (10/19/2018 7:59 AM EDT) athologist Signature POC Glucose 135 65 - 199 [place] [place] mg/dL [facility]ORY Comment: Supplemental ranges: <140 mg/dL before meals <180 mg/dL all other times of the day Specimen Anatomical Collection Method Collection Time Receive d Time (Source) Location / / Volume Laterality Blood specimen 10/19/2018 7:59 AM 019 7:59 (specimen) EDT AM EDT Elian Jacobsen MD POINT OF CARE TEST ORDERABLE S Performing Organization Address City/State/ZIP Code Phon e Number [address] POCT Glucose (10/19/2018 3:52 AM EDT) athologist Signature POC Glucose 165 65 - 199 [facility] mg/dL [facility] Comment: Supplemental ranges: <140 mg/dL before meals <180 mg/dL all other times of the day Specimen Anatomical Collection Method Collection Time Receive d Time (Source) Location / / Volume Laterality Blood specimen 10/19/2018 3:52 AM 019 3:52 (specimen) EDT AM EDT Elian Jacobsen MD POINT OF CARE TEST ORDERABLE S Performing Organization Address City/State/ZIP Code Phon e Number [address] (ABNORMAL) Differential, Automated (10/19/2018 3:47 AM EDT) athologist Signature Neutrophils % 67.2 % [facility] LABORATORY Neutr Abs (ANC) 6.10 1.70 - [facility] 6.10 [facility] x10(3)/[facility] LABORATORY Lymphocytes % 13.5 % [facility] LABORATORY Lymphocytes Abs 1.2 0.9 - 3.2 [facility] x10(3)/[facility] LABORATORY Monocytes % 9.8 % [facility] LABORATORY Monocyte Abs 0.9 0.3 - 0.9 [facility] x10(3)/[facility] LABORATORY Eosinophils % 1.4 % [facility] LABORATORY Eosinophils Abs 0.1 0.0 - 0.4 [facility] x10(3)/[facility] LABORATORY Basophils % 0.7 % [facility] LABORATORY Basophils Abs 0.1 0.0 - 0.1 [facility] x10(3)/[facility] LABORATORY Immature Gran % 7.40 % [facility] Comment: Immature granulocytes(IG's)percentage an d absolute count will include metamyelocytes, myelocytes, and promyelo cytes. Blood smears from CBCs yielding IG's will be scanned manually for concor dance. If this scan disagrees with the automated IG or if promyelocytes are not ed, a manual differential will be performed. [place] Gran Abs 0.67 (H) 0.00 - 0.04 x10(3)/[facility] LABORATORY Specimen Anatomical Collection Method Collection Time Receive d Time (Source) Location / / Volume Laterality Blood specimen 10/19/2018 3:47 AM 019 4:20 (specimen) EDT AM EDT Resulting Agency Comment Spec In Lab Vikram Wahl MD HEMATOLOGY ORDERABLES Performing Organization Address City/State/[place] [address] (ABNORMAL) Hemogram (10/19/2018 3:47 AM EDT) [facility] gist Method Time Signature WBC 9.1 4.0 - 9.5 [facility] x10(3)/[facility] LABORATORY RBC 2.53 (L) 4.58 - [facility] 5.54 [facility] x10(6)/[facility] LABORATORY Hemoglobin 7.9 (L) 13.7 - [facility] 16.5 gm/dL [facility] Hematocrit 23.2 (L) 40.5 - [facility] 48.5 % [facility] MCV 91.7 82.9 - [facility] 93[facility]1 [facility] LABORATORY MCH 31.2 27.5 - [facility] 32.1 pg [facility] LAB[facility]ATORY MCHC 34.1 32.0 - [facility] 35.7 gm/dL [facility]ORY Platelets 188 145 - 357 [facility] x10(3)/[facility] LABORATORY RDWSD 47.8 (H) 36.0 - [facility] 45.0 [facility] LABORATORY RDWCV 14.9 (H) 11.4 - [facility] 13.8 % [facility] LABORATORY MPV 10.3 7.6 - 12.9 [facility] LABORATORY nRBC % Auto 2.3 % [facility] LABORATORY nRBC Abs Auto 0.210 (H) 0.000 - [facility] 0.000 [facility] x10(3)/[facility] LABORATORY Specimen Anatomical Collection Method Collection Time Receive d Time (Source) Location / / Volume Laterality Blood specimen 10/19/2018 3:47 AM 03/26/2 019 4:20 (specimen) EDT AM EDT Resulting Agency Comment Spec In Lab Vikram Wahl MD HEMATOLOGY ORDERABLES Performing Organization Address City/State/[place] [address] (ABNORMAL) Basic Metabolic Panel (non-fasting) (10/19/2018 3:47 AM EDT) P athologist Signature Glucose Lvl 171 65 - 199 [facility] mg/dL [facility] Comment: Diabetes: >=200 mg/dL plus symp toms BUN 15 10 - 20 mg/dL [facility] LABORATORY Creatinine 0.89 0.80 - 1.50 mg/dL [facility] LAB[facility]ORY Sodium 140 135 - 145 mmol/L [facility] LAB[facility]ORY Potassium 3.5 3.5 - 5.0 mmol/L [facility] Comment: Please note: ??Patients with WBC >100,00 0 may have falsely elevated Potassium levels. ??For accurate Potassium quantif ication in these patients send serum separator tube (gold top) for subsequent determinations. ??Contact the Clinical Chemistry Laboratory if there are any qu estions. Chloride 102 98 - 107 mmol/L [facility] CO2 27 22 - 31 mmol/L [facility] Anion Gap 11 5 - 15 mmol/L [facility] Calcium 8.2 (L) 8.5 - 10.5 mg/dL [facility] LAB[facility] Estimated GFR 92 >=60 mL/min/1.73 m?? [facility] Comment: The eGFR was calculated using the CKD-EP I equation. As with all creatinine based estimates of kidney function, eGFR values calculated with the CKD-EPI equation are not accurate in patients wi th acute kidney failure, extremes of body mass or the acutely ill. [email or web address] eGFR 106 >=60 mL/min/1.73 m?? [facility] Comment: The eGFR was calculated using the CKD-EP I equation. As with all creatinine based estimates of kidney function, eGFR values calculated with the CKD-EPI equation are not accurate in patients wi th acute kidney failure, extremes of body mass or the acutely ill. [email or web address] Specimen Anatomical Collection Method Collection Time Receive d Time (Source) Location / / Volume Laterality Blood specimen 10/19/2018 3:47 AM 019 4:20 (specimen) EDT AM EDT Resulting Agency Comment Spec In Lab Avrey Zuniga MD CHEMISTRY ORDERABLES Performing Organization Address City/[facility] [place] [address] Heparin (unfractionated) Level (10/19/2018 12:08 AM EDT) athologist Signature Heparin UFH 0.39 IU/mL [facility] LABORATORY Comment: Guidelines for therapeutic unfractionate d heparin levels are summarized below. Heparin (Anti-Xa) levels should be deter mined in a plasma sample that has been drawn 6 hours after a dose change i.e., steady-state has been reached. DRUG ?Dos ing Schedule ? Target Peak Steady-State ?Heparin (Anti-Xa) Levels (Units/mL) Unfractionated ?Continuous inf usion ?0.3-0.7 Heparin ?0.3-0.6 fo r some neurology indications Specimen Anatomical Collection Method Collection Time Receive d Time (Source) Location / / Volume Laterality Blood specimen 10/19/2018 12:08 9 (specimen) AM EDT 12:11 AM EDT Resulting Agency Comment Spec In Lab Avery Zuniga MD HEMATOLOGY ORDERABLES Performing Organization Address [facility]/[place] [address] (ABNORMAL) Hemoglobin and Hematocrit, blood (10/19/2018 12:08 AM EDT) athologist Signature Hemoglobin 8.0 (L) 13.7 - GARCIA [place]ALK[place]OCK 16.5 gm/dL [facility] LABORATORY Hematocrit 23.6 (L) 40.5 - GARCIA DARNELL 48.5 % [facility] LABOR[facility]ORY Specimen Anatomical Collection Method Collection Time Receive d Time (Source) Location / / Volume Laterality Blood specimen 10/19/2018 12:08 9 (specimen) AM EDT 12:11 AM EDT Resulting Agency Comment Spec In Lab Avery Zuniga MD HEMATOLOGY ORDERABLES Performing Organization Address City/State/ZIP Code Phon e Number [address] POCT Glucose (10/18/2018 11:04 PM EDT) athologist Signature POC Glucose 182 65 - 199 GARCIA DARNELL mg/dL [facility] Comment: Supplemental ranges: <140 mg/dL before meals <180 mg/dL all other times of the day Specimen Anatomical Collection Method Collection Time Receive d Time (Source) Location / / Volume Laterality Blood specimen 10/18/2018 11:04 9 (specimen) PM EDT 11:04 PM EDT Elian Jacobsen MD POINT OF CARE TEST ORDERABLE S Performing Organization Address City/State/[place] [address] POCT Glucose (10/18/2018 7:35 PM EDT) athologist Signature POC Glucose 198 65 - 199 GARCIA DARNELL mg/dL [facility] Comment: Supplemental ranges: <140 mg/dL before meals <180 mg/dL all other times of the day Specimen Anatomical Collection Method Collection Time Receive d Time (Source) Location / / Volume Laterality Blood specimen 10/18/2018 7:35 PM 019 7:35 (specimen) EDT PM EDT Elian Jacobsen MD POINT OF CARE TEST ORDERABLE S Performing Organization Address City/State/[place] [address] POCT Glucose (10/18/2018 4:25 PM EDT) athologist Signature POC Glucose 143 65 - 199 [facility] Comment: Supplemental ranges: <140 mg/dL before meals <180 mg/dL all other times of the day Specimen Anatomical Collection Method Collection Time Receive d Time (Source) Location / / Volume Laterality Blood specimen 10/18/2018 4:25 PM 019 4:25 (specimen) EDT PM EDT Clifton Casey MD POINT OF CARE TEST ORDERABLE S Performing Organization Address City/[facility]/ZIP Code Phon e Number [address] (ABNORMAL) POCT Glucose (10/18/2018 11:45 AM EDT) athologist Signature POC Glucose 218 (H) 65 - 199 [facility] Comment: Supplemental ranges: <140 mg/dL before meals <180 mg/dL all other times of the day Specimen Anatomical Collection Method Collection Time Receive d Time (Source) Location / / Volume Laterality Blood specimen 10/18/2018 11:45 9 (specimen) AM EDT 11:45 AM EDT Clifton Casey MD POINT OF CARE TEST ORDERABLE S Performing Organization Address City/[facility]/[place] [address] Heparin (unfractionated) Level (10/18/2018 11:11 AM EDT) athologist Signature Heparin UFH 0.34 IU/mL [facility] LABORATORY Comment: Guidelines for therapeutic unfractionate d heparin levels are summarized below. Heparin (Anti-Xa) levels should be deter mined in a plasma sample that has been drawn 6 hours after a dose change i.e., steady-state has been reached. DRUG ?Dos ing Schedule ? Target Peak Steady-State ?Heparin (Anti-Xa) Levels (Units/mL) Unfractionated ?Continuous inf usion ?0.3-0.7 Heparin ?0.3-0.6 fo r some neurology indications Specimen Anatomical Collection Method Collection Time Receive d Time (Source) Location / / Volume Laterality Blood specimen 10/18/2018 11:11 9 (specimen) AM EDT 11:45 AM EDT Resulting Agency Comment Spec In Lab Avery Zuniga MD HEMATOLOGY ORDERABLES Performing Organization Address City/[facility]/[place] [address] (ABNORMAL) Hemoglobin and Hematocrit, blood (10/18/2018 11:11 AM EDT) P athologist Signature Hemoglobin 8.3 (L) 13.7 - [facility] 16.[facility] gm/dL [facility] Hematocrit 24.4 (L) 40.5 - [facility] 48.5 % [facility] Specimen Anatomical Collection Method Collection Time Receive d Time (Source) Location / / Volume Laterality Blood specimen 10/18/2018 11:11 9 (specimen) AM EDT 11:45 AM EDT Resulting Agency Comment Spec In Lab Avery Zuniga MD HEMATOLOGY ORDERABLES Performing Organization Address City/State/[place] [address] POCT Glucose (10/18/2018 7:36 AM EDT) P athologist Signature POC Glucose 184 65 - 199 [facility]/dL [facility] Comment: Supplemental ranges: <140 mg/dL before meals <180 mg/dL all other times of the day Specimen Anatomical Collection Method Collection Time Receive d Time (Source) Location / / Volume Laterality Blood specimen 10/18/2018 7:36 AM 019 7:36 (specimen) EDT AM EDT Clifton Casey MD POINT OF CARE TEST ORDERABLE S Performing Organization Address City/State/ZIP Code Phon e Number [address] Scan, Peripheral Blood (10/18/2018 3:40 AM EDT) Patholo gist Method Time Signature Plat Estimate Normal [facility] RBC Morphology Abnormal [facility] [place] Polychromasia Present >5/HPF [facility] LABOR[facility]ORY Specimen Anatomical Collection Method Collection Time Receive d Time (Source) Location / / Volume Laterality Blood specimen 10/18/2018 3:40 AM 019 3:51 (specimen) EDT AM EDT Resulting Agency Comment Spec In Lab Vikram Wahl MD HEMATOLOGY ORDERABLES Performing Organization Address City/State/ZIP Code Phon e Number [address] (ABNORMAL) Differential, Automated (10/18/2018 3:40 AM EDT) P athologist Signature Neutrophils % 65.8 % [facility] LABORATORY Neutr Abs (ANC) 4.95 1.70 - [facility] 6.10 [facility] x10(3)/[facility] LABORATORY Lymphocytes % 15.6 % [facility] LABORATORY Lymphocytes Abs 1.2 0.9 - 3.2 [facility] x10(3)/[facility] LABORATORY Monocytes % 10.2 % [facility] LABORATORY Monocyte Abs 0.8 0.3 - 0.9 [facility] x10(3)/[facility] LABORATORY Eosinophils % 1.7 % [facility] LABORATORY Eosinophils Abs 0.1 0.0 - 0.4 [facility] x10(3)/[facility] LABORATORY Basophils % 0.8 % [facility] LABORATORY Basophils Abs 0.1 0.0 - 0.1 [facility] x10(3)/[facility] LABORATORY Immature Gran % 5.90 % [facility] LABORATORY Comment: Immature granulocytes(IG's)percentage an d absolute count will include metamyelocytes, myelocytes, and promyelo cytes. Blood smears from CBCs yielding IG's will be scanned manually for concor dance. If this scan disagrees with the automated IG or if promyelocytes are not ed, a manual differential will be performed. Vesta Gran Abs 0.44 (H) 0.00 - 0.04 x10(3)/[facility] LABORATORY Specimen Anatomical Collection Method Collection Time Receive d Time (Source) Location / / Volume Laterality Blood specimen 10/18/2018 3:40 AM 019 3:51 (specimen) EDT AM EDT Resulting Agency Comment Spec In Lab Vikram Wahl MD HEMATOLOGY ORDERABLES Performing Organization Address City/State/[place] [address] (ABNORMAL) Hemogram (10/18/2018 3:40 AM EDT) [facility] gist Method Time Signature WBC 7.5 4.0 - 9.5 [facility] x10(3)/[facility] LABORATORY RBC 2.50 (L) 4.58 - [facility] DARNELL 5.54 [facility] x10(6)/[facility] LABORATORY Hemoglobin 7.5 (L) 13.7 - [facility] 16.5 gm/dL [facility]ORATORY Hematocrit 22.2 (L) 40.5 - [facility] DARNELL 48.5 % [facility] LABORATORY MCV 88.8 82.9 - [facility] DARNELL 93.1 [facility] LABORATORY MCH 30.0 27.5 - [facility] 32.1 pg [facility] LABORATORY MCHC 33.8 32.0 - [facility] DARNELL 35.7 gm/dL [facility] LABORATORY Platelets 160 145 - 357 [facility] x10(3)/[facility] LABORATORY RDWSD 45.6 (H) 36.0 - [facility] 45.0 [facility] LABORATORY RDWCV 14.7 (H) 11.4 - [facility] DARNELL 13.8 % [facility] LABORATORY MPV 10.2 7.6 - 12.9 [facility] LABORATORY nRBC % Auto 2.1 % [facility] LABORATORY nRBC Abs Auto 0.160 (H) 0.000 - [facility] DARNELL 0.000 [facility] x10(3)/[facility] LABORATORY Specimen Anatomical Collection Method Collection Time Receive d Time (Source) Location / / Volume Laterality Blood specimen 10/18/2018 3:40 AM 019 3:51 (specimen) EDT AM EDT Resulting Agency Comment Spec In Lab Vikram Wahl MD HEMATOLOGY ORDERABLES Performing Organization Address City/State/[place] [address] (ABNORMAL) Basic Metabolic Panel (non-fasting) (10/18/2018 3:40 AM EDT) athologist Signature Glucose Lvl 176 65 - 199 [facility] mg/dL [facility] LABORATORY Comment: Diabetes: >=200 mg/dL plus symp toms BUN 15 10 - 20 mg/dL [facility] LABORATORY Creatinine 0.84 0.80 - 1.50 mg/dL [facility] LABORATORY Sodium 143 135 - 145 mmol/L [facility] LABORATORY Potassium 3.4 (L) 3.5 - 5.0 mmol/L [facility] LABORATORY Comment: Please note: ??Patients with WBC >100,00 0 may have falsely elevated Potassium levels. ??For accurate Potassium quantif ication in these patients send serum separator tube (gold top) for subsequent determinations. ??Contact the Clinical Chemistry Laboratory if there are any qu estions. Chloride 103 98 - 107 mmol/L [facility] LABORATORY CO2 28 22 - 31 mmol/L [facility]ORAT[facility] Anion Gap 12 5 - 15 mmol/L [facility]OR[facility]ORY Calcium 8.2 (L) 8.5 - 10.5 mg/dL [facility] LABORATORY Estimated GFR 94 >=60 mL/min/1.73 m?? [facility] LABORATORY Comment: The eGFR was calculated using the CKD-EP I equation. As with all creatinine based estimates of kidney function, eGFR values calculated with the CKD-EPI equation are not accurate in patients wi th acute kidney failure, extremes of body mass or the acutely ill. [email or web address]/DHnkf eGFR 109 >=60 mL/min/1.73 m?? [facility] LABORATORY Comment: The eGFR was calculated using the CKD-EP I equation. As with all creatinine based estimates of kidney function, eGFR values calculated with the CKD-EPI equation are not accurate in patients wi th acute kidney failure, extremes of body mass or the acutely ill. [email or web address]/DHMCnkf Specimen Anatomical Collection Method Collection Time Receive d Time (Source) Location / / Volume Laterality Blood specimen 10/18/2018 3:40 AM 019 3:51 (specimen) EDT AM EDT Resulting Agency Comment Spec In Lab Avery Zuniga MD CHEMISTRY ORDERABLES Performing Organization Address City/[facility]/ZIP Code Phon e Number [address] POCT Glucose (10/18/2018 3:30 AM EDT) athologist Signature POC Glucose 186 65 - 199 [facility] mg/dL [facility]ORY Comment: Supplemental ranges: <140 mg/dL before meals <180 mg/dL all other times of the day Specimen Anatomical Collection Method Collection Time Receive d Time (Source) Location / / Volume Laterality Blood specimen 10/18/2018 3:30 AM 019 3:30 (specimen) EDT AM EDT Clifton Casey MD POINT OF CARE TEST ORDERABLE S Performing Organization Address City/[facility]/[place] [address] (ABNORMAL) Hemoglobin and Hematocrit, blood (10/17/2018 11:24 PM EDT) athologist Signature Hemoglobin 8.2 (L) 13.7 - [facility] 16.5 gm/dL [facility] Hematocrit 23.5 (L) 40.5 - [facility] 48.5 % [facility] Specimen Anatomical Collection Method Collection Time Receive d Time (Source) Location / / Volume Laterality Blood specimen 10/17/2018 11:24 9 (specimen) PM EDT 11:27 PM EDT Resulting Agency Comment Spec In Lab Avery Zuniga MD HEMATOLOGY ORDERABLES Performing Organization Address City/[facility]/ZIP Code [place] [address] (ABNORMAL) POCT Glucose (10/17/2018 11:22 PM EDT) athologist Signature POC Glucose 219 (H) 65 - 199 [facility]/dL [facility] Comment: Supplemental ranges: <140 mg/dL before meals <180 mg/dL all other times of the day Specimen Anatomical Collection Method Collection Time Receive d Time (Source) Location / / Volume Laterality Blood specimen 10/17/2018 11:22 9 (specimen) PM EDT 11:22 PM EDT Clifton Casey MD POINT OF CARE TEST ORDERABLE S Performing Organization Address City/State/ZIP Code Phon e Number [address] (ABNORMAL) POCT Glucose (10/17/2018 7:15 PM EDT) athologist Signature POC Glucose 208 (H) 65 - 199 [facility]/dL [facility] Comment: Supplemental ranges: <140 mg/dL before meals <180 mg/dL all other times of the day Specimen Anatomical Collection Method Collection Time Receive d Time (Source) Location / / Volume Laterality Blood specimen 10/17/2018 7:15 PM 019 7:15 (specimen) EDT PM EDT Clifton Casey MD POINT OF CARE TEST ORDERABLE S Performing Organization Address City/State/[place] [address] POCT Glucose (10/17/2018 4:50 PM EDT) athologist Signature POC Glucose 181 65 - 199 [facility]/dL [facility] Comment: Supplemental ranges: <140 mg/dL before meals <180 mg/dL all other times of the day Specimen Anatomical Collection Method Collection Time Receive d Time (Source) Location / / Volume Laterality Blood specimen 10/17/2018 4:50 PM 019 4:50 (specimen) EDT PM EDT Clifton Casey MD POINT OF CARE TEST ORDERABLE S Performing Organization Address City/State/[place] [address] (ABNORMAL) Hemoglobin and Hematocrit, blood (10/17/2018 4:06 PM EDT) P athologist Signature Hemoglobin 8.5 (L) 13.7 - GARCIA CARBAJALDARNELL 16.5 gm/dL [facility]ORY Hematocrit 24.4 (L) 40.5 - [facility] 48.5 % [facility] Specimen Anatomical Collection Method Collection Time Receive d Time (Source) Location / / Volume Laterality Blood specimen 10/17/2018 4:06 PM 019 4:10 (specimen) EDT PM EDT Resulting Agency Comment Spec In Lab Avery Zuniga MD HEMATOLOGY ORDERABLES Performing Organization Address City/State/[place] [address] (ABNORMAL) POCT Glucose (10/17/2018 11:40 AM EDT) athologist Signature POC Glucose 222 (H) 65 - 199 [facility] mg/dL [facility] Comment: Supplemental ranges: <140 mg/dL before meals <180 mg/dL all other times of the day Specimen Anatomical Collection Method Collection Time Receive d Time (Source) Location / / Volume Laterality Blood specimen 10/17/2018 11:40 9 (specimen) AM EDT 11:40 AM EDT Clifton Casey MD POINT OF CARE TEST ORDERABLE S Performing Organization Address City/State/[place] [address] (ABNORMAL) Hemoglobin and Hematocrit, blood (10/17/2018 10:32 AM EDT) P athologist Signature Hemoglobin 7.7 (L) 13.7 - [facility] 16.5 gm/dL [facility] Hematocrit 22.2 (L) 40.5 - [facility] 48.5 % [facility] Specimen Anatomical Collection Method Collection Time Receive d Time (Source) Location / / Volume Laterality Blood specimen 10/17/2018 10:32 9 (specimen) AM EDT 10:38 AM EDT Resulting Agency Comment Spec In Lab Avery Zuniga MD HEMATOLOGY ORDERABLES Performing Organization Address City/[facility]/ZIP Code Phon e Number [address] Transfuse RBC (10/17/2018 9:59 AM EDT) Dulce Maria Diallo APRN NURSING TREATMENT ORDERABLES - BLOOD ADMIN POCT Glucose (10/17/2018 7:37 AM EDT) P athologist Signature POC Glucose 157 65 - 199 [facility] mg/dL [facility] LABORATORY Comment: Supplemental ranges: <140 mg/dL before meals <180 mg/dL all other times of the day Specimen Anatomical Collection Method Collection Time Receive d Time (Source) Location / / Volume Laterality Blood specimen 10/17/2018 7:37 AM 019 7:37 (specimen) EDT AM EDT Clifton Casey MD POINT OF CARE TEST ORDERABLE S Performing Organization Address City/[facility]/ZIP Code Phon e Number [address] ABORH Recheck Status (10/17/2018 6:25 AM EDT) Patholo gist Method Time Signature ABORH Type Completed [facility] LABORATORY Specimen Anatomical Collection Method Collection Time Receive d Time (Source) Location / / Volume Laterality Blood specimen 10/17/2018 6:25 AM 019 6:31 (specimen) EDT AM EDT Resulting Agency Comment Spec In Lab Dulce Maria Diallo APRN BLOOD BANK ORDERABLES Performing Organization Address City/[facility]/[place] [address] Heparin (unfractionated) Level (10/17/2018 6:25 AM EDT) P athologist Signature Heparin UFH 0.44 IU/mL [facility] LABORATORY Comment: Guidelines for therapeutic unfractionate d heparin levels are summarized below. Heparin (Anti-Xa) levels should be deter mined in a plasma sample that has been drawn 6 hours after a dose change i.e., steady-state has been reached. DRUG ?Dos ing Schedule ? Target Peak Steady-State ?Heparin (Anti-Xa) Levels (Units/mL) Unfractionated ?Continuous inf usion ?0.3-0.7 Heparin ?0.3-0.6 fo r some neurology indications Specimen Anatomical Collection Method Collection Time Receive d Time (Source) Location / / Volume Laterality Blood specimen 10/17/2018 6:25 AM 019 6:30 (specimen) EDT AM EDT Resulting Agency Comment Spec In Lab Avery Zuniga MD HEMATOLOGY ORDERABLES Performing Organization Address City/[facility]/[place] [address] Antibody screen (10/17/2018 6:25 AM EDT) Patholo gist Method Time Signature Ab Screen Negative [facility] LABORATORY Expires at 10/20/2018 GARCIA CARBAJALDARNELL [id number] on: [facility] LABORATORY Specimen Anatomical Collection Method Collection Time Receive d Time (Source) Location / / Volume Laterality Blood specimen 10/17/2018 6:25 AM 019 6:31 (specimen) EDT AM EDT Resulting Agency Comment Spec In Lab Dulce Maria Diallo APRN BLOOD BANK ORDERABLES Performing Organization Address City/State/[place] [address] ABO/Rh Typing (10/17/2018 6:25 AM EDT) P athologist Signature ABORh Type O Neg [facility] LABORATORY Specimen Anatomical Collection Method Collection Time Receive d Time (Source) Location / / Volume Laterality Blood specimen 10/17/2018 6:25 AM 019 6:31 (specimen) EDT AM EDT Resulting Agency Comment Spec In Lab Dulce Maria Diallo HEAD OPERATOR [employer] BLOOD BANK ORDERABLES Performing Organization Address City/[facility]/ZIP Code Phon e Number [address] (ABNORMAL) APTT (10/17/2018 6:25 AM EDT) P athologist Signature PTT 61 (H) 25 - 37 sec [facility] LABORATORY Comment: The PTT is NOT appropriate for heparin m onitoring. Use the Anti-Xa level for heparin monitoring (HEP UFH) or LMWH mon itoring (HEP LMW). A PTT less than 37 seconds generally indicates adequate hem ostasis. Specimen Anatomical Collection Method Collection Time Receive d Time (Source) Location / / Volume Laterality Blood specimen 10/17/2018 6:25 AM 019 6:30 (specimen) EDT AM EDT Resulting Agency Comment Spec In Lab [facility]ABLES Performing Organization Address [facility] [place] [address] (ABNORMAL) Prothrombin Time (10/17/2018 6:25 AM EDT) P athologist Signature PT 13.5 (H) 9.4 - 12.5 [facility] LABORATORY INR 1.2 [facility] LABORATORY Comment: An INR <2.0 indicates adequate procoagul ant activity for hemostasis in most patients without underlying bleeding dis orders, though the INR may not adequately reflect hemostatic capacity i n patients with liver disease and synthetic impairment. The recommended ta rget INR range for therapeutic anticoagulation is 2.0 ? 3.0 for most applications, though lower and higher ranges may be appropriate depending on c linical circumstances. Specimen Anatomical Collection Method Collection Time Receive d Time (Source) Location / / Volume Laterality Blood specimen 10/17/2018 6:25 AM 019 6:30 (specimen) EDT AM EDT Resulting Agency Comment Spec In Lab Dulce Maria Diallo APRN HEMATOLOGY ORDERABLES Performing Organization Address [facility]/[place] [address] Prepare RBC (10/17/2018 6:10 AM EDT) athologist Signature Dispensed? Yes [facility] LABORATORY Specimen Anatomical Collection Method Collection Time Receive d Time (Source) Location / / Volume Laterality Blood specimen 10/17/2018 6:10 AM 019 6:08 (specimen) EDT AM EDT Resulting Agency Comment Spec In Lab Dulce Maria Diallo APRN BLOOD BANK ORDERABLES Performing Organization Address City/State/ZIP Code Phon e Number [address] (ABNORMAL) POCT Glucose (10/17/2018 3:48 AM EDT) athologist Signature POC Glucose 200 (H) 65 - 199 [facility] mg/dL [facility] LABORATORY Comment: Supplemental ranges: <140 mg/dL before meals <180 mg/dL all other times of the day Specimen Anatomical Collection Method Collection Time Receive d Time (Source) Location / / Volume Laterality Blood specimen 10/17/2018 3:48 AM 019 3:48 (specimen) EDT AM EDT Clifton Casey MD POINT OF CARE TEST ORDERABLE S Performing Organization Address City/[facility]/ZIP Code Phon e Number [address] (ABNORMAL) Differential, Automated (10/17/2018 3:39 AM EDT) athologist Signature Neutrophils % 71.8 % [facility] LABORATORY Neutr Abs (ANC) 5.04 1.70 - [facility] 6.10 [facility] x10(3)/[facility] LABORATORY Lymphocytes % 14.7 % [facility] LABOR[facility]ORY Lymphocytes Abs 1.0 0.9 - 3.2 [facility] x10(3)/[facility] LABORATORY Monocytes % 9.0 % [facility]OR[facility] Monocyte Abs 0.6 0.3 - 0.9 [facility] x10(3)/[facility] LABORATORY Eosinophils % 0.9 % [facility] Eosinophils Abs 0.1 0.0 - 0.4 [facility] x10(3)/[facility] LABORATORY Basophils % 0.6 % [facility] LABOR[facility]ORY Basophils Abs 0.0 0.0 - 0.1 [facility] x10(3)/[facility] LABORATORY Immature Gran % 3.00 % [facility] Comment: Immature granulocytes(IG's)percentage an d absolute count will include metamyelocytes, myelocytes, and promyelo cytes. Blood smears from CBCs yielding IG's will be scanned manually for concor dance. If this scan disagrees with the automated IG or if promyelocytes are not ed, a manual differential will be performed. Vesta Gran Abs 0.21 (H) 0.00 - 0.04 x10(3)/[facility] LABORATORY Specimen Anatomical Collection Method Collection Time Receive d Time (Source) Location / / Volume Laterality Blood specimen 10/17/2018 3:39 AM 019 4:16 (specimen) EDT AM EDT Resulting Agency Comment Spec In Lab Vikram Wahl MD HEMATOLOGY ORDERABLES Performing Organization Address City/State/[place] [address] (ABNORMAL) Hemogram (10/17/2018 3:39 AM EDT) [facility] gist Method Time Signature WBC 7.0 4.0 - 9.5 [facility] x10(3)/[facility] LABORATORY RBC 2.21 (L) 4.58 - [facility] x10(6)/[facility] LABORATORY Hemoglobin 6.9 (L) 13.7 - [facility] 16.5 gm/dL [facility] LABORATORY Hematocrit 19.9 (L) 40.5 - [facility] 48.5 % [facility] MCV 90.0 82.9 - [facility] 93.1 fL [facility]ORY MCH 31.2 27.5 - [facility] 32.1 pg [facility]ATORY MCHC 34.7 32.0 - [facility] 35.7 gm/dL [facility] LABORATORY Platelets 128 (L) 145 - 357 [facility] x10(3)/[facility] LABORATORY RDWSD 46.2 (H) 36.0 - [facility] 45.0 [facility] LABORATORY RDWCV 14.5 (H) 11.4 - [facility] 13.8 % [facility] LABORATORY MPV 10.5 7.6 - 12.9 [facility] LABORATORY nRBC % Auto 0.9 % [facility] LABOR[facility]ORY nRBC Abs Auto 0.060 (H) 0.000 - [facility] 0.000 [facility] x10(3)/[facility] LABORATORY Specimen Anatomical Collection Method Collection Time Receive d Time (Source) Location / / Volume Laterality Blood specimen 10/17/2018 3:39 AM 019 4:16 (specimen) EDT AM EDT Resulting Agency Comment Spec In Lab Vikram Wahl MD HEMATOLOGY ORDERABLES Performing Organization Address City/State/[place] [address] (ABNORMAL) Basic Metabolic Panel (non-fasting) (10/17/2018 3:39 AM EDT) P athologist Signature Glucose Lvl 203 (H) 65 - 199 [facility] mg/dL [facility] LABORATORY Comment: Diabetes: >=200 mg/dL plus symp toms BUN 14 10 - 20 mg/dL [facility]OR[facility] Creatinine 0.83 0.80 - 1.50 mg/dL [facility] LABORATORY Sodium 141 135 - 145 mmol/L [facility] LABORATORY Potassium 3.5 3.5 - 5.0 mmol/L [facility] LABORATORY Comment: Please note: ??Patients with WBC >100,00 0 may have falsely elevated Potassium levels. ??For accurate Potassium quantif ication in these patients send serum separator tube (gold top) for subsequent determinations. ??Contact the Clinical Chemistry Laboratory if there are any qu estions. Chloride 102 98 - 107 mmol/L [facility] CO2 27 22 - 31 mmol/L [facility] Anion Gap 12 5 - 15 mmol/L [facility] Calcium 8.0 (L) 8.5 - 10.5 mg/dL [facility] LABORATORY Estimated GFR 94 >=60 mL/min/1.73 m?? [facility] Comment: The eGFR was calculated using the CKD-EP I equation. As with all creatinine based estimates of kidney function, eGFR values calculated with the CKD-EPI equation are not accurate in patients wi th acute kidney failure, extremes of body mass or the acutely ill. http://[employer]/[facility] TULSAnkf eGFR 109 >=60 mL/min/1.73 m?? [facility] Comment: The eGFR was calculated using the CKD-EP I equation. As with all creatinine based estimates of kidney function, eGFR values calculated with the CKD-EPI equation are not accurate in patients wi th acute kidney failure, extremes of body mass or the acutely ill. http://[employer]/[facility] TULSAnkf Specimen Anatomical Collection Method Collection Time Receive d Time (Source) Location / / Volume Laterality Blood specimen 10/17/2018 3:39 AM 019 4:16 (specimen) EDT AM EDT Resulting Agency Comment Spec In Lab Avery Zuniga MD CHEMISTRY ORDERABLES Performing Organization Address City/[facility]/ZIP Code Phon e Number [address] (ABNORMAL) POCT Glucose (10/16/2018 11:07 PM EDT) athologist Signature POC Glucose 210 (H) 65 - 199 [facility] mg/dL [facility] LABORATORY Comment: Supplemental ranges: <140 mg/dL before meals <180 mg/dL all other times of the day Specimen Anatomical Collection Method Collection Time Receive d Time (Source) Location / / Volume Laterality Blood specimen 10/16/2018 11:07 9 (specimen) PM EDT 11:07 PM EDT Clifton Casey MD POINT OF CARE TEST ORDERABLE S Performing Organization Address City/[facility]/[place] [address] (ABNORMAL) POCT Glucose (10/16/2018 7:47 PM EDT) athologist Signature POC Glucose 257 (H) 65 - 199 [facility] mg/dL [facility] LABORATORY Comment: Supplemental ranges: <140 mg/dL before meals <180 mg/dL all other times of the day Specimen Anatomical Collection Method Collection Time Receive d Time (Source) Location / / Volume Laterality Blood specimen 10/16/2018 7:47 PM 019 7:47 (specimen) EDT PM EDT Clifton Casey MD POINT OF CARE TEST ORDERABLE S Performing Organization Address City/[facility] [place] [address] Heparin (unfractionated) Level (10/16/2018 5:23 PM EDT) athologist Signature Heparin UFH 0.37 IU/mL [facility] LABORATORY Comment: Guidelines for therapeutic unfractionate d heparin levels are summarized below. Heparin (Anti-Xa) levels should be deter mined in a plasma sample that has been drawn 6 hours after a dose change i.e., steady-state has been reached. DRUG ?Dos ing Schedule ? Target Peak Steady-State ?Heparin (Anti-Xa) Levels (Units/mL) Unfractionated ?Continuous inf usion ?0.3-0.7 Heparin ?0.3-0.6 fo r some neurology indications Specimen Anatomical Collection Method Collection Time Receive d Time (Source) Location / / Volume Laterality Blood specimen 10/16/2018 5:23 PM 019 5:27 (specimen) EDT PM EDT Resulting Agency Comment Spec In Lab Avery Zuniga MD HEMATOLOGY ORDERABLES Performing Organization Address City/[facility]/[place] [address] (ABNORMAL) POCT Glucose (10/16/2018 4:55 PM EDT) athologist Signature POC Glucose 219 (H) 65 - 199 [facility] mg/dL [facility] LABORATORY Comment: Supplemental ranges: <140 mg/dL before meals <180 mg/dL all other times of the day Specimen Anatomical Collection Method Collection Time Receive d Time (Source) Location / / Volume Laterality Blood specimen 10/16/2018 4:55 PM 019 4:55 (specimen) EDT PM EDT Clifton Casey MD POINT OF CARE TEST ORDERABLE S Performing Organization Address City/State/[place] [address] (ABNORMAL) Hemoglobin and Hematocrit, blood (10/16/2018 3:51 PM EDT) athologist Signature Hemoglobin 8.0 (L) 13.7 - [facility] 16.5 gm/dL [facility]ORY Hematocrit 23.0 (L) 40.5 - [facility] 48.5 % [facility] LABORATORY Specimen Anatomical Collection Method Collection Time Receive d Time (Source) Location / / Volume Laterality Blood specimen 10/16/2018 3:51 PM 019 3:55 (specimen) EDT PM EDT Resulting Agency Comment Spec In Lab Avery Zuniga MD HEMATOLOGY ORDERABLES Performing Organization Address City/[facility]/[place] [address] (ABNORMAL) POCT Glucose (10/16/2018 11:45 AM EDT) athologist Signature POC Glucose 247 (H) 65 - 199 [facility] mg/dL [facility] LABORATORY Comment: Supplemental ranges: <140 mg/dL before meals <180 mg/dL all other times of the day Specimen Anatomical Collection Method Collection Time Receive d Time (Source) Location / / Volume Laterality Blood specimen 10/16/2018 11:45 9 (specimen) AM EDT 11:45 AM EDT Avery Zuniga MD POINT OF CARE TEST ORDERABLE S Performing Organization Address City/State/[place] [address] Heparin (unfractionated) Level (10/16/2018 11:05 AM EDT) athologist Signature Heparin UFH 0.37 IU/mL [facility] LABORATORY Comment: Guidelines for therapeutic unfractionate d heparin levels are summarized below. Heparin (Anti-Xa) levels should be deter mined in a plasma sample that has been drawn 6 hours after a dose change i.e., steady-state has been reached. DRUG ?Dos ing Schedule ? [facility] Steady-State ?Heparin (Anti-Xa) Levels (Units/mL) Unfractionated ?Continuous inf usion ?0.3-0.7 Heparin ?0.3-0.6 fo r some neurology indications Specimen Anatomical Collection Method Collection Time Receive d Time (Source) Location / / Volume Laterality Blood specimen 10/16/2018 11:05 9 (specimen) AM EDT 11:27 AM EDT Resulting Agency Comment Spec In Lab Avery Zuniga MD HEMATOLOGY ORDERABLES Performing Organization Address City/State/[place] [address] (ABNORMAL) POCT Glucose (10/16/2018 7:44 AM EDT) athologist Signature POC Glucose 233 (H) 65 - 199 [facility] mg/dL [facility] LABORATORY Comment: Supplemental ranges: <140 mg/dL before meals <180 mg/dL all other times of the day Specimen Anatomical Collection Method Collection Time Receive d Time (Source) Location / / Volume Laterality Blood specimen 10/16/2018 7:44 AM 019 7:44 (specimen) EDT AM EDT Avery Zuniga MD POINT OF CARE TEST ORDERABLE S Performing Organization Address City/State/ZIP Code Phon e Number [place] [id number] [facility] LABOR[address]ORY Drive (ABNORMAL) Differential, Automated (10/16/2018 4:33 AM EDT) [facility] Method Time Signature Neutrophils % 76.7 % [facility] LABORATORY Neutr Abs (ANC) 7.65 (H) 1.70 - [facility] 6.10 [facility] x10(3)/[facility] LABORATORY Lymphocytes % 9.6 % [facility] LABORATORY Lymphocytes Abs 1.0 0.9 - 3.2 [facility] x10(3)/[facility] LABORATORY Monocytes % 11.2 % [facility] LABORATORY Monocyte Abs 1.1 (H) 0.3 - 0.9 [facility] x10(3)/[facility] LABORATORY Eosinophils % 0.6 % [facility] LABOR[facility]ORY Eosinophils Abs 0.1 0.0 - 0.4 [facility] x10(3)/[facility] LABORATORY Basophils % 0.8 % [facility] LABORATORY Basophils Abs 0.1 0.0 - 0.1 [facility] x10(3)/[facility] LABORATORY Immature Gran % 1.10 % [facility] LABORATORY Comment: Immature granulocytes(IG's)percentage an d absolute count will include metamyelocytes, myelocytes, and promyelo cytes. Blood smears from CBCs yielding IG's will be scanned manually for concor dance. If this scan disagrees with the automated IG or if promyelocytes are not ed, a manual differential will be performed. Vesta Gran Abs 0.11 (H) 0.00 - 0.04 x10(3)/[facility] LABORATORY Specimen Anatomical Collection Method Collection Time Receive d Time (Source) Location / / Volume Laterality Blood specimen 10/16/2018 4:33 AM 019 4:38 (specimen) EDT AM EDT Resulting Agency Comment Spec In Lab Aniceto Jama MD HEMATOLOGY ORDERABLES Performing Organization Address City/[facility]/[place] [address] (ABNORMAL) Hemogram (10/16/2018 4:33 AM EDT) Analysis Performed At Patho logist Time Signature WBC 10.0 (H) 4.0 - 9.5 [facility] x10(3)/[facility] LABORATORY RBC 2.55 (L) 4.58 - [facility] 5.54 [facility] x10(6)/[facility] LABORATORY Hemoglobin 7.8 (L) 13.7 - [facility] 16.5 gm/dL [facility] LABORATORY Hematocrit 22.6 (L) 40.5 - [facility] 48.5 %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 [address] Ethanol Level (10/13/2018 1:25 PM EDT) P athologist Signature Ethanol Lvl <100 <=99 mg/L [facility] LABORATORY Comment: Greater than 800 mg/L (0.08%) should be considered intoxicated. 3400 to 4500 mg/L (0.34 - 0.45%) is cons idered severe intoxication. Greater than 5500 mg/L (0.55%) is usuall y fatal. Specimen Anatomical Collection Method Collection Time Receive d Time (Source) Location / / Volume Laterality Blood specimen 10/13/2018 1:25 PM 019 1:34 (specimen) EDT PM EDT Resulting Agency Comment Spec In Lab Asmita Dixon MD CHEMISTRY ORDERABLES Performing Organization Address City/[facility]/ZIP Code Phon e Number [address] APTT (10/13/2018 1:25 PM EDT) P athologist Signature PTT 28 25 - 37 sec [facility] LABORATORY Comment: The PTT is NOT appropriate for heparin m onitoring. Use the Anti-Xa level for heparin monitoring (HEP UFH) or LMWH mon itoring (HEP LMW). A PTT less than 37 seconds generally indicates adequate hem ostasis. Specimen Anatomical Collection Method Collection Time Receive d Time (Source) Location / / Volume Laterality Blood specimen 10/13/2018 1:25 PM 019 1:34 (specimen) EDT PM EDT Resulting Agency Comment Spec In Lab Asmita Dixon MD HEMATOLOGY ORDERABLES Performing Organization Address City/[facility]/[place] [address] (ABNORMAL) Prothrombin Time (10/13/2018 1:25 PM EDT) P athologist Signature PT 12.7 (H) 9.4 - 12.5 [facility] LABORATORY INR 1.1 [facility] LABORATORY Comment: An INR <2.0 indicates adequate procoagul ant activity for hemostasis in most patients without underlying bleeding dis orders, though the INR may not adequately reflect hemostatic capacity i n patients with liver disease and synthetic impairment. The recommended ta rget INR range for therapeutic anticoagulation is 2.0 ? 3.0 for most applications, though lower and higher ranges may be appropriate depending on c linical circumstances. Specimen Anatomical Collection Method Collection Time Receive d Time (Source) Location / / Volume Laterality Blood specimen 10/13/2018 1:25 PM 019 1:34 (specimen) EDT PM EDT Resulting Agency Comment Spec In Lab Asmita Dixon MD HEMATOLOGY ORDERABLES Performing Organization Address City/[facility] [place] [address] (ABNORMAL) Basic Metabolic Panel (non-fasting) (10/13/2018 1:25 PM EDT) P athologist Signature Glucose Lvl 299 (H) 65 - 199 [facility] mg/dL [facility] LABORATORY Comment: Diabetes: >=200 mg/dL plus symp toms BUN 20 10 - 20 mg/dL [facility] LABORATORY Creatinine 1.22 0.80 - 1.50 mg/dL [facility] LABORATORY Sodium 139 135 - 145 mmol/L [facility] LABORATORY Potassium 4.3 3.5 - 5.0 mmol/L [facility] LABORATORY Comment: Please note: ??Patients with WBC >100,00 0 may have falsely elevated Potassium levels. ??For accurate Potassium quantif ication in these patients send serum separator tube (gold top) for subsequent determinations. ??Contact the Clinical Chemistry Laboratory if there are any qu estions. Chloride 99 98 - 107 mmol/L [facility] LABORATORY CO2 24 22 - 31 mmol/L [facility] LABORATORY Anion Gap 16 (H) 5 - 15 mmol/L [facility] LABORATORY Calcium 8.9 8.5 - 10.5 mg/dL [facility] LABORATORY Estimated GFR 63 >=60 mL/min/1.73 m?? [facility] LABORATORY Comment: The eGFR was calculated using the CKD-EP I equation. As with all creatinine based estimates of kidney function, eGFR values calculated with the CKD-EPI equation are not accurate in patients wi th acute kidney failure, extremes of body mass or the acutely ill. http://[employer]/[facility]ULSAnkf eGFR 73 >=60 mL/min/1.73 m?? [facility] LABORATORY Comment: The eGFR was calculated using the CKD-EP I equation. As with all creatinine based estimates of kidney function, eGFR values calculated with the CKD-EPI equation are not accurate in patients wi th acute kidney failure, extremes of body mass or the acutely ill. http://[employer]/[facility]SAnkf Specimen Anatomical Collection Method Collection Time Receive d Time (Source) Location / / Volume Laterality Blood specimen 10/13/2018 1:25 PM 019 1:34 (specimen) EDT PM EDT Resulting Agency Comment Spec In Lab Asmita Dixon MD CHEMISTRY ORDERABLES Performing Organization Address City/State/[place] [address] (ABNORMAL) BLOOD GAS 2 VENOUS (10/13/2018 1:22 PM EDT) [facility] Method Time Signature pH Tip 7.24 7.32 - [facility] (Critical) 7.42 [facility] LABORATORY pCO2 Tip 61 41 - 51 [facility] (Critical) [facility] LABORATORY pO2 Tip 14 (L) 25 - 40 [facility] LABORATORY HCO3 Tip 25.5 mmol/L [facility] LABORATORY BE Tip -2.0 mmol/L [facility] LABORATORY Hgb Blood Gas 14.8 13.7 - [facility] 16.5 gm/dL [facility] LABORATORY O2HB Tip 16.6 % [facility] LABORATORY COHB Tip 0.7 % [facility] LABORATORY Comment: Nonsmokers: 0.5-1.5% COHB Smokers: Variable, but usually less than 10% Toxic: 20-30% COHB Lethal: Greater than 60% COHB METHB Tip 2.1 (H) <=1.5 % [facility] LABORATORY Na Whole Blood 138 135 - 145 mmol/L [facility] LABORATORY K Whole Blood 4.3 3.5 - 5.0 mmol/L [facility] LABORATORY Comment: Please note: Patients with WBC >100,000 may have falsely elevated Potassium levels. Contact the Clinical Chemistry L aboratory if there are any questions. ICa Whole Blood 1.17 1.15 - 1.33 mmol/L [facility] LABORATORY Comment: Note: ??Total bilirubin higher than 20 m g/dL may lead to falsely low ionized calcium. CL Whole Blood 99 98 - 107 mmol/L [facility] LABORATORY Gluc Whole Bld 302 (H) 65 - 199 mg/dL [facility] LABORATORY Comment: Diabetes: >=200 mg/dL plus symp toms Lactate WB 3.9 (H) 0.5 - 2.2 mmol/L [facility] LABORATORY BGas Source Venous [facility] LABORATORY Specimen Anatomical Collection Method Collection Time Receive d Time (Source) Location / / Volume Laterality Blood specimen 10/13/2018 1:22 PM 019 1:22 (specimen) EDT PM EDT Emergency Dept CHEMISTRY ORDERABLES Performing Organization Address City/State/[place] [address] documented in this encounter Visit Diagnoses Diagnosis Rupture of medial head of right gastrocn emius, initial encounter Suspected DVT (deep vein thrombosis) Acute venous embolism and thrombosis of unspecified deep vessels of lower extremity Closed displaced segmental fracture of s haft of right femur, initial encounter Closed fracture of neck of right femur, initial encounter Closed fracture of one rib of right side , initial encounter R femur fx s/p IMN 10/14/18 (Dr. Rich) Closed fracture of unspecified part of f emur Type 2 diabetes mellitus without complic ation, with long-term current use of insulin Closed displaced segmental fracture of s haft of right femur, initial encounter Closed fracture of one rib of right side , initial encounter documented in this encounter Admitting Diagnoses Diagnosis Femur fracture, right Closed fracture of unspecified part of f emur documented in this encounter Administered Medications Inactive Administered Medications - up to 3 most recent administrations Medication Order MAR Action Action Date Dose Rate Site acetaminophen (OFIRMEV) Given 10/13/2018 3:11 PM 1,000 mg 400 mL/hr injection 1,000 mg EDT 1,000 mg, Intravenous, at 400 mL/hr, ONCE, 1 dose, On Thu10/13/18 at 1500, Maximum dose of acetaminophen is 4000 mg from all sources in 24 hours., STAT acetaminophen (TYLENOL) tablet 1,000 mg Given 10/20/2018 12:32 PM EDT 1,000 mg 1,000 mg, Oral, EVERY 6 HOURS SCHEDULED, First dose on Thu10/13/18 at 1915, Until Discontinued, Should be used concomitantly if other analgesics are ordered. Do not exceed 4,000 mg in 24 hours, Routine Given 10/20/2018 5:05 AM EDT 1,000 mg Given 10/19/2018 5:50 PM EDT 1,000 mg bisacodyl (DULCOLAX) suppository 10 mg 10 mg, Rectal, DAILY PRN, Starting on Aleyda 10/14/18 at 0 908, Until Thu10/20/18 at 1629, Constipation, Administer if no bow el movement within 48 hours to achieve: (1) One bowel movement at least every 48 marga rs, AND (2) without straining. If multiple PRN bowel medications ordered, start wit h polyethylene glycol, then lactulose, then oral bisacodyl, then bisacodyl supposito ry, then magnesium citrate, then tap water enema. Multiple medications may be given concomitantly for constipation., Routine bisacodyl (DULCOLAX) suppository 10 mg Given 10/17/2018 5:31 PM EDT 10 mg 10 mg, Rectal, ONCE, 1 dose, On 10/17/18 at 1600, Routine ceFAZolin (ANCEF) 2 gram/100 mL infusion PgBk New Bag 10/13/2018 1:36 PM EDT 2 g 1 dose, Starting on Thu10/13/18 at 1335, Until Thu10/13/18 at 1446, ASMITA STEELE: cabinet override dextrose 50% intravenous solution 25-50 mL 25-50 mL (12.5-25 g), Intravenous, EVERY 1 HOUR PRN, S tarting on 10/16/18 at 1038, Until Thu10/20/18 at 1629, Low blood sugar, F or BG 50-70 mg/dL: Oral treatment preferred:?? If able to drink, give 120 mL Juice or Regular (not diet) soda OR If NPO, give 15 gram glucose 40% oral gel massaged into buccal mucosa OR if unconscious or uncooperative, give 12.5 gram (25 mL) Dextrose 50% IV OR, if no IV access, give 1 mg Glucagon IM. For BG less than 50 mg/dL: Oral treatment preferred:?? If able to drink, give 240 mL Juice or Regular (not diet) soda OR If NPO, give 30 gram glucose 40% oral gel m assaged in buccal mucosa OR if unconscious or uncooperative, give 25 gram (50 mL) D extrose 50% IV OR, if no IV access, give 1 mg Glucagon IM. Recheck BG in 30 minutes. May repeat juice, gel, dextrose or glucagon once per episode. To avoid ex travasation, push Dextrose 50% SLOWLY (3 mL over 1 minute) in a patent, running IV, preferably a c entral line. For persistent hypoglycemia, consider longer -acting treatment for the duration of the active insulin., Routine famotidine (PEPCID) tablet 20 mg Given 10/17/2018 8:28 AM EDT 20 mg 20 mg, Oral, 2 TIMES DAILY, First dose on Thu10/13/18 at 2100, Until Discontinued, If unable to take PO, may give IV, Routine Given 10/16/2018 8:48 PM EDT 20 mg Given 10/16/2018 8:05 AM EDT 20 mg fentaNYL (PF) 50mcg/mL injection Given 10/14/2018 3:04 PM EDT 25 mcg 50 mcg, Intravenous, PER TRAUMA ANALGESIC PROTOCOL, Starting on Thu10/13/18 at 1306, Until Thu10/15/18 at 1540, Pain, Every 5-15 minutes PRN, STAT Given 10/14/2018 2:51 PM EDT 25 mcg Given 10/14/2018 2:46 PM EDT 25 mcg glucagon (human recombinant) injection S olR 1 mg 1 mg, Intramuscular, EVERY 1 HOUR PRN, S tarting on 10/16/18 at 1038, Until Thu10/20/18 at 1629, Low blood sugar, For BG 50-70 mg/d L: Oral treatment preferred:?? If able to drink, give 120 mL Juice or Regular (not diet) soda OR If NPO, give 15 gram glucose 40% oral gel massaged into b uccal mucosa OR if unconscious or uncooperative, give 12.5 gram (25 mL) Dextrose 50% IV OR, if no IV access, give 1 mg Glucagon IM. For BG less than 50 mg/dL: Oral treatment preferred:?? If able to drink, give 240 mL Juice or Regular (not diet) soda OR If NPO, give 30 gram glucose 40% oral gel m assaged in buccal mucosa OR if unconscious or uncooperative, give 25 gram (50 mL) D extrose 50% IV OR, if no IV access, give 1 mg Glucagon IM. Recheck BG in 30 minutes. May repeat juice, gel, dextrose or glucagon once per episode. To avoid ex travasation, push Dextrose 50% SLOWLY (3 mL over 1 minute) in a patent, running IV, preferably a c entral line. For persistent hypoglycemia, consider longer -acting treatment for the duration of the active insulin., Routine glucose (GLUTOSE) 40% oral gel 15-30 g, Buccal, EVERY 30 MIN PRN, Starting on Sat 09/25 10/12 at 1038, Until Thu10/20/18 at 1629, Low blood sugar, For BG 50-70 mg/d L: Oral treatment preferred:?? If able to drink, give 120 mL Juice or Regular (not diet) soda OR If NPO, give 15 gram glucose 40% oral gel massaged into b uccal mucosa OR if unconscious or uncooperative, give 12.5 gram (25 mL) Dextrose 50% IV OR, if no IV access, give 1 mg Glucagon IM. For BG less than 50 mg/dL: Oral treatment preferred:?? If able to drink, give 240 mL Juice or Regular (not diet) soda OR If NPO, give 30 gram glucose 40% oral gel m assaged in buccal mucosa OR if unconscious or uncooperative, give 25 gram (50 mL) D extrose 50% IV OR, if no IV access, give 1 mg Glucagon IM. Recheck BG in 30 minutes. May repeat juice, gel, dextrose or glucagon once per episode. To avoid ex travasation, push Dextrose 50% SLOWLY (3 mL over 1 minute) in a patent, running IV, preferably a c entral line. For persistent hypoglycemia, consider longer -acting treatment for the duration of the active insulin. 1 tube contains 15 grams of glucose (n et weight of tube = 37.5 grams., Routine heparin 25,000 units in New Bag 10/19/2018 5:28 AM EDT 2,000 Units /hr 40 mL/hr dextrose 5% 500 mL infusion 0-5,000 Units/hr (0-100 mL/hr), Intravenous, CONTINUOUS, Starting on Thu10/15/18 at 1515, Until Thu10/19/18 at 1504, Begin infusion at 1,750 units per hr (15 units/kg/hr). MAX INITIAL infusion rate is 1,750 units/hr, , Target Heparin UFH Level (anti-Xa activity) = 0.3 - 0.7 IU/mL , , Start adjustment schedule 6 hours after starting infusion. , , If Heparin UFH Level is: , , - less than 0.1 IU/mL, increase rate by 450 units per hr (4 units/kg/hr) , - 0.1 - 0.29 IU/mL, increase rate by 250 units per hr (2 units/kg/hr) , - 0.3 - 0.7 IU/mL, No Change, - 0.71 - 0.85 IU/mL, decrease rate by 100 units per hr (1 units/kg/hr) , - 0.86 - 1.05 IU/mL, stop infusion for 30 minutes, then decrease rate by 250 units per hr (2 units/kg/hr) , - Greater than 1.05 IU/mL, stop infusion for 60 minutes, then decrease rate by 350 units per hour (3 units/kg/hr) , , Repeat Heparin UFH Level 6 hours after initiating heparin. Then 6 hours after each dose adjustment. When 2 consecutive Heparin UFH Level within target range of 0.3 - 0.7 IU/mL, change Heparin UFH Level to once every 24 hours with A.M. labs while on heparin. , , RN to order required Heparin UFH Level - Per Protocol, Routine New Bag 10/18/2018 5:50 PM EDT 2,000 Units/hr 40 mL/hr Rate/Dose Verify 10/18/2018 12:26 PM EDT 2,000 Units/hr 40 mL/hr HYDROmorphone (DILAUDID) 1 New Syringe/Cartridge 10/14/2018 2:16 PM E DT 50 mg mg/mL MARKETING ANALYST 50 mL Intravenous, MARKETING ANALYST ONLY, Starting on Thu10/13/18 at 1915, Until Thu10/15/18 at 1535, Recovery (Recovery-Hospital Unit) New Syringe/Cartridge 10/13/2018 7:30 PM EDT HYDROmorphone (DILAUDID) injection 0.5 m g Given 10/13/2018 6:25 PM EDT 0.5 mg 0.5 mg, Intravenous, ONCE, 1 dose, On Thu10/13/18 at 1831, STAT HYDROmorphone (DILAUDID) tablet 4 mg Given 10/20/2018 12:32 PM EDT 4 mg 4 mg, Oral, EVERY 4 HOURS PRN, Starting on Thu10/15/18 at 1535, Until Thu10/20/18 at 1629, Pain, Routine Given 10/20/2018 8:26 AM EDT 4 mg Given 10/19/2018 5:50 PM EDT 4 mg insulin detemir U-100 (LEVEMIR) VIAL Given 10/20/2018 8:31 AM ED T 15 Units injection 15 Units 15 Units, Subcutaneous, 2 TIMES DAILY, First dose on Thu10/18/18 at 1245, Until Discontinued, STAT Given 10/19/2018 8:33 PM EDT 15 Units Given 10/19/2018 8:50 AM EDT 15 Units insulin lispro (HumaLOG) VIAL injection Given 10/20/2018 12:33 P M EDT 4 Units 0-12 Units 0-12 Units, Subcutaneous, EVERY 4 HOURS SCHEDULED, First dose (after last modification) on Thu10/18/18 at 1600, Until Discontinued, Correction Factor 10 BG 140 - 160 Give 2 units BG 161 - 180 Give 4 units BG 181 - 200 Give 6 units BG 201 - 220 Give 8 units BG 221 - 240 Give 10 units BG greater than 240, give 12 units and recheck BG in 2 hours. If BG remains greater than 240, GIVE 12 units (no more than TWO times) & call for new basal insulin orders. If less than 240 after two hours, give no insulin and resume prior schedule., Routine Given 10/20/2018 8:31 AM EDT 6 Units Given 10/20/2018 4:22 AM EDT 8 Units insulin lispro (HumaLOG) VIAL injection 0-8 Given 09/25 1:42 PM EDT 3 Units Units 0-8 Units, Subcutaneous, ONCE, 1 dose, On Thu10/18/18 at 1245, MEAL ASSOCIATED Give 1 unit for every 10 grams carbohydrate. Hold if not eating, Routine insulin lispro (HumaLOG) VIAL injection 0-8 Given 09/25 1:01 PM EDT 4 Units Units 0-8 Units, Subcutaneous, 3 TIMES DAILY WITH MEALS, First dose on Thu10/18/18 at 1700, Until Discontinued, MEAL ASSOCIATED Give 1 unit for every 10 grams carbohydrate. Hold if not eating, Routine Given 10/20/2018 8:31 AM EDT 6 Units Given 10/19/2018 5:50 PM EDT 6 Units insulin lispro (HumaLOG) VIAL injection 1-4 Given 09/25 3:16 PM EDT 4 Units Units 1-4 Units, Subcutaneous, EVERY 4 HOURS SCHEDULED, First dose on [place] 10/14/18 at 1345, Until Discontinued, CORRECTION BOLUS Sensitive to insulin lean patient or total daily dose of all insulin needed to achieve glycemic control less than 30 units BG 140 - 160 Give 1 unit BG 161 - 200 Give 2 units BG 201 - 240 Give 3 units BG greater than 240, give 4 units and recheck BG in 2 hours. If less than 240 after two hours, give no insulin and resume prior schedule. If BG remains greater than 240, repeat 4 units (no more than three times) & call for new basal insulin orders. DO NOT hold if NPO, unless specifically told to do so., Routine Given 10/15/2018 12:04 PM EDT 4 Units Given 10/15/2018 8:02 AM EDT 3 Units insulin lispro (HumaLOG) VIAL injection 2-8 Given 09/25 7:46 AM EDT 6 Units Units 2-8 Units, Subcutaneous, 3 TIMES DAILY BEFORE MEALS, First dose on Thu10/15/18 at 1630, Until Discontinued, CORRECTION BOLUS Moderate BG 140 - 160 Give 2 units BG 161 - 200 Give 4 units BG 201 - 240 Give 6 units BG greater than 240, give 8 units and recheck BG in 2 hours.If BG less than 240 after two hours, give no insulin and resume prior schedule. If BG remains greater than 240, repeat 8 units (no more than three times) & call for new basal insulin orders. DO NOT hold if NPO, unless specifically told to do so., Routine Given 10/15/2018 5:28 PM EDT 6 Units insulin lispro (HumaLOG) VIAL injection Given 10/18/2018 12:23 P M EDT 9 Units 3-12 Units 3-12 Units, Subcutaneous, EVERY 4 HOURS SCHEDULED, First dose on Thu10/16/18 at 1200, Until Discontinued, CORRECTION BOLUS Resistant to insulin obese patient or TDD (total daily dose of all insulin needed to achieve glycemic control) greater than 60 units BG 140 - 160 Give 3 units BG 161 - 200 Give 6 units BG 201 - 240 Give 9 units BG greater than 240, give 12 units and recheck BG in 2 hours. If less than 240 after two hours, give no insulin and resume prior schedule. If BG remains greater than 240, repeat 12 units (no more than three times) & call for new basal insulin orders. DO NOT hold if NPO, unless specifically told to do so., Routine Given 10/18/2018 8:26 AM EDT 6 Units Given 10/18/2018 3:37 AM EDT 6 Units iohexol (OMNIPAQUE) 350 mg/mL solution 0-200 Given 2:08 PM EDT 65 mLs mL 0-200 mL, Intravenous, ONCE PRN, 1 dose, Starting on Thu10/15/18 at 1407, Until Thu10/15/18 at 1408, Per Protocol, Warning Vesicant/Irritant Medication , Radiology Contrast, Routine iohexol (OMNIPAQUE) 350 mg/mL solution 120 Given 10/13/2018 2:00 PM EDT 120 mLs mL 120 mL, Intravenous, ONCE PRN, 1 dose, Starting on Thu10/13/18 at 1405, Until Thu10/13/18 at 1400, Per Protocol, Warning Vesicant/Irritant Medication , Routine iohexol (OMNIPAQUE) 350 mg/mL solution 150 Given 10/13/2018 4:47 PM EDT 108 mLs mL 150 mL, Intra-arterial, ONCE, 1 dose, On Thu10/13/18 at 1718, Warning Vesicant/Irritant Medication , Angio/IR (Intra-Procedure), Routine lactated ringers infusion New Bag 10/15/2018 11:55 PM EDT 100 mL/hr 100 mL/hr 100 mL/hr, Intravenous, CONTINUOUS, Starting on Thu10/15/18 at 1300, Until Thu10/16/18 at 0625 New Bag 10/15/2018 1:07 PM EDT 100 mL/hr 100 mL/hr lactulose (CHRONULAC) 20 gram/30 mL oral Given 10/17/2018 5:31 P M EDT 20 g solution 20 g 20 g, Oral, ONCE, 1 dose, On Thu10/17/18 at 1600, Routine lidocaine-EPINEPHrine 1 %-1:100,000 injection Given 7:38 PM EDT 20 mLs 20 mL 20 mL, Intradermal, ONCE, 1 dose, On Thu10/13/18 at 1915, Warning Vesicant/Irritant Medication , STAT melatonin tablet 6 mg Given 10/19/2018 8:32 PM EDT 6 mg 6 mg, Oral, NIGHTLY, First dose on 10/16/18 at 2100, Until Discontinued, Routine Given 10/18/2018 8:29 PM EDT 6 mg Given 10/17/2018 9:12 PM EDT 6 mg polyethylene glycol (MIRALAX) packet 17 g Given 10/16/2018 8:05 AM EDT 17 g 17 g, Oral, DAILY, First dose on [place]ley[place] 10/14/18 at 0930, Until Discontinued, Administer if no bowel movement within 48 hours to achieve: (1) One bowel movement at least every 48 hours, AND (2) without straining. If multiple PRN bowel medications ordered, start with polyethylene glycol, then lactulose, then oral bisacodyl, then bisacodyl suppository, then magnesium citrate, then tap water enema. Multiple medications may be given concomitantly for constipation., Routine Given 10/14/2018 4:43 PM EDT 17 g polyethylene glycol (MIRALAX) packet 17 g 17 g, Oral, 2 TIMES DAILY, First dose (a fter last modification) on [place] 10/17/18 at 2100, Until Discontinued, Administer if no bowel movem ent within 48 hours to achieve: (1) One bowel movement at least every 48 hours, AND (2) without straining. If multiple PRN bowel medications ordered, start with polyethylene glycol, then lactulose, then oral bisacodyl, then bis acodyl suppository, then magnesium citrate, then tap water enema. Multiple medications may be give n concomitantly for constipation., Routine potassium chloride (K-DUR/KLOR-CON) extended Given 5:10 PM EDT 20 mEq release tablet 20 mEq 20 mEq, Oral, ONCE, 1 dose, On 10/18/18 at 1430, 20 mEq tablet may be dissolved in water for administration, Routine rivaroxaban (XARELTO) tablet 15 mg Given 10/20/2018 8:26 AM EDT 15 mg 15 mg, Oral, 2 TIMES DAILY, First dose on Thu10/19/18 at 1200, Until Discontinued, Routine Given 10/19/2018 8:33 PM EDT 15 mg Given 10/19/2018 12:11 PM EDT 15 mg senna-docusate (PERICOLACE) 8.6-50 mg per Given 2018 8:26 AM EDT 2 tablets tablet 2 tablet 2 tablet, Oral, 2 TIMES DAILY, First dose on Aleyda 10/14/18 at 0900, Until Discontinued, Routine Given 10/19/2018 8:33 PM EDT 2 tablets Given 10/19/2018 8:07 AM EDT 2 tablets sodium chloride 0.9 % flush 5 mL Given 10/20/2018 8:33 AM EDT 5 mLs 5 mL, Intravenous, 2 TIMES DAILY, First dose on Thu10/13/18 at 2100, Until Discontinued, Recovery (Recovery-Hospital Unit), Routine Given 10/19/2018 8:40 PM EDT 5 mLs Given 10/19/2018 8:08 AM EDT 5 mLs sodium chloride 0.9% infusion New Bag 10/15/2018 6:03 AM EDT 1,000 mLs 100 mL/hr 1,000 mL, at 100 mL/hr, Intravenous, CONTINUOUS, Starting on Thu10/13/18 at 1915, Until Thu10/15/18 at 0848, Recovery (Recovery[facility]Hospital Unit) Continued Bag 10/14/2018 2:18 PM EDT 1,000 mLs 100 mL/hr New Bag 10/14/2018 5:17 AM EDT 1,000 mLs 100 mL/hr traZODone (DESYREL) tablet 50 mg Given 10/17/2018 12:13 AM EDT 50 mg 50 mg, Oral, ONCE, 1 dose, On Thu10/17/18 at 0000, Routine traZODone (DESYREL) tablet 50 mg Given 10/17/2018 11:22 PM EDT 50 mg 50 mg, Oral, ONCE, 1 dose, On Thu10/17/18 at 2200, Routine traZODone (DESYREL) tablet 50 mg Given 10/18/2018 11:05 PM EDT 50 mg 50 mg, Oral, ONCE, 1 dose, On Thu10/18/18 at 2030, Routine traZODone (DESYREL) tablet 50 mg Given 10/19/2018 9:02 PM EDT 50 mg 50 mg, Oral, ONCE, 1 dose, On Thu10/19/18 at 2115, Routine documented in this encounter Active and Recently Administered Medications Times are shown in EDT. Scheduled Medication Order 10/18/2018 10/19/2018 10/20/2018 acetaminophen (TYLENOL) tablet 1,000 mg 0600 (Not Give n - Provider: Jabier Sheets RN - Reason: Patient/family refused)1223 (Given - Provider: Petra Galdamez RN)1710 (Given - Provider: Petra Galdamez RN)2305 (Given - Provider: Jabier Sheets RN) 0530 (Given - Provider: Jabier yañez RN)1211 (Given - Provider: Petra Galdamez RN)1750 (Given - Provider: Petra Galdamez RN) 0000 (Not Given - Provider: Chandu Hendrickson RN - Reason: Patient/family refused)0505 (Given - Provider: Chandu Hendrickson RN)1232 (Given - Provider: Trinh Hermosillo, MISA) 1,000 mg, Oral, EVERY 6 HOURS SCHEDULED, First dose on Thu10/13/18 at 1915, Until Discontinued, Should be used concomitantly if other analgesics are ordered. Do not exceed 4,000 mg in 24 hours, Routine insulin detemir U-100 (LEVEMIR) VIAL injection 15 Unit s 1342 (Given - Provider: Petra Galdamez RN)2030 (Given - Provider: Jabier Sheets RN) 0850 (Given - Provider: Petra Galdamez RN)2032 (Given - Provider: Chandu Hendrickson RN) 0831 (Given - Provider: Trinh Hermosillo RN) 15 Units, Subcutaneous, 2 TIMES DAILY, F irst dose on Thu10/18/18 at 1245, Until Discontinued, STAT insulin lispro (HumaLOG) VIAL injection 0-12 Units(Alida orellana Group 1) 1711 (Given - Provider: Petra Galdamez RN - Comment: bg 143)203 (Given - Provider: Jabier Sheets RN - Comment: [id number])2305 (Given - Provider: Jabier Sheets RN - Comment: [id number]@2305) 0353 (Given - Provider: Jabier Sheets RN - Comment: [id number]@0350)0800 (Not Given - Provider: Petra Galdamez RN - Reason: Order parameters not met - Comment: bg 135)1212 (Given - Provider: Petra Galdamez RN - Comment: bg 175) 0000 (Not Given - Provider: Chandu Hendrickson RN - Reason: Patient/family refused - Comment: pt did not want to be woken)0422 (Given - Provider: Chandu Hendrickson RN)0831 (Given - Provider: Trinh Hermosillo RN)1233 (Given - Provider: Trinh Hermosillo RN) 0-12 Units, Subcutaneous, EVERY 4 HOURS SCHEDULED, First dose on Thu10/18/18 at 1600, Until Discontinued, Correction Factor 10 BG 140 - 160 Give 2 units BG 161 - 180 Give 4 units BG 181 - 200 Give 6 uni 1615 (Given - Provider: Petra Galdamez RN - Comment: bg 166)203 (Given - Provider: Chandu Hendrickson RN) ts BG 201 - 220 Give 8 units BG 221 - 24 0 Give 10 units BG greater than 240, give 12 units and recheck BG in 2 hours. If BG remains greater than 240, GIVE 12 units (no more than TWO times) & call fo r new basal insulin orders. If less than 240 after two hours, give no insulin and resume prior schedule., Routine insulin lispro (HumaLOG) VIAL injection 0-8 Units (COM PLETED) 1342 (Given - Provider: Petra Galdamez RN) 0-8 Units, Subcutaneous, ONCE, 1 dose, M on 10/18/18 at 1245, [employer] Give 1 unit for every 10 grams carbohydrate. Hold if not eating, Routine insulin lispro (HumaLOG) VIAL injection 0-8 Units 1749 (Given - Provider: Petra Galdamez RN) 0850 (Given - Provider: Petra Galdamez RN)1254 (Given - Provider: Petra Galdamez RN)1750 (Given - Provider: Petra Galdamez RN) 0831 (Given - Provider: Trinh Hermosillo RN)1301 (Given - Provider: Trinh Hermosillo RN) 0-8 Units, Subcutaneous, 3 TIMES DAILY W ITH MEALS, First dose on Thu10/18/18 at 1700, Until Discontinued, [employer] Give 1 unit for every 10 grams carbohydrate. Hold if not eating, Routine insulin lispro (HumaLOG) VIAL injection 3-12 Units (CA NCELED) 0337 (Given - Provider: Jabier Sheets RN - Comment: [id number])0826 (Given - Provider: Petra Galdamez RN - Comment: bg 184)1223 (Given - Provider: Petra Galdamez RN - Comment: bg 218) 3-12 Units, Subcutaneous, EVERY 4 HOURS SCHEDULED, First dose on 10/16/18 at 1200, Until Discontinued, CORRECTION BOLUS Resistant to insulin obese patient or TDD (total daily dose of all insulin needed to achieve glycemic control) grea ter than 60 units BG 140 - 160 Give 3 units BG 161 - 200 Give 6 units BG 201 - 240 Give 9 units BG greater than 240, give 12 units and recheck BG in 2 hours. If l ess than 240 after two hours, give no in sulin and resume prior schedule. If BG remains greater than 240, repeat 12 units (no more than three times) & call for new basal insulin orders. DO NOT hold if NPO, unless specifically told to do so., Routine melatonin tablet 6 mg 2028 (Given - Provider: Jabier smart, MISA) 2031 (Given - Provider: Chandu Hendrickson, MISA) 6 mg, Oral, NIGHTLY, First dose on Sat at 2100, Until Discontinued, Routine polyethylene glycol (MIRALAX) packet 17 g 0900 (Not Gi tip - Provider: Petra Galdamez RN - Reason: Patient/family refused)2100 (Not Given - Provider: Jabier Sheets RN - Reason: Patient/family refused) 0900 (Not Given - Provider: Petra Galdamez RN - Reason: Patient/family refused)2100 (Not Given - Provider: Chandu Hendrickson RN - Reason: Patient/family refused) 0900 (Not Given - Provider: Trinh Hermosillo RN - Reason: Patient/family refused) 17 g, Oral, 2 TIMES DAILY, First dose on 10/17/18 at 2100, Until Discontinued, Administer if no bowel movement within 48 hours to achieve: (1) One bowel movement at least every 48 hours, AND (2) with out straining. If multiple PRN bowel med ications ordered, start with polyethylene glycol, then lactulose, then oral bisacodyl, then bisacodyl suppository, then magnesium citrate, then tap water enema. M ultiple medications may be given concomitantly for constipation. , Routine potassium chloride (K-DUR/KLOR-CON) extended release t ablet 20 mEq (COMPLETED) 1709 (Given - Provider: Petra Galdamez RN) 20 mEq, Oral, ONCE, 1 dose, 10/18/19 at 1430, 20 mEq tablet may be dissolved in water for administration, Routine rivaroxaban (XARELTO) tablet 15 mg 1211 (Given - Provider: Petra Galdamez RN)2032 (Given - Provider: Chandu Hendrickson, MISA) 08 (Given - Provider: Trinh Hermosillo, MISA) 15 mg, Oral, 2 TIMES DAILY, First dose o n Thu10/19/18 at 1200, Until Discontinued, Routine senna-docusate (PERICOLACE) 8.6-50 mg per tablet 2 tab let 0826 (Given - Provider: Petra Galdamez RN)2028 (Given - Provider: Jabier Sheets RN) 08 (Given - Provider: Petra Galdamez RN)2032 (Given - Provider: Chandu Hendrickson, MISA) 08 (Given - Provider: Trinh Hermosillo, MISA) 2 tablet, Oral, 2 TIMES DAILY, First dos e on Thu10/14/18 at 0900, Until Discontinued, Routine sodium chloride 0.9 % flush 5 mL 0828 (Given - Provide r: Petra Galdamez RN)2099 (Not Given - Provider: Jabier Sheets RN - Reason: See comment - Comment: iv infusing) 0808 (Given - Provider: Petra Galdamez RN)2039 (Given - Provider: Chandu Hendrickson, MISA) 0833 (Given - Provider: Trinh Hermosillo, MISA) 5 mL, Intravenous, 2 TIMES DAILY, First dose on Thu10/13/18 at 2100, Until Discontinued, Recovery (Recovery-Hospital Unit), Routine traZODone (DESYREL) tablet 50 mg (COMPLETED) 2304 (Giv en - Provider: Jabier Sheets RN) 50 mg, Oral, ONCE, 1 dose, Thu10/18/18 at 2030, Routine traZODone (DESYREL) tablet 50 mg (COMPLETED) 2101 (Given - Provider: Chandu Hendrickson RN) 50 mg, Oral, ONCE, 1 dose, Thu10/19/18 at 2115, Routine Continuous Medication Order 10/18/2018 10/19/2018 10/20/2018 heparin 25,000 units in dextrose 5% 500 mL infusion (E XPIRED) 0657 (New Bag - Provider: Jabier Sheets RN)0800 (Rate/Dose Verify - Provider: Petra Galdamez RN)1226 (Rate/Dose Verify - Provider: Petra Galdamez RN)1750 (New Bag - Provider: Petra Galdamez RN) 0528 (New Bag - Provider: Jabier smart RN)1502 (Stopped - Provider: Petra Galdamez RN) 0-5,000 Units/hr (0-100 mL/hr), Intraven ous, at 0-100 mL/hr, CONTINUOUS, Starting Thu10/15/18 at 1515, Until Thu10/19/18 at 1504, Begin infusion at 1,750 units per hr (15 units/kg/hr). MAX INITIAL infus ion rate is 1,750 units/hr, , Target Hep rod UFH Level (anti-Xa activity) = 0.3 - 0.7 IU/mL , , Start adjustment schedule 6 hours after starting infusion. , , If Heparin UFH Level is: , , - less than 0. 1 IU/mL, increase rate by 450 units per hr (4 units/kg/hr) , - 0.1 - 0.29 IU/mL, increase rate by 250 units per hr (2 units/kg/hr) , - 0.3 - 0.7 IU/mL, No Change, - 0.71 - 0.85 IU/mL, decrease rate by 1 00 units per hr (1 units/kg/hr) , - 0.86 - 1.05 IU/mL, stop infusion for 30 minutes, then decrease rate by 250 units per hr (2 units/kg/hr) , - Greater than 1.05 IU/mL, stop infusion for 60 minutes, the n decrease rate by 350 units per hour (3 units/kg/hr) , , Repeat Heparin UFH Level 6 hours after initiating heparin. Then 6 hours after each dose adjustment. When 2 consecutive Heparin UFH Level within target range of 0.3 - 0.7 IU/mL, change Heparin UFH Level to once every 24 hours with A.M. labs while on heparin. , , RN to order required Heparin UFH Level - Per Protocol, Routine PRN Medication Order 10/18/2018 10/19/2018 10/20/2018 bisacodyl (DULCOLAX) suppository 10 mg 10 mg, Rectal, DAILY PRN, Starting Aleyda at 0908, Until 10/20/18 at 1629, Constipation, Administer if no bowel movement within 48 hours to achieve: (1) One bowel movement at least every 48 hour s, AND (2) without straining. If multipl e PRN bowel medications ordered, start with polyethylene glycol, then lactulose, then oral bisacodyl, then bisacodyl suppository, then magnesium citrate, then tap water enema. Multiple medications may b e given concomitantly for constipation., Routine dextrose 50% intravenous solution 25-50 mL(Linked Group 2) 25-50 mL (12.5-25 g), Intravenous, EVERY 1 HOUR PRN, Starting 10/16/18 at 1038, Until Thu10/20/18 at 1629, Low blood sugar, For BG 50-70 mg/dL: Oral treatment preferred:?? If able to drink, give 1 20 mL Juice or Regular (not diet) soda O R If NPO, give 15 gram glucose 40% oral gel massaged into buccal mucosa OR if unconscious or uncooperative, give 12.5 gram (25 mL) Dextrose 50% IV OR, if no IV ac cess, give 1 mg Glucagon IM. For BG l ess than 50 mg/dL: Oral treatment preferred:?? If able to drink, give 240 mL Juice or Regular (not diet) soda OR If NPO, give 30 gram glucose 40% oral gel massage d in buccal mucosa OR if unconscious or uncooperative, give 25 gram (50 mL) Dextrose 50% IV OR, if no IV access, give 1 mg Glucagon IM. Recheck BG in 30 minutes. May repeat juice, gel, dextrose or glu cagon once per episode. To avoid extra vasation, push Dextrose 50% SLOWLY (3 mL over 1 minute) in a patent, running IV, preferably a central line. For persistent hypoglycemia, consider longer-acting treatment for the duration of the active insulin., Routine glucagon (human recombinant) injection SolR 1 mg(Linked Group 2) 1 mg, Intramuscular, EVERY 1 HOUR PRN, S tarting 10/16/18 at 1038, Until Thu10/20/18 at 1629, Low blood sugar, For BG 50-70 mg/dL: Oral treatment preferred:?? If able to drink, give 120 mL Juice or Regular (not diet) soda OR If NPO, give 15 gram glucose 40% oral gel massaged into buccal mucosa OR if unconscious or uncooperative, give 12.5 gram (25 mL) Dextrose 50% IV OR, if no IV access, give 1 m g Glucagon IM. For BG less than 50 mg /dL: Oral treatment preferred:?? If able to drink, give 240 mL Juice or Regular (not diet) soda OR If NPO, give 30 gram glucose 40% oral gel massaged in buccal mu cosa OR if unconscious or uncooperative, give 25 gram (50 mL) Dextrose 50% IV OR, if no IV access, give 1 mg Glucagon IM. Recheck BG in 30 minutes. May repeat juice, gel, dextrose or glucagon once per episode. To avoid extravasation, push Dextrose 50% SLOWLY (3 mL over 1 minute) in a patent, running IV, preferably a central line. For persistent hypoglycemia, consider longer-acting treatment for the duration of the active insulin., Routine glucose (GLUTOSE) 40% oral gel(Linked Group 2) 15-30 g, Buccal, EVERY 30 MIN PRN, Start ing 10/16/18 at 1038, Until Thu10/20/18 at 1629, Low blood sugar, For BG 50-70 mg/dL: Oral treatment preferred:?? If able to drink, give 120 mL Juice or Reg ular (not diet) soda OR If NPO, give 15 gram glucose 40% oral gel massaged into buccal mucosa OR if unconscious or uncooperative, give 12.5 gram (25 mL) Dextrose 50% IV OR, if no IV access, give 1 mg Gl ucagon IM. For BG less than 50 mg/dL: Oral treatment preferred:?? If able to drink, give 240 mL Juice or Regular (not diet) soda OR If NPO, give 30 gram glucose 40% oral gel massaged in buccal mucosa OR if unconscious or uncooperative, giv e 25 gram (50 mL) Dextrose 50% IV OR, if no IV access, give 1 mg Glucagon IM. Recheck BG in 30 minutes. May repeat juice, gel, dextrose or glucagon once per epi sode. To avoid extravasation, push Dex trose 50% SLOWLY (3 mL over 1 minute) in a patent, running IV, preferably a central line. For persistent hypoglycemia, consider longer-acting treatment for the duration of the active insulin. 1 tube contains 15 grams of glucose (net weight of tube = 37.5 grams., Routine HYDROmorphone (DILAUDID) tablet 4 mg 0825 (Given - Pro vider: Petra Galdamez, MISA) 0156 (Given - Provider: Jabier yañez RN)0807 (Given - Provider: Petra Galdamez, RN)1211 (Given - Provider: Petra Galdamez, RN)1750 (Given - Provider: Petra Galdamez, MISA) 0826 (Given - Provider: Trinh Hermosillo, MISA)1232 (Given - Provider: Trinh Hermosillo, MISA) 4 mg, Oral, EVERY 4 HOURS PRN, Starting Thu10/15/18 at 1535, Until Thu10/20/18 at 1629, Pain, Routine lidocaine (XYLOCAINE) 10 mg/mL (1 %) injection 3 mg 3 mg (0.3 mL), Subcutaneous, ONCE PRN, 1 dose, Starting Thu10/13/18 at 1845, Until Thu10/20/18 at 1629, for discomfort with PIV insertion, Recovery (Recovery-Hospital Unit), Routine sodium chloride 0.9 % flush 5-20 mL 5-20 mL, Intravenous, EVERY 1 MIN PRN, S tarting Thu10/13/18 at 1845, Until Thu10/20/18 at 1629, flush, Flush pertains to all indwelling lines. Flush per protocol found in the job aid using the link prov ided on this medication record., Recovery ([facility]overy[facility]ospital Uni t), Routine Linked Groups Order Group 1: POCT Fingerstick Glucose (CANCELED) Routine, EVERY 4 HOURS, First occurrence on Thu10/18/18 at 1600, Until Specified
Consider choosing EVERY 4 HOURS as frequency for: - Type 1 Diabetes - At least 24 hours after coming off an insu alida drip - At least 24 hours after admis larry for DKA - Hypoglycemia unawareness - Patients who are otherwise unstable Select the same frequency for the correction bolus insulin order And insulin lispro (HumaLOG) VIAL injection 0-12 UnitsJump to med 0-12 Units, Subcutaneous, EVERY 4 HOURS SCHEDULED, First dose on 10/18/18 at 1600, Until Discontinued
Correction Factor 10 BG 140 - 160 Give 2 units BG 161 - 180 Give 4 un its BG 181 - 200 Give 6 units &nbs p;BG 201 - 220 Give 8 units BG 221 - 240 Give 10 units BG greater than 240, give 12 units and recheck BG in 2 hours. If BG remains great er than 240, GIVE 12 units (no more than TWO times) & call for new basal insulin orders. If less than 240 after two hours, give no insulin and resume prior schedule.
Routine Group 2: glucose (GLUTOSE) 40% oral gelJump to med 15-30 g, Buccal, EVERY 30 MIN PRN, Start ing 10/16/18 at 1038, Until 10/20/18 at 1629, Low blood sugar
For BG 50-70 mg/dL: Oral treatment preferred:?? If able to drink, give 120 mL Juic e or Regular (not diet) soda OR If NPO, give 15 gram glucose 40% oral gel massaged into buccal mucosa OR if unconscious or uncooperative, give 12.5 gram (25 mL) Dextrose 50% IV OR, if no IV access, give 1 mg Glucagon IM. For BG less than 50 mg/dL: Oral treatment preferred:?? If able to drink, give 240 mL Juice or Regular (not diet) soda OR If NPO, give 30 gram glucose 40% oral gel massage d in buccal mucosa OR if unconscious or uncooperative, give 25 gram (50 mL) Dextrose 50% IV OR, if no IV access, give 1 mg Glucagon IM. Recheck BG in 30 minutes. May repeat juice, gel, dextro se or glucagon once per episode. * *To avoid extravasation, push Dextrose 50% SLOWLY (3 mL over 1 minute) in a patent, running IV, preferably a central line. For persistent hypogly cemia, consider longer-acting treatment for the duration of the active insulin. 1 tube contains 15 grams of glucose (net weight of tube = 37.5 grams.
Routine Or dextrose 50% intravenous solution 25-50 mLJump to med 25-50 mL (12.5-25 g), Intravenous, EVERY 1 HOUR PRN, Starting 10/16/18 at 1038, Until 10/20/18 at 1629, Low blood sugar
For BG 50-70 mg/dL: Oral treatment preferred:?? If able to drink , give 120 mL Juice or Regular (not diet ) soda OR If NPO, give 15 gram glucose 40% oral gel massaged into buccal mucosa OR if unconscious or uncooperative, give 12.5 gram (25 mL) Dextrose 50% IV OR, if no IV access, give 1 mg Glucagon IM. &nb sp; For BG less than 50 mg/dL: Oral treatment preferred:?? If able to drink, give 240 mL Juice or Regular (not diet) soda OR If NPO, give 30 gram glucose 40 % oral gel massaged in buccal mucosa OR if unconscious or uncooperative, give 25 gram (50 mL) Dextrose 50% IV OR, if no IV access, give 1 mg Glucagon IM. Recheck BG in 30 minutes. May repeat juice, gel, dextrose or glucagon once pe r episode. To avoid extravasation, push Dextrose 50% SLOWLY (3 mL over 1 minute) in a patent, running IV, preferably a central line. For persistent hypoglycemia, consider longer -acting treatment for the duration of the active insulin.
Routine Or glucagon (human recombinant) injection SolR 1 mgJump to med 1 mg, Intramuscular, EVERY 1 HOUR PRN, S tarting 10/16/18 at 1038, Until 10/20/18 at 1629, Low blood sugar
For BG 50-70 mg/dL: Oral treatment preferred:?? If able to drink, give 120 mL Juice or Regular (not diet) soda OR If N PO, give 15 gram glucose 40% oral gel massaged into buccal mucosa OR if unconscious or uncooperative, give 12.5 gram (25 mL) Dextrose 50% IV OR, if no IV access, give 1 mg Glucagon IM. For BG l ess than 50 mg/dL: Oral treatment preferred:?? If able to drink, give 240 mL Juice or Regular (not diet) soda OR If NPO, give 30 gram glucose 40% oral gel mas saged in buccal mucosa OR if unconscious or uncooperative, give 25 gram (50 mL) Dextrose 50% IV OR, if no IV access, give 1 mg Glucagon IM. Recheck BG in 30 minutes. May repeat juice, gel, de xtrose or glucagon once per episode. &nb sp;To avoid extravasation, push Dextrose 50% SLOWLY (3 mL over 1 minute) in a patent, running IV, preferably a central line. For persistent hyp oglycemia, consider longer-acting treatm ent for the duration of the active insulin.
Routine documented in this encounter Care Teams Shake Out Worker Relationship Specialty Start Date End Date Audra Singletary, MARY LOU PCP - General 03/14/[address] [place] [id number] documented as of this encounter
--- OUTSIDE RECORDS SUMMARY | 2022-02-27 12:54 | XMS_ITS | Encounter Summary ---
:1955 Author Organization [facility] [place] [address] Care Team Providers Name Role Phone Unknown Primary Care Provider Unavailable Reason for Visit Reason Comments Skin Check Encounter Details Date Type Department Care Team Description 08/26/2013 Office Visit Dermatology at [facility] Jimena Robles MD History of melanoma excision (Primary Dx ); [facility] Blue nevus; [address] Seborrheic keratosis; [place] [address] [facility] Seborrheic keratosis, inflam ed [phone] [address] [place], [place] [address] Social History Tobacco Use Types Packs/Day Years Used Date Never Smoker Smokeless Tobacco: Never Used Alcohol Use Standard Drinks/Week Comments No 0 (1 standard drink = 0.6 oz pure alcoho l) Sex Assigned at Date Recorded Not on file documented as of this encounter Progress Notes Rodney Robles MD - 08/31/2013 3:08 PM EST I directly supervised Dr. Lazo in the care of this patient. I saw and evaluated this patient with Dr. Lazo. She presented the history and physical exam details to me, then we saw the patient together and I confirmed these findings. I agree with details as written. My physical examination confirms Dr. Lazo's findings. The assessment and plan were formulated in d iscussion with me at the time of visit and I agree with them as documented. RODNEY ROBLES MD Staff Physician Heydi Lazo MD - 08/26/2013 8:41 AM EST DERMATOLOGY New Patient or Consult Note Date of service: 08/26/2013 Prashant Diaz : 1955 Provider: Rodney Robles MD Dermatology Resident: Heydi Lazo MD, MPH SKIN HISTORY: ?? 11/1996: thin melanoma excised from the posterior aspect of right arm: Superficial spreading malignant melanoma, Damon's level III, Breslow's depth of invasion 0.73 mm, shave biopsy of right arm. ?? Dermatofibroma Chief Complaint: Full skin check HPI Prashant Diaz is a 58 y.o. year old male. This is an established patient, last seen by Dr. Robels in 2007. He is here today because his noticed a new mole on his back. He denies any bleeding, pruritus or pain at the site. He is unsure if this lesion has changed in size or color due to its location. He has a remote history of melanoma (1996) on his right upper arm. He predominantly works outside,but denies wearing sunscreen (he admits to having sunscreen in his trunk, but forgets to put it on).He does wear a hat while outdoors. He is otherwise healthy. PROBLEM LIST: Patient Active Problem List Diagnosis Code ??? Rupture of medial head of gastrocnemius 844.8 MEDS: No current outpatient prescriptions on file prior to visit. 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 EXAM General: NAD, pleasant, cooperative Skin: Examination of skin from the waist up was performed. This includes examination of the skin of the face, ears, neck, chest, axillae, left and right upper extremities, hands, back, and abdomen. Genitalia were not examined. Significant findings: 1. Multiple 0.4-0.5 cm brown warty papules with waxy, stuck-on appearance on upper back. Milia-like cysts, comedone-like openings and/or fissuring on dermoscopy. 2. 0.5 cm blue/andrade evenly-pigmented papule on left mid forearm. 3. 0.5 cm x 0.7 cm flesh-colored scaly papule on left upper mid back. 4. 10.0 cm scar from previous melanoma excision on right lateral upper arm. No evidence of recurrence. 5. No worrisome pigmented lesions noted on exam. ASSESSMENT/PLAN: 1. Seborrheic Keratoses: upper back Educated on the benign nature of SKs and reassured. Will continue to monitor for any changes. 2. Blue Nevus: left mid forearm Patient reassured of benign nature. Will continue to monitor. 3. Inflamed Seborrheic Keratosis: left upper mid back Patient reassured of benign nature. Since the lesion is currently asx, no treatment indicated today.Will offer treatment with LN2 if it becomes bothersome. 4. Melanoma Scar: right lateral upper arm No evidence of recurrence. No worrisome pigmented lesions noted on exam. Discussed importance of sunprotection, sun avoidance strategies, protective clothing, and sunscreen use with at least SPF 30. RTC: 1 year for full skin exam. Instructed to call with questions/concerns. Note Initiated by: SALLY TABOR MD, MPH Dermatology Resident, PGY2 Rodney Robles MD Section of Dermatology [facility] documented in this encounter Plan of Treatment Upcoming Encounters Date Type Specialty Care Team Description 04/15/2022 Office Visit Dermatology July German MD [facility] [address] [place] [address] (Wo rk) documented as of this encounter Visit Diagnoses Diagnosis History of melanoma excision - Primary Personal history of surgery to other org ans Blue nevus NOS Seborrheic keratosis Other seborrheic keratosis Seborrheic keratosis, inflamed Inflamed seborrheic keratosis documented in this encounter Care Teams Change Lead Relationship Specialty Start Date End Date Unknown PCP - General 08/26/13 03/13/15 None documented as of this encounter
--- OUTSIDE RECORDS SUMMARY | 2022-02-27 12:54 | XMS_ITS | Encounter Summary ---
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 top) for subsequent determinations. ??Contact the Clinical Chemistry Laboratory if there are any qu estions. Chloride 102 98 - 107 mmol/L [facility] LABORATORY CO2 27 22 - 31 mmol/L [facility] LABORATORY Anion Gap 11 5 - 15 mmol/L [facility] LABORATORY Calcium 8.2 (L) 8.5 - 10.5 mg/dL [facility] LABORATORY Estimated GFR 92 >=60 mL/min/1.73 m?? [facility] LABORATORY Comment: The eGFR was calculated using the CKD-EP I equation. As with all creatinine based estimates of kidney function, eGFR values calculated with the CKD-EPI equation are not accurate in patients wi th acute kidney failure, extremes of body mass or the acutely ill. [email or web address]nkf eGFR 106 >=60 mL/min/1.73 m?? [facility] LABORATORY Comment: The eGFR was calculated using the CKD-EP I equation. As with all creatinine based estimates of kidney function, eGFR values calculated with the CKD-EPI equation are not accurate in patients wi th acute kidney failure, extremes of body mass or the acutely ill. [email or web address]nkf Specimen Anatomical Collection Method Collection Time Receive d Time (Source) Location / / Volume Laterality Blood specimen 10/19/2018 3:47 AM 019 4:20 (specimen) EDT AM EDT Resulting Agency Comment Spec In Lab Avery Zuniga MD CHEMISTRY ORDERABLES Performing Organization Address City/State/Z[place] [address] Heparin (unfractionated) Level (10/19/2018 12:08 AM EDT) P athologist Signature Heparin UFH 0.39 IU/mL [facility] LABORATORY Comment: Guidelines for therapeutic unfractionate d [...] Zuniga MD HEMATOLOGY ORDERABLES Performing Organization Address City/[facility]/ZIP Code Phon e Number [address] (ABNORMAL) Hemoglobin and Hematocrit, blood (10/19/2018 12:08 AM EDT) P athologist Signature Hemoglobin 8.0 (L) 13.7 - [facility] 16.5 gm/dL [facility] LABORATORY Hematocrit 23.6 (L) 40.5 - [facility] 48.5 % [facility] LABORATORY Specimen Anatomical Collection Method Collection Time Receive d Time (Source) Location / / Volume Laterality Blood specimen 10/19/2018 12:08 9 (specimen) AM EDT 12:11 AM EDT Resulting Agency Comment Spec In Lab Avery Zuniga MD HEMATOLOGY ORDERABLES Performing Organization Address City/[facility]/[place]IP [place] [address] POCT Glucose (10/18/2018 11:04 PM EDT) P athologist Signature POC Glucose 182 65 - 199 [facility] mg/dL [facility] LABORATORY Comment: Supplemental ranges: <140 mg/dL before meals <180 mg/dL all other times of the day Specimen Anatomical Collection Method Collection Time Receive d Time (Source) Location / / Volume Laterality Blood specimen 10/18/2018 11:04 9 (specimen) PM EDT 11:04 PM EDT Elian Jacobsen MD POINT OF CARE TEST ORDERABLE S Performing Organization Address City/[facility]/[place] [address] POCT Glucose (10/18/2018 7:35 PM EDT) athologist Signature POC Glucose 198 65 - 199 [facility] mg/dL [facility] LABORATORY Comment: Supplemental ranges: <140 mg/dL before meals <180 mg/dL all other times of the day Specimen Anatomical Collection Method Collection Time Receive d Time (Source) Location / / Volume Laterality Blood specimen 10/18/2018 7:35 PM 019 7:35 (specimen) EDT PM EDT Elian Jacobsen MD POINT OF CARE TEST ORDERABLE S Performing Organization Address City/State/ZIP Code Phon e Number [address] POCT Glucose (10/18/2018 4:25 PM EDT) athologist Signature POC Glucose 143 65 - 199 [facility] mg/dL [facility] LABORATORY Comment: Supplemental ranges: <140 mg/dL before meals <180 mg/dL all other times of the day Specimen Anatomical Collection Method Collection Time Receive d Time (Source) Location / / Volume Laterality Blood specimen 10/18/2018 4:25 PM 019 4:25 (specimen) EDT PM EDT Clifton Casey MD POINT OF CARE TEST ORDERABLE S Performing Organization Address City/State/[place] [address] (ABNORMAL) POCT Glucose (10/18/2018 11:45 AM EDT) athologist Signature POC Glucose 218 (H) 65 - 199 [facility] mg/dL [facility] LABORATORY Comment: Supplemental ranges: <140 mg/dL before meals <180 mg/dL all other times of the day Specimen Anatomical Collection Method Collection Time Receive d Time (Source) Location / / Volume Laterality Blood specimen 10/18/2018 11:45 9 (specimen) AM EDT 11:45 AM EDT Clifton Casey MD POINT OF CARE TEST ORDERABLE S Performing Organization Address City/State/[place] [address] Heparin (unfractionated) Level (10/18/2018 11:11 AM EDT) athologist Signature Heparin UFH 0.34 IU/[facility] Comment: Guidelines for therapeutic unfractionate d [...] Organization Address City/State/Z[place] [address] (ABNORMAL) Hemoglobin and Hematocrit, blood (10/18/2018 11:11 AM EDT) athologist Signature Hemoglobin 8.3 (L) 13.7 - [facility] 16.5 gm/dL [facility] LABORATORY Hematocrit 24.4 (L) 40.5 - [facility] 48.5 % [facility] LABORATORY Specimen Anatomical Collection Method Collection Time Receive d Time (Source) Location / / Volume Laterality Blood specimen 10/18/2018 11:11 9 (specimen) AM EDT 11:45 AM EDT Resulting Agency Comment Spec In Lab Avery Zuniga MD HEMATOLOGY ORDERABLES Performing Organization Address City/State/[place] [address] POCT Glucose (10/18/2018 7:36 AM EDT) athologist Signature POC Glucose 184 65 - 199 [facility] mg/dL [facility] LABORATORY Comment: Supplemental ranges: <140 mg/dL before meals <180 mg/dL all other times of the day Specimen Anatomical Collection Method Collection Time Receive d Time (Source) Location / / Volume Laterality Blood specimen 10/18/2018 7:36 AM 019 7:36 (specimen) EDT AM EDT Clifton Casey MD POINT OF CARE TEST ORDERABLE S Performing Organization Address City/[facility]/ZIP Code Phon e Number [address] Scan, Peripheral Blood (10/18/2018 3:40 AM EDT) [facility] gist Method Time Signature Plat Estimate Normal [facility] LABORATORY RBC Morphology Abnormal [facility] LABORATORY Polychromasia Present >5/HPF [facility] LABORATORY Specimen Anatomical Collection Method Collection Time Receive d Time (Source) Location / / Volume Laterality Blood specimen 10/18/2018 3:40 AM 019 3:51 (specimen) EDT AM EDT Resulting Agency Comment Spec In Lab Vikram Wahl MD HEMATOLOGY ORDERABLES Performing Organization Address City/[facility]/Z[place] [address] (ABNORMAL) Differential, Automated (10/18/2018 3:40 AM EDT) athologist Signature Neutrophils % 65.8 % [facility] LABORATORY Neutr Abs (ANC) 4.95 1.70 - [facility] 6.10 [facility] x10(3)/[facility] LABORATORY Lymphocytes % 15.6 % [facility] LABORATORY Lymphocytes Abs 1.2 0.9 - 3.2 [facility] x10(3)/[facility] LABORATORY Monocytes % 10.2 % [facility] LABORATORY Monocyte Abs 0.8 0.3 - 0.9 [facility] x10(3)/[facility] LABORATORY Eosinophils % 1.7 % [facility] LABORATORY Eosinophils Abs 0.1 0.0 - 0.4 [facility] x10(3)/[facility] LABORATORY Basophils % 0.8 % [facility] LABORATORY Basophils Abs 0.1 0.0 - 0.1 [facility] x10(3)/[facility] LABORATORY Immature Gran % 5.90 % [facility] LABORATORY Comment: Immature granulocytes(IG's)percentage an d absolute count will include metamyelocytes, myelocytes, and promyelo cytes. Blood smears from CBCs yielding IG's will be scanned manually for concor dance. If this scan disagrees with the automated IG or if promyelocytes are not ed, a manual differential will be performed. [facility]esta Gran Abs 0.44 (H) 0.00 - 0.04 x10(3)/[facility] LABORATORY Specimen Anatomical Collection Method Collection Time Receive d Time (Source) Location / / Volume Laterality Blood specimen 10/18/2018 3:40 AM 019 3:51 (specimen) EDT AM EDT Resulting Agency Comment Spec In Lab Vikram Wahl MD HEMATOLOGY ORDERABLES Performing Organization Address City/State/Z[place] [address] (ABNORMAL) Hemogram (10/18/2018 3:40 AM EDT) [facility] gist Method Time Signature WBC 7.5 4.0 - 9.5 [facility] x10(3)/[facility] LABORATORY RBC 2.50 (L) 4.58 - [facility] 5.54 [facility] x10(6)/[facility] LABORATORY Hemoglobin 7.5 (L) 13.7 - [facility] 16.5 gm/dL [facility] LABORATORY Hematocrit 22.2 (L) 40.5 - [facility] 48.5 % [facility] LABORATORY MCV 88.8 82.9 - [facility] 93.1 fL [facility] LABORATORY MCH 30.0 27.5 - [facility] 32.1 pg [facility] LABORATORY MCHC 33.8 32.0 - [facility] 35.7 gm/dL [facility] LABORATORY Platelets 160 145 - 357 [facility] x10(3)/[facility] LABORATORY RDWSD 45.6 (H) 36.0 - [facility] 45.0 [facility] LABORATORY RDWCV 14.7 (H) 11.4 - [facility] 13.8 % [facility] LABORATORY MPV 10.2 7.6 - 12.9 [facility] LABORATORY nRBC % Auto 2.1 % [facility] LABORATORY nRBC Abs Auto 0.160 (H) 0.000 - [facility] 0.000 [facility] x10(3)/[facility] LABORATORY Specimen Anatomical Collection Method Collection Time Receive d Time (Source) Location / / Volume Laterality Blood specimen 10/18/2018 3:40 AM 019 3:51 (specimen) EDT AM EDT Resulting Agency Comment Spec In Lab Vikram Wahl MD HEMATOLOGY ORDERABLES Performing Organization Address City/State/Z[place] [address] (ABNORMAL) Basic Metabolic Panel (non-fasting) (10/18/2018 3:40 AM EDT) P athologist Signature Glucose Lvl 176 65 - 199 [facility] mg/dL [facility] LABORATORY Comment: Diabetes: >=200 mg/dL plus symp toms BUN 15 10 - 20 mg/dL [facility] LABORATORY Creatinine 0.84 0.80 - 1.50 mg/dL [facility] LABORATORY Sodium 143 135 - 145 mmol/L [facility] LABORATORY Potassium 3.4 (L) 3.5 - 5.0 mmol/L [facility] LABORATORY Comment: Please note: ??Patients with WBC >100,00 0 may have falsely elevated Potassium levels. ??For accurate Potassium quantif ication in these patients send serum separator tube (gold top) for subsequent determinations. ??Contact the Clinical Chemistry Laboratory if there are any qu estions. Chloride 103 98 - 107 mmol/L [facility] LABORATORY CO2 28 22 - 31 mmol/L [facility] LABORATORY Anion Gap 12 5 - 15 mmol/L [facility] LABORATORY Calcium 8.2 (L) 8.5 - 10.5 mg/dL [facility] LABORATORY Estimated GFR 94 >=60 mL/min/1.73 m?? [facility] LABORATORY Comment: The eGFR was calculated using the CKD-EP I equation. As with all creatinine based estimates of kidney function, eGFR values calculated with the CKD-EPI equation are not accurate in patients wi th acute kidney failure, extremes of body mass or the acutely ill. [email or web address]MONDnkf eGFR 109 >=60 mL/min/1.73 m?? [facility] LABORATORY Comment: The eGFR was calculated using the CKD-EP I equation. As with all creatinine based estimates of kidney function, eGFR values calculated with the CKD-EPI equation are not accurate in patients wi th acute kidney failure, extremes of body mass or the acutely ill. [email or web address]MONDnkf Specimen Anatomical Collection Method Collection Time Receive d Time (Source) Location / / Volume Laterality Blood specimen 10/18/2018 3:40 AM 019 3:51 (specimen) EDT AM EDT Resulting Agency Comment Spec In Lab Avery Zuniga MD CHEMISTRY ORDERABLES Performing Organization Address City/State/[place] [address] POCT Glucose (10/18/2018 3:30 AM EDT) P athologist Signature POC Glucose 186 65 - 199 [facility] mg/dL [facility] LABORATORY Comment: Supplemental ranges: <140 mg/dL before meals <180 mg/dL all other times of the day Specimen Anatomical Collection Method Collection Time Receive d Time (Source) Location / / Volume Laterality Blood specimen 10/18/2018 3:30 AM 019 3:30 (specimen) EDT AM EDT Clifton Casey MD POINT OF CARE TEST ORDERABLE S Performing Organization Address City/[facility]/[place] [address] (ABNORMAL) Hemoglobin and Hematocrit, blood (10/17/2018 11:24 PM EDT) athologist Signature Hemoglobin 8.2 (L) 13.7 - [facility] 16.5 gm/dL [facility] LABORATORY Hematocrit 23.5 (L) 40.5 - [facility] 48.5 % [facility] LABORATORY Specimen Anatomical Collection Method Collection Time Receive d Time (Source) Location / / Volume Laterality Blood specimen 10/17/2018 11:24 9 (specimen) PM EDT 11:27 PM EDT Resulting Agency Comment Spec In Lab Avery Zuniga MD HEMATOLOGY ORDERABLES Performing Organization Address City/State/ZIP Code Phon e Number [address] (ABNORMAL) POCT Glucose (10/17/2018 11:22 PM EDT) athologist Signature POC Glucose 219 (H) 65 - 199 [facility] mg/dL [facility] LABORATORY Comment: Supplemental ranges: <140 mg/dL before meals <180 mg/dL all other times of the day Specimen Anatomical Collection Method Collection Time Receive d Time (Source) Location / / Volume Laterality Blood specimen 10/17/2018 11:22 9 (specimen) PM EDT 11:22 PM EDT Clifton Casey MD POINT OF CARE TEST ORDERABLE S Performing Organization Address City/[facility]/ZIP [place] [address] (ABNORMAL) POCT Glucose (10/17/2018 7:15 PM EDT) athologist Signature POC Glucose 208 (H) 65 - 199 [facility] mg/dL [facility] LABORATORY Comment: Supplemental ranges: <140 mg/dL before meals <180 mg/dL all other times of the day Specimen Anatomical Collection Method Collection Time Receive d Time (Source) Location / / Volume Laterality Blood specimen 10/17/2018 7:15 PM 019 7:15 (specimen) EDT PM EDT Clifton Casey MD POINT OF CARE TEST ORDERABLE S Performing Organization Address City/State/ZIP Code Phon e Number [address] POCT Glucose (10/17/2018 4:50 PM EDT) athologist Signature POC Glucose 181 65 - 199 [facility] mg/dL [facility] LABOR[facility]ORY Comment: Supplemental ranges: <140 mg/dL before meals <180 mg/dL all other times of the day Specimen Anatomical Collection Method Collection Time Receive d Time (Source) Location / / Volume Laterality Blood specimen 10/17/2018 4:50 PM 019 4:50 (specimen) EDT PM EDT Clifton Casey MD POINT OF CARE TEST ORDERABLE S Performing Organization Address City/State/ZIP Code Phon e Number [address] (ABNORMAL) Hemoglobin and Hematocrit, blood (10/17/2018 4:06 PM EDT) athologist Signature Hemoglobin 8.5 (L) 13.7 - [facility]/dL [facility] LABORATORY Hematocrit 24.4 (L) 40.5 - [facility] 48.5 % [facility] LABORATORY Specimen Anatomical Collection Method Collection Time Receive d Time (Source) Location / / Volume Laterality Blood specimen 10/17/2018 4:06 PM 019 4:10 (specimen) EDT PM EDT Resulting Agency Comment Spec In Lab Avery Zuniga MD HEMATOLOGY ORDERABLES Performing Organization Address City/[facility]/[place] [address] (ABNORMAL) POCT Glucose (10/17/2018 11:40 AM EDT) athologist Signature POC Glucose 222 (H) 65 - 199 [facility] mg/dL [facility] LABORATORY Comment: Supplemental ranges: <140 mg/dL before meals <180 mg/dL all other times of the day Specimen Anatomical Collection Method Collection Time Receive d Time (Source) Location / / Volume Laterality Blood specimen 10/17/2018 11:40 9 (specimen) AM EDT 11:40 AM EDT Clifton Casey MD POINT OF CARE TEST ORDERABLE S Performing Organization Address City/State/[place] [address] (ABNORMAL) Hemoglobin and Hematocrit, blood (10/17/2018 10:32 AM EDT) P athologist Signature Hemoglobin 7.7 (L) 13.7 - [facility] 16.5 gm/dL [facility] LABORATORY Hematocrit 22.2 (L) 40.5 - [facility] 48.5 % [facility] LABORATORY Specimen Anatomical Collection Method Collection Time Receive d Time (Source) Location / / Volume Laterality Blood specimen 10/17/2018 10:32 9 (specimen) AM EDT 10:38 AM EDT Resulting Agency Comment Spec In Lab Avery Zuniga MD HEMATOLOGY ORDERABLES Performing Organization Address City/State/[place] [address] [employer] RBC (10/17/2018 9:59 AM EDT) Dulce Maria Diallo APRN NURSING TREATMENT ORDERABLES - BLOOD ADMIN POCT Glucose (10/17/2018 7:37 AM EDT) athologist Signature POC Glucose 157 65 - 199 [facility] mg/dL [facility] LABOR[facility]ORY Comment: Supplemental ranges: <140 mg/dL before meals <180 mg/dL all other times of the day Specimen Anatomical Collection Method Collection Time Receive d Time (Source) Location / / Volume Laterality Blood specimen 10/17/2018 7:37 AM 019 7:37 (specimen) EDT AM EDT Clifton Casey MD POINT OF CARE TEST ORDERABLE S Performing Organization Address City/State/ZIP Code Phon e Number [address] ABORH Recheck Status (10/17/2018 6:25 AM EDT) Patholo gist Method Time Signature ABORH Type Completed [facility] LABORATORY Specimen Anatomical Collection Method Collection Time Receive d Time (Source) Location / / Volume Laterality Blood specimen 10/17/2018 6:25 AM 019 6:31 (specimen) EDT AM EDT Resulting Agency Comment Spec In Lab Dulce Maria Diallo APRN BLOOD BANK ORDERABLES Performing Organization Address City/[facility]/ZIP Code Phon e Number [place] [phone] Heparin (unfractionated) Level (10/17/2018 6:25 AM EDT) P athologist Signature Heparin UFH 0.44 IU/mL [facility] LABORATORY Comment: Guidelines for therapeutic unfractionate d [...] Zuniga MD HEMATOLOGY ORDERABLES Performing Organization Address City/[facility]/ZIP [place] [address] Antibody screen (10/17/2018 6:25 AM EDT) Patholo gist Method Time Signature Ab Screen Negative [facility] LABORATORY Expires at 10/20/2018 LUCILA VERDIN [id number] on: [facility] LABORATORY Specimen Anatomical Collection Method Collection Time Receive d Time (Source) Location / / Volume Laterality Blood specimen 10/17/2018 6:25 AM 019 6:31 (specimen) EDT AM EDT Resulting Agency Comment Spec In Lab Dulce Maria Diallo APRN BLOOD BANK ORDERABLES Performing Organization Address City/[facility]/[place] [address] ABO/Rh Typing (10/17/2018 6:25 AM EDT) P athologist Signature ABORh Type O Neg [facility] LABORATORY Specimen Anatomical Collection Method Collection Time Receive d Time (Source) Location / / Volume Laterality Blood specimen 10/17/2018 6:25 AM 019 6:31 (specimen) EDT AM EDT Resulting Agency Comment Spec In Lab Dulce Maria Diallo APRN BLOOD BANK ORDERABLES Performing Organization Address [facility] [place] [address] (ABNORMAL) APTT (10/17/2018 6:25 AM EDT) P athologist Signature PTT 61 (H) 25 - 37 sec [facility] LABORATORY Comment: The PTT is NOT appropriate [...] Diallo APRN HEMATOLOGY ORDERABLES Performing Organization Address City/[facility] [place] [address] (ABNORMAL) Prothrombin Time (10/17/2018 6:25 AM EDT) P athologist Signature PT 13.5 (H) 9.4 - 12.5 [facility] LABORATORY INR 1.2 [facility] LABORATORY Comment: An INR <2.0 indicates adequate [...] Agency Comment Spec In Lab Dulce Maria Gandhi Kallie [place] HEMATOLOGY ORDERABLES Performing Organization Address City/[facility]/ZIP Code Phon e Number [address] Prepare RBC (10/17/2018 6:10 AM EDT) athologist Signature Dispensed? Yes [facility] LABORATORY Specimen Anatomical Collection Method Collection Time Receive d Time (Source) Location / / Volume Laterality Blood specimen 10/17/2018 6:10 AM 019 6:08 (specimen) EDT AM EDT Resulting Agency Comment Spec In Lab Dulce Maria Gandhi Kallie [place] BLOOD BANK ORDERABLES Performing Organization Address City/[facility]/[place] [address] (ABNORMAL) POCT Glucose (10/17/2018 3:48 AM EDT) athologist Signature POC Glucose 200 (H) 65 - 199 [facility] mg/dL [facility] LABORATORY Comment: Supplemental ranges: <140 mg/dL before meals <180 mg/dL all other times of the day Specimen Anatomical Collection Method Collection Time Receive d Time (Source) Location / / Volume Laterality Blood specimen 10/17/2018 3:48 AM 019 3:48 (specimen) EDT AM EDT Clifton Casey MD POINT OF CARE TEST ORDERABLE S Performing Organization Address City/[facility]/[place] [address] (ABNORMAL) Differential, Automated (10/17/2018 3:39 AM EDT) athologist Signature Neutrophils % 71.8 % [facility] LABORATORY Neutr Abs (ANC) 5.04 1.70 - [facility] 6.10 [facility] x10(3)/[facility] LABORATORY Lymphocytes % 14.7 % [facility] LABORATORY Lymphocytes Abs 1.0 0.9 - 3.2 [facility] x10(3)/[facility] LABORATORY Monocytes % 9.0 % [facility] LABORATORY Monocyte Abs 0.6 0.3 - 0.9 [facility] x10(3)/[facility] LABORATORY Eosinophils % 0.9 % [facility] LABORATORY Eosinophils Abs 0.1 0.0 - 0.4 [facility] x10(3)/[facility] LABORATORY Basophils % 0.6 % [facility] LABORATORY Basophils Abs 0.0 0.0 - 0.1 [facility] x10(3)/[facility] LABORATORY Immature Gran % 3.00 % [facility] LABORATORY Comment: Immature granulocytes(IG's)percentage an d absolute count will include metamyelocytes, myelocytes, and promyelo cytes. Blood smears from CBCs yielding IG's will be scanned manually for concor dance. If this scan disagrees with the automated IG or if promyelocytes are not ed, a manual differential will be performed. Vesta Gran Abs 0.21 (H) 0.00 - 0.04 x10(3)/[facility] LABORATORY Specimen Anatomical Collection Method Collection Time Receive d Time (Source) Location / / Volume Laterality Blood specimen 10/17/2018 3:39 AM 019 4:16 (specimen) EDT AM EDT Resulting Agency Comment Spec In Lab Vikram Wahl MD HEMATOLOGY ORDERABLES Performing Organization Address City/State/[place] [address] (ABNORMAL) Hemogram (10/17/2018 3:39 AM EDT) [facility] Method Time Signature WBC 7.0 4.0 - 9.5 [facility] x10(3)/[facility] LABORATORY RBC 2.21 (L) 4.58 - [facility] 5.54 [facility] x10(6)/[facility] LABORATORY Hemoglobin 6.9 (L) 13.7 - [facility] 16.5 gm/dL [facility] LABORATORY Hematocrit 19.9 (L) 40.5 - [facility] 48.5 % [facility] LABORATORY MCV 90.0 82.9 - [facility] 93.1 [facility] LABORATORY MCH 31.2 27.5 - LUCILA DARNELL 32.1 pg [facility] LABORATORY MCHC 34.7 32.0 - [facility] 35.7 gm/dL [facility] LABORATORY Platelets 128 (L) 145 - 357 [facility] x10(3)/[facility] LABORATORY RDWSD 46.2 (H) 36.0 - [facility] 45.0 [facility] LABORATORY RDWCV 14.5 (H) 11.4 - [facility] 13.8 % [facility] LABORATORY MPV 10.5 7.6 - 12.9 [facility] LABORATORY nRBC % Auto 0.9 % [facility] LABORATORY nRBC Abs Auto 0.060 (H) 0.000 - [facility] 0.000 [facility] x10(3)/[facility] LABORATORY Specimen Anatomical Collection Method Collection Time Receive d Time (Source) Location / / Volume Laterality Blood specimen 10/17/2018 3:39 AM 019 4:16 (specimen) EDT AM EDT Resulting Agency Comment Spec In Lab Vikram Wahl MD HEMATOLOGY ORDERABLES Performing Organization Address City/State/ZIP [place] [address] (ABNORMAL) Basic Metabolic Panel (non-fasting) (10/17/2018 3:39 AM EDT) P athologist Signature Glucose Lvl 203 (H) 65 - 199 [facility] mg/dL [facility] LABORATORY Comment: Diabetes: >=200 mg/dL plus symp toms BUN 14 10 - 20 mg/dL [facility] LABORATORY Creatinine 0.83 0.80 - 1.50 mg/dL [facility] LABORATORY Sodium 141 135 - 145 mmol/L [facility] LABORATORY Potassium 3.5 3.5 - 5.0 mmol/L [facility] LABORATORY Comment: Please note: ??Patients with WBC >100,00 0 may have falsely elevated Potassium levels. ??For accurate Potassium quantif ication in these patients send serum separator tube (gold top) for subsequent determinations. ??Contact the Clinical Chemistry Laboratory if there are any qu estions. Chloride 102 98 - 107 mmol/L [facility] LABORATORY CO2 27 22 - 31 mmol/L [facility] LABORATORY Anion Gap 12 5 - 15 mmol/L [facility] LABORATORY Calcium 8.0 (L) 8.5 - 10.5 mg/dL [facility] LABORATORY Estimated GFR 94 >=60 mL/min/1.73 m?? [facility] LABORATORY Comment: The eGFR was calculated using the CKD-EP I equation. As with all creatinine based estimates of kidney function, eGFR values calculated with the CKD-EPI equation are not accurate in patients wi th acute kidney failure, extremes of body mass or the acutely ill. [email or web address] EDMONDnkf eGFR 109 >=60 mL/min/1.73 m?? [facility] LABORATORY Comment: The eGFR was calculated using the CKD-EP I equation. As with all creatinine based estimates of kidney function, eGFR values calculated with the CKD-EPI equation are not accurate in patients wi th acute kidney failure, extremes of body mass or the acutely ill. [email or web address] EDMONDnkf Specimen Anatomical Collection Method Collection Time Receive d Time (Source) Location / / Volume Laterality Blood specimen 10/17/2018 3:39 AM 019 4:16 (specimen) EDT AM EDT Resulting Agency Comment Spec In Lab Avery Zuniga MD CHEMISTRY ORDERABLES Performing Organization Address City/State/ZIP [place] [address] (ABNORMAL) POCT Glucose (10/16/2018 11:07 PM EDT) P athologist Signature POC Glucose 210 (H) 65 - 199 [facility] mg/dL [facility] LABORATORY Comment: Supplemental ranges: <140 mg/dL before meals <180 mg/dL all other times of the day Specimen Anatomical Collection Method Collection Time Receive d Time (Source) Location / / Volume Laterality Blood specimen 10/16/2018 11:07 9 (specimen) PM EDT 11:07 PM EDT Clifton Casey MD POINT OF CARE TEST ORDERABLE S Performing Organization Address [facility]/[place] [address] (ABNORMAL) POCT Glucose (10/16/2018 7:47 PM EDT) athologist Signature POC Glucose 257 (H) 65 - 199 [facility] mg/dL [facility] LABORATORY Comment: Supplemental ranges: <140 mg/dL before meals <180 mg/dL all other times of the day Specimen Anatomical Collection Method Collection Time Receive d Time (Source) Location / / Volume Laterality Blood specimen 10/16/2018 7:47 PM 019 7:47 (specimen) EDT PM EDT Clifton Casey MD POINT OF CARE TEST ORDERABLE S Performing Organization Address City/[facility]/[place] [address] Heparin (unfractionated) Level (10/16/2018 5:23 PM EDT) P athologist Signature Heparin UFH 0.37 IU/mL [facility] LABORATORY Comment: Guidelines for therapeutic unfractionate d [...] Zuniga MD HEMATOLOGY ORDERABLES Performing Organization Address City/[facility] [place] [address] (ABNORMAL) POCT Glucose (10/16/2018 4:55 PM EDT) P athologist Signature POC Glucose 219 (H) 65 - 199 [facility] mg/dL [facility] LABORATORY Comment: Supplemental ranges: <140 mg/dL before meals <180 mg/dL all other times of the day Specimen Anatomical Collection Method Collection Time Receive d Time (Source) Location / / Volume Laterality Blood specimen 10/16/2018 4:55 PM 019 4:55 (specimen) EDT PM EDT Clifton Casey MD POINT OF CARE TEST ORDERABLE S Performing Organization Address [facility] [place] [address] (ABNORMAL) Hemoglobin and Hematocrit, blood (10/16/2018 3:51 PM EDT) P athologist Signature Hemoglobin 8.0 (L) 13.7 - [facility] 16.5 gm/dL [facility] LABORATORY Hematocrit 23.0 (L) 40.5 - [facility] 48.5 % [facility] LABORATORY Specimen Anatomical Collection Method Collection Time Receive d Time (Source) Location / / Volume Laterality Blood specimen 10/16/2018 3:51 PM 019 3:55 (specimen) EDT PM EDT Resulting Agency Comment Spec In Lab Avery Zuniga MD HEMATOLOGY ORDERABLES Performing Organization Address City/[facility]/ZIP [facility] [place] [address] (ABNORMAL) POCT Glucose (10/16/2018 11:45 AM EDT) athologist Signature POC Glucose 247 (H) 65 - 199 LUCIL[facility] VERDIN mg/dL [facility] LABORATORY Comment: Supplemental ranges: <140 mg/dL before meals <180 mg/dL all other times of the day Specimen Anatomical Collection Method Collection Time Receive d Time (Source) Location / / Volume Laterality Blood specimen 10/16/2018 11:45 9 (specimen) AM EDT 11:45 AM EDT Avery Zuniga MD POINT OF CARE TEST ORDERABLE S Performing Organization Address City/[facility]/ZIP Code Phon e Number LUCILA VERDIN [place] [id number] LAB[address] Heparin (unfractionated) Level (10/16/2018 11:05 AM EDT) athologist Signature Heparin UFH 0.37 IU/mL [facility] LABORATORY Comment: Guidelines for therapeutic unfractionate d [...] Organization Address City/State/ZIP Code Phon e Number [place] [phone] Drive (ABNORMAL) POCT Glucose (10/16/2018 7:44 AM EDT) P athologist Signature POC Glucose 233 (H) 65 - 199 [facility] mg/dL [facility] LABORATORY Comment: Supplemental ranges: <140 mg/dL before meals <180 mg/dL all other times of the day Specimen Anatomical Collection Method Collection Time Receive d Time (Source) Location / / Volume Laterality Blood specimen 10/16/2018 7:44 AM 019 7:44 (specimen) EDT AM EDT Avery Zuniga MD POINT OF CARE TEST ORDERABLE S Performing Organization Address City/State/ZIP Code Phon e Number [address] (ABNORMAL) Differential, Automated (10/16/2018 4:33 AM EDT) Patholo gist Method Time Signature Neutrophils % 76.7 % [facility] LABORATORY Neutr Abs (ANC) 7.65 (H) 1.70 - [facility] 6.10 [facility] x10(3)/[facility] LABORATORY Lymphocytes % 9.6 % [facility] LABORATORY Lymphocytes Abs 1.0 0.9 - 3.2 [facility] x10(3)/[facility] LABORATORY Monocytes % 11.2 % [facility] LABORATORY Monocyte Abs 1.1 (H) 0.3 - 0.9 [facility] x10(3)/[facility] LABORATORY Eosinophils % 0.6 % [facility] LABORATORY Eosinophils Abs 0.1 0.0 - 0.4 [facility] x10(3)/[facility] LABORATORY Basophils % 0.8 % [facility] LABORATORY Basophils Abs 0.1 0.0 - 0.1 [facility] x10(3)/[facility] LABORATORY Immature Gran % 1.10 % [facility] LABORATORY Comment: Immature granulocytes(IG's)percentage an d absolute count will include metamyelocytes, myelocytes, and promyelo cytes. Blood smears from CBCs yielding IG's will be scanned manually for concor dance. If this scan disagrees with the automated IG or if promyelocytes are not ed, a manual differential will be performed. [place]esta Gran Abs 0.11 (H) 0.00 - 0.04 x10(3)/[facility] LABORATORY Specimen Anatomical Collection Method Collection Time Receive d Time (Source) Location / / Volume Laterality Blood specimen 10/16/2018 4:33 AM 019 4:38 (specimen) EDT AM EDT Resulting Agency Comment Spec In Lab Aniceto Jama MD HEMATOLOGY ORDERABLES Performing Organization Address City/State/[place] [address] (ABNORMAL) Hemogram (10/16/2018 4:33 AM EDT) Analysis Performed At Patho logist Time Signature WBC 10.0 (H) 4.0 - 9.5 [facility] x10(3)/[facility] LABORATORY RBC 2.55 (L) 4.58 - [facility] 5.54 [facility] x10(6)/[facility] LABORATORY Hemoglobin 7.8 (L) 13.7 - [facility] 16.5 gm/dL [facility] LABORATORY Hematocrit 22.6 (L) 40.5 - [facility] 48.5 % [facility] LABORATORY MCV 88.6 82.9 - [facility] 93.1 [facility] LABORATORY MCH 30.6 27.5 - [facility] 32.1 pg [facility] LABORATORY MCHC 34.5 32.0 - [facility] 35.7 gm/dL [facility] LABORATORY Platelets 115 (L) 145 - 357 [facility] x10(3)/[facility] LABORATORY RDWSD 46.3 (H) 36.0 - [facility] 45.0 [facility] LABORATORY RDWCV 14.3 (H) 11.4 - [facility] 13.8 % [facility] LABORATORY MPV 10.4 7.6 - 12.9 [facility] LABORATORY nRBC % Auto 0.0 % [facility] LABORATORY nRBC Abs Auto 0.000 0.000 - [facility] 0.000 [facility] x10(3)/[facility] LABORATORY Specimen Anatomical Collection Method Collection Time Receive d Time (Source) Location / / Volume Laterality Blood specimen 10/16/2018 4:33 AM 019 4:38 (specimen) EDT AM EDT Resulting Agency Comment Spec In Lab Aniceto Jama MD HEMATOLOGY ORDERABLES Performing Organization Address City/[facility]/[place] [address] Heparin (unfractionated) Level (10/16/2018 4:33 AM EDT) athologist Signature Heparin UFH 0.29 IU/mL [facility] LABORATORY Comment: Guidelines for therapeutic unfractionate d [...] Zuniga MD HEMATOLOGY ORDERABLES Performing Organization Address City/[facility]/[place] [address] (ABNORMAL) Basic Metabolic Panel (non-fasting) (10/16/2018 4:33 AM EDT) athologist Signature Glucose Lvl 232 (H) 65 - 199 [facility] mg/dL [facility] LABORATORY Comment: Diabetes: >=200 mg/dL plus symp toms BUN 12 10 - 20 mg/dL [facility] LABORATORY Creatinine 1.00 0.80 - 1.50 mg/dL [facility] LABORATORY Sodium 137 135 - 145 mmol/L [facility] LABORATORY Potassium 3.6 3.5 - 5.0 mmol/L [facility] LABORATORY Comment: Please note: ??Patients with WBC >100,00 0 may have falsely elevated Potassium levels. ??For accurate Potassium quantif ication in these patients send serum separator tube (gold top) for subsequent determinations. ??Contact the Clinical Chemistry Laboratory if there are any qu estions. Chloride 98 98 - 107 mmol/L [facility] LABORATORY CO2 28 22 - 31 mmol/L [facility] LABORATORY Anion Gap 11 5 - 15 mmol/L [facility] LABORATORY Calcium 8.1 (L) 8.5 - 10.5 mg/dL [facility] LABORATORY Estimated GFR 80 >=60 mL/min/1.73 m?? [facility] LABORATORY Comment: The eGFR was calculated using the CKD-EP I equation. As with all creatinine based estimates of kidney function, eGFR values calculated with the CKD-EPI equation are not accurate in patients wi th acute kidney failure, extremes of body mass or the acutely ill. [email or web address] EDMONDnkf eGFR 93 >=60 mL/min/1.73 m?? [facility] LABORATORY Comment: The eGFR was calculated using the CKD-EP I equation. As with all creatinine based estimates of kidney function, eGFR values calculated with the CKD-EPI equation are not accurate in patients wi th acute kidney failure, extremes of body mass or the acutely ill. [email or web address] Specimen Anatomical Collection Method Collection Time Receive d Time (Source) Location / / Volume Laterality Blood specimen 10/16/2018 4:33 AM 019 4:38 (specimen) EDT AM EDT Resulting Agency Comment Spec In Lab Avery Zuniga MD CHEMISTRY ORDERABLES Performing Organization Address City/[facility]/Z[place] [address] POCT Glucose (10/16/2018 12:01 AM EDT) athologist Signature POC Glucose 197 65 - 199 [facility] mg/dL [facility] LABORATORY Comment: Supplemental ranges: <140 mg/dL before meals <180 mg/dL all other times of the day Specimen Anatomical Collection Method Collection Time Receive d Time (Source) Location / / Volume Laterality Blood specimen 10/16/2018 12:01 9 (specimen) AM EDT 12:01 AM EDT Avery Zuniga MD POINT OF CARE TEST ORDERABLE S Performing Organization Address City/[facility]/[place] [address] (ABNORMAL) Hemoglobin and Hematocrit, blood (10/15/2018 10:35 PM EDT) athologist Signature Hemoglobin 8.4 (L) 13.7 - [facility] 16.5 gm/dL [facility] LABORATORY Hematocrit 24.4 (L) 40.5 - [facility] 48.5 % [facility] LABORATORY Specimen Anatomical Collection Method Collection Time Receive d Time (Source) Location / / Volume Laterality Blood specimen 10/15/2018 10:35 9 (specimen) PM EDT 10:38 PM EDT Resulting Agency Comment Spec In Lab Avery Zuniga MD HEMATOLOGY ORDERABLES Performing Organization Address City/[facility]/[place] [address] Heparin (unfractionated) Level (10/15/2018 10:35 PM EDT) athologist Signature Heparin UFH 0.31 IU/mL [facility] LABORATORY Comment: Guidelines for therapeutic unfractionate d [...] Zuniga MD HEMATOLOGY ORDERABLES Performing Organization Address City/[facility]/[place] [address] (ABNORMAL) POCT Glucose (10/15/2018 8:02 PM EDT) P athologist Signature POC Glucose 286 (H) 65 - 199 [facility] mg/dL [facility] LABORATORY Comment: Supplemental ranges: <140 mg/dL before meals <180 mg/dL all other times of the day Specimen Anatomical Collection Method Collection Time Receive d Time (Source) Location / / Volume Laterality Blood specimen 10/15/2018 8:02 PM 019 8:02 (specimen) EDT PM EDT Avery Zuniga MD POINT OF CARE TEST ORDERABLE S Performing Organization Address City/State/[place] [address] (ABNORMAL) POCT Glucose (10/15/2018 5:22 PM EDT) P athologist Signature POC Glucose 234 (H) 65 - 199 [facility] mg/dL [facility] LABORATORY Comment: Supplemental ranges: <140 mg/dL before meals <180 mg/dL all other times of the day Specimen Anatomical Collection Method Collection Time Receive d Time (Source) Location / / Volume Laterality Blood specimen 10/15/2018 5:22 PM 019 5:22 (specimen) EDT PM EDT Avery Zuniga MD POINT OF CARE TEST ORDERABLE S Performing Organization Address City/State/[place] [address] (ABNORMAL) Differential, Automated (10/15/2018 3:10 PM EDT) [facility] Method Time Signature Neutrophils % 79.4 % [facility] LABORATORY Neutr Abs (ANC) 6.76 (H) 1.70 - [facility] 6.10 [facility] [facility] x10(3)/[facility] L LABORATORY Lymphocytes % 7.8 % [facility] LABORATORY Lymphocytes Abs 0.7 (L) 0.9 - 3.2 [facility] x10(3)/[facility] LABORATORY Monocytes % 11.0 % [facility] LABORATORY Monocyte Abs 0.9 0.3 - 0.9 [facility] x10(3)/[facility] LABORATORY Eosinophils % 0.1 % [facility] LABORATORY Eosinophils Abs 0.0 0.0 - 0.4 [facility] x10(3)/[facility] LABORATORY Basophils % 0.4 % [facility] LABORATORY Basophils Abs 0.0 0.0 - 0.1 [facility] x10(3)/[facility] LABORATORY Immature Gran % 1.30 % [facility] LABORATORY Comment: Immature granulocytes(IG's)percentage an d absolute count will include metamyelocytes, myelocytes, and promyelo cytes. Blood smears from CBCs yielding IG's will be scanned manually for concor dance. If this scan disagrees with the automated IG or if promyelocytes are not ed, a manual differential will be performed. [place] Gran Abs 0.11 (H) 0.00 - 0.04 x10(3)/[facility] LABORATORY Specimen Anatomical Collection Method Collection Time Receive d Time (Source) Location / / Volume Laterality Blood specimen 10/15/2018 3:10 PM 019 3:15 (specimen) EDT PM EDT Resulting Agency Comment Spec In Lab Vikram Wahl MD HEMATOLOGY ORDERABLES Performing Organization Address City/State/[place] [address] (ABNORMAL) Hemogram (10/15/2018 3:10 PM EDT) Analysis Performed At Patho logist Time Signature WBC 8.5 4.0 - 9.5 [facility] x10(3)/[facility] LABORATORY RBC 2.68 (L) 4.58 - [place] 5.54 [facility] x10(6)/[facility] LABORATORY Hemoglobin 8.2 (L) 13.7 - [facility] 16.5 gm/dL [facility] LABORATORY Hematocrit 23.2 (L) 40.5 - [facility] 48.5 % [facility] LABORATORY MCV 86.6 82.9 - [facility] 93.1 [facility] LABORATORY MCH 30.6 27.5 - [facility] 32.1 pg [facility] LABORATORY MCHC 35.3 32.0 - [facility] 35.7 gm/dL [facility] LABORATORY Platelets 106 (L) 145 - 357 [facility] x10(3)/[facility] LABORATORY RDWSD 45.0 36.0 - [facility] 45.0 [facility] LABORATORY RDWCV 14.5 (H) 11.4 - [facility] 13.8 % [facility] LABORATORY MPV 10.8 7.6 - 12.9 [facility] LABORATORY nRBC % Auto 0.0 % [facility] LABORATORY nRBC Abs Auto 0.000 0.000 - [facility] 0.000 [facility] x10(3)/[facility] LABORATORY Specimen Anatomical Collection Method Collection Time Receive d Time (Source) Location / / Volume Laterality Blood specimen 10/15/2018 3:10 PM 019 3:15 (specimen) EDT PM EDT Resulting Agency Comment Spec In Lab Vikram Wahl MD HEMATOLOGY ORDERABLES Performing Organization Address City/[facility]/ZIP [place] [address] (ABNORMAL) Hemoglobin and Hematocrit, blood (10/15/2018 3:10 PM EDT) athologist Signature Hemoglobin 8.2 (L) 13.7 - [place] 16.5 gm/dL [facility] LABORATORY Hematocrit 23.2 (L) 40.5 - [place] 48.5 % [facility] LABORATORY Specimen Anatomical Collection Method Collection Time Receive d Time (Source) Location / / Volume Laterality Blood specimen 10/15/2018 3:10 PM 019 3:15 (specimen) EDT PM EDT Resulting Agency Comment Spec In Lab Avery Zuniga MD HEMATOLOGY ORDERABLES Performing Organization Address [facility]/ZIP Code Phon [place] [address] Heparin (unfractionated) Level (10/15/2018 3:10 PM EDT) athologist Signature Heparin UFH <0.04 IU/mL [facility] LABORATORY Comment: Guidelines for therapeutic unfractionate d [...] Zuniga MD HEMATOLOGY ORDERABLES Performing Organization Address [facility]/State/ZIP Code [place] [address] (ABNORMAL) POCT Glucose (10/15/2018 3:07 PM EDT) P athologist Signature POC Glucose 252 (H) 65 - 199 [place] mg/dL [facility] LABORATORY Comment: Supplemental ranges: <140 mg/dL before meals <180 mg/dL all other times of the day Specimen Anatomical Collection Method Collection Time Receive d Time (Source) Location / / Volume Laterality Blood specimen 10/15/2018 3:07 PM 019 3:07 (specimen) EDT PM EDT Avery Zuniga MD POINT OF CARE TEST ORDERABLE S Performing Organization Address City/State/[place] [address] CTA Chest for Pulmonary [...] I discussed the result(s) with Dulce Maria Hiram Diallo on 10/15/2018 2:28 PM and verified that she understood these results. Thank you for letting us participate in the care of this patient. For questions regarding this report, please contact e number below. Dulce Maria Diallo [employer]PORATE COMPLIANCE MANAGER IMG CT ORDERABLES (ABNORMAL) POCT Glucose (10/15/2018 11:59 AM EDT) athologist Signature POC Glucose 255 (H) 65 - 199 [facility] mg/dL [facility] LABORATORY Comment: Supplemental ranges: <140 mg/dL before meals <180 mg/dL all other times of the day Specimen Anatomical Collection Method Collection Time Receive d Time (Source) Location / / Volume Laterality Blood specimen 10/15/2018 11:59 9 (specimen) AM EDT 11:59 AM EDT Avery Zuniga MD POINT OF CARE TEST ORDERABLE S Performing Organization Address City/State/[place] [address] (ABNORMAL) Hemoglobin and Hematocrit, blood (10/15/2018 8:45 AM EDT) P athologist Signature Hemoglobin 8.9 (L) 13.7 - [facility] 16.5 gm/dL [facility] LABORATORY Hematocrit 25.9 (L) 40.5 - [facility] 48.5 % [facility] LABORATORY Specimen Anatomical Collection Method Collection Time Receive d Time (Source) Location / / Volume Laterality Blood specimen 10/15/2018 8:45 AM 019 9:02 (specimen) EDT AM EDT Resulting Agency Comment Spec In Lab Avery Zuniga MD HEMATOLOGY ORDERABLES Performing Organization Address City/[facility]/[place] [address] (ABNORMAL) POCT Glucose (10/15/2018 7:58 AM EDT) P athologist Signature POC Glucose 237 (H) 65 - 199 [facility] mg/dL [facility] LABORATORY Comment: Supplemental ranges: <140 mg/dL before meals <180 mg/dL all other times of the day Specimen Anatomical Collection Method Collection Time Receive d Time (Source) Location / / Volume Laterality Blood specimen 10/15/2018 7:58 AM 019 7:58 (specimen) EDT AM EDT Avery Zuniga MD POINT OF CARE TEST ORDERABLE S Performing Organization Address City/[facility]/[place] [address] Duplex Study for DVT, Bilat legs (10/15/2018 5:59 AM EDT) Component Value Ref Test Analysis Performed At Patholo gist Range Method Time Signature VB Text Department: Vascular Surgery Lab VASCUBASE Report Patient: [id number] (PRASHANT NICHOLSON) CPT: 30135 ICD10: R09.89;T07 Referring Physician: DASHAWN SIDHU ?? [...] Number VASCUBASE Potassium (10/15/2018 4:53 AM EDT) P athologist Signature Potassium 4.2 3.5 - 5.0 [facility] mmol/L [facility] LABORATORY Comment: Please note: ??Patients with [...] Organization Address City/State/[place] [address] (ABNORMAL) POCT Glucose (10/15/2018 4:08 AM EDT) P athologist Signature POC Glucose 220 (H) 65 - 199 [facility] mg/dL [facility] LABORATORY Comment: Supplemental ranges: <140 mg/dL before meals <180 mg/dL all other times of the day Specimen Anatomical Collection Method Collection Time Receive d Time (Source) Location / / Volume Laterality Blood specimen 10/15/2018 4:08 AM 019 4:08 (specimen) EDT AM EDT Avery Zuniga MD POINT OF CARE TEST ORDERABLE S Performing Organization Address City/State/[place] [address] (ABNORMAL) Differential, Automated (10/15/2018 12:15 AM EDT) Patholo gist Method Time Signature Neutrophils % 73.7 % [facility] LABORATORY Neutr Abs (ANC) 7.21 (H) 1.70 - [facility] 6.10 [facility] x10(3)/[facility] LABORATORY Lymphocytes % 11.5 % [facility] LABORATORY Lymphocytes Abs 1.1 0.9 - 3.2 [facility] x10(3)/[facility] LABORATORY Monocytes % 13.3 % [facility] LABORATORY Monocyte Abs 1.3 (H) 0.3 - 0.9 [facility] x10(3)/[facility] LABORATORY Eosinophils % 0.1 % [facility] LABORATORY Eosinophils Abs 0.0 0.0 - 0.4 [facility] x10(3)/[facility] LABORATORY Basophils % 0.5 % [facility] LABORATORY Basophils Abs 0.0 0.0 - 0.1 [facility] x10(3)/[facility] LABORATORY Immature Gran % 0.90 % [facility] LABORATORY Comment: Immature granulocytes(IG's)percentage an d absolute count will include metamyelocytes, myelocytes, and promyelo cytes. Blood smears from CBCs yielding IG's will be scanned manually for concor dance. If this scan disagrees with the automated IG or if promyelocytes are not ed, a manual differential will be performed. [place]esta Gran Abs 0.09 (H) 0.00 - 0.04 x10(3)/[facility] LABORATORY Specimen Anatomical Collection Method Collection Time Receive d Time (Source) Location / / Volume Laterality Blood specimen 10/15/2018 12:15 9 (specimen) AM EDT 12:30 AM EDT Resulting Agency Comment Spec In Lab Aniceto Jama MD HEMATOLOGY ORDERABLES Performing Organization Address City/State/[place] [address] (ABNORMAL) Hemogram (10/15/2018 12:15 AM EDT) Analysis Performed At Patho logist Time Signature WBC 9.8 (H) 4.0 - 9.5 [facility] x10(3)/[facility] LABORATORY RBC 3.03 (L) 4.58 - [facility] 5.54 [facility] x10(6)/[facility] LABORATORY Hemoglobin 9.4 (L) 13.7 - [facility] 16.5 gm/dL [facility] LABORATORY Hematocrit 26.8 (L) 40.5 - [facility] 48.5 % [facility] LABORATORY MCV 88.4 82.9 - [facility] 93.1 [facility] LABORATORY MCH 31.0 27.5 - [facility] 32.1 pg [facility] LABORATORY MCHC 35.1 32.0 - [facility] 35.7 gm/dL [facility] LABORATORY Platelets 135 (L) 145 - 357 [facility] x10(3)/[facility] LABORATORY RDWSD 46.5 (H) 36.0 - [facility] 45.0 [facility] LABORATORY RDWCV 14.6 (H) 11.4 - [facility] 13.8 % [facility] LABORATORY MPV 10.9 7.6 - 12.9 [facility] LABORATORY nRBC % Auto 0.0 % [facility] LABORATORY nRBC Abs Auto 0.000 0.000 - [facility] 0.000 [facility] x10(3)/[facility] LABORATORY Specimen Anatomical Collection Method Collection Time Receive d Time (Source) Location / / Volume Laterality Blood specimen 10/15/2018 12:15 9 (specimen) AM EDT 12:30 AM EDT Resulting Agency Comment Spec In Lab Aniceto Jama MD HEMATOLOGY ORDERABLES Performing Organization Address City/State/[place] [address] (ABNORMAL) Basic Metabolic Panel (non-fasting) (10/15/2018 12:15 AM EDT) P athologist Signature Glucose Lvl 218 (H) 65 - 199 [facility] mg/dL [facility] LABORATORY Comment: Diabetes: >=200 mg/dL plus symp toms BUN 15 10 - 20 mg/dL [facility] LABORATORY Creatinine 1.22 0.80 - 1.50 mg/dL [facility] LABORATORY Sodium 135 135 - 145 mmol/L [facility] LABORATORY Potassium Not Perf 3.5 - 5.0 [facility] LABORATORY Comment: Unable to quantitate [...] estions. Chloride 99 98 - 107 mmol/L [facility] LABORATORY CO2 26 22 - 31 mmol/L [facility] LABORATORY Anion Gap 10 5 - 15 mmol/L [facility] LABORATORY Calcium 7.4 (L) 8.5 - 10.5 mg/dL [facility] LABORATORY Estimated GFR 63 >=60 mL/min/1.73 m?? [facility] LABORATORY Comment: The eGFR was calculated using the CKD-EP I equation. As with all creatinine based estimates of kidney function, eGFR values calculated with the CKD-EPI equation are not accurate in patients wi th acute kidney failure, extremes of body mass or the acutely ill. [email or web address] [email or web address] eGFR 73 >=60 mL/min/1.73 m?? [facility] LABORATORY Comment: The eGFR was calculated using the CKD-EP I equation. As with all creatinine based estimates of kidney function, eGFR values calculated with the CKD-EPI equation are not accurate in patients wi th acute kidney failure, extremes of body mass or the acutely ill. [email or web address]MONDnkf Specimen Anatomical Collection Method Collection Time Receive d Time (Source) Location / / Volume Laterality Blood specimen 10/15/2018 12:15 9 (specimen) AM EDT 12:30 AM EDT Resulting Agency Comment Spec In Lab Avery Zuniga MD CHEMISTRY ORDERABLES Performing Organization Address City/[facility] Phon e Number [address] POCT Glucose (10/14/2018 11:58 PM EDT) athologist Signature POC Glucose 193 65 - 199 [facility] mg/dL [facility] LABORATORY Comment: Supplemental ranges: <140 mg/dL before meals <180 mg/dL all other times of the day Specimen Anatomical Collection Method Collection Time Receive d Time (Source) Location / / Volume Laterality Blood specimen 10/14/2018 11:58 9 (specimen) PM EDT 11:58 PM EDT Avery Zuniga MD POINT OF CARE TEST ORDERABLE S Performing Organization Address City/[facility]/ZIP [place] [address] POCT Glucose (10/14/2018 9:35 PM EDT) P athologist Signature POC Glucose 198 65 - 199 [facility] mg/dL [facility] LABORATORY Comment: Supplemental ranges: <140 mg/dL before meals <180 mg/dL all other times of the day Specimen Anatomical Collection Method Collection Time Receive d Time (Source) Location / / Volume Laterality Blood specimen 10/14/2018 9:35 PM 019 9:35 (specimen) EDT PM EDT Avery Zuniga MD POINT OF CARE TEST ORDERABLE S Performing Organization Address City/[facility]/[place] [address] (ABNORMAL) POCT Glucose (10/14/2018 6:39 PM EDT) athologist Signature POC Glucose 264 (H) 65 - 199 [facility] mg/dL [facility] LABORATORY Comment: Supplemental ranges: <140 mg/dL before meals <180 mg/dL all other times of the day Specimen Anatomical Collection Method Collection Time Receive d Time (Source) Location / / Volume Laterality Blood specimen 10/14/2018 6:39 PM 019 6:39 (specimen) EDT PM EDT Avery Zuniga MD POINT OF CARE TEST ORDERABLE S Performing Organization Address City/[facility]/[place] [address] (ABNORMAL) Hemoglobin and Hematocrit, blood (10/14/2018 4:54 PM EDT) athologist Signature Hemoglobin 9.9 (L) 13.7 - [facility] 16.5 gm/dL [facility] LABORATORY Hematocrit 27.8 (L) 40.5 - [facility] 48.5 % [facility] LABORATORY Specimen Anatomical Collection Method Collection Time Receive d Time (Source) Location / / Volume Laterality Blood specimen 10/14/2018 4:54 PM 019 4:54 (specimen) EDT PM EDT Resulting Agency Comment Spec In Lab Avery Zuniga MD HEMATOLOGY ORDERABLES Performing Organization Address City/[facility]/[place] [address] (ABNORMAL) POCT Glucose (10/14/2018 4:37 PM EDT) athologist Signature POC Glucose 255 (H) 65 - 199 [facility] mg/dL [facility] LABORATORY Comment: Supplemental ranges: <140 mg/dL before meals <180 mg/dL all other times of the day Specimen Anatomical Collection Method Collection Time Receive d Time (Source) Location / / Volume Laterality Blood specimen 10/14/2018 4:37 PM 019 4:37 (specimen) EDT PM EDT Avery Zuniga MD POINT OF CARE TEST ORDERABLE S Performing Organization Address City/[facility]/ZIP Code Phon e Number [address] (ABNORMAL) POCT Glucose (10/14/2018 3:40 PM EDT) P athologist Signature POC Glucose 274 (H) 65 - 199 [place] mg/dL [facility] LABORATORY Comment: Supplemental ranges: <140 mg/dL before meals <180 mg/dL all other times of the day Specimen Anatomical Collection Method Collection Time Receive d Time (Source) Location / / Volume Laterality Blood specimen 10/14/2018 3:40 PM 019 3:40 (specimen) EDT PM EDT Avery Zuniga MD POINT OF CARE TEST ORDERABLE S Performing Organization Address City/State/[place] [address] XR Femur 2 views [...] please contact e number below. ? Narrative 10/14/2018 4:09 PM EDT . EXAMINATION: [...] report, please contact th e number below. Avery Zuniga MD IMG DX ORDERABLES (ABNORMAL) POCT Glucose (10/14/2018 1:57 PM EDT) athologist Signature POC Glucose 213 (H) 65 - 199 [facility] mg/dL [facility] LABORATORY Comment: Supplemental ranges: <140 mg/dL before meals <180 mg/dL all other times of the day Specimen Anatomical Collection Method Collection Time Receive d Time (Source) Location / / Volume Laterality Blood specimen 10/14/2018 1:57 PM 019 1:57 (specimen) EDT PM EDT Avery Zuniga MD POINT OF CARE TEST ORDERABLE S Performing Organization Address City/State/[place] [address] XR Fluoro No Rad <1Hr - OR Use (10/14/2018 1:25 PM EDT) Specimen (Source) Anatomical Location Collection Method / Collectio n Time Received Time / Laterality Volume Narrative DH RAD - 10/14/2018 1:26 PM EDT This order does not need a radiologist i nterpretation. ?? Avery Zuniga MD IMG FLUORO ORDERABLES Performing Organization Address City/State/ZIP Code Phon e Number DH RAD RAD [place] (ABNORMAL) POCT Glucose (10/14/2018 12:45 PM EDT) athologist Signature POC Glucose 212 (H) 65 - 199 [facility] mg/dL [facility] LABORATORY Comment: Supplemental ranges: <140 mg/dL before meals <180 mg/dL all other times of the day Specimen Anatomical Collection Method Collection Time Receive d Time (Source) Location / / Volume Laterality Blood specimen 10/14/2018 12:45 9 (specimen) PM EDT 12:45 PM EDT Avery Zuniga MD POINT OF CARE TEST ORDERABLE S Performing Organization Address City/[facility]/[place] [address] (ABNORMAL) POCT Glucose (10/14/2018 11:49 AM EDT) athologist Signature POC Glucose 218 (H) 65 - 199 [facility] mg/dL [facility] LABORATORY Comment: Supplemental ranges: <140 mg/dL before meals <180 mg/dL all other times of the day Specimen Anatomical Collection Method Collection Time Receive d Time (Source) Location / / Volume Laterality Blood specimen 10/14/2018 11:49 9 (specimen) AM EDT 11:49 AM EDT Avery Zuniga MD POINT OF CARE TEST ORDERABLE S Performing Organization Address City/State/[place] [address] (ABNORMAL) POCT Glucose (10/14/2018 11:00 AM EDT) P athologist Signature POC Glucose 252 (H) 65 - 199 [place] mg/dL [facility] LABORATORY Comment: Supplemental ranges: <140 mg/dL before meals <180 mg/dL all other times of the day Specimen Anatomical Collection Method Collection Time Receive d Time (Source) Location / / Volume Laterality Blood specimen 10/14/2018 11:00 9 (specimen) AM EDT 11:00 AM EDT Avery Zuniga MD POINT OF CARE TEST ORDERABLE S Performing Organization Address City/State/Z[place] [address] (ABNORMAL) Hemogram (10/14/2018 8:40 AM EDT) Analysis Performed At Patho logist Time Signature WBC 8.3 4.0 - 9.5 [facility] x10(3)/[facility] LABORATORY RBC 3.75 (L) 4.58 - [facility] 5.54 [facility] x10(6)/[facility] LABORATORY Hemoglobin 11.3 (L) 13.7 - [facility] 16.5 gm/dL [facility] LABORATORY Hematocrit 32.0 (L) 40.5 - [place] 48.5 % [facility] LABORATORY MCV 85.3 82.9 - [place] 93.1 [facility] LABORATORY MCH 30.1 27.5 - [facility] 32.1 pg [facility] LABORATORY MCHC 35.3 32.0 - [place] 35.7 gm/dL [facility] LABORATORY Platelets 115 (L) 145 - 357 [place] [employer] x10(3)/[facility] LABORATORY RDWSD 43.9 36.0 - [place] 45.0 [facility] LABORATORY RDWCV 14.3 (H) 11.4 - [place] 13.8 % [facility] LABORATORY MPV 10.7 7.6 - 12.9 [facility] LABORATORY nRBC % Auto 0.0 % [facility] LABORATORY nRBC Abs Auto 0.000 0.000 - [place] 0.000 [facility] x10(3)/[facility] LABORATORY Specimen Anatomical Collection Method Collection Time Receive d Time (Source) Location / / Volume Laterality Blood specimen 10/14/2018 8:40 AM 019 8:53 (specimen) EDT AM EDT Resulting Agency Comment Spec In Lab Asmita Dixon MD HEMATOLOGY ORDERABLES Performing Organization Address City/[facility]/ZIP Code Phon e Number [address] Lactate, whole blood, send to lab (Leb/CGP) (10/14/2018 4:49 AM EDT) P athologist Signature Lactate WB 2.1 0.5 - 2.2 [facility] mmol/L [facility] LABORATORY Specimen Anatomical Collection Method Collection Time Receive d Time (Source) Location / / Volume Laterality Blood specimen 10/14/2018 4:49 AM 019 4:54 (specimen) EDT AM EDT Resulting Agency Comment Spec In Lab Avery Zuniga MD CHEMISTRY ORDERABLES Performing Organization Address City/[facility]/ZIP Code Phon e Number [address] (ABNORMAL) Differential, Automated (10/14/2018 4:17 AM EDT) Patholo gist Method Time Signature Neutrophils % 80.6 % [facility] LABORATORY Neutr Abs (ANC) 7.96 (H) 1.70 - [facility] 6.10 [facility] x10(3)/[facility] L LABORATORY Lymphocytes % 7.5 % [facility] LABORATORY Lymphocytes Abs 0.7 (L) 0.9 - 3.2 [facility] x10(3)/[facility] LABORATORY Monocytes % 11.1 % [facility] LABORATORY Monocyte Abs 1.1 (H) 0.3 - 0.9 [facility] x10(3)/[facility] LABORATORY Eosinophils % 0.2 % [facility] Eosinophils Abs 0.0 0.0 - 0.4 [facility] x10(3)/[facility] LABORATORY Basophils % 0.3 % [facility] Basophils Abs 0.0 0.0 - 0.1 [facility] x10(3)/[facility] LABORATORY Immature Gran % 0.30 % [facility] Comment: Immature granulocytes(IG's)percentage an d absolute count will include metamyelocytes, myelocytes, and promyelo cytes. Blood smears from CBCs yielding IG's will be scanned manually for concor dance. If this scan disagrees with the automated IG or if promyelocytes are not ed, a manual differential will be performed. Vesta Gran Abs 0.03 0.00 - 0.04 x10(3)/[facility] Specimen Anatomical Collection Method Collection Time Receive d Time (Source) Location / / Volume Laterality Blood specimen 10/14/2018 4:17 AM 019 4:20 (specimen) EDT AM EDT Resulting Agency Comment Spec In Lab Tru Simpson MD HEMATOLOGY ORDERABLES Performing Organization Address City/State/[place] [address] (ABNORMAL) Hemogram (10/14/2018 4:17 AM EDT) Analysis Performed At Patho logist Time Signature WBC 9.9 (H) 4.0 - 9.5 [facility] x10(3)/[facility] LABORATORY RBC 3.86 (L) 4.58 - [facility] 5.54 [facility] x10(6)/[facility] LABORATORY Hemoglobin 11.9 (L) 13.7 - [facility] 16.5 gm/dL [facility] Hematocrit 32.6 (L) 40.5 - [facility] 48.5 % [facility] MCV 84.5 82.9 - [facility] 93.1 [facility] LABORATORY MCH 30.8 27.5 - [facility] 32.1 pg [facility] MCHC 36.5 (H) 32.0 - [facility] 35.7 gm/dL [facility] Platelets 125 (L) 145 - 357 [facility] x10(3)/[facility] LABORATORY RDWSD 43.3 36.0 - [facility] 45.0 [facility] LABORATORY RDWCV 14.0 (H) 11.4 - [facility] 13.8 % [facility] MPV 10.3 7.6 - 12.9 [facility] LABORATORY nRBC % Auto 0.0 % [facility] nRBC Abs Auto 0.000 0.000 - [facility] 0.000 [facility] x10(3)/[facility] LABORATORY Specimen Anatomical Collection Method Collection Time Receive d Time (Source) Location / / Volume Laterality Blood specimen 10/14/2018 4:17 AM 019 4:20 (specimen) EDT AM EDT Resulting Agency Comment Spec In Lab Tru Simpson MD HEMATOLOGY ORDERABLES Performing Organization Address City/State/[place] [address] (ABNORMAL) Basic Metabolic Panel (non-fasting) (10/14/2018 4:17 AM EDT) P athologist Signature Glucose Lvl 247 (H) 65 - 199 [facility] mg/dL [facility] Comment: Diabetes: >=200 mg/dL plus symp toms BUN 17 10 - 20 mg/dL [facility] Creatinine 0.98 0.80 - 1.50 mg/dL [facility] Sodium 138 135 - 145 mmol/L [facility] Potassium 4.1 3.5 - 5.0 mmol/L [facility] Comment: Please note: ??Patients with WBC >100,00 0 may have falsely elevated Potassium levels. ??For accurate Potassium quantif ication in these patients send serum separator tube (gold top) for subsequent determinations. ??Contact the Clinical Chemistry Laboratory if there are any qu estions. Chloride 101 98 - 107 mmol/L [facility] CO2 25 22 - 31 mmol/L [facility] Anion Gap 12 5 - 15 mmol/L [facility] Calcium 8.0 (L) 8.5 - 10.5 mg/dL [facility] Comment: delta result rechecked-KLA Estimated GFR 82 >=60 mL/min/1.73 m?? [facility] Comment: The eGFR was calculated using the CKD-EP I equation. As with all creatinine based estimates of kidney function, eGFR values calculated with the CKD-EPI equation are not accurate in patients wi th acute kidney failure, extremes of body mass or the acutely ill. [email or web address] eGFR 95 >=60 mL/min/1.73 m?? [facility] Comment: The eGFR was calculated using the CKD-EP I equation. As with all creatinine based estimates of kidney function, eGFR values calculated with the CKD-EPI equation are not accurate in patients wi th acute kidney failure, extremes of body mass or the acutely ill. [email or web address] Specimen Anatomical Collection Method Collection Time Receive d Time (Source) Location / / Volume Laterality Blood specimen 10/14/2018 4:17 AM 019 4:20 (specimen) EDT AM EDT Resulting Agency Comment Spec In Lab Avery Zuniga MD CHEMISTRY ORDERABLES Performing Organization Address City/State/[facility] [place] [address] SCAN DOC: IMPLANTABLE DEVICES (10/14/2018 12:00 AM EDT) Narrative 10/14/2018 12:00 AM EDT This result has an attachment that is no t available. Ordered by an unspecified provider. Scanning Provider MEDIA MGR SCAN EXT ORDR/RSLT (ABNORMAL) Hemogram (10/13/2018 10:41 PM EDT) Analysis Performed At Patho logist Time Signature WBC 13.3 (H) 4.0 - 9.5 [facility] x10(3)/[facility] LABORATORY RBC 4.29 (L) 4.58 - [facility] 5.54 [facility] x10(6)/[facility] LABORATORY Hemoglobin 13.0 (L) 13.7 - [facility] 16.5 gm/dL [facility] Hematocrit 36.8 (L) 40.5 - [facility] 48.5 % [facility] MCV 85.8 82.9 - [facility] 93.1 fL [facility] MCH 30.3 27.5 - [facility] 32.1 pg [facility] MCHC 35.3 32.0 - [facility] [place] 35.7 gm/dL [facility] Platelets 138 (L) 145 - 357 [facility] x10(3)/[facility] LABORATORY RDWSD 43.3 36.0 - [facility] [place] 45.0 [facility] RDWCV 14.2 (H) 11.4 - [facility] 13.8 % [facility] MPV 10.4 7.6 - 12.9 [facility] LABORATORY nRBC % Auto 0.0 % [facility] [place] [facility] nRBC Abs Auto 0.000 0.000 - [facility] [place] 0.000 [facility] x10(3)/[facility] LABORATORY Specimen Anatomical Collection Method Collection Time Receive d Time (Source) Location / / Volume Laterality Blood specimen 10/13/2018 10:41 9 (specimen) PM EDT 10:46 PM EDT Resulting Agency Comment Spec In Lab Avery Zuniga MD HEMATOLOGY ORDERABLES Performing Organization Address City/State/[place] [address] XR Femur 2 views [...] number below. ? Electronically signed by: Genevieve DEL REAL [facility] ([phone]), at 10/13/2018 8:42 PM Narrative 10/13/2018 8:42 PM EDT EXAMINATION: XR [...] e number below. Electronically signed by: Genevieve DEL REAL [facility] ([phone]), at 10/13/2018 8:42 PM Elliot Marcos MD IMG DX ORDERABLES XR [...] number below. ? Electronically signed by: Genevieve DEL REAL [facility] ([phone]), at 10/13/2018 8:39 PM Narrative 10/13/2018 8:39 PM EDT EXAMINATION: XR [...] e number below. Electronically signed by: Genevieve DEL REAL [facility] ([phone]), at 10/13/2018 8:39 PM Elliot Marcos MD IMG DX ORDERABLES (ABNORMAL) Lactate, whole blood, send to lab (Leb/CGP) (10/13/2018 7:20 PM EDT) P athologist Signature Lactate WB 3.9 (H) 0.5 - 2.2 [facility] mmol/L [facility] Specimen Anatomical Collection Method Collection Time Receive d Time (Source) Location / / Volume Laterality Blood specimen 10/13/2018 7:20 PM 019 7:25 (specimen) EDT PM EDT Resulting Agency Comment Spec In Lab Asmita Dixon MD CHEMISTRY ORDERABLES Performing Organization Address City/State/ZIP Code Phon e Number [address] IR Arterial Intervention (10/13/2018 5:29 [...] catheter was exchang ed for a 5 Honduran angled catheter and the right profunda femoris [...] below. ? Electronically signed by: Genevieve Suarez [facility] ([phone]), at 10/13/2018 3:50 PM Narrative 10/13/2018 3:50 PM EDT EXAMINATION: XR [...] number below. Electronically signed by: Genevieve Suarez [facility] ([phone]), at 10/13/2018 3:50 PM Asmita Dixon MD IMG DX ORDERABLES XR [...] below. ? Electronically signed by: Genevieve Suarez [facility] ([phone]), at 10/13/2018 3:52 PM Narrative 10/13/2018 3:52 PM EDT EXAMINATION: XR [...] number below. Electronically signed by: Genevieve Suarez [facility] ([phone]), at 10/13/2018 3:52 PM Asmita Dixon MD IMG DX ORDERABLES XR [...] below. ? Electronically signed by: Genevieve Suarez [facility] ([phone]), at 10/13/2018 3:54 PM Narrative 10/13/2018 3:54 PM EDT EXAMINATION: XR [...] number below. Electronically signed by: Genevieve Suarez [facility] ([phone]), at 10/13/2018 3:54 PM Asmita Dixon MD IMG DX ORDERABLES Prepare thawed plasma (10/13/2018 3:30 PM EDT) athologist Signature Dispensed? Yes [facility] Specimen Anatomical Collection Method Collection Time Receive d Time (Source) Location / / Volume Laterality Blood specimen 10/13/2018 3:30 PM 019 3:26 (specimen) EDT PM EDT Asmita Dixon MD BLOOD BANK ORDERABLES Performing Organization Address City/[facility]/ZIP [place] [address] Prepare RBC (10/13/2018 3:10 PM EDT) P athologist Signature Dispensed? Yes [facility] Specimen Anatomical Collection Method Collection Time Receive d Time (Source) Location / / Volume Laterality Blood specimen 10/13/2018 3:10 PM 019 3:10 (specimen) EDT PM EDT Avery Zuniga MD BLOOD BANK ORDERABLES Performing Organization Address [facility]/[place]IP [place] [address] (ABNORMAL) Urinalysis Microscopic Exam (10/13/2018 2:38 PM EDT) P athologist Signature RBC UA 7 (H) 0 - 3 /HPF [facility] WBC UA 2 0 - 3 /HPF [facility] Squam Epith UA <1 <=4 /HPF [facility] Specimen Anatomical Collection Method Collection Time Receive d Time (Source) Location / / Volume Laterality First stream 10/13/2018 2:38 PM 9 2:56 urine sample EDT PM EDT (specimen) Resulting Agency Comment Spec In Lab Asmita Dixon MD URINE ORDERABLES Performing Organization Address City/[facility]/ZIP [facility] [place] [address] (ABNORMAL) Rapid Drug Screen w/o Confirmation, Urine (10/13/2018 2:38 PM EDT) [facility] Time Signature U Barbiturates None None LUCILA Screen Detected Detected [facility] Comment: The barbiturate screen detects [...] U Benzodiazepines Screen None Detected None Detected [facility] Comment: The benzodiazepines screen detects benzo [...] U Cocaine Screen None Detected None Detected [facility] Comment: The cocaine metabolites screen detects b enzoylecgonine (Cocaine Metabolite) at concentrations >150 ng/mL. A ? Presumptive Positive? result indicates that the screening result was positive but has not yet been confirmed by a highly-specific method. As with any screen, occasional false positive re sults from cross-reacting substances may occur. Not for Medico-Legal Purposes. U Methadone Metabolites None Detected None Detected [facility] LABORATORY Comment: The methadone metabolite screen detects EDDP (major methadone metabolite) at concentrations >100 ng/mL. A ? Presumptive Positive? result indicates that the screening result was positive but has not yet been confirmed by a highly-specific method. As with any screen, occasional false positive re sults from cross-reacting substances may occur. Not for Medico-Legal Purposes. U Opiate Screen None Detected None Detected [facility] Comment: The opiates screen detects opiates at co ncentrations >300 ng/mL. Please note that oxycodone, oxymorphone, fentanyl, tramadol, and other synthetic opioids are not detected by [facility] opiate screen. A ? Presumptive Positive? result indicates that the screening result was positive but has not yet been confirmed by a highly-specific method. As with any screen, occasional false positive re sults from cross-reacting substances may occur. Not for Medico-Legal Purposes. U Cannabinoid Screen None Detected None Detected Miranda WILDER [facility] Comment: The marijuana metabolites screen detects the THC metabolite (52-qhj-6-carboxy-delta 9-THC) at concen trations >20 ng/mL. A ? Presumptive Positive? result indicates that the screening result was positive but has not yet been confirmed by a highly-specific method. As with any screen, occasional false positive re sults from cross-reacting substances may occur. Not for Medico-Legal Purposes. U Oxycodone Screen None Detected None Detected [facility] Comment: The oxycodone screen detects oxycodone a nd oxymorphone at concentrations >100 ng/mL. A ? Presumptive Positive? result indicates that the screening result was positive but has not yet been confirmed by a highly-specific method. As with any screen, occasional false positive re sults from cross-reacting substances may occur. Not for Medico-Legal Purposes. U Buprenorphine Screen None Detected None Detected [facility] Comment: The buprenorphine screen detects bupreno rphine at concentrations >5 ng/mL. A ? Presumptive Positive? result indicates that the screening result was positive but has not yet been confirmed by a highly-specific method. As with any screen, occasional false positive re sults from cross-reacting substances may occur. Not for Medico-Legal Purposes. U Fentanyl Screen Presumptive Pos (A) None Detected [facility] Comment: The fentanyl screen detects fentanyl at concentrations >2 ng/mL. A ? Presumptive Positive? result indicates that the screening result was positive but has not yet been confirmed by a highly-specific method. As with any screen, occasional false positive re sults from cross-reacting substances may occur. Not for Medico-Legal Purposes. U Tricyclics Screen None Detected None Detected [facility] Comment: The tricyclics screen detects tricyclic [...] U Ethanol Screen None Detected None Detected [facility] Comment: This urine ethanol assay detect s ethanol at concentrations >/= 100 mg/L. U Amphetamines Screen None Detected None Detected [facility] Comment: The amphetamine screen detects d-ampheta mine and d-methamphetamine at concentrations >300 ng/mL. A ? Presumptive Positive? result indicates that the screening result was positive but has not yet been confirmed by a highly-specific method. As with any screen, occasional false positive re sults from cross-reacting substances may occur. Not for Medico-Legal Purposes. U Adulterants Screen None Detected None Detected Miranda WILDER [facility] Comment: No adulteration or dilution [...] Organization Address City/State/[place] [address] (ABNORMAL) Urinalysis with reflex Culture (10/13/2018 2:38 PM EDT) [facility] Method Time Signature Glucose UA Negative Negative [facility] mg/dL [facility] Protein UA Negative Negative [facility] mg/dL [facility] Bilirubin UA Negative Negative [facility] mg/dL [facility] Comment: Clinical correlation required for positi ve Urine Bilirubin results as false positive may occur with some drugs and d rug related products. If a false positive is suspected a serum total bili garcia should be considered if clinically indicated. Urobilinogen UA Normal Normal mg/dL [facility] pH UA 5.0 5.0 - 8.0 [facility] Blood UA Moderate (A) Negative mg/dL [facility] Ketones UA Negative Negative mg/dL [facility] Nitrite UA Negative Negative [facility] Leukocytes UA Negative Negative [facility] LABORATORY Appearance UA Clear Clear [facility] Spec [place] UA 1.018 1.002 - 1.030 [facility] Color UA Yellow Yellow [facility] Culture Reflexed No [facility] Specimen Anatomical Collection Method Collection Time Receive d Time (Source) Location / / Volume Laterality First stream 10/13/2018 2:38 PM 9 2:56 urine sample EDT PM EDT (specimen) Resulting Agency Comment Spec In Lab Asmita Dixon MD URINE ORDERABLES Performing Organization Address City/[facility]/ZIP Code Phon e Number [address] Rapid Drug Screen, Urine (WANDY Request) (10/13/2018 2:38 PM EDT) [facility] Method Time Signature WANDY Conf No [facility] LABORATORY WANDY Requested See Comment [facility] Comment: Refer to Rapid Drug Screen w/o Confirmation, Urine for results. Specimen Anatomical Collection Method Collection Time Receive d Time (Source) Location / / Volume Laterality Urine specimen 10/13/2018 2:38 PM 019 2:56 (specimen) EDT PM EDT Resulting Agency Comment Spec In Lab Asmita Dixon MD URINE ORDERABLES Performing Organization Address City/[facility]/ZIP [place] [address] Lumbar Spine Reconstruction [...] contact e number below. ? Narrative 10/13/2018 4:42 PM EDT EXAMINATION: CT [...] e number below. ? Electronically signed by: ELLIOTT Healy [facility] ([phone]), at 10/13/2018 4:42 PM Narrative 10/13/2018 4:42 [...] I Dr. Carter discussed the result(s) wit h Dr. Dixon on 10/13/2018 3:04 PM and verified that (s)he understood these res ults. I have personally reviewed the image(s) and the residents interpretation and agree with the findings, IVETTE CARTER at 10/13/2018 3:10 PM Thank you for letting us participate in the care of this patient. For questions regarding this report, please contact e number below. ? Electronically signed by: Genevieve DEL REAL [facility] ([phone]), at 10/13/2018 3:10 PM Narrative 10/13/2018 3:10 PM EDT EXAMINATION: CT [...] I Dr. Carter discussed the result(s) vanessa h Dr. Dixon on 10/13/2018 3:04 PM and verified that (s)he understood these res ults. I have personally reviewed the image(s) and the residents interpretation and agree with the findings, IVETTE CARTER at 10/13/2018 3:10 PM Thank you for letting us participate in the care of this patient. For questions regarding this report, please contact e number below. Electronically signed by: Genevieve DEL REAL [facility] ([phone]), at 10/13/2018 3:10 PM Asmita Dixon MD IMG CT ORDERABLES CT Head & Cervical Spine [...] e number below. ? Electronically signed by: ELLIOTT Healy [facility] ([phone]), at 10/13/2018 2:26 PM Narrative 10/13/2018 2:26 PM EDT EXAMINATION: CT [...] contact e number below. Electronically signed by: ELLIOTT Healy [facility] ([phone]), at 10/13/2018 2:26 PM Asmita Dixon MD [...] report, please contact th e number below. ? Electronically signed by: Genevieve Addison [facility] ([phone]), at 10/13/2018 1:48 PM Narrative 10/13/2018 1:48 PM EDT EXAMINATION: XR [...] For questions regarding this report, please contact [facility] number below. Asmita Dixon MD IMG DX [...] below. ? Electronically signed by: Genevieve Addison [facility] ([phone]), at 10/13/2018 1:48 PM Narrative 10/13/2018 1:48 PM EDT EXAMINATION: XR [...] e number below. Electronically signed by: Genevieve Addison [facility] ([phone]), at 10/13/2018 1:48 PM Asmita Dixon MD IMG DX ORDERABLES Prepare RBC (10/13/2018 1:26 PM EDT) P athologist Signature Dispensed? Yes [facility] Specimen Anatomical Collection Method Collection Time Receive d Time (Source) Location / / Volume Laterality Blood specimen No Charge / 10/13/2018 1:26 PM 019 2:08 (specimen) Unknown EDT PM EDT Resulting Agency Comment Spec In Lab Avery Zuniga MD BLOOD BANK ORDERABLES Performing Organization Address City/[facility]/ZIP Code Phon e Number [address] Prepare thawed plasma (10/13/2018 1:26 PM EDT) P athologist Signature Dispensed? Yes [facility] Specimen Anatomical Collection Method Collection Time Receive d Time (Source) Location / / Volume Laterality Blood specimen No Charge / 10/13/2018 1:26 PM 019 2:07 (specimen) Unknown EDT PM EDT Resulting Agency Comment Spec In Lab Avery Zuniga MD BLOOD BANK ORDERABLES Performing Organization Address [facility]/ZIP Code Phon e Number [address] Scan, Peripheral Blood (10/13/2018 1:25 PM EDT) P athologist Signature Plat Estimate Normal [facility] RBC Morphology Normal [facility] Specimen Anatomical Collection Method Collection Time Receive d Time (Source) Location / / Volume Laterality Blood specimen 10/13/2018 1:25 PM 019 1:34 (specimen) EDT PM EDT Resulting Agency Comment Spec In Lab Avery Zuniga MD HEMATOLOGY ORDERABLES Performing Organization Address City/[facility]/ZIP [place] [address] ABORH Recheck Status (10/13/2018 1:25 PM EDT) Patholo gist Method Time Signature ABORH Recheck Order Placed [facility] LABORATORY ABORH Type Complete [facility] LABORATORY Specimen Anatomical Collection Method Collection Time Receive d Time (Source) Location / / Volume Laterality Blood specimen 10/13/2018 1:25 PM 019 1:41 (specimen) EDT PM EDT Resulting Agency Comment Spec In Lab Avery Zuniga MD BLOOD BANK ORDERABLES Performing Organization Address City/[facility]/[place] [address] Gold Tube HOLD (10/13/2018 1:25 PM EDT) P athologist Signature Gold Hold Sample in [facility]. [facility] Specimen Anatomical Collection Method Collection Time Receive d Time (Source) Location / / Volume Laterality Blood specimen Venous Draw / 10/13/2018 1:25 PM 2018 1:35 (specimen) Unknown EDT PM EDT Avery Zuniga MD CHEMISTRY ORDERABLES Performing Organization Address City/[facility]/ZIP [place] [address] Antibody screen (10/13/2018 1:25 PM EDT) [facility] Method Time Signature Ab Screen Negative [facility] LABORATORY Expires at 10/16/2018 [facility] [id number] on: [facility] Specimen Anatomical Collection Method Collection Time Receive d Time (Source) Location / / Volume Laterality Blood specimen 10/13/2018 1:25 PM 019 1:41 (specimen) EDT PM EDT Resulting Agency Comment Spec In Lab Avery Zuniga MD BLOOD BANK ORDERABLES Performing Organization Address City/[facility]/[place]IP [place] [address] ABO/Rh Typing (10/13/2018 1:25 PM EDT) P athologist Signature ABORh Type O Neg [facility] Specimen Anatomical Collection Method Collection Time Receive d Time (Source) Location / / Volume Laterality Blood specimen 10/13/2018 1:25 PM 019 1:41 (specimen) EDT PM EDT Resulting Agency Comment Spec In Lab Avery Zuniga MD BLOOD BANK ORDERABLES Performing Organization Address City/[facility]/[place] [address] (ABNORMAL) Differential, Automated (10/13/2018 1:25 PM EDT) Patholo gist Method Time Signature Neutrophils % 87.2 % [facility] Neutr Abs (ANC) 24.43 (H) 1.70 - [facility] 6.10 [facility] x10(3)/[facility] LABORATORY Lymphocytes % 6.1 % [facility] Lymphocytes Abs 1.7 0.9 - 3.2 [facility] x10(3)/[facility] LABORATORY Monocytes % 5.0 % [facility] Monocyte Abs 1.4 (H) 0.3 - 0.9 [facility] x10(3)/[facility] LABORATORY Eosinophils % 0.2 % [facility] Eosinophils Abs 0.1 0.0 - 0.4 [facility] x10(3)/[facility] LABORATORY Basophils % 0.5 % [facility] Basophils Abs 0.1 0.0 - 0.1 [facility] x10(3)/[facility] LABORATORY Immature Gran % 1.00 % [facility] Comment: Immature granulocytes(IG's)percentage an d absolute count will include metamyelocytes, myelocytes, and promyelo cytes. Blood smears from CBCs yielding IG's will be scanned manually for concor dance. If this scan disagrees with the automated IG or if promyelocytes are not ed, a manual differential will be performed. Vesta Gran Abs 0.27 (H) 0.00 - 0.04 x10(3)/[facility] LABORATORY Specimen Anatomical Collection Method Collection Time Receive d Time (Source) Location / / Volume Laterality Blood specimen 10/13/2018 1:25 PM 019 1:34 (specimen) EDT PM EDT Resulting Agency Comment Spec In Lab Avery Zuniga MD HEMATOLOGY ORDERABLES Performing Organization Address City/State/[place] [address] (ABNORMAL) Hemogram (10/13/2018 1:25 PM EDT) Analysis Performed At [facility] logist Time Signature WBC 28.0 (H) 4.0 - 9.5 [facility] x10(3)/[facility] LABORATORY RBC 4.88 4.58 - [facility] 5.54 [facility] x10(6)/[facility] LABORATORY Hemoglobin 14.7 13.7 - [facility] 16.5 gm/dL [facility] Hematocrit 41.7 40.5 - [facility] 48.5 % [facility] MCV 85.5 82.9 - [facility] 93.1 [facility] LABORATORY MCH 30.1 27.5 - [facility] 32.1 pg [facility] MCHC 35.3 32.0 - [facility] 35.7 gm/dL [facility] Platelets 234 145 - 357 [facility] x10(3)/[facility] LABORATORY RDWSD 42.4 36.0 - [facility] 45.0 [facility] LABORATORY RDWCV 13.8 11.4 - [facility] 13.8 % [facility] MPV 10.5 7.6 - 12.9 [facility] LABORATORY nRBC % Auto 0.0 % [facility] nRBC Abs Auto 0.000 0.000 - [facility] 0.000 [facility] x10(3)/[facility] LABORATORY Specimen Anatomical Collection Method Collection Time Receive d Time (Source) Location / / Volume Laterality Blood specimen 10/13/2018 1:25 PM 019 1:34 (specimen) EDT PM EDT Resulting Agency Comment Spec In Lab Avery Zuniga MD HEMATOLOGY ORDERABLES Performing Organization Address City/State/[place] [address] Ethanol Level (10/13/2018 1:25 PM EDT) athologist Signature Ethanol Lvl <100 <=99 mg/L [facility] Comment: Greater than 800 mg/L (0.08%) [...] Dixon MD CHEMISTRY ORDERABLES Performing Organization Address City/[facility]/[place]IP [place] [address] APTT (10/13/2018 1:25 PM EDT) P athologist Signature PTT 28 25 - 37 sec [facility] Comment: The PTT is NOT appropriate [...] Dixon MD HEMATOLOGY ORDERABLES Performing Organization Address [facility] [place] [address] (ABNORMAL) Prothrombin Time (10/13/2018 1:25 PM EDT) P athologist Signature PT 12.7 (H) 9.4 - 12.5 [facility] LABORATORY INR 1.1 [facility] Comment: An INR <2.0 indicates adequate [...] Dixon MD HEMATOLOGY ORDERABLES Performing Organization Address City/[facility]/ZIP Code Phon e Number [place] [phone] (ABNORMAL) Basic Metabolic Panel (non-fasting) (10/13/2018 1:25 PM EDT) P athologist Signature Glucose Lvl 299 (H) 65 - 199 [facility] mg/dL [facility] Comment: Diabetes: >=200 mg/dL plus symp toms BUN 20 10 - 20 mg/dL [facility] Creatinine 1.22 0.80 - 1.50 mg/dL [facility] Sodium 139 135 - 145 mmol/L [facility] Potassium 4.3 3.5 - 5.0 mmol/L [facility] Comment: Please note: ??Patients with WBC >100,00 0 may have falsely elevated Potassium levels. ??For accurate Potassium quantif ication in these patients send serum separator tube (gold top) for subsequent determinations. ??Contact the Clinical Chemistry Laboratory if there are any qu estions. Chloride 99 98 - 107 mmol/L [facility] CO2 24 22 - 31 mmol/L [facility] Anion Gap 16 (H) 5 - 15 mmol/L [facility] Calcium 8.9 8.5 - 10.5 mg/dL [facility] Estimated GFR 63 >=60 mL/min/1.73 m?? [facility] Comment: The eGFR was calculated using the CKD-EP I equation. As with all creatinine based estimates of kidney function, eGFR values calculated with the CKD-EPI equation are not accurate in patients wi th acute kidney failure, extremes of body mass or the acutely ill. [email or web address]MONDnkf eGFR 73 >=60 mL/min/1.73 m?? [facility] Comment: The eGFR was calculated using the CKD-EP I equation. As with all creatinine based estimates of kidney function, eGFR values calculated with the CKD-EPI equation are not accurate in patients wi th acute kidney failure, extremes of body mass or the acutely ill. [email or web address] Specimen Anatomical Collection Method Collection Time Receive d Time (Source) Location / / Volume Laterality Blood specimen 10/13/2018 1:25 PM 019 1:34 (specimen) EDT PM EDT Resulting Agency Comment Spec In Lab Asmita Dixon MD CHEMISTRY ORDERABLES Performing Organization Address City/State/[place] [address] (ABNORMAL) BLOOD GAS 2 VENOUS (10/13/2018 1:22 PM EDT) [facility] Method Time Signature pH Tip 7.24 7.32 - [facility] (Critical) 7.42 [facility] pCO2 Tip 61 41 - 51 [facility] (Critical) mmHg [facility] pO2 Tip 14 (L) 25 - 40 [facility] mmHg [facility] HCO3 Tip 25.5 mmol/L [facility] BE Tip -2.0 mmol/L [facility] Hgb Blood Gas 14.8 13.7 - [facility] 16.5 gm/dL [facility] O2HB Tip 16.6 % [facility] COHB Tip 0.7 % [facility] Comment: Nonsmokers: 0.5-1.5% COHB Smokers: Variable, but usually less than 10% Toxic: 20-30% COHB Lethal: Greater than 60% COHB METHB Tip 2.1 (H) <=1.5 % [facility] Na Whole Blood 138 135 - 145 mmol/L [facility] K Whole Blood 4.3 3.5 - 5.0 mmol/L [facility] Comment: Please note: Patients with WBC >100,000 may have falsely elevated Potassium levels. Contact the Clinical Chemistry L aboratory if there are any questions. ICa Whole Blood 1.17 1.15 - 1.33 mmol/L [facility] Comment: Note: ??Total bilirubin higher than 20 m g/dL may lead to falsely low ionized calcium. CL Whole Blood 99 98 - 107 mmol/L [facility] Gluc Whole Bld 302 (H) 65 - 199 mg/dL [facility] Comment: Diabetes: >=200 mg/dL plus symp toms Lactate WB 3.9 (H) 0.5 - 2.2 mmol/L [facility] BGas Source Venous [facility] Specimen Anatomical Collection Method Collection Time Receive d Time (Source) Location / / Volume Laterality Blood specimen 10/13/2018 1:22 PM 019 1:22 (specimen) EDT PM EDT Md Emergency Dept CHEMISTRY ORDERABLES Performing Organization Address City/State/Z[place] [address] documented in this encounter Visit Diagnoses Not on filedocumented in this encounter Admitting Diagnoses Diagnosis Femur fracture, right Closed fracture of unspecified part of f emur documented in this encounter Administered Medications Inactive Administered Medications - up to 3 most recent administrations Medication Order MAR Action Action Date Dose Rate Site acetaminophen (TYLENOL) tablet Given 10/20/2018 12:32 PM EDT 1,0 00 mg 1,000 mg 1,000 mg, Oral, EVERY 6 [...] be given concomitantly for constipation., Routine dextrose 50% intravenous solution 25-50 mL 25-50 [...] active insulin., Routine glucagon (human recombinant) injection S olR 1 mg 1 mg, Intramuscular, EVERY 1 HOUR PRN, S tarting on 10/16/18 at 1038, Until 10/20/18 at 1629, Low blood sugar, For BG [...] grams., Routine HYDROmorphone (DILAUDID) tablet 4 mg Given 10/20/2018 [...] Subcutaneous, 2 TIMES DAILY, First dose on 10/18/18 at 1245, Until Discontinued, STAT Given 10/19/2018 [...] Given 10/19/2018 5:50 PM EDT 6 Units melatonin tablet 6 mg Given 10/19/2018 8:32 PM EDT 6 mg 6 mg, Oral, NIGHTLY, First dose on 10/16/18 at 2100, Until Discontinued, Routine Given 10/18/2018 8:29 PM EDT 6 mg Given 10/17/2018 9:12 PM EDT 6 mg polyethylene glycol (MIRALAX) packet 17 g 17 g, Oral, 2 TIMES DAILY, First dose (a fter last modification) on Thu10/17/18 at 2100, Until Discontinued, Administer if no [...] be give n concomitantly for constipation., Routine rivaroxaban (XARELTO) tablet 15 mg Given [...] Oral, 2 TIMES DAILY, First dose on Thu10/14/18 at 0900, Until Discontinued, Routine Given 10/19/2018 [...] Given 10/19/2018 8:08 AM EDT 5 mLs documented in this encounter Active and Recently [...] RN) 0850 (Given - Provider: Petra Galdamez RN)203 (Given - Provider: Chandu Hendrickson, MISA) 0831 (Given - Provider: Trinh Hermosillo, MISA) 15 Units, Subcutaneous, 2 TIMES DAILY, F irst dose on Thu10/18/18 at 1245, Until Discontinued, STAT insulin lispro (HumaLOG) VIAL injection 0-12 Units(Alida martinsd Group 1) 1711 (Given - Provider: Petra [...] Chandu Hendrickson RN)0831 (Given - Provider: Trinh Hermosillo, MISA)1233 (Given - Provider: Trinh Hermosillo, MISA) 0-12 Units, Subcutaneous, EVERY 4 HOURS SCHEDULED, First dose on Thu10/18/18 at 1600, Until Discontinued, Correction Factor 10 BG 140 - 160 Give 2 units BG 161 - 180 Give 4 units BG 181 - 200 Give 6 uni 1615 (Given - Provider: Petra Galdamez RN - Comment: bg 166)2032 (Given - Provider: Chandu Hendrickson, MISA) ts BG 201 - 220 Give 8 [...] Galdamez RN) 0831 (Given - Provider: Trinh Hermosillo, MISA)1301 (Given - Provider: Trinh Hermosillo RN) 0-8 Units, Subcutaneous, 3 TIMES DAILY W ITH MEALS, First dose on 10/18/18 at 1700, Until Discontinued, MEAL ASSOCIATED Give 1 unit for every 10 grams carbohydrate. Hold if not eating, Routine insulin lispro (HumaLOG) VIAL injection 3-12 Units (CA NCELED) 0337 (Given - Provider: Jabier Sheets RN - Comment: [id number])0826 (Given - Provider: Petra Galdamez, MISA - Comment: bg 184)1223 (Given - Provider: [...] 6 mg 2028 (Given - Provider: Jabier smart RN) 2031 (Given - Provider: Chandu Hendrickson, MISA) 6 mg, Oral, NIGHTLY, First dose on Sat at 2100, Until Discontinued, Routine polyethylene glycol (MIRALAX) packet 17 g 0900 (Not Gi tip - Provider: Petra Galdamez RN - Reason: Patient/family refused)2099 (Not Given - Provider: Jabier Sheets RN - Reason: Patient/family refused) 0900 (Not Given - Provider: Petra Galdamez RN - Reason: Patient/family refused)2099 (Not Given - Provider: Chandu Hendrickson RN [...] extended release t ablet 20 mEq (COMPLETED) 1710 (Given - Provider: Petra Galdamez RN) 20 mEq, Oral, ONCE, 1 dose, 10/18/18 at 1430, 20 mEq tablet may be dissolved in water for administration, Routine rivaroxaban (XARELTO) tablet 15 mg 121 (Given - Provider: Petra Galdamez, MISA)2032 (Given - Provider: Chandu Hendrickson, MISA) 0826 (Given - Provider: Trinh Hermosillo RN) 15 mg, Oral, 2 TIMES DAILY, First dose o n Thu10/19/18 at 1200, Until Discontinued, Routine senna-docusate (PERICOLACE) 8.6-50 mg per tablet 2 tab let 08 (Given - Provider: Petra Galdamez RN)2028 (Given - Provider: Jabier Sheets, MISA) 08 (Given - Provider: Petra Galdamez RN)2032 (Given - Provider: Chandu Hendrickson RN) 08 (Given - Provider: Trinh Hermosillo RN) 2 tablet, Oral, 2 TIMES DAILY, First dos e on Thu10/14/18 at 0900, Until Discontinued, Routine sodium chloride 0.9 % flush 5 mL 0828 (Given - Provide r: Petra Galdamez RN)2100 (Not Given - Provider: Jabier Sheets RN - Reason: See comment - Comment: iv infusing) 08 (Given - Provider: Petra Galdamez RN)2039 (Given [...] Galdamez RN)1226 (Rate/Dose Verify - Provider: Petra C Murnik, RN)1750 (New Bag - Provider: Petra Galdamez RN) 0528 (New Bag - Provider: Jabier smart RN)1502 (Stopped - Provider: Petra Galdamez RN) 0-5,000 Units/hr (0-100 mL/hr), Intraven ous, at 0-100 mL/hr, CONTINUOUS, Starting Thu10/15/18 at 1515, Until Tu10/19/18 at 1504, Begin infusion at 1,750 units [...] 1038, Until 10/20/18 at 1629, Low blood sugar, For BG [...] mg 0825 (Given - Pro vider: Petra Galdamez RN) 0156 (Given - Provider: Jabier yañez RN)0807 (Given - Provider: Petra Galdamez RN)1211 (Given - Provider: Petra Galdamez, RN)1750 (Given - Provider: Petra Galdamez, RN) 0826 (Given - Provider: Trinh Hermosillo, MISA)1232 (Given - Provider: Trinh Hermosillo RN) 4 mg, Oral, EVERY 4 HOURS PRN, [...] First dose on Thu10/18/18 at 1600, Until Discontinued
Correction Factor 10 [...] 1038, Until Thu10/20/18 at 1629, Low blood sugar
For BG [...] 1038, Until Thu10/20/18 at 1629, Low blood sugar
For BG [...] 1038, Until Thu10/20/18 at 1629, Low blood sugar
For BG [...]
Routine documented in this encounter Care Teams Oven Tender Bagels Relationship Specialty Start Date End Date Audra Singletary APRN PCP - General 03/14/[address] [place] [id number] documented as of this encounter
--- OUTSIDE RECORDS SUMMARY | 2022-02-27 12:54 | XMS_ITS | Encounter Summary ---
:1955 Author Organization [facility] [place] [address] Care Team Providers Name Role Phone Constantine Miller MD Primary Care Provider Reason for Visit Reason Comments Follow Up Fracture DOI 12.28.11.. L gastroc. te ar Encounter Details Date Type Department Care Team Description 09/03/2011 Follow-Up [facility]opaed[facility], [facility] LAZAR Rupture of medial head [facility] [place] [address] Social History Tobacco Use Types Packs/Day Years Used Date Never Smoker Smokeless Tobacco: Never Used Alcohol Use Standard Drinks/Week Comments No 0 (1 standard drink = 0.6 oz pure alcoho l) Sex Assigned at Date Recorded Not on file documented as of this encounter Progress Notes Orlando Solorio MD - 09/03/2011 1:20 PM EST ATTENDING PHYSICIAN: Matt Pulido M.D. INJURY: Left medial head gastroc tear. DATE OF INJURY: 07/23/2011 INTERVAL HISTORY: Mr. Diaz is a 56-year-old gentleman, who returns to the orthopedic clinic now approximately six weeks, status post left medial head gastroc tear. He notes that since he was last seen his pain has improved dramatically. He is no longer needing pain medicines. He has been able to return to work performing the physical components of his job. 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 He denies fevers or chills. PHYSICAL EXAMINATION: Mr. Diaz is a well-appearing 56-year-old gentleman, in no acute distress. Examination of the left lower extremity demonstrates no scars, abrasions or lacerations. He has 2+ swelling into the level of the knee. He is nontender to palpation on the medial head of the gastroc. He is mildly tender to palpation in the body of the gastroc. He is able to stand on his heels and toes. He has normal sensation in the tibial, superficial, peroneal, and deep peroneal nerve distributions. Knee range of motion from full extension to 130 degrees of flexion. Ankle range of motion from 15 degrees of dorsiflexion to 30 degrees of plantarflexion. ASSESSMENT AND PLAN: Joe is a 56-year-old gentleman now, six plus weeks, status post left medial head of gastroc tear. He has continued to improve. He is cleared for activities as tolerated. Regarding his swelling, he was advised should it become problematic for him that he could consider use of an [id number] compression stocking to help to reduce the edema. He was informed that he could expect to have edema in his left lower extremity for three to four months following his injury. At this point in time, it seems there is no indication for physical therapy. He will followup on as needed basis. All questions were answered in the clinic today. Dr. Pulido was present for all pertinent aspects of the history and physical exam. Attending Addendum: The preceding portion of this note was written by Dr. Guzman. I personally saw and evaluated the patient as well and I agree with the assessment and plan documented above. Matt Pulido M.D., M.S. documented in this encounter Plan of Treatment Upcoming Encounters Date Type Specialty Care Team Description 04/15/2022 Office Visit Dermatology July German MD [facility] DERMATOLOGY [place], [place] [address] (Wo rk) documented as of this encounter Visit Diagnoses Diagnosis Rupture of medial head of gastrocnemius Sprain and strain of other specified sit es of knee and leg documented in this encounter Care Teams Digital Marketing Program Manager Relationship Specialty Start Date End Date Constantine Miller MD PCP - General 06/18/10 08/25/13 documented as of this encounter
--- OUTSIDE RECORDS SUMMARY | 2022-02-27 12:54 | XMS_ITS | Encounter Summary ---
:1955 Author Organization [facility] [place] [address] Care Team Providers Name Role Phone Audra Singletary APRN Primary Care Provider Reason for Referral Diagnostic Test (Emergency) - Closed Specialty Diagnoses / Procedures Referred By Contact Refer red To Contact Radiology Diagnoses Rupture of medial head of right gastrocnemius, initial encounter Alex Madison MD [facility] Interventionl Rad Procedures IR Arterial Intervention [facility] [place] [address] [place] [address] Referral ID Status Reason Start Date Expiration Date Visits V isits Requested Authorized [id number] Closed Specialty 10/13/2018 10/13/2019 1 1 Service Requested Encounter Details Date Type Department Care Team Description 10/13/2018 Orders Only Radiology [place] [facility] [place] Madison, Rupture of medial head [facility] [place], [place] [address] [address] [address] encounter [phone] RADIOLOGY DEPT [place], [place] [address] Social History Tobacco Use Types [...] Office Visit Dermatology July German MD [facility] DERMATOLOGY [place], [place] [address] (Wo rk) documented as of this encounter Results IR Arterial Intervention (10/13/2018 5:29 PM EDT) [...] catheter was exchang ed for a 5 Tanzanian angled catheter and the right profunda femoris [...] with post embolization ar teriography as Mr. Diaz had marked discomfort with arteriography and no [...] ? Chester Morales MD IMG IR ORDERABLES documented in this encounter Visit Diagnoses Diagnosis Rupture of medial head of right gastrocn emius, initial encounter documented in this encounter Care Teams Painter Supervisor Relationship Specialty Start Date End Date Audra Singletary APRN PCP - General 03/14/[address] [place] [id number] documented as of this encounter
--- OUTSIDE RECORDS SUMMARY | 2022-02-27 12:54 | XMS_ITS | Encounter Summary ---
:1955 [place] [address] Care Team Providers Name Role Phone Constantine Miller MD Primary Care Provider Reason for Visit Reason Comments Achillies Tendonitis left gastroc tear 07/23/2011 Encounter Details Date Type Department Care Team Description 08/13/2011 Follow-Up Orthopaedics at [facility], DR LAZAR Rupture of medial head [facility] [place] [address] (Primary Dx) [phone] Social History Tobacco Use Types Packs/Day Years Used Date Never Smoker Smokeless Tobacco: Never Used Sex Assigned at Date Recorded Not on file documented as of this encounter Progress Notes Matt Tsang MD - 08/16/2011 10:21 AM EST The patient was seen and examined by me on 13 August. He is improving and I concur with the outlined treatment plan. JDH Frantz Montano MD - 08/13/2011 4:32 PM EST STAFF ATTENDING PHYSICIAN: Matt Tsang M.D. INJURY: Left medial head gastrocs tear. DATE OF INJURY: 07/23/2011 INTERVAL HISTORY: Mr. Diaz is a 56-year-old male who is three weeks status post the above injury. He has been treated conservatively with crutches and toe-touch weightbearing in addition to ice and ibuprofen. He has been taking ibuprofen 800 mg once a day. He has used oxycodone one at night to help with sleep. The patient states that his pain is much improved. His function is beginning to improve. He denies any fevers or chills, or other symptoms in review of system. PHYSICAL EXAMINATION: In general, the patient is a well-appearing 56-year-old male who is alert and oriented in no acute distress. Examination of his left lower extremity demonstrates that he is neurovascularly intact with palpable DP pulse and normal motor and sensory testing. He has excellent strength with ankle plantarflexion. With ankle dorsiflexion, he is limited by some pain in the medial calf. He feels the stretching sensation. I am able to dorsiflex him about 5 to 10 degrees shy of neutral. He does have some tenderness to palpation over the medial gastrocs muscle belly. The swelling and ecchymosis as compared to last time is much improved. ASSESSMENT: Doing well three weeks status post tear of medial head of left gastrocs. PLAN: The patient will continue conservative measures. We have told him now to advance to weightbearing as tolerated gradually with the crutches. Once he is able to tolerate full weightbearing, he can discontinue the crutches. We have asked him to begin working on range of motion at the ankle to regain his dorsiflexion. He will follow up in two to three weeks for a clinical check. At that time, if he is having difficulty regaining his range of motion, we would consider physical therapy. documented in this encounter Plan of Treatment Upcoming Encounters Date Type Specialty Care Team Description 04/15/2022 Office Visit Dermatology July German MD [facility] [address] [place], [place] [address] (Wo rk) documented as of this encounter Visit Diagnoses Diagnosis Rupture of medial head of gastrocnemius - Primary Sprain and strain of other specified sit es of knee and leg documented in this encounter Care Teams Blood Bank Specialist Relationship Specialty Start Date End Date Constantine Miller MD PCP - General 06/18/10 08/25/13 documented as of this encounter
--- OUTSIDE RECORDS SUMMARY | 2022-02-27 12:54 | XMS_ITS | Encounter Summary ---
:1955 Author Organization [facility] Address [facility] [place] [address] Care Team Providers Name Role Phone Gemini Audra Tavares APRN Primary Care Provider Encounter Details Date Type Department Care Team Description 07/08/2008 Orders Only Radiology and Cardiology Apd Conversion, Results Results Provider, [address] [place] [phone] Social History Tobacco Use Types Packs/Day Years Used Date Never Assessed Sex Assigned at Date Recorded Not on file documented as of this encounter Plan of Treatment Upcoming Encounters Date Type Specialty Care Team Description 04/15/2022 Office Visit Dermatology July German MD [facility] DERMATOLOGY [place], [place] [address] (Wo rk) documented as of this encounter Procedures Procedure Name Priority Date/Time Associated Comments Diagnosis CRP, ACUTE Routine 07/08/2008 4:30 PM Results f or this INFLAMMATION EST procedure are i n the results section. documented in this encounter Results (ABNORMAL) CRP, acute inflammation (07/08/2008 4:30 PM EST) P athologist Signature CRP (mg/dL) 2.0 (ExtH) 0 - 0.9 FELIPA DAVIS DAY mg/dL CONVERSION Specimen (Source) Anatomical Collection Method Collection Time Re ceived Time Location / / Volume Laterality 07/08/2008 4:30 PM EST Results Provider Apd Conversion CHEMISTRY ORDERABLE S Performing Organization Address City/State/ZIP Code Phon e Number FELIPA DAVIS DAY CONVERSION [address] [place], [place] [address] FELIPA DAV[place] CONVERSION documented in this encounter Visit Diagnoses Not on filedocumented in this encounter Care Teams Coiler Relationship Specialty Start Date End Date Audra Singletary, MARY LOU PCP - General 03/14/[address] [place] [address] documented as of this encounter
--- OUTSIDE RECORDS SUMMARY | 2022-02-27 12:54 | XMS_ITS | Encounter Summary ---
:1955 Author Organization [place] [address] Care Team Providers Name Role Phone Audra Singletary APRN Primary Care Provider Encounter Details Date Type Department Care Team Description 05/04/2018 Hospital [place] [address] Social History Tobacco Use Types Packs/Day Years Used Date Never Smoker Smokeless Tobacco: Never Used Alcohol Use Standard Drinks/Week Comments No 0 (1 standard drink = 0.6 oz pure alcoho l) Sex Assigned at Date Recorded Not on file documented as of this encounter Medications at Time of Discharge Medication Sig Dispensed Refills Start Date End Date hydrochlorothiazide TAKE 1 TABLET BY 3 08/19/2015 (HYDRODIURIL) 25 mg Tablet MOUTH EVERY DAY documented as of this encounter Plan of Treatment Upcoming Encounters Date Type Specialty Care Team Description 04/15/2022 Office Visit Dermatology July German MD [facility] ER DR [address] [place], [place] [address] (Wo rk) documented as of this encounter Procedures Procedure Name Priority Date/Time Associated Diagnosis Comme nts SURGICAL PATHOLOGY Routine 05/04/2018 7:50 AM Res ults for this REPORT EDT procedure are i n the results section. documented in this encounter Results Surgical Pathology Report (05/04/2018 7:50 AM EDT) Component Value Ref Test Analysis Performed At [facility] gist Range Method Time Signature Surgical [id number] ? Location: [facility] Pathology DARNELL Report The signing pathologist has (i) examined the relevant preparation(s) for the [facility]ORIAL specimen(s) and (ii) rendered or confirmed the diagnosis(es) . HOSPITAL LABORATORY . ?Surgic al Pathology DIAGNOSIS A - Ascending colon, cecum, ?? polypectomy: Tubular adenomas. B - Transverse colon at 60 cm, ?? polypectomy: Tubular adenomas. C - Rectum, ??biopsy: Colonic mucosa within normal limits. CR-PX Electronically signed by: ??Torito BOATENG, Meryl Gandhi Verified: ??05/06/2018 ?Pathologist Performed at: ??-[facility] Dept. of Pathology, [place], [place] CLINICAL INFORMATION Specimen Submitted: A - Cecum polyp x 2 and ascending B - Transverse polyp x 2 @ 60 cm C - Rectal bx 's Clinical History and Diagnosis: Six-year colonoscopy-C/O blood in stool; polyps, rule out pr octitis Referring Identifier: ??[id number] SPECIMEN PROCESSING A - Labeled/Fixative: Ascending polyp and cecum polyps x2, f ormalin. Quantity/Size: Four, ranging from 0.2-0.5 cm. Tissue Description: Soft to firm, garcia-pink polyps. Sections/Processing: Submitted en toto ??in 1 cassette labeled A1. B - Labeled/Fixative: Transverse polyp x2 at 60 cm, formalin . Quantity/Size: Two, 0.5 and 0.6 cm. Tissue Description: Soft, ta n-white tissue and a larger, firmer, garcia-pink polyp. Sections/Processing: Submitted en toto ??in 1 cassette as follows: ? B1 : ??Smaller tissue is submitted intact, and the larger polyp is inked at the base and bisected. C - Labeled/Fixative: Rectal biopsies, formalin. Quantity/Size: Three, ranging from 0.2-0.5 cm. Tissue Description: Soft, garcia-pink tissues. Sections/Processing: Submitted en toto ??in 1 cassette labeled C1. ??apb Specimen (Source) Anatomical Collection Method Collection Time Re ceived Time Location / / Volume Laterality 05/04/2018 7:50 AM EDT Ced Robb MD PATHOLOGY/CYTOLOGY ORDERABLE S Performing Organization Address City/State/[place] [address] documented in this encounter Visit Diagnoses Not on filedocumented in this encounter Care Teams Insole Doubler Relationship Specialty Start Date End Date Audra Singletary APRN PCP - General 03/14/[address] [place] [id number] documented as of this encounter
--- OUTSIDE RECORDS SUMMARY | 2022-02-27 12:54 | XMS_ITS | Encounter Summary ---
:1955 Author Organization [facility] Address [facility] [address] Care Team Providers Name Role Phone Gemini Audra Tavares APRN Primary Care Provider Encounter Details Date Type Department Care Team Description 07/08/2008 Orders Only Radiology and Cardiology Apd Conversion, Results Results Provider, [address] [place] [phone] Social History Tobacco Use Types Packs/Day Years Used Date Never Assessed Sex Assigned at Date Recorded Not on file documented as of this encounter Plan of Treatment Upcoming Encounters Date Type Specialty Care Team Description 04/15/2022 Office Visit Dermatology July German MD [facility] DERMATOLOGY [place], [place] [address] (Wo rk) documented as of this encounter Procedures Procedure Name Priority Date/Time Associated Diagnosis Comme nts SEDIMENTATION RATE Routine 07/08/2008 4:30 PM Res ults for this EST procedure are i n the results section. documented in this encounter Results (ABNORMAL) Sedimentation rate (07/08/2008 4:30 PM EST) P athologist Signature Sed Rate 2 0 - 20 FELIPA DAVIS DAY (External mm/hr CONVERSION Lab) Specimen (Source) Anatomical Collection Method Collection Time Re ceived Time Location / / Volume Laterality 07/08/2008 4:30 PM EST Results Provider Apd Conversion HEMATOLOGY ORDERABL ES Performing Organization Address City/State/ZIP Code Phon e Number FELIPA DAVIS DAY CONVERSION [address] [place], [place] [address] FELIPA DAV[place] CONVERSION documented in this encounter Visit Diagnoses Not on filedocumented in this encounter Care Teams Logistics Project Manager Relationship Specialty Start Date End Date Audra Singletary APRN PCP - General 03/14/[address] [place] [address] documented as of this encounter
--- OUTSIDE RECORDS SUMMARY | 2022-02-27 12:54 | XMS_ITS | Encounter Summary ---
:1955 Author Organization [facility] [place] [address] Care Team Providers Name Role Phone Audra Singletary APRN Primary Care Provider Reason for Visit Reason Comments Skin Lesion Encounter Details Date Type Department Care Team Description 12/29/2016 Office Visit Dermatology at [facility] Jimena Hdz MD History of melanoma; [facility] Lipoma of right upper extrem ity; [address] JASSO (actinic keratosis) [place] [address] [facility] [phone] RD-DERMATOLOGY [place] [id number] Social History Tobacco Use Types Packs/Day Years Used Date Never Smoker Smokeless Tobacco: Never Used Alcohol Use Standard Drinks/Week Comments No 0 (1 standard drink = 0.6 oz pure alcoho l) Sex Assigned at Date Recorded Not on file documented as of this encounter Progress Notes Keyana Hdz MD - 12/29/2016 2:00 PM EDT DERMATOLOGY ESTABLISHED PATIENT CLINIC NOTE Date of service: 12/29/2016 Prashant Diaz : 1955 Provider: Keyana Hdz MD Prior Skin History ?? 11/1996: thin melanoma excised from the posterior aspect of right arm: Superficial spreading malignant melanoma, Damon's level III, Breslow's depth of invasion 0.73 mm, shave biopsy of right arm. ?? Dermatofibroma ?? Does not wear sunscreen Chief Complaint Patient presents with ??? Skin Lesion HPI Prashant Diaz is a 61 y.o. male.Well established patient to me. He is here for a complete skin examination with a spot on the back that itches all the time. Wears broad brim hat but does not like sunscreen, does not use. Current Outpatient Prescriptions Medication Sig Dispense Refill ??? hydrochlorothiazide (HYDRODIURIL) 25 mg Tablet TAKE 1 TABLET BY MOUTH EVERY DAY 3 No current facility-administered medications for this visit. Social History: , lives in [facility]. Allergies Allergen Reactions ? ? Hay Fever & Allergy Relief [Chlorpheniramine-Phenylpropan] ROS General: feeling well Skin: denies other skin complaints EXAM General: NAD, pleasant, cooperative. Complete skin exam including scalp, face, ears, neck, arms, hands, back, anterior trunk, buttocks, legs, feet. Genitalia not examined. Skin: Significant skin findings: A.0.2-0.3cm scaly irregular pink papule on the left cheek B.Rubbery nodule on the right forearm C.Scar on the right posterior arm ASSESSMENT/PLAN: 1. Actinic Keratosis Procedure Note: Procedure: Destruction of lesion(s) with cryotherapy. Number: 1 Location: as above Discussed procedure and expectations including risks (including risk of hypopigmentation) and benefits. Verbal consent obtained. Frozen with LN2, 15-30 second thaw time, TWICE. There were no complications; the patient tolerated the procedure well. Post-procedure expectations and wound care were reviewed. 2. Lipoma 3. History of Melanoma Sun avoidance, protective clothing and the use of SPF 30 sunscreen is advised.Discussed the importance of sunscreen on his lips. If he should notice a non healing spot or bump onthe lip he should come in soon. Observe closely for skin changes and call if such occurs. 4. RTC 1 yr Note initiated and routed to physician for review and change by: VALERIA RAMESH LPN I, Dr. Keyana Hdz, performed the visit service though my nurse assisted me in scribing the note. I reviewed and edited this note above, a scribed service performed by my nurse. On closure of this noteI agree with the accuracy of the documentation. Keyana Hdz MD Section of Dermatology [facility] documented in this encounter Plan of Treatment Upcoming Encounters Date Type Specialty Care Team Description 04/15/2022 Office Visit Dermatology July German MD [facility] [place]MATOLOG[place], [place] [address] (Wo rk) documented as of this encounter Visit Diagnoses Diagnosis History of melanoma Personal history of malignant melanoma o f skin Lipoma of right upper extremity Lipoma of other specified sites [place] (actinic keratosis) Actinic keratosis documented in this encounter Care Teams Boiler Tender Relationship Specialty Start Date End Date Audra Singletary APRN PCP - General 03/14/[address] [place] [id number] documented as of this encounter
--- OUTSIDE RECORDS SUMMARY | 2022-02-27 12:54 | XMS_ITS | Encounter Summary ---
:1955 Author Organization [facility] Address [facility] [place] [address] Care Team Providers Name Role Phone Audra Singletary APRN Primary Care Provider Reason for Visit Auth/Cert Specialty Diagnoses / Procedures Referred By Contact Refer red To Contact Diagnoses Trauma Procedures AIRO Referral ID Status Reason Start Date Expiration Date Visits Requ ested Visits Authorized [id number] 1 1 Encounter Details Date Type Department Care Team Description 10/13/2018 Hospital Encounter [facility] at [facility] Abdi Ortiz MD [facility] [place] [address] EMERGENCY MEDICINE [phone] [place], [place] [address] (Wo rk) Social History Tobacco [...] German MD [facility] DERMATOLOG[facility] [place] [address] (Wo rk) documented as of this encounter Visit Diagnoses Not on filedocumented in this encounter Care Teams Petroleum Supply Specialist Relationship Specialty Start Date End Date Audra Singletary APRN PCP - General 03/14/[address] [place] [address] documented as of this encounter
--- OUTSIDE RECORDS SUMMARY | 2022-02-27 12:54 | XMS_ITS | Encounter Summary ---
:1955 Author Organization [facility] Address [facility] [place] [address] Care Team Providers Name Role Phone Audra Singletary APRN Primary Care Provider Encounter Details Date Type Department Care Team Description 12/01/2017 Telephone Dermatology at [facility] Keyana Hdz MD [address] [facility] [place] [address] [facility]-DERMATOLOGY [phone] [place], [place] [address] (Wo rk) Social History Tobacco Use Types Packs/Day Years Used Date Never Smoker Smokeless Tobacco: Never Used Alcohol Use Standard Drinks/Week Comments No 0 (1 standard drink = 0.6 oz pure alcoho l) Sex Assigned at Date Recorded Not on file documented as of this encounter Miscellaneous Notes Telephone Encounter - Amee Rascon - 12/01/2017 1:00 PM EDT LM with my direct call back number to schedule annual fse documented in this encounter Plan of Treatment Upcoming Encounters Date Type Specialty Care Team Description 04/15/2022 Office Visit Dermatology July German MD [facility] ER [address] [place], [place] [address] (Wo rk) documented as of this encounter Visit Diagnoses Not on filedocumented in this encounter Care Teams Lab Asst Relationship Specialty Start Date End Date Audra Singletary APRN PCP - General 03/14/[address] [place] [id number] documented as of this encounter
--- OUTSIDE RECORDS SUMMARY | 2022-02-27 12:54 | XMS_ITS | Encounter Summary ---
:1955 [place] [address] Care Team Providers Name Role Phone Audra Singletary APRN Primary Care Provider Reason for Visit Reason Comments Skin Check Encounter Details Date Type Department Care Team Description 12/26/2015 Office Visit Dermatology at [facility] Jimena Hdz MD History of melanoma; [facility] [place] (seborrheic keratosis) [address] [place] [address] [facility] [phone] RD-DERMATOLOGY [place], [place] [address] Social History Tobacco Use Types Packs/Day Years Used Date Never Smoker Smokeless Tobacco: Never Used Alcohol Use Standard Drinks/Week Comments No 0 (1 standard drink = 0.6 oz pure alcoho l) Sex Assigned at Date Recorded Not on file documented as of this encounter Progress Notes Keyana Hdz MD - 12/26/2015 8:29 AM EDT DERMATOLOGY [facility] Prashant Diaz : 1955 Physician: Keyana Hdz MD Date of service: 12/26/2015 Prior Skin History ?? 11/1996: thin melanoma excised from the posterior aspect of right arm: Superficial spreading malignant melanoma, Damon's level III, Breslow's depth of invasion 0.73 mm, shave biopsy of right arm. ?? Dermatofibroma HPI: Mr. Prashant Diaz is a 60 y.o. male.Established patient of [facility].last seen 2 years ago. He was diagnosed with diabetes last fall but has done some weight loss and change in his diet and is now off medication. Here today for a full skin check. He has some areas on his back that his is concerned with. Past Medical History: Patient Active Problem List Diagnosis Code ??? 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 hydrochlorothiazide (HYDRODIURIL) 25 mg Tablet TAKE 1 TABLET BY MOUTH EVERY DAY 3 No current facility-administered medications for this visit. Allergies: Allergies Allergen Reactions ? ? Hay Fever & Allergy Relief [Chlorpheniramine-Phenylpropan] Social History: , lives in [facility]. Review of Systems: - General: Feels well. - Skin: As per HPI; no other skin concerns. Examination - Constitutional: Patient was alert, well-appearing and in no noticeable distress. - Skin: The entire skin surface was examined, including the face, neck, chest, abdomen, back. The arms and legs, including the palms, soles, fingers and between the toes. No lymphadenopathy, including the supraclavicular, cervical, axillary, basins Melanoma excision site scar was examined and palpated. There was no increase in pigmentation or induration at this site. Specific skin findings: 1. Multiple 0.4-1 cm, brown-black papules/plaques with waxy stuck on appearance, scattered, including areas on the right upper back. 2. Well healed scar from melanoma removal Sunburned lower legs, face Plan 1. Seborrheic Keratosis (nonsymptomatic) - Discussed benign nature of lesion and provided reassurance - No treatment necessary at this time - Daily moisturizer can be applied to soften the lesions - Observe skin for change in color, size or character. Call if such occur 2. NER of melanoma. 3. Discussed photoprotection, avoidance of sunburns, skin care recommendations. The nature of sun-induced photo-aging and skin cancers is discussed. Sun avoidance, protective clothing, and the use of 30-SPF sunscreens is advised. Observe closely for skin damage/changes, and call if such occurs.Encouraged to wear a hat, and use sunscreen. RTC in 1 year for full skin check. . Instructed to call for questions/concerns. Keyana Hdz MD I am documenting this encounter acting as the scribe for and in the presence of TICO Donald LPN I performed the above scribed service and agree with the accuracy of the documentation in this encounter, MD Keyana Rebolledo MD Section of Dermatology [facility] documented in this encounter Plan of Treatment Upcoming Encounters Date Type Specialty Care Team Description 04/15/2022 Office Visit Dermatology July German MD [facility] DERMATOLOGY [place] [address] (Wo rk) documented as of this encounter Visit Diagnoses Diagnosis History of melanoma Personal history of malignant melanoma o f skin [place] (seborrheic keratosis) Other seborrheic keratosis documented in this encounter Care Teams [employer] Registrar Relationship Specialty Start Date End Date Audra Singletary APRN PCP - General 03/14/[address] [place] [id number] documented as of this encounter
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
--- OUTSIDE RECORDS SUMMARY | 2022-02-27 12:54 | XMS_ITS | Encounter Summary ---
:1955 Author Organization [facility] [place] [address] Care Team Providers Name Role Phone Constantine Miller MD Primary Care Provider Reason for Visit Reason Comments Left Leg Pain achilles tendon injury L DOI 07/23/11 Encounter Details Date Type Department Care Team Description 07/30/2011 Office Visit Orthopaedics at [facility], DR LAZAR Gastrocnemius muscle tear; [facility] Rupture o [place] medial [place] [address] Social History Tobacco Use Types Packs/Day Years Used Date Never Smoker Smokeless Tobacco: Never Used Sex Assigned at Date Recorded Not on file documented as of this encounter Progress Notes Matt Tsang MD - 08/01/2011 1:04 PM EST The patient was seen and examined by me on 30 July. I concur with the diagnosis and treatment plan. [facility] Orlando Gonzalez MD - 07/30/2011 2:21 PM EST OFFICE NOTE DATE OF VISIT: 07/30/2010 ATTENDING: Matt Tsang M.D. CHIEF COMPLAINT: Right leg pain. HISTORY OF PRESENT ILLNESS: Mr. Diaz is a 56-year-old male seen in consultation of Dr. Constantine Miller for right leg pain. Mr. Diaz notes that back on July 23, he was working on a woodpile when he fell off landing on his knees and elbows. He noted pain immediately thereafter in the left leg. The pain got progressively worse until he eventually decided to be seen in the emergency room. There he was diagnosed with an Achilles tendon rupture and instructed to follow up with orthopedics. On arrival here, he notes the pain is in his calf has been progressively getting worse. He notes increasing swelling in his leg. At this point in time, he has been using crutches and is barely able to place his foot on the ground. The pain is located mostly in the proximal third of the medial aspect of the calf. It is additionally painful behind the knee. He denies pain down around the ankle. He denies numbness or tingling in the leg or the foot. He does note a history of previous proximal fibular fracture. PAST MEDICAL HISTORY: Gout. PAST SURGICAL HISTORY: 1. Gout surgery. 2. ORIF, left ulna. MEDICATIONS: Ibuprofen 800 mg three times a day. ALLERGIES: NONE. SOCIAL HISTORY: Mr. Diaz works in [employer]. He does not smoke or drink alcohol. He is a high school graduate. FAMILY HISTORY: Diabetes and hypertension. REVIEW OF SYSTEMS: The entire 10-point review of systems was negative for those things other than stated in the history of present illness. PHYSICAL EXAMINATION: Mr. Diaz is a 56-year-old well-appearing male in no acute distress. Examination of the left lower extremity demonstrates significant ecchymosis and swelling to the posterior aspect of the knee extending distally to the calf. There is minimal swelling and ecchymosis about the ankle. There is some ecchymosis proximally in the distal thigh. He is tender to palpation intensely in the proximal third on the medial aspect of the calf. He is additionally tender behind the knee. He has no tenderness in the distal thigh or in the distal calf. His Achilles tendon is intact to palpation. He has 5/5 strength in ankle plantar flexion. Painless both active and passive dorsiflexion of the foot. The knee is stable to varus and valgus stress. The patient is unable to tolerate anterior drawer or Ayla. Normal sensation throughout the leg. Foot is warm and well perfused. Negative Montes. IMAGING: AP and lateral of the tibia and fibula demonstrate no acute fractures or dislocations. There is a healed old fracture at the proximal third of the fibula. ASSESSMENT AND PLAN: Mr. Diaz is a 56-year-old gentleman with a left leg tear of the medial head of gastroc. He does not have an Achilles tendon tear. He should continue to treat this symptomatically. This will include ice, rest, and elevation. He can continue to take ibuprofen. I will expect that over the next couple of weeks he pain should lessen. We will see him back in two weeks' time for repeat clinical exam. No x-rays will be necessary at that time. All questions were answered in the clinic today. Dr. Tsang was present for all pertinent aspects of the history and physical exam. documented in this encounter Plan of Treatment Upcoming Encounters Date Type Specialty Care Team Description 04/15/2022 Office Visit Dermatology July German MD [facility] DERMATOLOGY [place], [place] [address] (Wo rk) documented as of this encounter Results XR tibia fibula AP & lateral (07/30/2011 2:03 PM EST) Anatomical Region Laterality Modality N/A Radiographic Imaging Specimen (Source) Anatomical Collection Method Collection Time Re ceived Time Location / / Volume Laterality 07/30/2011 2:03 PM EST Impressions 07/31/2011 10:25 AM EST IMPRESSION: ?? 1. ??Nonspecific diffuse soft tissue swe lling without evidence of acute bony abnormality. Film and interpretation reviewed by the attending Narrative 07/31/2011 10:25 AM EST LEFT TIBIA AND FIBULA: HISTORY: ?? Leg pain. FINDINGS: ??There is diffuse soft tissue swelling. ??There is evidence of a healed proximal fibular shaft fracture. ??No acute bony changes are noted. ?? There is no periosteal reaction. ??There is no fracture. ??Bony alignment is unremarkable. Procedure Note Page Emanuel MD - 07/31/2011Formatt ing of this note might be different from the original. LEFT TIBIA AND FIBULA: HISTORY: Leg pain. FINDINGS: There is diffuse soft tissue s welling. There is evidence of a healed proximal fibular shaft fracture. No acute bony changes are noted. There is no periosteal reaction. There i s no fracture. Bony alignment is unremarkable. IMPRESSION IMPRESSION: 1. Nonspecific diffuse soft tissue swell ing without evidence of acute bony abnormality. Film and interpretation reviewed by the attending Matt Tsang MD IMG DX ORDERABLES documented in this encounter Visit Diagnoses Diagnosis Gastrocnemius muscle tear Sprain and strain of other specified sit es of knee and leg Rupture of medial head of gastrocnemius Sprain and strain of other specified sit es of knee and leg Gastrocnemius muscle tear Sprain and strain of other specified sit es of knee and leg documented in this encounter Care Teams Multicultural Services Librarian Relationship Specialty Start Date End Date Constantine Miller MD PCP - General 06/18/10 08/25/13 documented as of this encounter
--- OUTSIDE RECORDS SUMMARY | 2022-02-27 12:54 | XMS_ITS | Encounter Summary ---
:1955 Author Organization [facility] [place] [address] Care Team Providers Name Role Phone Audra Singletary APRN Primary Care Provider Reason for Visit Reason Comments Follow-up Encounter Details Date Type Department Care Team Description 08/02/2018 Office Visit Dermatology at [facility] Jimena Robles MD Actinic cheilitis; [facility] Neoplasm of uncertain behavi or of skin [address] [place] [address] [facility] [phone] [address]-DERMATOLOGY [place], [place] [address] Social History Tobacco Use Types Packs/Day Years Used Date Never Smoker Smokeless Tobacco: Never Used Alcohol Use Standard Drinks/Week Comments No 0 (1 standard drink = 0.6 oz pure alcoho l) Sex Assigned at Date Recorded Not on file documented as of this encounter Patient Instructions Patient InstructionsClSofia dawkins - 08/02/2018 9:30 AM EST 08/02/2018 Instructions for Prashant Diaz: Treatment and Wound Care Instructions Your treatment today: You have had a shave biopsy of your skin, which is a removal of tissue for examination under a microscope. This wound will heal without stitches. Allow 3-6 weeks for the wound to heal. If bleeding occurs, hold firm pressure against the wound for 15 minutes. If bleeding continues, calls the office or go to your local emergency room. Please allow 1-2 weeks for the biopsy results to return. Your physician or nurse will contact you with the results by phone or letter; follow-up will be discussed at that time. Wound Care Instructions: You will need to keep the dressing placed over the wound dry and intact for 24 hours. Afterwards, perform the following wound care daily: ?? Wash your hands before changing the dressing. ?? Remove the bandage and clean the area with mild soap and water, then gently pat the area dry. ?? Apply a small amount of Vaseline to the area, then cover the wound with a band-aid. Change your dressing daily until the wound is fully healed. ?? A small amount of yellow drainage is part of normal healing. The area might appear as a small depression with redness around the edge of the wound. This is normal. ?? Please contact the office you you notice any of the following signs of infection: increased tenderness, pain, drainage, or redness that becomes hot or hard around the wound. If you have further questions or concerns, please call the office at [phone]. If it is after 5PM, or a holiday or weekend, please call [phone] and ask for the Hospitality Workers on-call. documented in this encounter Progress Notes Keyana Robles MD - 08/02/2018 9:30 AM EST Images from the original note were not included. DERMATOLOGY AT [facility] Dermatology At [address] [address] FOLLOW-UP Date of service: 08/02/2018 Prashant Diaz : 1955 Provider: Keyana Robles MD Preferred name: Prashant Preferred contact method with results: Home Phone- [phone] Message with results on machine okay?: Yes Prior Skin History 11/1996: thin melanoma excised from the posterior aspect of right arm: Superficial spreading malignant melanoma, Damon's level III, Breslow's depth of invasion 0.73 mm, shave biopsy of right arm. Dermatofibroma Chief Complaint: Follow up History of Present Illness Prashant Diaz is a 63 y.o. year old male. Established patient, last seen by me on 02/15/18. Here today to have the Actinic Cheilitis of the lower lip treated as previously discussed. Patient reports nochanges or concerns of this area. He also has a lesion he has noticed on his left hand. He is unsurehow long it has been present, but just noticed it a week or two ago. Medical History Hypertension Allergies Hay fever & allergy relief [chlorpheniramine-phenylpropan] Medications Current Outpatient Medications Medication Sig Dispense Refill ??? hydrochlorothiazide (HYDRODIURIL) 25 mg Tablet TAKE 1 TABLET BY MOUTH EVERY DAY 3 No current facility-administered medications for this visit. 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 Significant skin findings: ?? Two scaly macules with some peeling on the left lower mid-lip. ?? 4mm blue macule on the left forearm. [Figure A] Images Photo taken and charted with patient consent [Figure A] ASSESSMENT/PLAN: Actinic Cheilitis, lower lip ?? Discussed treatment options including LN2 & Efudex. ?? Joint decision to treat with LN2 today. ?? Apply plain Vaseline liberally after treatment. ?? Recommended getting a chapstick/lip balm with SPF & wearing daily. Procedure Note: Procedure: Destruction of lesions with cryotherapy. Number: 2 Location: as above Discussed procedure and expectations including risks (including risk of hypopigmentation) and benefits. Verbal consent obtained. Frozen with LN2, 15-30 second thaw time, TWICE. There were no complications; the patient tolerated the procedure well. Post-procedure expectations and wound care were reviewed. Neoplasm of the Skin DDx: Vascular Macule vs Blue Nevus vs Met, H/o Melanoma Procedure: Skin removal by shave technique Time of Procedure: 9:34 am Location: Left forearm [Figure A] Discussed indications for procedure and expectations including risks and benefits. Verbal consent obtained. Skin prep with alcohol. Local anesthesia with 1% xylocaine, 1/100,000 epinephrine. The lesionwas removed by shave technique to the level of the dermis. Hemostasis obtained (AlCl and/or electrocautery). There were no complications; the pt. tolerated the procedure well. The wound was dressed. Post-procedure expectations, wound care and activity restrictions were reviewed. Follow up: based on pathology results. Otherwise January 2019 for 1 year full skin exam, hx melanoma - or sooner as needed. Note initiated and routed to physician for review and change by: Caroline Finch LPN I, Sofia Barbour, have performed the documentation for this encounter in the presence of and acting as a scribe for KEYANA ROBLES MD. I performed the services which were documented by the scribe, and I agree with the accuracy of the documentation in this encounter. KEYANA ROBLES MD. Keyana Robles MD Section of Dermatology [facility] documented in this encounter Plan of Treatment Upcoming Encounters Date Type Specialty Care Team Description 04/15/2022 Office Visit Dermatology July German MD [facility] DERMATOLOGY [place] [address] (Wo rk) documented as of this encounter Procedures Procedure Name Priority Date/Time Associated Diagnosis Comme nts SURGICAL PATHOLOGY Routine 08/02/2018 9:49 AM Res ults for this REPORT EST procedure are i n the results section. SPECIMEN TO Routine 08/02/2018 9:49 AM Neoplasm of Results f or this PATHOLOGY EST uncertain behavior procedure are in of skin the results section. documented in this encounter Results Surgical Pathology Report (08/02/2018 9:49 AM EST) Component Value Ref Test Analysis Performed At [facility] Method Time Signature Surgical [id number] ? Location: [facility] GARCIA Jeff DARNELL Report The signing pathologist has (i) examined the relevant preparation(s) for the [facility] specimen(s) and (ii) rendered or confirmed the diagnosis(es) . [facility] . ?Surgic al Pathology DIAGNOSIS Skin, left forearm, shave biopsy: - Foreign material, perivascular hemosiderin deposition and dermal calcifications ??(see discussion) Electronically signed by: ??Ricardo BOATENG, Keon Cohen Verified: ??08/04/2018 ?Dermatopathologist Performed at: ??-[facility] [place], [place], [place] DISCUSSION Refractile material is prese nt in association with dermal calcifications. The sample is negative for melanoma (r outine stained levels and Sox10/MelanA-stained slides are evaluated). CLINICAL INFORMATION Specimen Submitted: A - Skin, left forearm, shave (1) Clinical History and Diagnosis: History of melanoma. 4 mm bl ue macule. Vascular macule vs blue nevus vs metastasize melanoma SPECIMEN PROCESSING A - Labeled/Fixative: Left forearm, formalin. Quantity/Size: ??Single, 0.9 x 0.7 x 0.1 cm. Tissue Description: Shave of garcia skin with a 0.4 cm red papule. Also received is a 0.2 x 0.2 x 0.1 cm soft, re d tissue fragment. Upon sectioning of the papule is 0.3 x 0.3 x 0.2 cm ovoid, hard (q uestion foreign body), subdermal body is expressed. Sections/Processing: Stave Jointer sections in 2 cassettes as follows: ? A1: ??Shave, inked and trisected (hard fragment remov ed) ? A2: ??Soft tissue fragment ??sns Specimen (Source) Anatomical Collection Method Collection Time Re ceived Time Location / / Volume Laterality 08/02/2018 9:49 AM EST Keyana Robles MD PATHOLOGY/CYTOLOGY ORDERABLE S Performing Organization Address City/State/[place] [address] Specimen to Pathology (08/02/2018 9:49 AM EST) Specimen Anatomical Collection Method Collection Time Receive d Time (Source) Location / / Volume Laterality AP Specimen 08/02/2018 9:49 AM 9 EST 12:31 PM EST Narrative [facility] - 08/02/2018 12:31 PM EST Specimen requisition ordered. ??Separate Pathology report to follow Resulting Agency Comment Spec In Lab Keyana Robles MD PATHOLOGY/CYTOLOGY ORDERABLE S Performing Organization Address City/State/[place] [address] documented in this encounter Visit Diagnoses Diagnosis Actinic cheilitis Acute dermatitis due to solar radiation Neoplasm of uncertain behavior of skin documented in this encounter Care Teams Group Home Manager Relationship Specialty Start Date End Date Audra Singletary APRN PCP - General 03/14/[address] [place] [id number] documented as of this encounter
--- OUTSIDE RECORDS SUMMARY | 2022-02-27 12:54 | XMS_ITS | Encounter Summary ---
:1955 Author Organization [facility] Address [facility] [place] [address] Care Team Providers Name Role Phone Constantine Miller MD Primary Care Provider Encounter Details Date Type Department Care Team Description 07/30/2011 Hospital Encounter XRay at [facility] Gastrocnemius muscle [address] [place] [address] [place] [address] Social History Tobacco Use Types Packs/Day Years Used Date Never Smoker Smokeless Tobacco: Never Used Sex Assigned at Date Recorded Not on file documented as of this encounter Medications at Time of Discharge Medication Sig Dispensed Refills Start Date End Date ibuprofen (MOTRIN) 600 mg Take 1 tablet by 50 tablet 3 06/2709/03/2011 tablet mouth every 6 hours as needed for Pain. colchicine (COLCRYS) 0.6 0.6M Tablet(s), 0 09/03/2011 mg tablet PO, Twice daily allopurinol (ZYLOPRIM) 300MG = 1 Tablet(s), 0 03/200809/03/2011 300 mg tablet PO, Once daily documented as of this encounter Plan of Treatment Upcoming Encounters Date Type Specialty Care Team Description 04/15/2022 Office Visit Dermatology July German MD [facility] [address] [place], [place] [address] (Wo rk) documented as of this encounter Procedures Procedure Name Priority Date/Time Associated Diagnosis Comme nts XR TIBIA FIBULA AP Routine 07/30/2011 2:03 PM Gastrocnemius mu scle Results for this AND LATERAL EST tear procedure are i n the results section. documented in this encounter Results XR tibia fibula AP [...] leg documented in this encounter Care Teams Senior Business Broker Relationship Specialty Start Date End Date Constantine Miller MD PCP - General 06/18/10 08/25/13 documented as of this encounter
[2022-02-27] MEDS: Tetracaine 0.5% 4 ML BTL (13:00)
[2022-02-27] MEDS: Fluorescein STRIPS 100/BOX 1 MG (13:00)
== END 2022-02-27 13:07 | disposition home or self-care (01) ==
PROVIDERS: Emergency Provider Physician Assistant; PCP General Practice
DX: S05.02XA Injury of conjunctiva and corneal abrasion without foreign body, left eye, initial encounter (principal); W26.8XXA Contact with other sharp object(s), not elsewhere classified, initial encounter
CPT/HCPCS: 99283; 99284